=== PATIENT | male | born 1965 | race Caucasian/White ===

== ENCOUNTER 2020-05-08 06:37 | Outpatient (REF) | payer BC, SELFPAY ==
[2020-05-08 07:47] LABS: Cholesterol 140 mg/dL; HDL Cholesterol 34 mg/dL; LDL Cholesterol Calculated 80 mg/dl; Triglycerides 132 mg/dL
[2020-05-11 12:17] LABS: Testosterone, Total 630 ng/dL (250-1100)
== END 2020-05-08 06:38 | disposition home or self-care (01) ==
LOC: HO.LAB 06:37
PROVIDERS: Absent Provider Nurse Practitioner Family; PCP Nurse Practitioner Family; Visit Provider Urology
DX: Z12.5 Encounter for screening for malignant neoplasm of prostate (principal); N52.1 Erectile dysfunction due to diseases classified elsewhere; E29.1 Testicular hypofunction; Z80.42 Family history of malignant neoplasm of prostate
CPT/HCPCS: 36415; 80061; 84153; 84403

== ENCOUNTER → 2020-05-24 14:29 | Outpatient (BNVA) | payer BC, SELFPAY | PROVIDERS: PCP Nurse Practitioner Family; Visit Provider Urology ==

== ENCOUNTER → 2020-10-02 13:18 | Outpatient (BNVA) | payer BC, SELFPAY | PROVIDERS: PCP Nurse Practitioner Family; Referring Provider Nurse Practitioner Family; Visit Provider Internal Medicine Cardiovascular Disease ==

== ENCOUNTER → 2020-10-10 07:31 | Outpatient (REF) | payer BC, SELFPAY ==
--- NOTE | 2020-10-10 07:41 | CA_ITS ---
Transthoracic Echocardiogram Patient (Last, First, Middle): Misha Brasher, Gender: Male Date of : 1965 Age: 55 Procedure Date: 10/10/2020 Procedure Type: Transthoracic Echocardiogram Location: OP Height: 190.5 cm Weight: 121.56 kg BSA: 2.49 m2 Heart Rate: bpm BP: 122 / 80 mmHg Pricing Strategist: Referring MD: Emanuel Barfield MD Symptoms: R00.2 - Palpitations Study Quality: Good ECG Rhythm: Sinus Conclusions: - The left ventricular systolic function is normal. The visually estimated ejection fraction is between 60-65%. - No obvious valvular pathology seen on this study. Findings Left Ventricle Normal left ventricular cavity size. There is mildly increased left ventricular wall thickness. The left ventricular systolic function is normal. The visually estimated ejection fraction is between 60-65%. There is no evidence of regional wall motion abnormalities. Diastolic function is normal for age. Right Ventricle Normal right ventricular cavity size. There is low normal right ventricular systolic function. TAPSE 1.88cm. Atria Both atria are normal in size. Aortic Valve There is a normal trileaflet aortic valve. There is no aortic valve stenosis. There is no aortic valve regurgitation. Mitral Valve The mitral valve appears normal. There is no mitral valve regurgitation. There is no mitral valve stenosis. Pulmonic Valve The pulmonic valve was not well visualized. Tricuspid Valve Normal tricuspid valve structure. There is trace tricuspid valve regurgitation. The pulmonary artery systolic pressure is normal. Great Vessels The aortic annulus, sinuses of valsalva, and asc aorta are normal in size. Venous The inferior vena cava is normal in size and collapses greater than 50% with inspiration. Pericardium/Pleural There is no evidence of pericardial effusion. Prior Study Comparison No prior study available for comparison. Recommendations, Care & Conclusions No obvious valvular pathology seen on this study. Measurements 2D Linear Measurements RVIDd: 3.34 RVIDd Index: 1.34 IVSd: 0.96 0.6-0.9/0.6-1.0 cm LVIDd: 5.76 3.9-5.3/4.2-5.9 cm LVIDd Index: 2.31 2.4-3.2/2.2-3.1 cm/m2 LVIDs: 3.36 2.0-3.6 cm LVPWd: 1.19 0.7-1.1 cm Ao Root: 3.10 2.1-3.5 cm LA Diam: 4.10 2.7-3.8/3.0-4.0 cm LAIDs Index: 1.65 1.5-2.3 cm/m2 LV Mass: 316.35 67-162/88-224 g LV Mass Index: 127.05 43-95/49-115 g/m2 LVOT Diam: 2.50 3.0+(-)1.3 cm 2D Systolic Function EF 4C: 61.70 >55% EF 2C: 50.80 >55% EF BiP: 57.20 >55% Mitral Valve MV Pk E: 0.64 MV PK A: 0.58 MV Decel Time: 224.00 E/A: 1.10 E'Lateral: 8.81 E'Medial: 7.72 E/E' Med: 8.30 E/E' Lat: 7.20 Aortic Valve AoV Pk Cain: 1.29 AoV Mn Cain: 1.02 AoV VTI: 0.26 AoV Pk Grad: 7.00 Aov Mn Grad: 4.00 NISREEN Cont.VTI: 4.93 LVOT LVOT Pk Cain: 1.17 LVOT Mn Cain: 0.86 LVOT VTI: 0.26 LVOT Pk Grad: 5.00 LVOT Mn Grad: 3.00 LVOT Diam: 2.50 LVOT Area: 4.91 Diastolic Function MV Pk E: 0.64 MV Pk A: 0.58 E/A: 1.10 E'Medial: 7.72 E/E' Med: 8.30 E' Laterial: 8.81 E/E' Lat: 7.20 Right Ventricle TAPSE (mm): 19.00 TVS' Cain: 6.50 Tricuspid Valve TR Pk Cain: 1.91 TR Pk Grad: 15.00 Great Vessels Aorta Ao Root-2D: 3.10 2.0-3.7 cm Ao Asc: 3.30 2.1-3.4 cm Ao Arch: 3.10 Updated in Other Vendor System with Status of Final Amando Grey MD electronically signed on 10/10/2020 4:12:02 PM with status of Final
--- NOTE | 2020-10-10 07:41 | HM_ITS ---
Total monitoring time 14 days. Underlying rhythm is sinus. Minimum heart rate 52/Min. Maximum 136/Min. Average 75/Min. About 4.7% of the time rate more than 100/Min. No atrial fibrillation or flutter. No AV blocks or pauses. Rare premature ventricular contractions at a burden of less than 0.01%. Rare supraventricular ectopy with a burden of 0.01%. No patient events. MTDD
== END ==
LOC: HO.CARD 07:31
PROVIDERS: Visit Provider Internal Medicine Cardiovascular Disease
DX: R00.2 Palpitations (principal)
CPT/HCPCS: 93246; 93306

== ENCOUNTER 2020-10-22 07:18 | Outpatient (REF) | payer BC, SELFPAY ==
[2020-10-22 09:01] LABS: MANUAL DIFF FLAG NO
[2020-10-22 09:08] LABS: Basophils Percent Auto 0.7 % (0-2); Eosinophils Absolute Auto 0.2 X10*3/uL (0.0-0.4); Eosinophils Percent Auto 5.4 % (0-4); Hematocrit 52.6 % (42-52); Hemoglobin 17.5 g/dl (14.0-18.0); Imm Gran Abs Auto 0.01 X10*3/uL (0.00-0.03); Imm Gran Pct Auto 0.2 % (0.0-0.4); Lymphocytes Absolute Auto 0.8 X10*3/uL (1.2-4.9); Lymphocytes Percent Auto 18.6 % (20-40); Mean Corpuscular HGB Conc 33.3 g/dl (31.0-36.0); Mean Corpuscular Hemoglobin 30.9 pg (27.0-33.0); Mean Corpuscular Volume 92.9 fL (80-98); Mean Platelet Volume 9.8 fL (9.4-12.4); Monocytes Absolute Auto 0.6 X10*3/uL (0.1-1.2); Neutrophils Absolute Auto 2.6 X10*3/uL (2.0-8.3); Neutrophils Percent Auto 61.1 % (45-73); Platelet Count 168 X10*3/uL (160-400); Red Blood Count 5.66 X10*6/uL (4.60-5.80); Red Cell Distribution Width 12.2 % (11.0-16.0); White Blood Count 4.3 X10*3/uL (4.8-10.8)
[2020-10-22 09:24] LABS: Alanine Aminotransferase 38 U/L (0-40); Albumin Level 4.2 g/dL (3.5-5.0); Alkaline Phosphatase 66 U/L (39-117); Anion Gap 14 (12-20); Aspartate Amino Transferase 24 U/L (5-37); Bilirubin Total 0.6 mg/dL (0.0-1.0); Blood Urea Nitrogen 21 mg/dL (9-16); Carbon Dioxide 27 mmol/L (22-29); Chloride 106 mmol/L (96-108); Cholesterol 154 mg/dL; Estimated Glomerular Filt Rate 57; Glucose Fasting 94 mg/dL (60-99); HDL Cholesterol 37 mg/dL; LDL Cholesterol Calculated 85 mg/dl; Potassium 4.5 mmol/L (3.3-5.1); Sodium 142 mmol/L (135-145); Total Protein 6.6 g/dL (6.5-8.0); Triglycerides 164 mg/dL
[2020-10-22 09:45] LABS: TSH reflex Free T4 3.31 uIU/mL (0.32-4.0)
== END 2020-10-22 07:19 | disposition home or self-care (01) ==
LOC: HO.LAB 07:18
PROVIDERS: Absent Provider Nurse Practitioner Family; PCP Nurse Practitioner Family; Visit Provider Urology
DX: Z00.00 Encounter for general adult medical examination without abnormal findings (principal)
CPT/HCPCS: 36415; 80053; 80061; 84443; 85025

== ENCOUNTER 2020-10-24 11:23 | Outpatient (REF) | payer BC, SELFPAY ==
--- NOTE | ~2020-10-24 | XR_ITS ---
EXAMINATION: XR LUMBOSACRAL SPINE CLINICAL INFORMATION: S39.012A - Strain of muscle, fascia and tendon of lower back COMPARISON: None TECHNIQUE: Three views of the lumbosacral spine. FINDINGS: There is transitional vertebrae at L5 with left hemisacralization. Probable spina bifida occulta at S1. The vertebral bodies are normal in height. There is no lumbar vertebral compression, spondylolisthesis, or destructive process. There is borderline disc narrowing at L4-L5. No erosive change. The SI joints and visualized sacrum are unremarkable. XR/XR lumbar spine 2-3V IMPRESSION: 1. Transitional vertebrae L5 with left hemisacralization and probable spina bifida occulta S1. 2. Borderline disc narrowing L4-L5.
== END 2020-10-24 11:24 | disposition home or self-care (01) ==
LOC: HO.HMGCX 11:23
PROVIDERS: PCP Nurse Practitioner Family; Visit Provider Physician Assistant
DX: S39.012A Strain of muscle, fascia and tendon of lower back, initial encounter (principal)
CPT/HCPCS: 72100

== ENCOUNTER → 2020-11-01 09:28 | Outpatient (BNVA) | payer BC, SELFPAY | PROVIDERS: PCP Nurse Practitioner Family; Visit Provider Internal Medicine Cardiovascular Disease ==

== ENCOUNTER → 2020-11-29 15:30 | Outpatient (BNVA) | payer BC, SELFPAY | PROVIDERS: PCP Nurse Practitioner Family; Visit Provider Urology ==

== ENCOUNTER 2020-12-24 11:12 | Outpatient (REF) | payer BC, SELFPAY ==
--- NOTE | ~2020-12-24 | XR_ITS ---
EXAMINATION: CR X-RAY KNEES BILATERAL CLINICAL INFORMATION: Bilateral knee pain. COMPARISON: None TECHNIQUE: 3 views each of the bilateral knees were obtained. FINDINGS: Mild to moderate medial femoral-tibial and patellofemoral degenerative joint changes are seen, more pronounced on the right. Post surgical changes are seen in the left knee without significant abnormality. There are no joint effusions. The soft tissues are unremarkable. XR/XR knee LT 3V IMPRESSION: [id number]-[id number] degenerative joint changes, right greater than left, most consistent with osteoarthritis.
--- NOTE | ~2020-12-24 | XR_ITS ---
EXAMINATION: CR X-RAY KNEES BILATERAL CLINICAL INFORMATION: Bilateral knee pain. COMPARISON: None TECHNIQUE: 3 views each of the bilateral knees were obtained. FINDINGS: Mild to moderate medial femoral-tibial and patellofemoral degenerative joint changes are seen, more pronounced on the right. Post surgical changes are seen in the left knee without significant abnormality. There are no joint effusions. The soft tissues are unremarkable. XR/XR knee RT 3V IMPRESSION: Ncer-[id number]-[id number] degenerative joint changes, right greater than left, most consistent with osteoarthritis.
== END 2020-12-24 11:13 | disposition home or self-care (01) ==
LOC: HO.HMGCX 11:12
PROVIDERS: PCP Nurse Practitioner Family; Visit Provider Nurse Practitioner Family
DX: M25.561 Pain in right knee (principal); M25.562 Pain in left knee
CPT/HCPCS: 73562

== ENCOUNTER 2021-03-29 06:45 | Outpatient (REF) | payer BC, SELFPAY ==
[2021-03-29 07:47] LABS: Hematocrit 54.7 % (42.0-52.0); Hemoglobin 17.8 g/dl (14.0-18.0); Mean Corpuscular HGB Conc 32.5 g/dl (31.0-36.0); Mean Corpuscular Hemoglobin 30.4 pg (27.0-33.0); Mean Corpuscular Volume 93.3 fL (80.0-98.0); Mean Platelet Volume 9.4 fL (9.4-12.4); Platelet Count 171 X10*3/uL (160-400); Red Blood Count 5.86 X10*6/uL (4.60-5.80); Red Cell Distribution Width 12.5 % (11.0-16.0); White Blood Count 5.3 X10*3/uL (4.8-10.8)
[2021-04-03 17:27] LABS: Testosterone, Total 737 ng/dL (250-1100)
== END 2021-03-29 06:46 | disposition home or self-care (01) ==
LOC: HO.LAB 06:45
PROVIDERS: Absent Provider Urology; PCP Nurse Practitioner Family; Visit Provider Nurse Practitioner Family
DX: E29.1 Testicular hypofunction (principal); N40.1 Benign prostatic hyperplasia with lower urinary tract symptoms; N13.8 Other obstructive and reflux uropathy; Z12.5 Encounter for screening for malignant neoplasm of prostate
CPT/HCPCS: 36415; 84153; 84403; 85027

== ENCOUNTER → 2021-05-31 11:56 | Outpatient (BNVA) | payer BC, SELFPAY | PROVIDERS: PCP Nurse Practitioner Family; Visit Provider Urology | DX: E29.1 Testicular hypofunction (principal); N52.9 Male erectile dysfunction, unspecified; R97.20 Elevated prostate specific antigen [PSA] | CPT/HCPCS: 99212 ==

== ENCOUNTER 2021-07-16 07:09 | Outpatient (REF) | payer BC, SELFPAY ==
[2021-07-16 08:36] LABS: Hematocrit 53.9 % (42.0-52.0); Hemoglobin 17.8 g/dl (14.0-18.0); Mean Corpuscular Hemoglobin 30.6 pg (27.0-33.0); Mean Corpuscular Volume 92.6 fL (80.0-98.0); Mean Platelet Volume 10.1 fL (9.4-12.4); Platelet Count 163 X10*3/uL (160-400); Red Blood Count 5.82 X10*6/uL (4.60-5.80); Red Cell Distribution Width 12.4 % (11.0-16.0); White Blood Count 5.2 X10*3/uL (4.8-10.8)
[2021-07-16 08:45] LABS: Appearance Urine CLEAR; Color Urine YELLOW; Glucose Urine UA NEG (NEG); Leukocyte Esterase Urine NEG (NEG); Nitrite Urine NEG (NEG); Specific Gravity - Urine 1.025 (1.005-1.025); Urine Blood NEG (NEG); Urine Ketones NEG (NEG); Urine Protein NEG (NEG-TRACE)
[2021-07-16 09:11] LABS: Alanine Aminotransferase 52 U/L (0-40); Albumin Level 4.1 g/dL (3.5-5.0); Alkaline Phosphatase 63 U/L (39-117); Anion Gap 13 (12-20); Aspartate Amino Transferase 28 U/L (5-37); Bilirubin Total 0.5 mg/dL (0.0-1.0); Blood Urea Nitrogen 19 mg/dL (9-16); Calcium 9.3 mg/dL (8.4-10.2); Carbon Dioxide 26 mmol/L (22-29); Chloride 107 mmol/L (96-108); Cholesterol 160 mg/dL; Estimated Glomerular Filt Rate > 60; Glucose Fasting 98 mg/dL (60-99); HDL Cholesterol 33 mg/dL; LDL Cholesterol Calculated 95 mg/dl; Potassium 4.9 mmol/L (3.3-5.1); Sodium 141 mmol/L (135-145); Total Protein 6.6 g/dL (6.5-8.0); Triglycerides 162 mg/dL
[2021-07-16 09:19] LABS: TSH reflex Free T4 1.92 uIU/mL (0.32-4.0)
[2021-07-16 09:21] LABS: Prostate Specific Antigen 4.22 ng/mL (<0.05-4.0)
[2021-07-22 10:22] LABS: Testosterone, Total 641 ng/dL (250-1100)
== END 2021-07-16 07:10 | disposition home or self-care (01) ==
LOC: HO.LAB 07:09
PROVIDERS: Absent Provider Nurse Practitioner Family; PCP Nurse Practitioner Family; Visit Provider Urology
DX: Z12.5 Encounter for screening for malignant neoplasm of prostate (principal); E29.1 Testicular hypofunction; I10 Essential (primary) hypertension
CPT/HCPCS: 36415; 80053; 80061; 81003; 84153; 84403; 84443; 85027

== ENCOUNTER → 2021-07-26 08:33 | Outpatient (BNVA) | payer BC, SELFPAY | PROVIDERS: PCP Nurse Practitioner Family; Visit Provider Urology | DX: N52.9 Male erectile dysfunction, unspecified (principal) ==

== ENCOUNTER → 2021-08-02 09:16 | Outpatient (BNVA) | payer BC, SELFPAY | PROVIDERS: PCP Nurse Practitioner Family; Visit Provider Nurse Practitioner Family | DX: Z12.11 Encounter for screening for malignant neoplasm of colon (principal) ==

== ENCOUNTER 2022-01-17 07:35 | Outpatient (REF) | payer BC, SELFPAY ==
[2022-01-17 07:54] LABS: MANUAL DIFF FLAG NO
[2022-01-17 08:24] LABS: Basophils Percent Auto 0.5 % (0-2); Eosinophils Absolute Auto 0.2 X10*3/uL (0.0-0.4); Eosinophils Percent Auto 3.7 % (0-4); Hematocrit 53.7 % (42.0-52.0); Hemoglobin 18.1 g/dl (14.0-18.0); Imm Gran Abs Auto 0.02 X10*3/uL (0.00-0.03); Imm Gran Pct Auto 0.4 % (0.0-0.4); Lymphocytes Absolute Auto 0.7 X10*3/uL (1.2-4.9); Lymphocytes Percent Auto 12.4 % (20-40); Mean Corpuscular HGB Conc 33.7 g/dl (31.0-36.0); Mean Corpuscular Hemoglobin 31.4 pg (27.0-33.0); Mean Corpuscular Volume 93.2 fL (80.0-98.0); Mean Platelet Volume 9.5 fL (9.4-12.4); Monocytes Absolute Auto 0.6 X10*3/uL (0.1-1.2); Monocytes Percent Auto 11.2 % (2-11); Neutrophils Absolute Auto 3.9 x10*3/uL (2.0-8.3); Neutrophils Percent Auto 71.8 % (45-73); Platelet Count 167 X10*3/uL (160-400); Red Blood Count 5.76 X10*6/uL (4.60-5.80); Red Cell Distribution Width 12.5 % (11.0-16.0); White Blood Count 5.5 X10*3/uL (4.8-10.8)
[2022-01-17 08:57] LABS: Alanine Aminotransferase 46 U/L (0-40); Albumin Level 4.3 g/dL (3.5-5.0); Alkaline Phosphatase 74 U/L (39-117); Anion Gap 15 (12-20); Aspartate Amino Transferase 31 U/L (5-37); Bilirubin Total 1.2 mg/dL (0.0-1.0); Blood Urea Nitrogen 16 mg/dL (9-16); Calcium 9.1 mg/dL (8.4-10.2); Carbon Dioxide 26 mmol/L (22-29); Chloride 103 mmol/L (96-108); Cholesterol 155 mg/dL; Estimated Glomerular Filt Rate > 60; Glucose Fasting 96 mg/dL (60-99); HDL Cholesterol 34 mg/dL; LDL Cholesterol Calculated 90 mg/dl; Sodium 139 mmol/L (135-145); Total Protein 6.8 g/dL (6.5-8.0); Triglycerides 159 mg/dL
[2022-01-17 09:18] LABS: TSH reflex Free T4 1.15 uIU/mL (0.32-4.0)
[2022-01-17 10:32] LABS: Appearance Urine Clear; Color Urine Yellow; Glucose Urine UA Negative (Negative); Leukocyte Esterase Urine Negative (Negative); Nitrite Urine Negative (Negative); Specific Gravity - Urine 1.015 (1.005-1.025); Urine Blood Negative (Negative); Urine Ketones Negative (Negative); Urine Protein Negative (Neg-Trace)
[2022-01-20 09:56] LABS: Free Prostate Spec Ag 1.1 ng/mL; Percent Free Prostate Spec Ag 21 % (calc) (>25); Prostate Specific Ag Total 5.2 ng/mL (< OR = 4.0)
[2022-01-22 14:36] LABS: Testosterone, Total 726 ng/dL (250-1100)
== END 2022-01-17 07:36 | disposition home or self-care (01) ==
LOC: HO.LAB 07:35
PROVIDERS: Absent Provider Urology; PCP Nurse Practitioner Family; Visit Provider Nurse Practitioner Family
DX: Z00.00 Encounter for general adult medical examination without abnormal findings (principal); N40.1 Benign prostatic hyperplasia with lower urinary tract symptoms; N13.8 Other obstructive and reflux uropathy; E29.1 Testicular hypofunction; Z12.5 Encounter for screening for malignant neoplasm of prostate
CPT/HCPCS: 36415; 80053; 80061; 81003; 84153; 84154; 84403; 84443; 85025

== ENCOUNTER 2022-02-17 07:02 | Outpatient (REF) | payer BC, SELFPAY ==
[2022-02-17 08:39] LABS: HBS Num1 24.45 mIU/mL (0-7.99); HBsAGNum1 0.29 S/CO (0.00-0.99); Hepatitis A Antibody IgM 0.15 Index (0-0.79); Hepatitis B Core Antibody Nonreactive (Nonreactive); Hepatitis B Surface Antigen Negative (Negative); ~HepC Num1 0.08 S/CO (0.00-0.79); ~Hepatitis A Antibody IgM Nonreactive (Nonreactive); ~Hepatitis B Surface Antibody REACTIVE (Nonreactive); ~Hepatitis C Antibody Nonreactive (Nonreactive)
[2022-02-17 08:40] LABS: TSH reflex Free T4 2.93 uIU/mL (0.32-4.0)
== END 2022-02-17 07:03 | disposition home or self-care (01) ==
LOC: HO.LAB 07:02
PROVIDERS: PCP Nurse Practitioner Family; Visit Provider Nurse Practitioner Family
DX: Z00.00 Encounter for general adult medical examination without abnormal findings (principal); R74.8 Abnormal levels of other serum enzymes; D58.2 Other hemoglobinopathies; E29.1 Testicular hypofunction
CPT/HCPCS: 36415; 84443; 86704; 86706; 86709; 86803; 87340

== ENCOUNTER 2022-07-24 06:36 | Outpatient (REF) | payer BC, SELFPAY ==
[2022-07-24 06:50] LABS: MANUAL DIFF FLAG NO
[2022-07-24 07:24] LABS: Basophils Percent Auto 0.9 % (0-2); Eosinophils Absolute Auto 0.3 X10*3/uL (0.0-0.4); Eosinophils Percent Auto 5.4 % (0-4); Hemoglobin 18.6 g/dl (14.0-18.0); Imm Gran Abs Auto 0.02 X10*3/uL (0.00-0.03); Imm Gran Pct Auto 0.4 % (0.0-0.4); Lymphocytes Absolute Auto 0.7 X10*3/uL (1.2-4.9); Lymphocytes Percent Auto 14.2 % (20-40); Mean Corpuscular HGB Conc 33.2 g/dl (31.0-36.0); Mean Corpuscular Hemoglobin 30.3 pg (27.0-33.0); Mean Corpuscular Volume 91.5 fL (80.0-98.0); Mean Platelet Volume 9.6 fL (9.4-12.4); Monocytes Absolute Auto 0.7 X10*3/uL (0.1-1.2); Monocytes Percent Auto 14.2 % (2-11); Neutrophils Percent Auto 64.9 % (45-73); Platelet Count 176 X10*3/uL (160-400); Red Blood Count 6.13 X10*6/uL (4.60-5.80); Red Cell Distribution Width 12.8 % (11.0-16.0); White Blood Count 4.7 X10*3/uL (4.8-10.8)
[2022-07-24 07:25] LABS: Hematocrit 56.1 % (42.0-52.0)
[2022-07-24 08:15] LABS: TSH reflex Free T4 2.31 uIU/mL (0.32-4.0)
[2022-07-24 08:18] LABS: Prostate Specific Antigen 6.84 ng/mL (<0.05-4.0)
[2022-07-31 09:43] LABS: Testosterone, Total 1101 ng/dL (250-1100)
== END 2022-07-24 06:37 | disposition home or self-care (01) ==
LOC: HO.LAB 06:36
PROVIDERS: Absent Provider Urology; PCP Nurse Practitioner Family; Visit Provider Nurse Practitioner Family
DX: E29.1 Testicular hypofunction (principal); D58.2 Other hemoglobinopathies; E03.9 Hypothyroidism, unspecified; Z12.5 Encounter for screening for malignant neoplasm of prostate
CPT/HCPCS: 36415; 84153; 84403; 84443; 85025; 85027

== ENCOUNTER → 2022-08-07 08:33 | Outpatient (BNVA) | payer BC, SELFPAY | PROVIDERS: PCP Nurse Practitioner Family; Visit Provider Urology ==

== ENCOUNTER 2022-08-18 14:09 | Outpatient (REF) | payer BC, SELFPAY | END 2022-08-18 14:10 | disposition home or self-care (01) | LOC: HO.BBR 14:09 | PROVIDERS: PCP Nurse Practitioner Family; Visit Provider Urology | DX: D58.2 Other hemoglobinopathies (principal) | CPT/HCPCS: 85014; 85018; 99195 ==

== ENCOUNTER 2022-09-22 14:01 | Outpatient (REF) | payer BC, SELFPAY | END 2022-09-22 14:02 | disposition home or self-care (01) | LOC: HO.BBR 14:01 | PROVIDERS: PCP Nurse Practitioner Family; Visit Provider Urology | DX: Z13.89 Encounter for screening for other disorder (principal) ==

== ENCOUNTER 2022-10-23 07:59 | Outpatient (REF) | payer BC, SELFPAY | END 2022-10-23 08:00 | disposition home or self-care (01) | LOC: HO.BBR 07:59 | PROVIDERS: PCP Nurse Practitioner Family; Visit Provider Urology | DX: Z13.89 Encounter for screening for other disorder (principal) | CPT/HCPCS: 36415; 84153; 84403; 85027 ==

== ENCOUNTER 2022-10-23 09:09 | Outpatient (REF) | payer BC, SELFPAY ==
[2022-10-23 08:49] LABS: Hematocrit 53.2 % (42.0-52.0); Hemoglobin 17.7 g/dl (14.0-18.0); Mean Corpuscular HGB Conc 33.3 g/dl (31.0-36.0); Mean Corpuscular Volume 90.2 fL (80.0-98.0); Mean Platelet Volume 9.1 fL (9.4-12.4); Platelet Count 167 X10*3/uL (160-400); Red Cell Distribution Width 12.3 % (11.0-16.0); White Blood Count 5.3 X10*3/uL (4.8-10.8)
[2022-10-23 11:07] LABS: Prostate Specific Antigen 5.59 ng/mL (<0.05-4.0)
[2022-10-27 23:54] LABS: Testosterone, Total 669 ng/dL (250-1100)
== END 2022-10-23 09:10 | disposition home or self-care (01) ==
LOC: HO.LAB 09:09
PROVIDERS: Visit Provider Urology
DX: Z12.5 Encounter for screening for malignant neoplasm of prostate (principal); E29.1 Testicular hypofunction
CPT/HCPCS: 36415; 84153; 84403; 85027

== ENCOUNTER 2022-11-18 09:57 | Outpatient (AMB) | payer BC, SELFPAY ==
--- NOTE | 2022-11-18 10:06 | A.OFFVIS_ITS ---
Intake Intake Visit Reasons: 3m/PSA/TESTO/CBC(SET) Intake Note: Patient is present for Follow Up LABS Urology Med: Tadalafil, Testosterone Antibiotic Allergy: Amoxicillin, Penicillin Blood Thinner: None Pharmacy: [facility] Allergies amoxicillin [AMOXICILLIN] Allergy (Unknown, Verified 08/07/22 08:39) rash penicillin V Allergy (Unknown, Verified 08/07/22 08:39) as a child ENVIRONMENTAL Allergy (Unknown, Uncoded 08/07/22 08:39) UNKNOWN OxyContin Allergy (Unknown, Uncoded 08/07/22 08:39) stomach upset Medication List - Last Reconciled 11/18/22 by Dc Carvalho MD apple cider vinegar mg PO atorvastatin 20 mg PO DAILY blood pressure monitor (Blood Pressure Kit) check Blood pressure once every day dshwuqyl-vfd-hysxo-hyaluron ac 458-56-405-1 mg (glucosamine-chondroitin) tabs PO levothyroxine 25 mcg PO DAILY naproxen sodium (Aleve) 220 mg PO BID PRN omeprazole 20 mg PO DAILY syringe with needle, safety (BD Safety-Shane Detachable Needle syringe) As directed- 2 per month tadalafil (Cialis) 5 mg PO DAILY PRN 90 days tadalafil 20 mg PO ONCE PRN 30 days testosterone cypionate 120 mg (0.6 mL) IM Q2W 4 weeks vitamin A 2,400 mcg PO DAILY HPI HPI Comments History of Present Illness Details Misha is a very pleasant male. He is a patient of Dr. Mendez. He is seen for the following urologic conditions - erectile dysfunction - hypogonadism in male Labs within target Continued response to the tadalafil Prescriptions refilled Hypogonadism Long-term testosterone use Discussed current laboratories borderline hematocrit Current dosage - 0.8 cc every 2 weeks IM Laboratories 05/27 PSA 3.6, testosterone 630, Hct 52.6 - 10/27 Hct 52 - 03/30 T 737 P 5.8 Hct 54, 07/28 T 641 P 4.2 H 53.9, 01/28 T 720 P 4.6 21% H 53.7, 07/29 T 1100 P 6.8 H 56, 10/29 T 670 H 52 P 5.4 Family background question of prostate cancer - prior biopsy Follow every six months testosterone PSA and hematocrit Erectile dysfunction Good response to daily low-dose Cialis Trial of on demand Cialis completed Morning erections have recurred Previously has had high hematocrit and discussed therapeutic phlebotomy [facility] Medical History Osteoarthritis of knees, bilateral GERD (gastroesophageal reflux disease) Erectile dysfunction Hypogonadism in male Surgical History Hx of knee surgery Hx of nephrostomy Hx of elbow surgery Family History Mother Substance use disorder CAD (coronary artery disease) Social History Housing: House Alcohol intake: current Alcohol intake frequency: 0-2 drinks per day Patient Tobacco Use Status: Current someday Tobacco user Tobacco use type: Cigar e-Cigarette/Vaping Use: Never Used Current occupational status: employed Cognitive needs: No Hearing needs: No Vision needs: No Review of Systems Const Denies chills and Denies fever(s) Card Reports no additional complaints and Denies syncope Resp Denies cough GI Denies abdominal pain and Denies heartburn Reports as per HPI and Denies change in libido Neuro Denies syncope Psych Denies change in libido Endo Denies change in libido Physical Exam Const General: cooperative, healthy appearing, comfortable and no acute distress Orientation/consciousness: patient oriented x3 HEENT Face and sinus: Yes normal facial exam Mouth: moist mucous membranes Neck Neck: Yes normal visual inspection, Yes full ROM and Yes trachea midline Chest Chest palpation & inspection: normal inspection of the chest Resp Effort & Inspection: normal respiratory effort, able to speak in complete sentences and no respiratory distress GI Inspection: Yes normal to inspection Back/Spine/Pelvis Cervical Spine: normal cervical lordosis Thoracic/Lumbar Spine: thoracic and lumbar spine normal to inspection Skin General skin exam: no rashes or lesions noted Neuro General: patient oriented x3, gait normal, tone normal and moves all extremities Extrem General: Yes normal to inspection and Yes capillary refill normal Assessment & Plan Assessment & Plan (1) Hypogonadism in male: Code(s): E29.1 - Testicular hypofunction (2) Erectile dysfunction: Code(s): N52.9 - Male erectile dysfunction, unspecified Plan Continue current therapy Orders: Orders Testosterone, Total 6 Months E29.1 - Testicular hypofunction PSA,Total (Free>4and<10) 6 Months E29.1 - Testicular hypofunction Complete Blood Count no Diff 6 Months E29.1 - Testicular hypofunction Medications: Refilled testosterone cypionate 0.6 cc IM every 2 weeks 120 mg (0.6 mL) IM Q2W 4 weeks 2 mL 5RF E29.1 - Testicular hypofunction tadalafil Take 60 minutes prior to intended activity 20 mg PO ONCE 30 days PRN 30 tabs 0RF sexual activity N52.9 - Male erectile dysfunction, unspecified tadalafil (Cialis) 5 mg PO DAILY 90 days PRN 90 tabs 1RF sexual activity N52.9 - Male erectile dysfunction, unspecified Patient Instructions: Imaging studies, laboratory and physical exam results were discussed and reviewed in detail. No major barriers to patient understanding were identified. An opportunity to ask questions regarding the treatment plan was provided. All questions were answered. The patient expressed understanding and agreement with the above treatment plan. The patient is aware they should contact our office by phone for worsening of their current condition or the appearance of new urologic symptoms. Compliance is encouraged with any medications and followup testing that is ordered. It is a privilege to participate in the urologic care of your patient. If you have any questions or concerns regarding treatment for the above conditions, or other urologic issues, please do not hesitate to contact me. The office telephone contact is [phone]. This note is constructed using voice recognition software. While every effort has been made to ensure accuracy cardiology coordinator errors may have been included. Yours sincerely, Dr Dc Carvalho MD, [facility] - Urology Providers of Expert, Compassionate Care for the Genitourinary System Coding Level of Care Code Est Pt Level 3 (57322) Diagnoses Hypogonadism in male E29.1 Erectile dysfunction N52.9
== END 2022-11-18 10:16 | disposition home or self-care (01) ==
PROVIDERS: PCP Nurse Practitioner Family; Visit Provider Urology
DX: E29.1 Testicular hypofunction (principal); N52.9 Male erectile dysfunction, unspecified
CPT/HCPCS: 99213

== ENCOUNTER → 2022-11-18 09:57 | Outpatient (BNVA) | payer BC, SELFPAY | PROVIDERS: PCP Nurse Practitioner Family; Visit Provider Urology ==

== ENCOUNTER 2022-11-20 10:16 | Outpatient (REF) | payer BC, SELFPAY | END 2022-11-20 10:17 | disposition home or self-care (01) | LOC: HO.BBR 10:16 | PROVIDERS: PCP Nurse Practitioner Family; Visit Provider Urology | DX: D58.2 Other hemoglobinopathies (principal) | CPT/HCPCS: 85014; 85018; 99195 ==

== ENCOUNTER 2022-12-23 09:03 | Outpatient (REF) | payer BC, SELFPAY | END 2022-12-23 09:04 | disposition home or self-care (01) | LOC: HO.BBR 09:03 | PROVIDERS: PCP Nurse Practitioner Family; Visit Provider Urology | DX: Z13.89 Encounter for screening for other disorder (principal) ==

== ENCOUNTER 2023-01-23 11:04 | Outpatient (REF) | payer BC, SELFPAY | END 2023-01-23 11:05 | disposition home or self-care (01) | LOC: HO.BBR 11:04 | PROVIDERS: PCP Nurse Practitioner Family; Visit Provider Urology | DX: R71.8 Other abnormality of red blood cells (principal) | CPT/HCPCS: 85014; 85018; 99195 ==

== ENCOUNTER 2023-02-04 07:24 | Outpatient (AMB) | payer BC, SELFPAY ==
--- NOTE | 2023-02-04 07:31 | MHC.PC.OV ---
Vital Signs 02/04/23 07:35 Height 6 ft 3 in Weight 258 lb 2 oz BMI 32.3 BP 130/84 Blood Pressure Location Rt brachial Position Sitting Pulse 78 Pulse Source Pulse Oximeter Pulse Oximetry (%) 94 Oxygen Delivery Method Room Air Intake Visit Reasons: Annual PE Intake Note: Patient here for physical exam, Pt would like to talk about his back issues. Allergies amoxicillin [AMOXICILLIN] Allergy (Unknown, Verified 02/04/23 07:36) rash penicillin V Allergy (Unknown, Verified 02/04/23 07:36) as a child ENVIRONMENTAL Allergy (Unknown, Uncoded 02/04/23 07:36) UNKNOWN OxyContin Allergy (Unknown, Uncoded 02/04/23 07:36) stomach upset Medication List - Last Reconciled 02/04/23 by Mekhi Leonard, MAINTENANCE GROUNDSKEEPER- apple cider vinegar mg PO blood pressure monitor (Blood Pressure Kit) check Blood pressure once every day mrxckzwt-efl-gvduv-hyaluron ac 196-77-339-1 mg (glucosamine-chondroitin) tabs PO levothyroxine 25 mcg PO DAILY naproxen sodium (Aleve) 440 mg PO ONCE PRN omeprazole 20 mg PO DAILY syringe with needle, safety (BD Safety-Shane Detachable Needle syringe) As directed- 2 per month tadalafil 20 mg PO ONCE PRN 30 days tadalafil (Cialis) 5 mg PO DAILY PRN 90 days testosterone cypionate 120 mg (0.6 mL) IM Q2W 4 weeks vitamin A 2,400 mcg PO DAILY Tobacco use date assessed: 02/04/23 Dental Screening Dental Screen Date: 02/04/23 Did you have a dental visit in the last 12 months?: No Did you have a dental problem in the last 6 months where you did not have access to dental care?: No Was dental information given to patient?: Patient has dentist HPI Annual PE HPI Details Pt is here for a PE. Will order labs. PSA is up to date, sees urology. Pt has been referred to [facility] for his colon screen but he has not heard anything, will check on this. Pt goes for therapeutic phlebotomy due to elevated hematocrit. Pt c/o lower back pain. He reports that the pain is worse with bending and is severe enough to bring him to his knees. Pt reports that these episodes last for 2 weeks. He reports intermittent pain radiating down his buttocks. Previous XR showed transitional vertebrae L5 with left hemisacralization and probable spina bifida occulta S1. Borderline disc narrowing L4-L5. Pt has tried PT with no relief. He is stretching at home but reports ongoing pain despite this. Will order MRI. Denies any signs of cauda equina. Pt has tried ibuprofen 800mg which helped, will send. [facility] Medical History Osteoarthritis of knees, bilateral GERD (gastroesophageal reflux disease) Erectile dysfunction Hypogonadism in male Surgical History Hx of knee surgery Hx of nephrostomy Hx of elbow surgery Family History Mother Substance use disorder CAD (coronary artery disease) Social History Housing: House Alcohol intake: current Alcohol intake frequency: 0-2 drinks per day Patient Tobacco Use Status: Current someday Tobacco user Tobacco use type: Cigar e-Cigarette/Vaping Use: Never Used Current occupational status: employed Cognitive needs: No Hearing needs: No Vision needs: No Questionnaire PHQ-9 Over the last 2 weeks, how often have you been bothered by any of the following problems? 71510 - PHQ-9 Billing: Patient declined-do not bill Source: Developed by Drs. Jose Carlos Maravilla, Rupinder Pena, Rafi Brown and colleagues, with an educational kwabena from [employer]. Thrive Questionnaire Date Thrive assessed: 02/04/23 What is your living situation today?: I choose not to answer this question Within the past 12 months, did the food you bought not last and you didn't have the money to get more?: I choose not to answer this question Within the past 12 months, did you worry whether your food would run out before you got money to buy more?: I choose not to answer this question Do you have trouble paying for medicines?: I choose not to answer this question Do you have trouble getting transportation to medical appointments?: I choose not to answer this question Do you have trouble paying your heating and electricity bill?: I choose not to answer this question Do you have trouble taking care of your child, family member or friend?: I choose not to answer this question Do you have trouble with day-to-day activities such as bathing, preparing meals, shopping, managing finances, etc.?: I choose not to answer this question Are you currently unemployed and looking for a job?: I choose not to answer this question Are you interested in more education?: I choose not to answer this question AUDIT C Alcohol Use Questionnaire (AUDIT-C) 1. How often do you have a drink containing alcohol?: 2-3 times a week 2. How many drinks containing alcohol do you have on a typical day when you are drinking?: 1 or 2 3. How often do you have six or more drinks on one occasion?: Never Total Score: 3 Score Reviewed/Action Taken: No CHICHI-7 AMB Questionnaire CHICHI-7 Date CHICHI - 7 assessed: 02/04/23 Source: Developed by Drs. Jose Carlos Maravilla, Rupinder Pena, Rafi Brown and colleagues, with an educational kwabena from [employer]. CHICHI-7 Assessment Billing CHICHI-7 Assessment Tool: pt declined-do not bill Review of Systems Const Denies chills and Denies fever(s) Eyes Denies blurry vision ENT Denies vertigo, Denies dizziness and Denies sore throat Card Denies chest pain at rest, Denies chest pain with activity, Denies diaphoresis, Denies dyspnea and Denies dyspnea on exertion Resp Denies cough, Denies dyspnea, Denies dyspnea on exertion and Denies wheezing GI Denies abdominal pain, Denies melena, Denies hematochezia, Denies constipation, Denies diarrhea and Denies loose stools Denies hematuria Musc Reports back pain, Denies numbness and Denies tingling Skin/Breast Denies lesions Neuro Denies vertigo, Denies dizziness, Denies numbness and Denies tingling Psych Denies anxiety, Denies depression, Denies homicidal ideation, Denies suicidal ideation and Denies other (substance abuse) Aller/Immun Denies wheezing Physical exam (Primary Care) Vital Signs: Last Vital Signs Pulse 78 02/04/23 07:35 BP 130/84 02/04/23 07:35 Pulse Ox 94 02/04/23 07:35 Oxygen Delivery Method Room Air 02/04/23 07:35 BMI result Body Mass Index 32.3 Tobacco/Smoking Status: Tobacco use Status Tobacco use date assessed 02/04/23 02/04/23 07:40 Patient Tobacco Use Status Current someday Tobacco 02/04/23 07:32 Tobacco use type Cigar 02/04/23 07:32 e-Cigarette/Vaping Use Never Used 02/04/23 07:32 Const General: cooperative Nutritional Appearance: obese Orientation/consciousness: patient oriented x3 HENMT Head: Yes normal to inspection, Yes normocephalic and Yes atraumatic Ears: TM's normal bilaterally Eyes General: appearance normal, both eyes and all related structures Alignment and Position: alignment normal and position normal Neck Neck: Yes normal visual inspection and Yes no lymphadenopathy Thyroid: Thyroid normal Resp Effort & Inspection: normal respiratory effort Auscultation: clear to auscultation bilaterally Cardio Rate: regular rate Rhythm: regular rhythm Heart sounds: S1 normal heart sound present, S2 normal heart sound present and no murmurs GI Palpation (GI): Soft to palpation and nontender Auscultation: normal bowel sounds Male General Exam: Yes normal external exam Penis: normal penis Scrotum: scrotum normal, testes descended bilaterally and no inguinal hernias Testes: no testicular mass Skin Other: extensive scar tissue to abdomen Rashes: no rashes Neuro General: patient oriented x3, moves all extremities, no focal motor deficits and deep tendon reflexes 2+ bilaterally Romberg Test: Negative Psych Appearance: grossly normal Mental Status: mental status grossly normal Speech and movement: Normal speech and movement present Affect: normal affect Attitude: cooperative Thought process: Normal thought process present Thought content: Normal thought content present Insight: Good insight present (Psych) Judgement: Good judgement present (Psych) Assessment and Plan Assessment & Plan (1) Physical exam: Code(s): Z00.00 - Encounter for general adult medical examination without abnormal findings Plan: Labs ordered (2) Chronic lower back pain: Code(s): M54.50 - Low back pain, unspecified; G89.29 - Other chronic pain Plan: MRI ordered Plan The patient agreed to the use of a medical clinic manager for this encounter. Scribed for ASHLEIGH Lora by alex West scribe, on 02/04/2023 at 08:05 EST. Orders: Orders Complete Blood Count Auto Diff Today Z00.00 - Encounter for general adult medical examination without abnormal findings Comprehensive [place]. Panel Fast Today Z00.00 - Encounter for general adult medical examination without abnormal findings TSH reflex Free T4 Today Z00.00 - Encounter for general adult medical examination without abnormal findings UA CC w/rflx Micro + Cult Today Z00.00 - Encounter for general adult medical examination without abnormal findings Lipid Panel Today Z00.00 - Encounter for general adult medical examination without abnormal findings MR lumbar spine wo con Today G89.29 - Other chronic pain, M54.50 - Low back pain, unspecified Medications: New ibuprofen dont take concurrently with naproxen. 800 mg PO Q8H 30 days PRN 90 tabs 0RF pain Coding Level of Care Code Est Pt Prev Care 40-64y(89741) Diagnoses Physical exam Z00.00 Chronic lower back pain M54.50; G89.29
[2023-02-04 07:35] VITALS: BP 130/84; PULSE 78; O2SAT 94; BMI 32.3
== END 2023-02-04 09:04 | disposition home or self-care (01) ==
PROVIDERS: PCP Nurse Practitioner Family; Visit Provider Nurse Practitioner Family
DX: Z00.00 Encounter for general adult medical examination without abnormal findings (principal); M54.50 Low back pain, unspecified; G89.29 Other chronic pain
CPT/HCPCS: 99396

== ENCOUNTER 2023-02-23 07:58 | Outpatient (REF) | payer BC, SELFPAY | END 2023-02-23 07:59 | disposition home or self-care (01) | LOC: HO.BBR 07:58 | PROVIDERS: PCP Nurse Practitioner Family; Visit Provider Urology | DX: R71.8 Other abnormality of red blood cells (principal) | CPT/HCPCS: 85014 ==

== ENCOUNTER 2023-03-13 10:23 | Outpatient (REF) | payer BC, SELFPAY ==
--- NOTE | ~2023-03-13 | MR_ITS ---
EXAMINATION: MR LUMBAR SPINE WITHOUT CONTRAST CLINICAL INFORMATION: Low back pain COMPARISON: Lumbar radiographs 10/24/2020 TECHNIQUE: MRI of the lumbar spine was obtained using routine sequences without the administration of intravenous contrast. 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 For the purposes of this examination, the L5-S1 intervertebral disc space is seen on axial series 9 image 28. There is incomplete fusion of the S1 posterior elements Mild straightening of the normal lumbar lordosis. No significant spondylolisthesis. Lumbar vertebral body heights are maintained. Heterogeneous marrow signal with STIR hyperintense lesions in L1, L2, L4, the left L2 posterior elements, likely the right posterior 12th rib, and scattered throughout the sacrum. These lesions have a striated appearance and may represent a lipid poor hemangioma is. There is marrow signal abnormality around the bilateral iliac wings/sacroiliac joints is incompletely characterized on this examination. The normal lumbar lordosis is preserved. There is no evidence of spondylolisthesis. Lumbar vertebral body heights are maintained. No expansile or destructive osseous lesion. The conus medullaris and cauda equina nerve roots are unremarkable; the conus terminates at the level of T12-L1. L1-L2: Is bulge and facet arthropathy with left central annular fissure. Prominent epidural fat. There is mild narrowing of the lateral recesses. The central canal is otherwise patent. The neural foramen are patent. L2-L3: Eccentric right disc bulge with facet arthropathy, ligamentum flavum redundancy, and prominent epidural fat. There is mild to moderate canal stenosis with narrowing of the lateral recesses. Mild narrowing of the right neural foramen. L3-L4: Eccentric left disc bulge with central annular fissure. Facet arthropathy with ligamentum flavum redundancy and prominent epidural fat. There is mild to moderate canal stenosis with narrowing of the lateral recesses. Mild left neural foraminal stenosis. L4-L5: Disc bulge and facet arthropathy with ligamentum flavum redundancy and prominent epidural fat. Mild to moderate spinal canal stenosis with narrowing of the lateral recesses. Mild narrowing of the neural foramen. L5-S1: Disc bulge and facet arthropathy with left-sided facet joint effusion. The spinal canal is not significantly narrowed. The neural foramen are patent. The right kidney is not visualized and may be absent. 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 Numbering system for this examination as described above. If surgery is considered, total spine radiographs are recommended to ensure accurate spine labeling. There is incomplete fusion of the posterior elements of S1 on a congenital basis. Multilevel ylxi-lc-hdsedfbf degenerative changes of the lumbar spine as described above. No high-grade spinal canal or neural foraminal stenosis.
== END 2023-03-13 10:24 | disposition home or self-care (01) ==
LOC: HO.MRI 10:23
PROVIDERS: PCP Nurse Practitioner Family; Visit Provider Nurse Practitioner Family
DX: M54.50 Low back pain, unspecified (principal); G89.29 Other chronic pain
CPT/HCPCS: 72148

== ENCOUNTER 2023-03-25 08:05 | Outpatient (REF) | payer BC, SELFPAY | END 2023-03-25 08:06 | disposition home or self-care (01) | LOC: HO.BBR 08:05 | PROVIDERS: PCP Nurse Practitioner Family; Visit Provider Urology | DX: D58.2 Other hemoglobinopathies (principal) | CPT/HCPCS: 85014; 85018; 99195 ==

== ENCOUNTER 2023-03-26 06:54 | Outpatient (REF) | payer BC, SELFPAY ==
[2023-03-26 07:45] LABS: Hematocrit 50.5 % (42.0-52.0); Hemoglobin 16.6 g/dl (14.0-18.0); Mean Corpuscular HGB Conc 32.9 g/dl (31.0-36.0); Mean Corpuscular Volume 91.2 fL (80.0-98.0); Mean Platelet Volume 9.6 fL (9.4-12.4); Platelet Count 177 X10*3/uL (160-400); Red Blood Count 5.54 X10*6/uL (4.60-5.80); Red Cell Distribution Width 12.5 % (11.0-16.0); White Blood Count 5.1 X10*3/uL (4.8-10.8)
[2023-03-26 08:53] LABS: PSA,Total (Free>4and<10) 6.86 ng/mL (0.00-4.00)
[2023-03-27 12:24] LABS: Free Prostate Spec Ag 1.3 ng/mL; Percent Free Prostate Spec Ag 22 % (calc) (>25); Prostate Specific Ag Total 5.9 ng/mL (< OR = 4.0)
[2023-03-30 14:23] LABS: Testosterone, Total 438 ng/dL (250-1100)
== END 2023-03-26 06:55 | disposition home or self-care (01) ==
LOC: HO.LAB 06:54
PROVIDERS: PCP Nurse Practitioner Family; Referring Provider Nurse Practitioner Family; Visit Provider Urology
DX: Z12.5 Encounter for screening for malignant neoplasm of prostate (principal); E29.1 Testicular hypofunction
CPT/HCPCS: 36415; 84153; 84154; 84403; 85027

== ENCOUNTER 2023-04-07 07:31 | Outpatient (REF) | payer BC, SELFPAY ==
--- NOTE | ~2023-04-07 | CT_ITS ---
CT SINUS WITHOUT CONTRAST CLINICAL INFORMATION: Deviated septum. COMPARISON: None available. TECHNIQUE: A multidetector CT acquisition of the sinuses is obtained without contrast. This CT examination was performed using dose optimization techniques as appropriate, variously including the following: *Automated exposure control *Adjustment of mA and/or kV according to patient size (this includes techniques or standardized protocols for targeted exams where dose is matched to indication/reason for exam; i.e. extremities or head) *Use of iterative reconstruction technique FINDINGS: There is mild mucosal thickening within the maxillary sinuses bilaterally and there is a small retention cyst within the right maxillary sinus. Sphenoid sinuses are clear. Mild mucosal thickening within the ethmoid air cells bilaterally. The frontal sinuses are clear. The major sinus drainage pathways are patent. The right fovea ethmoidalis is 2 mm deeper than the left side. Olfactory grooves are symmetric in depth. The bony orbits are intact. The internal carotid arteries remain will cover with bone. Mastoid air cells and middle ear cavities are clear. The TMJs are unremarkable. There is no periapical disease. Leftward deviation of the cartilaginous nasal septum and rightward deviation of the bony nasal septum. CT/CT sinus wo IV con IMPRESSION: - Mild sinus mucosal disease within the maxillary sinuses and ethmoid air cells bilaterally. The major sinus drainage pathways are patent. - Leftward deviation of the cartilaginous nasal septum and rightward deviation of the bony nasal septum.
== END 2023-04-07 07:32 | disposition home or self-care (01) ==
LOC: HO.CT 07:31
PROVIDERS: PCP Nurse Practitioner Family; Visit Provider Otolaryngology
DX: I33.0 Acute and subacute infective endocarditis (principal); J34.2 Deviated nasal septum
CPT/HCPCS: 70486

== ENCOUNTER 2023-04-29 07:55 | Outpatient (REF) | payer BC, SELFPAY | END 2023-04-29 07:56 | disposition home or self-care (01) | LOC: HO.BBR 07:55 | PROVIDERS: PCP Nurse Practitioner Family; Visit Provider Urology | DX: R71.8 Other abnormality of red blood cells (principal) | CPT/HCPCS: 85014; 85018; 99195 ==

== ENCOUNTER 2023-05-20 09:42 | Outpatient (AMB) | payer BC, SELFPAY ==
--- NOTE | 2023-05-20 09:43 | A.OFFVIS_ITS ---
Intake Intake Visit Reasons: 6M PSA/Testo/CBC(set) confirmed Intake Note: Patient presents today for a follow-up PSA/TESTO Meds- Tadalafil, Testosterone Allergies to Antibiotic- Amoxicillin, Penicillin Blood Thinner- None Health Services Manager Required: No Allergies amoxicillin [AMOXICILLIN] Allergy (Unknown, Verified 05/20/23 09:45) rash penicillin V Allergy (Unknown, Verified 05/20/23 09:45) as a child ENVIRONMENTAL Allergy (Unknown, Uncoded 05/20/23 09:45) UNKNOWN OxyContin Allergy (Unknown, Uncoded 05/20/23 09:45) stomach upset Medication List - Last Reconciled 05/20/23 by Dc Carvalho MD apple cider vinegar mg PO blood pressure monitor (Blood Pressure Kit) check Blood pressure once every day cdjoljpz-yxn-klsyf-hyaluron ac [id number] mg (glucosamine-chondroitin) tabs PO ibuprofen 800 mg PO Q8H PRN 30 days levothyroxine 25 mcg PO DAILY naproxen sodium (Aleve) 440 mg PO ONCE PRN omeprazole 20 mg PO DAILY syringe with needle, safety (BD Safety-Shane Detachable Needle syringe) As directed- 2 per month tadalafil 20 mg PO ONCE PRN 30 days tadalafil (Cialis) 5 mg PO DAILY PRN 90 days testosterone cypionate 120 mg (0.6 mL) IM Q2W 4 weeks vitamin A 2,400 mcg PO DAILY HPI HPI Comments History of Present Illness Details Misha is a very pleasant male. He is a patient of Dr. Mendez. He is seen for the following urologic conditions - erectile dysfunction - hypogonadism in male Telemedicine Evaluation 15 min Consultation D[facility] Labs within target Discussed potential for prostate MRI Continued response to the tadalafil Prescriptions refilled Hypogonadism Long-term testosterone use Discussed current laboratories borderline hematocrit Current dosage - 0.8 cc every 2 weeks [facility] 05/27 PSA 3.6, testosterone 630, Hct 52.6 - 10/27 Hct 52 - 03/30 T 737 P 5.8 Hct 54, 07/28 T 641 P 4.2 H 53.9, 01/28 T 720 P 4.6 21% H 53.7, 07/29 T 1100 P 6.8 H 56, 10/29 T 670 H 52 P 5.4, 04/01 T 440 50 5.9 22% Family background question of prostate cancer - father age 59 - prior biopsy Follow every six months testosterone PSA and hematocrit Erectile dysfunction Good response to daily low-dose Cialis Trial of on demand Cialis completed Morning erections have recurred Previously has had high hematocrit and discussed therapeutic phlebotomy [facility] Medical History (Reviewed 11/18/22 @ 10:07 by Janelle Tillman [facility]) Osteoarthritis of knees, bilateral GERD (gastroesophageal reflux disease) Erectile dysfunction Hypogonadism in male Surgical History Hx of knee surgery Hx of nephrostomy Hx of elbow surgery Family History Mother Substance use disorder CAD (coronary artery disease) Social History Housing: House Alcohol intake: current Alcohol intake frequency: 0-2 drinks per day Patient Tobacco Use Status: Current someday Tobacco user Tobacco use type: Cigar e-Cigarette/Vaping Use: Never Used Current occupational status: employed Cognitive needs: No Hearing needs: No Vision needs: No Review of Systems Const All systems reviewed & are unremarkable except as noted in HPI and below Reports no additional complaints Resp Reports no additional complaints GI Reports no additional complaints Reports as per HPI Musc Reports no additional complaints Physical Exam Telemedicine evaluation Appropriate responses Regular breathing rate and rhythm HEENT Head: Yes normal to inspection Ears: hearing grossly normal bilaterally Eyes General: appearance normal, both eyes and all related structures Neck Neck: Yes normal visual inspection Chest Chest palpation & inspection: normal inspection of the chest Resp Effort & Inspection: normal respiratory effort and able to speak in complete sentences Assessment & Plan Assessment & Plan (1) Elevated PSA: Code(s): R97.20 - Elevated prostate specific antigen [PSA] (2) Hypogonadism in male: Code(s): E29.1 - Testicular hypofunction (3) Erectile dysfunction: Code(s): N52.9 - Male erectile dysfunction, unspecified Plan Refill medications Plan prostate MRI in 6 months Six-month follow-up Orders: Orders MR pelvis wo/w con 6 Months R97.20 - Elevated prostate specific antigen [PSA] Prostate Specific Antigen 6 Months R97.20 - Elevated prostate specific antigen [PSA] Testosterone, Total 6 Months R97.20 - Elevated prostate specific antigen [PSA] Complete Blood Count no Diff 6 Months R97.20 - Elevated prostate specific antigen [PSA] Blood Urea Nitrogen 6 Months R97.20 - Elevated prostate specific antigen [PSA] Creatinine 6 Months R97.20 - Elevated prostate specific antigen [PSA] Patient Instructions: Imaging studies, laboratory and physical exam results were discussed and reviewed in detail. No major barriers to patient understanding were identified. An opportunity to ask questions regarding the treatment plan was provided. All questions were answered. The patient expressed understanding and agreement with the above treatment plan. The patient is aware they should contact our office by phone for worsening of their current condition or the appearance of new urologic symptoms. Compliance is encouraged with any medications and followup testing that is ordered. It is a privilege to participate in the urologic care of your patient. If you have any questions or concerns regarding treatment for the above conditions, or other urologic issues, please do not hesitate to contact me. The office telephone contact is [phone]. This note is constructed using voice recognition software. While every effort has been made to ensure accuracy correctional treatment specialist errors may have been included. Yours sincerely, Dr Dc Carvalho MD, [facility] - Urology Providers of Expert, Compassionate Care for the Genitourinary System Telehealth Telehealth Location of provider rendering services: practice address Location of patient: address on file Patient Identification confirmed using: Name, : Yes Telehealth method: video Patient verbally consented to treatment: Yes Patient verbally consented to billing insurance company: Yes Patient informed of any privacy concerns related to visit: Yes Coding Level of Care Code Tele Est Pt Level 4 (21474) Diagnoses Elevated PSA R97.20 Hypogonadism in male E29.1 Erectile dysfunction N52.9
== END 2023-05-20 10:13 | disposition home or self-care (01) ==
LOC: HO.HUSH 09:42
PROVIDERS: PCP Nurse Practitioner Family; Referring Provider Nurse Practitioner Family; Visit Provider Urology
DX: R97.20 Elevated prostate specific antigen [PSA] (principal); E29.1 Testicular hypofunction; N52.9 Male erectile dysfunction, unspecified
CPT/HCPCS: 99213

== ENCOUNTER → 2023-05-20 09:42 | Outpatient (BNVA) | payer BC, SELFPAY | PROVIDERS: PCP Nurse Practitioner Family; Visit Provider Urology ==

== ENCOUNTER 2023-05-26 08:01 | Outpatient (REF) | payer BC, SELFPAY | END 2023-05-26 08:02 | disposition home or self-care (01) | LOC: HO.BBR 08:01 | PROVIDERS: PCP Nurse Practitioner Family; Visit Provider Urology | DX: E83.110 Hereditary hemochromatosis (principal) | CPT/HCPCS: 85014 ==

== ENCOUNTER 2023-12-08 06:40 | Outpatient (REF) | payer BC, SELFPAY ==
[2023-12-08 06:55] LABS: MANUAL DIFF FLAG NO
[2023-12-08 07:13] LABS: Basophils Absolute Auto 0.1 X10*3/uL (0.0-0.2); Basophils Percent Auto 1.2 % (0-2); Eosinophils Absolute Auto 0.3 X10*3/uL (0.0-0.4); Eosinophils Percent Auto 5.8 % (0-4); Hematocrit 52.1 % (42.0-52.0); Hemoglobin 17.7 g/dl (14.0-18.0); Imm Gran Abs Auto 0.01 X10*3/uL (0.00-0.03); Imm Gran Pct Auto 0.2 % (0.0-0.4); Lymphocytes Absolute Auto 0.8 X10*3/uL (1.2-4.9); Lymphocytes Percent Auto 19.1 % (20-40); Mean Corpuscular Volume 91.2 fL (80.0-98.0); Mean Platelet Volume 9.3 fL (9.4-12.4); Monocytes Absolute Auto 0.6 X10*3/uL (0.1-1.2); Monocytes Percent Auto 14.9 % (2-11); Neutrophils Absolute Auto 2.5 x10*3/uL (2.0-8.3); Neutrophils Percent Auto 58.8 % (45-73); Platelet Count 180 X10*3/uL (160-400); Red Blood Count 5.71 X10*6/uL (4.60-5.80); White Blood Count 4.3 X10*3/uL (4.8-10.8)
[2023-12-08 07:24] LABS: Appearance Urine Clear; Color Urine Yellow; Glucose Urine UA Negative (Negative); Leukocyte Esterase Urine Trace (Negative); Nitrite Urine Negative (Negative); UMIC TRIGGER UACC YES; Urine Blood Negative (Negative); Urine Ketones Negative (Negative); Urine Protein Negative (Neg-Trace)
[2023-12-08 07:29] LABS: Bacteria Urine None Seen (None Seen); Hyaline Casts Urine 0-2 /LPF (0-2); RBC Urine 0-2 /HPF (0-2); Squamous Epithelial Cell Urine 0-2 /HPF (0-2); WBC Urine 0-5 /HPF (0-5)
[2023-12-08 07:57] LABS: Alanine Aminotransferase 34 U/L (0-40); Albumin Level 4.3 g/dL (3.5-5.0); Alkaline Phosphatase 78 U/L (39-117); Anion Gap 13 (12-20); Aspartate Amino Transferase 25 U/L (5-37); Blood Urea Nitrogen 15 mg/dL (9-16); Calcium 9.4 mg/dL (8.4-10.2); Carbon Dioxide 27 mmol/L (22-29); Chloride 105 mmol/L (96-108); Cholesterol 241 mg/dL (<200); Estimated Glomerular Filt Rate > 60; Glucose Fasting 92 mg/dL (60-99); HDL Cholesterol 33 mg/dL (>40); LDL Cholesterol Calculated 148 mg/dL (<100); Potassium 4.5 mmol/L (3.3-5.1); Sodium 140 mmol/L (135-145); Total Protein 7.2 g/dL (6.5-8.0); Triglycerides 304 mg/dL (<150)
[2023-12-08 08:06] LABS: Prostate Specific Antigen 7.19 ng/mL (<0.05-4.0)
[2023-12-08 08:18] LABS: Bilirubin Total 0.7 mg/dL (0.0-1.0); TSH reflex Free T4 4.32 uIU/mL (0.32-4.0)
[2023-12-08 08:55] LABS: Free T4 (Free Thyroxine) 0.88 ng/dL (0.71-1.85)
[2023-12-12 16:29] LABS: Testosterone, Total 910 ng/dL (250-1100)
== END 2023-12-08 06:41 | disposition home or self-care (01) ==
LOC: HO.LAB 06:40
PROVIDERS: Absent Provider Urology; PCP Nurse Practitioner Family; Visit Provider Nurse Practitioner Family
DX: Z00.00 Encounter for general adult medical examination without abnormal findings (principal); E29.1 Testicular hypofunction; R97.20 Elevated prostate specific antigen [PSA]; Z12.5 Encounter for screening for malignant neoplasm of prostate
CPT/HCPCS: 36415; 80053; 80061; 81001; 84153; 84403; 84439; 84443; 85025

== ENCOUNTER 2024-01-05 11:11 | Outpatient (AMB) | payer BC, SELFPAY ==
--- NOTE | 2024-01-05 11:11 | A.OFFVIS_ITS ---
Intake Visit Reasons: 6M PSA/Testo(Set)Elevated Intake Note: Patient is Present for Telephone Follow Up Labs Urology Med: Testosterone, Tadalafil Antibiotic Allergy: Amoxicillin, Penicillin Blood Thinner: None Requests that Tadalafil be sent to [facility] and Testosterone be sent to [facility] Recent Labs: 12/08/2023 PSA: 7.19(H) TESTOSTERONE: 910 Accompanied by: Self / Same As Patient Allergies amoxicillin [AMOXICILLIN] Allergy (Unknown, Verified 01/05/24 11:14) rash penicillin V Allergy (Unknown, Verified 01/05/24 11:14) as a child ENVIRONMENTAL Allergy (Unknown, Uncoded 01/05/24 11:14) UNKNOWN OxyContin Allergy (Unknown, Uncoded 01/05/24 11:14) stomach upset HPI Comments Details: Misha is a very pleasant male. He is a patient of Dr. Mendez. He is seen for the following urologic conditions - erectile dysfunction - hypogonadism in male Telemedicine Evaluation 15 min Consultation DoximVoice Assist [facility] PSA continues to climb Plan prostate MRI Given high variability with dosing intervals as he is unable to inject himself would recommend shifting to testopel Hypogonadism Long-term testosterone use Discussed current laboratories borderline hematocrit Current dosage - 0.8 cc every 2 weeks IM [facility] 05/27 PSA 3.6, testosterone 630, Hct 52.6 - 10/27 Hct 52 - 03/30 T 737 P 5.8 Hct 54, 07/28 T 641 P 4.2 H 53.9, 01/28 T 720 P 4.6 21% H 53.7, 07/29 T 1100 P 6.8 H 56, 10/29 T 670 H 52 P 5.4, 04/01 T 440 50 5.9 22% - 12/30 T 7.2 T 910 Hct 52 Family background question of prostate cancer - father age 59 - prior negative biopsy Follow every six months testosterone PSA and hematocrit Erectile dysfunction Good response to daily low-dose Cialis Trial of on demand Cialis completed Morning erections have recurred Previously has had high hematocrit and discussed therapeutic phlebotomy [facility] Medical History Osteoarthritis of knees, bilateral GERD (gastroesophageal reflux disease) Erectile dysfunction Hypogonadism in male Surgical History Hx of knee surgery Hx of nephrostomy Hx of elbow surgery Family History Mother Substance use disorder CAD (coronary artery disease) Social History Housing: House Alcohol intake: current Alcohol intake frequency: 0-2 drinks per day Patient Tobacco Use Status: Current someday Tobacco user Tobacco use type: Cigar e-Cigarette/Vaping Use: Never Used Current occupational status: employed Cognitive needs: No Hearing needs: No Vision needs: No Review of Systems Const All systems reviewed & are unremarkable except as noted in HPI and below Reports no additional complaints Resp Reports no additional complaints GI Reports no additional complaints Reports as per HPI Musc Reports no additional complaints Physical Exam Telemedicine evaluation Appropriate responses Regular breathing rate and rhythm HEENT Head: Yes normal to inspection Ears: hearing grossly normal bilaterally Eyes General: appearance normal, both eyes and all related structures Neck Neck: Yes normal visual inspection Chest Chest palpation & inspection: normal inspection of the chest Resp Effort & Inspection: normal respiratory effort and able to speak in complete sentences Telehealth Telehealth Telehealth Platform: [employer] Location of provider rendering services: practice address Location of patient: address on file Patient Identification confirmed using: Name, : Yes Telehealth method: video Patient verbally consented to treatment: Yes Patient verbally consented to billing insurance company: Yes Patient informed of any privacy concerns related to visit: Yes Minutes spent on Phone/Video with Pt.: 15 Assessment & Plan Assessment & Plan (1) Hypogonadism in male: Code(s): E29.1 - Testicular hypofunction Category: Medical Plan One month follow-up MRI Patient Instructions: Imaging studies, laboratory and physical exam results were discussed and reviewed in detail. No major barriers to patient understanding were identified. An opportunity to ask questions regarding the treatment plan was provided. All questions were answered. The patient expressed understanding and agreement with the above treatment plan. The patient is aware they should contact our office by phone for worsening of their current condition or the appearance of new urologic symptoms. Compliance is encouraged with any medications and followup testing that is ordered. It is a privilege to participate in the urologic care of your patient. If you have any questions or concerns regarding treatment for the above conditions, or other urologic issues, please do not hesitate to contact me. The office telephone contact is [phone]. This note is constructed using voice recognition software. While every effort has been made to ensure accuracy model builder errors may have been included. Yours sincerely, Dr Dc Carvalho MD, [facility] - Urology Providers of Expert, Compassionate Care for the Genitourinary System Coding Level of Care Code Tele Est Pt Level 4 (01115) Diagnoses Hypogonadism in male E29.1
== END 2024-01-05 11:46 | disposition home or self-care (01) ==
LOC: HO.HUSH 11:11
PROVIDERS: PCP Nurse Practitioner Family; Visit Provider Urology
DX: E29.1 Testicular hypofunction (principal)
CPT/HCPCS: 99214

== ENCOUNTER → 2024-01-05 11:11 | Outpatient (BNVA) | payer BC, SELFPAY | PROVIDERS: PCP Nurse Practitioner Family; Visit Provider Urology ==

== ENCOUNTER 2024-01-11 10:10 | Outpatient (AMB) | payer BC, SELFPAY ==
[2024-01-11 10:31] VITALS: BP 130/82; PULSE 80; O2SAT 96; BMI 32.2
--- NOTE | 2024-01-11 10:31 | AM.OFFWIN_ITS ---
Intake Vital Signs 01/11/24 10:31 Height 6 ft 3 in Weight 258 lb BMI 32.2 BP 130/82 Blood Pressure Location Rt brachial Position Sitting Pulse 80 Pulse Source Pulse Oximeter Pulse Oximetry (%) 96 Oxygen Delivery Method Room Air Intake Visit Reasons: EP Gout is acting up, becoming painful Intake Note: pt is here for gout flare up on rIght foot Patient Tobacco Use Status: Current someday Tobacco user Allergies amoxicillin [AMOXICILLIN] Allergy (Unknown, Verified 01/11/24 10:32) rash penicillin V Allergy (Unknown, Verified 01/11/24 10:32) as a child ENVIRONMENTAL Allergy (Unknown, Uncoded 01/05/24 11:14) UNKNOWN OxyContin Allergy (Unknown, Uncoded 01/05/24 11:14) stomach upset Do you need a note to return to daycare/school/sports/work: No HPI HPI Comments History of Present Illness Details Patient is a 58-year-old male complaining of pain to his right great toe joint for the last 3 days. He states he used to take indomethacin but his prescription as long , he brought in his last bottle that he had and they in June of 2019. He tells me he has not been taking a daily gout medication rather he has been controlling his symptoms with dietary restrictions and it has been working out well for him. [facility] Medical History Osteoarthritis of knees, bilateral GERD (gastroesophageal reflux disease) Erectile dysfunction Hypogonadism in male Surgical History Hx of knee surgery Hx of nephrostomy Hx of elbow surgery Family History Mother Substance use disorder CAD (coronary artery disease) Social History Housing: House Alcohol intake: current Alcohol intake frequency: 0-2 drinks per day Patient Tobacco Use Status: Current someday Tobacco user Tobacco use type: Cigar e-Cigarette/Vaping Use: Never Used Current occupational status: employed Cognitive needs: No Hearing needs: No Vision needs: No Review of Systems Const All systems reviewed & are unremarkable except as noted in HPI and below Physical Exam Vital Signs: Last Vital Signs Pulse 80 01/11/24 10:31 BP 130/82 01/11/24 10:31 Pulse Ox 96 01/11/24 10:31 Oxygen Delivery Method Room Air 01/11/24 10:31 BMI result Body Mass Index 32.2 Const General: cooperative, healthy appearing, comfortable and no acute distress Orientation/consciousness: patient oriented x3 HEENT Head: Yes normal to inspection General nose exam: Normal external nose present Face and sinus: Yes normal facial exam Eyes General: appearance normal, both eyes and all related structures Neck Neck: Yes normal visual inspection Resp Effort & Inspection: normal respiratory effort and able to speak in complete sentences Neuro General: patient oriented x3 Extrem Other: exquisite tenderness, erythema and swelling of right MCP, full ROM, normal capillary refill; no ecchymosis, no signs of infection noted Assessment & Plan Assessment & Plan (1) Gout attack: Code(s): M10.9 - Gout, unspecified Qualifiers: Gout site: toe Gout etiology: unspecified cause Laterality: right Qualified Code(s): M10.9 - Gout, unspecified Plan: Sent colchicine to pharmacy for patient; recommended he follow up with his PCP to discuss whether or not he needs daily maintenance medications. Plan VSS Medications: New colchicine On day 1, take 2 tablets followed by 1 tablet 1 hour later. Do not exceed 3 tablets in 24 hours. On day 2 and 3, take 1 tablet every 12 hours. 0.6 mg PO DAILY 7 tabs 0RF Coding Level of Care Code Est Pt Level 3 (70322) Diagnoses Acute gout involving toe of right foot, unspecified cause M10.9 Gout site: toe Gout etiology: unspecified cause Laterality: right
== END 2024-01-11 11:02 | disposition home or self-care (01) ==
PROVIDERS: PCP Nurse Practitioner Family; Visit Provider Physician Assistant
DX: M10.9 Gout, unspecified (principal)

== ENCOUNTER → 2024-01-11 10:10 | Outpatient (BNVA) | payer BC, SELFPAY | PROVIDERS: PCP Nurse Practitioner Family; Visit Provider Physician Assistant ==

== ENCOUNTER 2024-02-16 07:32 | Outpatient (AMB) | payer BC, SELFPAY ==
--- NOTE | 2024-02-16 07:41 | A.OFFPC_ITS ---
Vital Signs 02/16/24 07:43 02/16/24 08:27 Height 6 ft 3 in Weight 275 lb BMI 34.4 BP 140/92 H 132/80 Blood Pressure Location Rt brachial Rt brachial Position Sitting Sitting Pulse 65 Pulse Source Pulse Oximeter Pulse Oximetry (%) 96 Oxygen Delivery Method Room Air Intake Visit Reasons: Annual PE Intake Note: Pt is here today for his PE Allergies amoxicillin [AMOXICILLIN] Allergy (Unknown, Verified 02/16/24 08:27) rash penicillin V Allergy (Unknown, Verified 02/16/24 08:27) as a child ENVIRONMENTAL Allergy (Unknown, Uncoded 02/16/24 08:27) UNKNOWN OxyContin Allergy (Unknown, Uncoded 02/16/24 08:27) stomach upset Medication List - Last Reconciled 02/16/24 by Mekhi Leonard, PATHOLOGY SECRETARY- apple cider vinegar mg PO atorvastatin 20 mg PO BEDTIME 90 days blood pressure monitor (Blood Pressure Kit) check Blood pressure once every day yqfknhnu-mmk-xfiwv-hyaluron ac [id number] mg (glucosamine-chondroitin) tabs PO ibuprofen 800 mg PO Q8H PRN 30 days levothyroxine 50 mcg PO DAILY naproxen sodium (Aleve) 440 mg PO ONCE PRN omeprazole 20 mg PO DAILY syringe with needle, safety (BD Safety-Shane Detachable Needle syringe) As directed- 2 per month tadalafil (Cialis) 5 mg PO DAILY PRN 90 days tadalafil 20 mg PO ONCE PRN 30 days testosterone cypionate 120 mg (0.6 mL) IM Q2W 4 weeks vitamin A 2,400 mcg PO DAILY Tobacco use date assessed: 02/16/24 Dental Screening Dental Screen Date: 02/16/24 Did you have a dental visit in the last 12 months?: No Did you have a dental problem in the last 6 months where you did not have access to dental care?: No Was dental information given to patient?: Patient has dentist HPI Annual PE HPI Details History of Present Illness The patient is a 58-year-old male presenting for a routine physical examination and follow-up on multiple chronic conditions. The patient reports intermittent neuropathy affecting his left toes, which has been present for an unspecified period and is often noticeable though not constant. Neuropathy runs in his family, as noted with his mother. He is under the care of Dr. Carvalho for urologic issues and has a pending MRI scheduled for his prostate next Thursday but has had no biopsies performed. The patient also experiences periodic gout attacks, with the most recent occurrence a few weeks ago, preventing him from wearing shoes and impacting ambulation. It is suspected that his increased physical activity, particularly dancing, may aggravate the condition. The patient has not consumed beer since [place] the [employer] [place] and keeps alcohol and purine-rich food consumption minimal. Gout flares are noted to affect his knee, hips, and back, which along with known arthritis, particularly impacts his physical activity. The patient acknowledges considering knee surgery as the condition worsens. He has not had a shingles vaccination but is aware of its benefits given his familial and personal history. Dermatologic concerns include seborrheic keratosis, with prior removals and plans for further assessment. Health Maintenance - Pending MRI for prostate evaluation. - Routine colonoscopy overdue, requiring scheduling. - Discussion of shingles and flu vaccina tions, with strong consideration for shingles vaccine given history. - Active recommendation for regular bloo d pressure monitoring. - Advised about potential dermatologic e valuations as needed. - Laboratory work to assess uric acid le vels to manage gout. - Sustained physical activity through [employer] dancing. Social History - Cohabiting with partner Lianna, sharing an address. - Participates in regular physical activ ity through line dancing. - Limited alcohol consumption, abstainin g from beer and minimal intake of other alcoholic beverages. - Conscious dietary intake, avoiding she llfish and shrimp which may trigger gout symptoms. - Prior enjoyment of motorcycling, consi dering discontinuation due to back issues. - Involved with family in daily activiti es; two cats present at shared residence. Review of Systems - Cardiovascular: Denies chest pain. - Respiratory: Denies shortness of breat h. - Constitutional: Denies fevers and chil ls. - Gastrointestinal: Denies blood in stoo l, constipation, diarrhea. - Neurological: Reports numbness/tinglin g in left toes. Physical Exam General: Cooperative, healthy appearing, comfortable, no acute distress and well developed Orientation: Patient oriented x3 Limitations: No limitations Head: Normal to inspection Ears: Hearing grossly normal bilaterally Nose: Normal external nose present Face and sinus: Normal facial exam Eyes: Appearance normal, both eyes and all related structures Neck: Normal visual inspection and Yes full ROM Respiratory: Normal respiratory effort and able to speak in complete sentences. Clear to auscultation bilaterally Cardiovascular: Regular rate and rhythm. Normal S1 and S2 GI: Normal to inspection. Soft to palpation and nontender Skin: No rashes or lesions noted, but seborrheic keratosis observed Neuro: Patient oriented x3, reports numbness and tingling in left toes Extremities: Normal to inspection, but reports arthritis and gout affecting knees, hips, and back Results - Pending MRI for prostate evaluation sc heduled. - Uric acid levels to be assessed throug h upcoming labs. Plan Patient was informed and verbally consented to the use of an ambient scribe for clinic note documentation during this visit. Discussion Notes Patient Instructions [facility] Medical History Osteoarthritis of knees, bilateral GERD (gastroesophageal reflux disease) Erectile dysfunction Hypogonadism in male Surgical History Hx of knee surgery Hx of nephrostomy Hx of elbow surgery Family History Mother Substance use disorder CAD (coronary artery disease) Social History Housing: House Alcohol intake: current Alcohol intake frequency: 0-2 drinks per day Patient Tobacco Use Status: Current someday Tobacco user Tobacco use type: Cigar e-Cigarette/Vaping Use: Never Used Current occupational status: employed Cognitive needs: No Hearing needs: No Vision needs: No Questionnaire PHQ-9 Over the last 2 weeks, how often have you been bothered by any of the following problems? 1. Little interest or pleasure in doing things: not at all 2. Feeling down, depressed, or hopeless: not at all 3. Trouble falling or staying asleep, or sleeping too much: several days 4. Feeling tired or having little energy: several days 5. Poor appetite or overeating: several days 6. Feeling bad about yourself - or that you are a failure or have let yourself or your family down: not at all 7. Trouble concentrating on things, such as reading the newspaper or watching television: not at all 8. Moving or speaking so slowly that other people could have noticed. Or the opposite - being so fidgety or restless that you have been moving around a lot more than usual: not at all 9. Thoughts that you would be better off or of hurting yourself in some way: not at all Total score: 3 Depression Screening Interpretation: Negative Depression Screening Done: Yes 53725 - PHQ-9 Billing: Yes Source: Developed by Drs. Jose Carlos Maravilla, Rupinder Pena, Rafi Brown and colleagues, with an educational kwabena from [employer]. Thrive Questionnaire Date Thrive assessed: 02/16/24 I am a: Patient What is your living situation today?: I have a steady place to live Within the past 12 months, did the food you bought not last and you didn't have the money to get more?: Never true Within the past 12 months, did you worry whether your food would run out before you got money to buy more?: Never true Do you have trouble paying for medicines?: Yes Do you have trouble getting transportation to medical appointments?: No Do you have trouble paying your heating and electricity bill?: No Do you have trouble taking care of your child, family member or friend?: No Do you have trouble with day-to-day activities such as bathing, preparing meals, shopping, managing finances, etc.?: No Are you currently unemployed and looking for a job?: No Are you interested in more education?: No Please select the resources that you would like help with: None Currently or been in a relationship where the following occur: No concerns reported THRIVE Score: 0 AUDIT C Alcohol Use Questionnaire (AUDIT-C) 1. How often do you have a drink containing alcohol?: 2-3 times a week 2. How many drinks containing alcohol do you have on a typical day when you are drinking?: 1 or 2 3. How often do you have six or more drinks on one occasion?: Less than monthly Total Score: 4 CHICHI-7 AMB Questionnaire CHICHI-7 Date CHICHI - 7 assessed: 02/16/24 Feeling nervous, anxious, or on edge: 0 = Not at all Not being able to stop or control worryin = Not at all Worrying too much about different things: 0 = Not at all Trouble relaxin = Several days Being so restless that it is hard to sit still: 1 = Several days Becoming easily annoyed or irritable: 1 = Several days Feeling afraid as if something awful might happen: 0 = Not at all Total CHICHI-7 score (0-4 normal; 5-9 mild; 10-14 moderate; 15-21 severe): 3 Source: Developed by Drs. Jose Carlos Maravilla, Rupinder Pena, Rafi Brown and colleagues, with an educational kwabena from [employer]. CHICHI-7 Assessment Billing CHICHI-7 Assessment Tool: CHICHI-7 Assessment 62648 Physical exam (Primary Care) Vital Signs: Last Vital Signs Pulse 65 02/16/24 07:43 BP 140/92 H 02/16/24 07:43 Pulse Ox 96 02/16/24 07:43 Oxygen Delivery Method Room Air 02/16/24 07:43 BMI result Body Mass Index 34.4 Tobacco/Smoking Status: Tobacco use Status Tobacco use date assessed 02/16/24 02/16/24 07:46 Patient Tobacco Use Status Current someday Tobacco 02/16/24 07:42 Tobacco use type Cigar 02/16/24 07:42 e-Cigarette/Vaping Use Never Used 02/16/24 07:42 PHQ-9: PHQ-9 Score PHQ-9: Total score 3 02/16/24 08:13 Depression Screening Interpretation: Negative Thrive Assessment: Date of Thrive Assessment Date Thrive assessed 02/16/24 02/16/24 07:48 Currently or been in a relationship where the following occur: No concerns reported Coding Level of Care Code Est Pt Prev Care 40-64y(08166) Diagnoses Screening for colon cancer Z12.11 Physical exam Z00.00 Gout M10.9 Additional Codes PHQ-9 - 46951 - PHQ-9 Billing: Yes ([id number]) CHICIH-7 Assessment Billing - CHICHI-7 Assessment Tool: CHICHI-7 Assessment 49914 ([id number]) Assessment & Plan Assessment & Plan (1) Screening for colon cancer: Code(s): Z12.11 - Encounter for screening for malignant neoplasm of colon Category: Medical (2) Physical exam: Code(s): Z00.00 - Encounter for general adult medical examination without abnormal findings Category: Medical (3) Gout: Code(s): M10.9 - Gout, unspecified Category: Medical Plan . Orders: Orders Comprehensive [place]. Panel Fast Today Z00.00 - Encounter for general adult medical examination without abnormal findings TSH reflex Free T4 Today Z00.00 - Encounter for general adult medical examination without abnormal findings Uric Acid Today M10.9 - Gout, unspecified Complete Blood Count Auto Diff Today Z00.00 - Encounter for general adult medical examination without abnormal findings UA CC w/rflx Micro + Cult Today Z00.00 - Encounter for general adult medical examination without abnormal findings Lipid Panel Today Z00.00 - Encounter for general adult medical examination without abnormal findings Referrals Gastroenterology Referral Z12.11 - Encounter for screening for malignant neoplasm of colon
[2024-02-16 07:43] VITALS: BP 140/92; PULSE 65; O2SAT 96; BMI 34.4
[2024-02-16 08:27] VITALS: BP 132/80
== END 2024-02-16 08:31 | disposition home or self-care (01) ==
PROVIDERS: PCP Nurse Practitioner Family; Visit Provider Nurse Practitioner Family
DX: Z12.11 Encounter for screening for malignant neoplasm of colon (principal); Z00.00 Encounter for general adult medical examination without abnormal findings; M10.9 Gout, unspecified

== ENCOUNTER → 2024-02-16 07:32 | Outpatient (BNVA) | payer BC, SELFPAY | PROVIDERS: PCP Nurse Practitioner Family; Visit Provider Nurse Practitioner Family | DX: Z00.00 Encounter for general adult medical examination without abnormal findings (principal); M10.9 Gout, unspecified | CPT/HCPCS: 96127 ==

== ENCOUNTER → 2024-02-23 08:20 | Outpatient (BNV) | payer BC, SELFPAY | PROVIDERS: PCP Nurse Practitioner Family; Visit Provider Radiology Diagnostic Radiology | DX: R97.20 Elevated prostate specific antigen [PSA] (principal) | CPT/HCPCS: 72197 ==

== ENCOUNTER 2024-02-23 08:38 | Outpatient (REF) | payer BC, SELFPAY ==
[2024-02-23] MEDS: gadobutroL 10 ML VIAL IVPUSH (09:32)
== END 2024-02-23 08:39 | disposition home or self-care (01) ==
LOC: HO.MRI 08:38
PROVIDERS: PCP Nurse Practitioner Family; Visit Provider Urology
DX: R97.20 Elevated prostate specific antigen [PSA] (principal)
CPT/HCPCS: 72197; A9585

== ENCOUNTER 2024-03-07 09:52 | Outpatient (REF) | payer BC, SELFPAY ==
[2024-03-07 10:16] LABS: MANUAL DIFF FLAG NO
[2024-03-07 10:37] LABS: Basophils Percent Auto 0.8 % (0-2); Eosinophils Absolute Auto 0.2 X10*3/uL (0.0-0.4); Eosinophils Percent Auto 4.6 % (0-4); Hematocrit 52.5 % (42.0-52.0); Hemoglobin 17.5 g/dl (14.0-18.0); Imm Gran Abs Auto 0.03 X10*3/uL (0.00-0.03); Imm Gran Pct Auto 0.6 % (0.0-0.4); Lymphocytes Absolute Auto 0.6 X10*3/uL (1.2-4.9); Lymphocytes Percent Auto 12.2 % (20-40); Mean Corpuscular HGB Conc 33.3 g/dl (31.0-36.0); Mean Corpuscular Hemoglobin 30.2 pg (27.0-33.0); Mean Corpuscular Volume 90.7 fL (80.0-98.0); Mean Platelet Volume 9.3 fL (9.4-12.4); Monocytes Absolute Auto 0.6 X10*3/uL (0.1-1.2); Monocytes Percent Auto 11.6 % (2-11); Neutrophils Absolute Auto 3.6 x10*3/uL (2.0-8.3); Neutrophils Percent Auto 70.2 % (45-73); Platelet Count 172 X10*3/uL (160-400); Red Blood Count 5.79 X10*6/uL (4.60-5.80); Red Cell Distribution Width 12.6 % (11.0-16.0); White Blood Count 5.2 X10*3/uL (4.8-10.8)
[2024-03-07 10:50] LABS: Appearance Urine Clear; Color Urine Yellow; Glucose Urine UA Negative (Negative); Leukocyte Esterase Urine Negative (Negative); Nitrite Urine Negative (Negative); Urine Blood Negative (Negative); Urine Ketones Negative (Negative); Urine Protein Negative (Neg-Trace)
[2024-03-07 11:03] LABS: Alanine Aminotransferase 54 U/L (0-40); Albumin Level 4.3 g/dL (3.5-5.0); Alkaline Phosphatase 81 U/L (39-117); Anion Gap 11 (12-20); Aspartate Amino Transferase 35 U/L (5-37); Bilirubin Total 0.7 mg/dL (0.0-1.0); Blood Urea Nitrogen 17 mg/dL (9-16); Calcium 9.1 mg/dL (8.4-10.2); Carbon Dioxide 28 mmol/L (22-29); Chloride 107 mmol/L (96-108); Cholesterol 173 mg/dL (<200); Estimated Glomerular Filt Rate > 60; Glucose Fasting 94 mg/dL (60-99); HDL Cholesterol 34 mg/dL (>40); LDL Cholesterol Calculated 93 mg/dL (<100); Potassium 4.6 mmol/L (3.3-5.1); Sodium 141 mmol/L (135-145); Total Protein 6.9 g/dL (6.5-8.0); Triglycerides 230 mg/dL (<150)
[2024-03-07 11:07] LABS: Uric Acid 7.4 mg/dL (3.4-7.0)
[2024-03-12 15:19] LABS: Testosterone, Total 574 ng/dL (250-1100)
== END 2024-03-07 09:53 | disposition home or self-care (01) ==
LOC: HO.LAB 09:52
PROVIDERS: Urology; PCP Nurse Practitioner Family; Visit Provider Nurse Practitioner Family
DX: Z00.00 Encounter for general adult medical examination without abnormal findings (principal); R97.20 Elevated prostate specific antigen [PSA]; E78.5 Hyperlipidemia, unspecified; M10.9 Gout, unspecified; D72.819 Decreased white blood cell count, unspecified
CPT/HCPCS: 36415; 80053; 80061; 81003; 84403; 84443; 84550; 85025

== ENCOUNTER 2024-03-17 08:25 | Outpatient (REF) | payer BC, SELFPAY ==
--- NOTE | ~2024-03-17 | US_ITS ---
EXAMINATION: US ABDOMEN HISTORY: R74.8 - Abnormal levels of other serum enzymes TECHNIQUE: Real-time grayscale ultrasound imaging of the abdomen was performed and images were reviewed. COMPARISON: There are no prior studies for comparison. FINDINGS: Liver: The liver is normal in size, but demonstrates increased echotexture, consistent with steatosis. No focal mass or intrahepatic biliary ductal dilatation is identified. There is normal hepatopedal flow in the portal vein. Gallbladder and biliary tree: The gallbladder is unremarkable, without evidence of calculi, wall thickening, or pericholecystic fluid. There is no sonographic Andres sign. The common bile duct is normal in caliber measuring 3 mm. Kidneys: The right kidney is surgically absent. The left kidney measures 13.5 cm in length. There is an upper pole cyst measuring 1.4 cm in size. An additional 7 mm cyst is noted at the upper pole. The left kidney is otherwise unremarkable, without evidence of solid masses, hydronephrosis, or calculi. Pancreas: The pancreatic head, neck, and body are unremarkable. The pancreatic tail is obscured by bowel gas. Spleen: The spleen is enlarged, measuring 16.1 cm in length. No focal splenic lesion is identified. Abdominal aorta and inferior vena cava: The visualized portions of the abdominal aorta and inferior vena cava are normal in caliber. There is no free fluid in the abdomen. US/US abdomen complete IMPRESSION: 1. Hepatic steatosis. 2. Splenomegaly. 3. The right kidney is surgically absent. Left renal cyst as described. Electronically signed by: Jose Carlos Black MD 03/17/2024 09:55 AM [facility] [place]
== END 2024-03-17 08:26 | disposition home or self-care (01) ==
LOC: HO.HMGCX 08:25
PROVIDERS: PCP Nurse Practitioner Family; Visit Provider Nurse Practitioner Family
DX: R74.8 Abnormal levels of other serum enzymes (principal)
CPT/HCPCS: 76700

== ENCOUNTER → 2024-03-17 08:27 | Outpatient (BNV) | payer BC, SELFPAY | PROVIDERS: PCP Nurse Practitioner Family; Visit Provider Radiology Diagnostic Radiology | DX: R74.8 Abnormal levels of other serum enzymes (principal) | CPT/HCPCS: 76700 ==

== ENCOUNTER 2024-04-05 13:58 | Outpatient (AMB) | payer BC, SELFPAY ==
--- NOTE | 2024-04-05 13:59 | MHC.OFFVIS ---
Intake Visit Reasons: MRI follow up(set) Intake Note: Patient is present for MRI F/U Urology Medication:TADALAFIL,TESTOSTERONE,ALLOPURINOL Antibiotic Allergy:AMOXICILLIN,PENICILLIN V,OXYCONTIN Blood Thinner:NONE Applications Engineer Required: No Allergies amoxicillin [AMOXICILLIN] Allergy (Unknown, Verified 04/05/24 14:01) rash penicillin V Allergy (Unknown, Verified 04/05/24 14:01) as a child ENVIRONMENTAL Allergy (Unknown, Uncoded 04/05/24 14:01) UNKNOWN OxyContin Allergy (Unknown, Uncoded 04/05/24 14:01) stomach upset HPI Comments Details: Misha is a very pleasant male. He is a patient of Dr. Mendez. He is seen for the following urologic conditions - erectile dysfunction - hypogonadism in male Follow-up prostate MRI PCPT calculator shows 5% chance of high-risk prostate cancer Prostate MRI with 14 mm PI-RADS 4 lesion. Enlarged prostate cancer 85 g Discrepancy exists between imaging and calculated risk of prostate cancer Plan prostate biopsy cognitive fusion Hypogonadism Long-term testosterone use Discussed current laboratories borderline hematocrit Current dosage - 0.8 cc every 2 weeks IM [facility] 05/27 PSA 3.6, testosterone 630, Hct 52.6 - 10/27 Hct 52 - 03/30 T 737 P 5.8 Hct 54, 07/28 T 641 P 4.2 H 53.9, 01/28 T 720 P 4.6 21% H 53.7, 07/29 T 1100 P 6.8 H 56, 10/29 T 670 H 52 P 5.4, 04/01 T 440 50 5.9 22% - 12/30 T 7.2 T 910 Hct 52 Family background question of prostate cancer - father age 59 - prior negative biopsy Follow every six months testosterone PSA and hematocrit Erectile dysfunction Good response to daily low-dose Cialis Trial of on demand Cialis completed Morning erections have recurred Previously has had high hematocrit and discussed therapeutic phlebotomy [facility] Medical History (Updated 03/17/24 @ 12:29 by ASHLEIGH Diez) Hx of splenomegaly Fatty liver Osteoarthritis of knees, bilateral GERD (gastroesophageal reflux disease) Erectile dysfunction Hypogonadism in male Surgical History Hx of knee surgery Hx of nephrostomy Hx of elbow surgery Family History Mother Substance use disorder CAD (coronary artery disease) Social History Housing: House Alcohol intake: current Alcohol intake frequency: 0-2 drinks per day Patient Tobacco Use Status: Current someday Tobacco user Tobacco use type: Cigar e-Cigarette/Vaping Use: Never Used Current occupational status: employed Cognitive needs: No Hearing needs: No Vision needs: No Review of Systems Const Denies chills and Denies fever(s) Card Reports no additional complaints and Denies syncope Resp Denies cough GI Denies abdominal pain and Denies heartburn Reports as per HPI and Denies change in libido Neuro Denies syncope Psych Denies change in libido Endo Denies change in libido Physical Exam Const General: cooperative, healthy appearing, comfortable and no acute distress Orientation/consciousness: patient oriented x3 HEENT Face and sinus: Yes normal facial exam Mouth: moist mucous membranes Neck Neck: Yes normal visual inspection, Yes full ROM and Yes trachea midline Chest Chest palpation & inspection: normal inspection of the chest Resp Effort & Inspection: normal respiratory effort, able to speak in complete sentences and no respiratory distress GI Inspection: Yes normal to inspection Back/Spine/Pelvis Cervical Spine: normal cervical lordosis Thoracic/Lumbar Spine: thoracic and lumbar spine normal to inspection Skin General skin exam: no rashes or lesions noted Neuro General: patient oriented x3, gait normal, tone normal and moves all extremities Extrem General: Yes normal to inspection and Yes capillary refill normal Assessment & Plan Assessment & Plan (1) Elevated PSA: Code(s): R97.20 - Elevated prostate specific antigen [PSA] Category: Medical Plan Risks and benefits regarding trans rectal ultrasound with prostate biopsy were discussed. Options of continued surveillance, no treatment and biopsy were offered. The risks include but are not limited to, urinary tract infection, sepsis, difficulty urinating, bleeding into the rectum or bladder that requires intervention and transfusion,and failure to diagnose prostate cancer. The patient understands the options and the risks involved. They wish to proceed. Printed information was provided to ensure he remains off anticoagulation for the appropriate length of time. He may require cardiology or PCP clearance. An antibiotic will be administered prior to, and following the procedure Medications: New levofloxacin Take day before, day of and day after procedure 500 mg PO ONCE 3 days 3 tabs 0RF R97.20 - Elevated prostate specific antigen [PSA] diazepam Take medication after arrival at office 2 mg PO BID 1 day PRN 2 tabs 0RF anxiety R45.89 - Other symptoms and signs involving emotional state, R97.20 - Elevated prostate specific antigen [PSA] Patient Instructions: Imaging studies, laboratory and physical exam results were discussed and reviewed in detail. No major barriers to patient understanding were identified. An opportunity to ask questions regarding the treatment plan was provided. All questions were answered. The patient expressed understanding and agreement with the above treatment plan. The patient is aware they should contact our office by phone for worsening of their current condition or the appearance of new urologic symptoms. Compliance is encouraged with any medications and followup testing that is ordered. It is a privilege to participate in the urologic care of your patient. If you have any questions or concerns regarding treatment for the above conditions, or other urologic issues, please do not hesitate to contact me. The office telephone contact is [phone]. This note is constructed using voice recognition software. While every effort has been made to ensure accuracy learning and development director errors may have been included. Yours sincerely, Dr Dc Carvalho MD, [facility] - Urology Providers of Expert, Compassionate Care for the Genitourinary System Coding Level of Care Code Est Pt Level 4 (00025) Diagnoses Elevated PSA R97.20
--- OUTSIDE RECORDS SUMMARY | 2024-04-05 14:55 | XMS_ITS | Clinical Summary ---
Author Organization [facility] [address] [facility] Address [address] [place] [address] Phone Care Team Providers Care Chief Of Field Operations Name Role Phone Mekhi Leonard NP Primary Care Provider Encounters Date Type Department Care Team Description 02/19/2024 Telephone Gastroenterology - [address] [id number] Nelly Correia MD from Last 3 Months Social History Tobacco Use Types Packs/Day Years Used Date Smoking Tobacco: Never Assessed Sex and Gender Information Value Date Recorded Sex Assigned at Not on file Gender Identity Not on file Sexual Orientation Not on file Plan of Treatment Health Maintenance Due Date Last Done Comments DTaP,Tdap,and Td Vaccines (1 - Tdap) 1984 Hepatitis B Vaccines (1 of 3 - 19+ 3-dose series) 1984 Zoster Vaccines (1 of 2) 08/04/2015 COVID-19 Vaccine (2023-2 5 season) 2023 Influenza Vaccine (#1) 2023 Cholesterol Screening (Lipid Panel) 02/19/2024 Colorectal Cancer Screening: Colonoscopy 02/19/2024 Depression Screening 02/19/2024 HIV Screening 02/19/2024 Hepatitis C Screening 02/19/2024 Social Influencers of Health Screening 02/19/2024 HIB Vaccines Aged Out No longer eligi ble based on patient's age to complete this topic HPV Vaccines Aged Out No longer eligi ble based on patient's age to complete this topic Hepatitis A Vaccines Aged Out No long er eligible based on patient's age to complete this topic IPV Vaccines Aged Out No longer eligi ble based on patient's age to complete this topic MMR Vaccines Aged Out No longer eligi ble based on patient's age to complete this topic Meningococcal ACWY Vaccine Aged Out N o longer eligible based on patient's age to complete this topic Pneumococcal Vaccine: Pediat rics (0 to 5 Years) and At-Risk Patients (6 to 64 Years) Aged Out No longer eligible b ased on patient's age to complete this topic RSV Immunization Patients Un adan 20 months Aged Out No longer eligible b ased on patient's age to complete this topic Varicella Vaccines Aged Out No longer eligible based on patient's age to complete this topic Care Teams Chief Of Field Operations Relationship Specialty Start Date End Date Mekhi Leonard NP PCP - General Family Medicine 02/19/24
--- OUTSIDE RECORDS SUMMARY | 2024-04-05 14:55 | XMS_ITS | Encounter Summary ---
Author Organization [facility] Address [id number] [place] [id number] Care Team Providers Care Business Continuity Planner Name Role Phone Mekhi Leonard NP Primary Care Provider [phone] Encounter Details Date Type Department Care Team (Late st Contact Info) Description 02/19/2024 Telephone Gastroenterology - [address] [place] [id number] Nelly Correia MD [address] [place], [place] [id number] Social History Tobacco Use Types Packs/Day Years Used Date Smoking Tobacco: Never Assessed Sex and Gender Information Value Date Recorded Sex Assigned at Not on file Gender Identity Not on file Sexual Orientation Not on file documented as of this encounter Progress Notes * Marlene Lee - 03/15/2024 8:34 AM EST THIRD AND FINAL ATTEMPT TO OBTAIN INSURANCE REFERRAL. FAX SENT TO PCP. * Marlene Lee - 03/04/2024 3:28 PM EST FAX SENT TO PCP AGAIN * Marlene Lee - 02/19/2024 12:06 PM EST NEW INCOMING REFERRAL, [employer] HMO INS REF NEEDED. FAX SENT TO PCP. documented in this encounter Plan of Treatment Not on file documented as of this encounter Visit Diagnoses Not on filedocumented in this encounter Care Teams Business Continuity Planner Relationship Specialty Start Date End Date Mekhi Leonard NP PCP - General Family Medicine 02/19/24 documented as of this encounter
== END 2024-04-05 14:42 | disposition home or self-care (01) ==
PROVIDERS: PCP Nurse Practitioner Family; Visit Provider Urology
DX: R97.20 Elevated prostate specific antigen [PSA] (principal)
CPT/HCPCS: 99214

== ENCOUNTER 2024-05-02 13:00 | Day surgery (SDC) | payer BC, SELFPAY ==
[2024-04-28 13:47] VITALS: BMI 34.4
[2024-05-02 13:16] VITALS: BMI 33.3
[2024-05-02 13:39] VITALS: BP 141/95; PULSE 76; RESP 16; TEMP 36.6; O2SAT 96
[2024-05-02] MEDS: Lactated Ringers 1,000 ML 80 ML IVCONT (13:39)
--- NOTE | 2024-05-02 13:54 | MHC.SHP ---
Pre-Procedural Eval Section A - 24 Hr Update-Section A only Date of Service: 05/02/24 The patient is an INPATIENT: No Changes since office visit: No Cold of Flu in the past 2 weeks, No New Medical Problems, No Changes in Medication and No Patient answered all questions The patient has been examined within 24 hours of the surgical procedure. The History & Physical has been completed within 30 days and I have reviewed it.: Yes Section B - Complete if H&P > 30 days Chief Complaint: Elevated prostate specific antigen [PSA] Details of Present Illness: Prostate biopsy under sedation Relevant Family History (Specify if Yes): Yes Relevant Social History: None Present Medications: see Short Stay Collaborative assessment Medical History: No relevant PMH History of Previous Operations: No relevant previous surgery Allergies: Allergies Allergy/AdvReac Type Severity Reaction Status Date / Time amoxicillin [AMOXICILLIN] Allergy Intermediate rash Verified 04/28/24 13:42 environmental allergies Allergy Intermediate Itchy Eyes Verified 04/28/24 13:42 oxycodone [From OxyContin] Allergy Intermediate Gastrointestinal Verified 04/28/24 13:42 Hemorrhage Penicillins Allergy Unknown reaction Verified 04/28/24 13:42 unknown-childhood allergy Review of Systems Sugical H&P ROS: Negative: Constitution, Cardiovascular, Respiratory, Neurological, Psychiatric, Hem-Onc, Allergic/Immunologic, Gastrointestinal, Genitourinary, Musculoskeletal, Integumentary, Endocrine and Eyes/Ears/Nose/Throat Exam Surgical H&P Exam: Normal: HEENT, Normal: Heart, Normal: Lungs, Normal: Extremities, Normal: Abdomen, Normal: Skin and Normal: Neurological Plan Diagnosis/Plan: Unchanged (Prostate biopsy for elevated PSA in setting of family history of prostate cancer) I have reviewed the history and physical and performed a pertinent physical examination on my patient. No changes have occurred unless specified. Time Spent With Patient Time: Total time managing care of this patient today ____ minutes.
--- NOTE | 2024-05-02 14:07 | P.CONAN_ITS ---
HPI - Anesthesia Eval Consult details Narrative: for prostate biopsy PMFSH Active Problems Active Problems: All Active Problems Gout (Acute) Gout attack (Acute) Dyslipidemia (Acute) Leukopenia (Acute) Chronic lower back pain (Acute) Family hx of colon cancer (Acute) Elevated hemoglobin (Acute) Physical exam (Acute) Allergies (Acute) Elevated liver enzymes (Acute) Elevated PSA (Acute) Screening for colon cancer (Acute) HTN (hypertension) (Acute) Bilateral knee pain (Acute) Hypothyroidism, unspecified (Acute) Hyperlipidemia, unspecified (Acute) Lumbar spine strain (Acute) Heart palpitations (Acute) H/O right nephrectomy (Acute) Encounter for physical examination (Acute) Hypogonadism in male (Acute) Erectile dysfunction (Acute) Past Medical History Medical History (Updated 04/28/24 @ 13:44 by Latesha Rios RN) Palpitations Leukopenia Gout Splenomegaly Elevated cholesterol Hypothyroid Fatty liver Osteoarthritis of knees, bilateral GERD (gastroesophageal reflux disease) Erectile dysfunction Hypogonadism in male Family History Family History Mother Substance use disorder CAD (coronary artery disease) Family history of problems with anesthesia: No Surgical History Surgical History (Updated 05/02/24 @ 13:13 by Margot Plummer RN) Hx of knee surgery Hx of nephrostomy Hx of elbow surgery History of Problems with Anesthesia: No Social History Social History Housing: House Alcohol intake: current Alcohol intake frequency: 0-2 drinks per day Patient Tobacco Use Status: Never used Tobacco Tobacco use type: Cigar e-Cigarette/Vaping Use: Never Used Use of substances other than those prescribed or required for medical reasons: No Are you DNR?: No Advance Directives: No Advance Directives Information Provided: Yes Nutrition Risks: No Nutritional Risk Poor oral hygiene: No Current occupational status: employed Cognitive needs: No Hearing needs: No Vision needs: No Meds Allergies Allergy/AdvReac Type Severity Reaction Status Date / Time amoxicillin [AMOXICILLIN] Allergy Intermediate rash Verified 04/28/24 13:42 environmental allergies Allergy Intermediate Itchy Eyes Verified 04/28/24 13:42 oxycodone [From OxyContin] Allergy Intermediate Gastrointestinal Verified 04/28/24 13:42 Hemorrhage Penicillins Allergy Unknown reaction Verified 04/28/24 13:42 unknown-childhood allergy Active Medications: Current Medications Lactated Ringer's (Lr) 1,000 mls @ 80 mls/hr IVCONT .[id number] MAC Last Admin: 05/02/24 13:39 Dose: 80 mls/hr Home Medications ?Medication ?Instructions ?Recorded ?Confirmed ?Last Taken ?Type apple cider vinegar 300 mg tablet 300 mg PO DAILY 08/23/20 04/28/24 Unknown H istory omeprazole 20 mg tablet,delayed 20 mg PO DAILY 08/23/20 04/28/24 Unknown History release vitamin A 2,400 mcg capsule 2,400 mcg PO DAILY 08/23/20 04/28/24 Unknown History glucosamine 750 mg-MSM 60 2 tab PO DAILY 12/24/20 04/28/24 Unknown History mg-chondroit 150 mg-hyaluron ac 1 mg tablet (glucosamine-chondroitin) naproxen sodium 220 mg capsule 440 mg PO ONCE PRN Pain 02/04/23 04/28/24 Unknown History (Aleve) tadalafil 5 mg tablet (Cialis) 5 mg PO DAILY sexual activity 04/28/24 04/28/24 Unknown History Exam Height,Weight and Vital Signs: Height 6 ft 3 in Weight 121 kg Last Vital Signs Temp 97.9 F 05/02/24 13:39 Pulse 76 05/02/24 13:39 Resp 16 05/02/24 13:39 BP 141/95 H 05/02/24 13:39 Pulse Ox 96 05/02/24 13:39 O2 Del Method Room Air 05/02/24 13:39 Airway Mallampati Class: I TM Dist: >3cm Neck ROM: Full Loose/Missing/Broken Teeth: No Heart: ok Lungs: ok Assessment and Plan Assessment Anesthesia Assessment: Anesthesia Plan Discussed and Chart Reviewed Final Anesthetic Review Family History of Problems with Anesthesia: No History of Problems with Anesthesia: No NPO: Yes ASA Class: III Final Preanesthetic Review: No Changes in Pt Med Stat, Meds/Allgs Chart Reviewed, Consent Obtained/Reviewed and Anes Risks/Benef Reviewed Patient Risk: Intermediate Procedure Risk: Low Anesthetic Plan Anesthetic Plan: GA and Agree w/ Assess. and Plan Disposition: Standard PACU
--- NOTE | 2024-05-02 14:39 | P.OP_ITS ---
Operative Note Operative Note Date of Service: 05/02/24 Narrative: Preoperative diagnosis: Elevated PSA Postoperative diagnosis: Elevated PSA 7.2 Procedure: 1. transrectal ultrasound measurement of prostate 2. transrectal ultrasound-guided pudendal nerve block 3. transrectal ultrasound-guided prostate biopsy 12 core Surgeon: Dr. Dc Carvalho Anesthetic: 10cc 1% lidocaine Indications for procedure: Elevated PSA 7.2 - suspicious area on MRI Counselling: Technical aspects, risks and benefits of proposed procedure were discussed in full. All questions have been answered, written consent has been obtained and patient agrees to proceed. Procedure: The patient was brought into the procedure area and placed in a left lateral decubitus position. Patient identity confirmed. Perioperative antibiotics confirmed. Safety pause time out performed. GUIDO was performed to dilate rectal sphincter Iodine 10cc with 60 cc gel was placed per rectum to reduce infection risk using a catheter tip syringe. 8 Hz Altaf rectal end-fire ultrasound probe was placed transrectally without difficulty. The prostate was visualized. Seminal vesicles were normal. Prostate margins were clearly demarcated. Bladder was seen superiorly. No cystic structures were noted No calcifications were noted at the surgical margin The prostate was otherwise homogeneous in nature The prostate was measured in 3 dimensions Prostatic Width: 5.6 cm Prostatic Height: 4.5 cm Urethral Length: 5.4 cm Total volume equals : 70 ml An ultrasound-guided pudendal nerve block was performed using a 22 gauge spinal needle in the sagittal plane. 4 cc of 1% lidocaine placed at the junction of each seminal vesicle and 2 cc placed at the apex of the prostate. A 12 core biopsy was performed with 6 cores each side using an 18 gauge prostate biopsy gun. Two cores each were taken at the prostate apex, mid and base on ea ch side. Cores were spaced between lateral and medial aspects. Each core was examined as placed on specimen foam as part of water quality specialist to ensure a minimum 1 cm of length and minimal discontinuity. He tolerated the procedure well with minimal rectal bleeding. Blood pressure remained stable following procedure. He was able to ambulate to bathroom after 5 minutes. Printed instructions regarding antibiotic use and common adverse events from the procedure such as low-grade temperature, potential infection and bleeding were given. He understands to call the office or go to an emergency room should any of these events arise. Pathology: 12 core prostate biopsy. CPT code 07642: Transrectal ultrasound; this is a diagnostic test for evaluation of the prostate and surrounding structures, looking for abnormalities or suspicious areas worrisome for cancer CPT code 38208: Biopsy, prostate; needle or punch, single or multiple, any approach CPT code 20508: Ultrasonic guidance for needle placement (eg, biopsy, aspiration, injection, localization device), imaging supervision and interpretation
[2024-05-02 14:45] VITALS: BP 123/89; PULSE 77; RESP 17; TEMP 36.4; O2SAT 96
[2024-05-02 14:50] VITALS: BP 121/80; PULSE 70; RESP 16; O2SAT 96
[2024-05-02 14:55] VITALS: BP 127/79; PULSE 71; RESP 16; RESP 18; O2SAT 96
[2024-05-02] MEDS: fentaNYL citrate/PF 100 MCG/2 ML VIAL 50 MCG IVPUSH (14:55)
[2024-05-02 15:00] VITALS: BP 115/79; PULSE 74; RESP 16; O2SAT 96
[2024-05-02 15:09] VITALS: BP 119/89; PULSE 73; RESP 16; TEMP 36.4; O2SAT 95
== END 2024-05-02 15:33 | disposition home or self-care (01) ==
PROVIDERS: PCP Nurse Practitioner Family; Visit Provider Urology
PROC: (CPT 55700; principal; 2024-05-02 15:10)
DX: C61 Malignant neoplasm of prostate (principal); R97.20 Elevated prostate specific antigen [PSA]; N52.9 Male erectile dysfunction, unspecified; E29.1 Testicular hypofunction; D72.819 Decreased white blood cell count, unspecified; K21.9 Gastro-esophageal reflux disease without esophagitis; K76.0 Fatty (change of) liver, not elsewhere classified; R45.89 Other symptoms and signs involving emotional state; E78.00 Pure hypercholesterolemia, unspecified; M10.9 Gout, unspecified; R16.1 Splenomegaly, not elsewhere classified; Z79.1 Long term (current) use of non-steroidal anti-inflammatories (NSAID); Z80.0 Family history of malignant neoplasm of digestive organs; Z79.899 Other long term (current) drug therapy; Z88.0 Allergy status to penicillin; Z88.1 Allergy status to other antibiotic agents; F17.290 Nicotine dependence, other tobacco product, uncomplicated; Z98.890 Other specified postprocedural states
CPT/HCPCS: 55700; 76942; 88305; 88344; J2003; J2704; J3010

== ENCOUNTER → 2024-05-02 13:00 | Outpatient (BNV) | payer BC, SELFPAY | PROVIDERS: PCP Nurse Practitioner Family; Visit Provider Urology | DX: R97.20 Elevated prostate specific antigen [PSA] (principal) | CPT/HCPCS: 55700; 76872; 76942 ==

== ENCOUNTER 2024-05-12 07:21 | Outpatient (AMB) | payer BC, SELFPAY ==
--- NOTE | 2024-05-12 07:22 | MHC.OFFVIS ---
Intake Visit Reasons: Prostate biopsy F/U (SET) Intake Note: Pt presents to the office today as a telehealth for a follow up prostate biopsy. Allergies amoxicillin [AMOXICILLIN] Allergy (Intermediate, Verified 05/12/24 07:22) rash environmental allergies Allergy (Intermediate, Verified 05/12/24 07:22) Itchy Eyes oxycodone [From OxyContin] Allergy (Intermediate, Verified 05/12/24 07:22) Gastrointestinal Hemorrhage Penicillins Allergy (Unknown, Verified 05/12/24 07:22) reaction unknown-childhood allergy HPI Comments Details: Misha is a very pleasant male. He is a patient of Dr. Mendez. He is seen for the following urologic conditions - erectile dysfunction - hypogonadism in male Telemedicine Evaluation 15 min Consultation [facility] Video Follow-up prostate biopsy Prostate MRI with 14 mm PI-RADS 4 lesion - right posterior peripheral zone, left posterior peripheral zone. Enlarged prostate cancer 85 g Histologic type: Adenocarcinoma, acinar type Delmar score: 7 (3+4) (right base lateral 17% and right mid lateral 35%) 6 (3+3) (left apex lateral 5%, right base medial 45%, and right mid medial 20%) Number cores positive: 6 Total number of cores: 13 % of tissue involved: 9% Periprostatic fat inv.: Not identified Seminal vesicle inv.: Not identified Perineural inv.: Present Lymphatic and/or vascular invasion: Not identified Recommend Prol[employer] Met[employer] Multiple options for therapy available ranging from targeted cryotherapy, brachytherapy versus robotic prostatectomy T1c Very interested in seeing Dr. Benjamin for discussion of robotic prostatectomy. We will hold off doing [facility] genetics is Dr. Benjamin does genetics on all prostate specimens There is some inconsistency with a prostate MRI. Prior MRI lumbar spine last year had showed degenerative disease. Reported on prostate MRI were lesions suspicious for metastatic disease. This would be inconsistent with current tissue diagnosis. Plan PET-CT Hypogonadism Long-term testosterone use Discussed current laboratories borderline hematocrit Current dosage - 0.8 cc every 2 weeks [facility] 05/27 PSA 3.6, testosterone 630, Hct 52.6 - 10/27 Hct 52, 03/30 T 737 P 5.8 Hct 54, 07/28 T 641 P 4.2 H 53.9, 01/28 T 720 P 4.6 21% H 53.7, 07/29 T 1100 P 6.8 H 56, 10/29 T 670 H 52 P 5.4, 04/01 T 440 50 5.9 22% - 12/30 T 7.2 T 910 Hct 52 Family background question of prostate cancer - father age 59 - prior negative biopsy Follow every six months testosterone PSA and hematocrit Erectile dysfunction Good response to daily low-dose Cialis Trial of on demand Cialis completed Morning erections have recurred Previously has had high hematocrit and discussed therapeutic phlebotomy PFSH Medical History Palpitations Leukopenia Gout Splenomegaly Elevated cholesterol Hypothyroid Fatty liver Osteoarthritis of knees, bilateral GERD (gastroesophageal reflux disease) Erectile dysfunction Hypogonadism in male Surgical History Hx of knee surgery Hx of nephrostomy Hx of elbow surgery Family History Mother Substance use disorder CAD (coronary artery disease) Social History Housing: House Alcohol intake: current Alcohol intake frequency: 0-2 drinks per day Patient Tobacco Use Status: Never used Tobacco Tobacco use type: Cigar e-Cigarette/Vaping Use: Never Used Current occupational status: employed Cognitive needs: No Hearing needs: No Vision needs: No Review of Systems Const All systems reviewed & are unremarkable except as noted in HPI and below Reports no additional complaints Resp Reports no additional complaints GI Reports no additional complaints Reports as per HPI Musc Reports no additional complaints Physical Exam Telemedicine evaluation Appropriate responses Regular breathing rate and rhythm HEENT Head: Yes normal to inspection Ears: hearing grossly normal bilaterally Eyes General: appearance normal, both eyes and all related structures Neck Neck: Yes normal visual inspection Chest Chest palpation & inspection: normal inspection of the chest Resp Effort & Inspection: normal respiratory effort and able to speak in complete sentences Telehealth Telehealth Telehealth Platform: [facility] Location of provider rendering services: practice address Location of patient: address on file Patient Identification confirmed using: Name, : Yes Telehealth method: video Patient verbally consented to treatment: Yes Patient verbally consented to billing insurance company: Yes Patient informed of any privacy concerns related to visit: Yes Assessment & Plan Assessment & Plan (1) Hormone sensitive prostate cancer: Code(s): C61 - Malignant neoplasm of prostate; Z19.1 - Hormone sensitive malignancy status Category: Medical Plan Interested in urology referral for discussion prostatectomy Also plan for PET-CT to evaluate for metastatic disease Orders: Orders PET CT fusion skull to thigh Today C61 - Malignant neoplasm of prostate Referrals Urology Referral C61 - Malignant neoplasm of prostate, Z19.1 - Hormone sensitive malignancy status Patient Instructions: This note is constructed using voice recognition software. While every effort has been made to ensure accuracy internal investigator errors may have been included. Imaging studies, laboratory and physical exam results were discussed and reviewed in detail. No major barriers to patient understanding were identified. An opportunity to ask questions regarding the treatment plan was provided. All questions were answered. The patient expressed understanding and agreement with the above treatment plan. The patient is aware they should contact our office by phone for worsening of their current condition or the appearance of new urologic symptoms. Compliance is encouraged with any medications and followup testing that is ordered. It is a privilege to participate in the urologic care of your patient. If you have any questions or concerns regarding treatment for the above conditions, or other urologic issues, please do not hesitate to contact me. The office telephone contact is [phone]. Sincerely, Dr Dc Carvalho MD, AL[facility] - Urology Compassionate Specialist Care for the Genitourinary System Coding Level of Care Code Tele Est Pt Level 4 (01419) Complex EM visit Add On G2211 Diagnoses Hormone sensitive prostate cancer C61; Z19.1
--- OUTSIDE RECORDS SUMMARY | 2024-05-12 07:23 | XMS_ITS | Clinical Summary ---
Author Organization [facility] [address] [facility] Address [address] [place] [address] Phone Care Team Providers Care Equine Intern Name Role Phone Mekhi Leonard NP Primary Care Provider Encounters Date Type Department Care Team Description 02/19/2024 Telephone Gastroenterology - [address] [address] Nelly Correia MD from Last 3 Months Social History Tobacco Use Types Packs/Day Years Used Date Smoking Tobacco: Never Assessed Sex and Gender Information Value Date Recorded Sex Assigned at Not on file Legal Sex Male 12:05 PM EST Gender Identity Not on file Sexual Orientation Not on file Plan of Treatment Health Maintenance Due Date Last Done Comments DTaP,Tdap,and Td Vaccines (1 - Tdap) 1984 Hepatitis B Vaccines (1 of 3 - 19+ 3-dose series) 1984 Pneumococcal Vaccine: 50+ Ye ars (1 of 1 - PCV) 08/04/2015 Zoster Vaccines (1 of 2) 08/04/2015 COVID-19 Vaccine ( - 2023-2 5 season) 2023 Influenza Vaccine (#1) 2023 [...] patient's age to complete this topic Meningococcal B Vacine Aged Out No lo nger eligible based on patient's age to complete [...] on patient's age to complete this topic Insurance [id number] Care Teams Equine Intern Relationship Specialty Start Date End Date Mekhi Leonard NP PCP - General Family Medicine 02/19/24
== END 2024-05-12 08:33 | disposition home or self-care (01) ==
LOC: HO.HUSH 07:21
PROVIDERS: PCP Nurse Practitioner Family; Visit Provider Urology
DX: C61 Malignant neoplasm of prostate (principal); Z19.1 Hormone sensitive malignancy status
CPT/HCPCS: 99214

== ENCOUNTER → 2024-05-12 07:21 | Outpatient (BNVA) | payer BC, SELFPAY | PROVIDERS: PCP Nurse Practitioner Family; Visit Provider Urology ==

== ENCOUNTER → 2024-06-01 10:47 | Outpatient (REF) | payer BC, SELFPAY ==
--- NOTE | ~2024-06-01 | NM_ITS ---
EXAMINATION: NM BONE SCAN WHOLE BODY HISTORY: C61 - Malignant neoplasm of prostate. TECHNIQUE: A total body bone scan was performed following the intravenous administration of 30 mCi technetium 99m-MDP. Whole body planar images were obtained. COMPARISON: Correlation is made with plain films of the knees dated 12/24/2020. FINDINGS: There is mild symmetric uptake involving the medial compartments of both knees and the bilateral AC joints, consistent with osteoarthritis. There are punctate foci of increased uptake noted in the skull bilaterally on the AP projection. These are not noted on the posterior or lateral views, and may be artifactual in nature. The remainder of the visualized osseous structures demonstrate a normal distribution of activity. Normal left renal activity is seen. No right renal activity is identified, consistent with a history of prior nephrectomy. NM/NM bone scan whole body IMPRESSION: Punctate foci of increased uptake involving the skull seen only on the AP view which may be artifactual in nature. If indicated, further evaluation with CT could be performed. Otherwise, no suspicious foci of activity are identified. Electronically signed by: Jose Carlos Black MD 06/01/2024 03:17 PM EDT
--- OUTSIDE RECORDS SUMMARY | 2024-06-01 12:58 | XMS_ITS | Clinical Summary ---
Author Organization [facility] [address] [facility] Address [address] [place] [address] Phone Care Team Providers Care Junior Database Administrator Name Role Phone Mekhi Leonard NP Primary Care Provider Social History Tobacco Use Types Packs/Day Years [...] patient's age to complete this topic Insurance Care Teams Junior Database Administrator Relationship Specialty Start Date End Date Mekhi Leonard NP PCP - General Family Medicine 02/19/24
--- OUTSIDE RECORDS SUMMARY | 2024-06-01 12:58 | XMS_ITS ---
Author Name [facility] Organization Unknown Problems Problem Status Onset Date Problem Type Date of Resoluti on Source Prostate cancer (HCC) active EncounterDiagnosisAct HHCCT Encounters Encounter Type Encounter Reason Primary Diagnosis Location Date Ambulatory Malignant neoplasm of prostate Malignant neoplasm of prostate So [facility] 05/27/2024 Care Team Organization Name Specialty Phone Email Start Date End Da melita [facility] IVAN[facility]KE Primary Care 05/23/2024
== END ==
LOC: HO.NUCMED 10:47
PROVIDERS: PCP Nurse Practitioner Family; Visit Provider Urology
DX: C61 Malignant neoplasm of prostate (principal); C79.51 Secondary malignant neoplasm of bone; Z19.1 Hormone sensitive malignancy status
CPT/HCPCS: 78306; A9503

== ENCOUNTER → 2024-06-01 10:49 | Outpatient (BNV) | payer BC, SELFPAY | PROVIDERS: PCP Nurse Practitioner Family; Visit Provider Radiology Diagnostic Radiology | DX: C61 Malignant neoplasm of prostate (principal) | CPT/HCPCS: 78306 ==

== ENCOUNTER 2024-08-23 13:32 | Outpatient (AMB) | payer BC, SELFPAY ==
--- NOTE | 2024-08-23 13:32 | AM.OFFWIN_ITS ---
Intake Vital Signs 08/23/24 13:33 Height 6 ft 3 in Weight 248 lb BMI 31.0 BP 142/84 H Blood Pressure Location Rt brachial Position Sitting Pulse 108 H Pulse Source Pulse Oximeter Temp 99.6 F Temp Source Oral Pulse Oximetry (%) 96 Oxygen Delivery Method Room Air Intake Visit Reasons: EP-heart palpitation,lt foot swollen,panics attack Intake Note: Pt presents to the office today for left foot pain due to gout. Pt also states he is having his peace catheter removed tomorrow and he is having severe panic attacks due to it being removed. Patient Tobacco Use Status: Never used Tobacco Allergies amoxicillin [AMOXICILLIN] Allergy (Intermediate, Verified 08/23/24 13:38) rash environmental allergies Allergy (Intermediate, Verified 08/23/24 13:38) Itchy Eyes oxycodone [From OxyContin] Allergy (Intermediate, Verified 08/23/24 13:38) Gastrointestinal Hemorrhage Penicillins Allergy (Unknown, Verified 08/23/24 13:38) reaction unknown-childhood allergy HPI HPI Comments History of Present Illness Details History of Present Illness - The patient is a 59-year-old male pres enting with swelling in the left foot suspected to be gout and anxiety related to recent medical procedures. - The patient reports swelling in the le ft foot, which he suspects to be gout, and has been taking allopurinol for management. - The patient had to stop allopurinol be fore a prostatectomy performed on August 16 and resumed it 1 day post-procedure. - The patient experienced significant fo ot pain on the day of the procedure, impacting his mobility. - The patient has a history of anxiety, exacerbated by the presence of a Peace catheter due to a traumatic childhood experience with one. - The patient reports increased anxiety symptoms, including tension, inability to focus, and increased heart rate. Physical Exam General: Cooperative, healthy appearing, comfortable, no acute distress and well developed Orientation: Patient oriented x3 Limitations: No limitations Head: Normal to inspection Ears: Hearing grossly normal bilaterally Nose: Normal External nose present Face and sinus: Normal facial exam Eyes: Appearance normal, both eyes and all related structures Neck: Normal visual inspection and Yes full ROM Respiratory: Normal respiratory effort and able to speak in complete sentences. Skin: No rashes or lesions noted Neuro: Patient oriented x3 Extremities: Swelling in the left foot [facility], [facility] Medical History Palpitations Leukopenia Gout Splenomegaly Elevated cholesterol Hypothyroid Fatty liver Osteoarthritis of knees, bilateral GERD (gastroesophageal reflux disease) Erectile dysfunction Hypogonadism in male Surgical History H/O radical prostatectomy Hx of knee surgery Hx of nephrostomy Hx of elbow surgery Family History Mother Substance use disorder CAD (coronary artery disease) Social History Housing: House Alcohol intake: current Alcohol intake frequency: 0-2 drinks per day Patient Tobacco Use Status: Never used Tobacco Tobacco use type: Cigar e-Cigarette/Vaping Use: Never Used Current occupational status: employed Cognitive needs: No Hearing needs: No Vision needs: No Review of Systems Const All systems reviewed & are unremarkable except as noted in HPI and below Physical Exam Vital Signs: Last Vital Signs Temp 99.6 F 08/23/24 13:33 Pulse 108 H 08/23/24 13:33 BP 142/84 H 08/23/24 13:33 Pulse Ox 96 08/23/24 13:33 Oxygen Delivery Method Room Air 08/23/24 13:33 BMI result Body Mass Index 31.0 Assessment & Plan Assessment & Plan (1) Gout attack: Code(s): M10.9 - Gout, unspecified Qualifiers: Gout site: toe Gout etiology: unspecified cause Laterality: right Qualified Code(s): M10.9 - Gout, unspecified Plan: - Prescribed colchicine to manage the gout flare-up, with specific dosing instructions provided to the patient. Patient was informed and verbally consented to the use of an ambient scribe for clinic note documentation during this visit. (2) Anxiety about health: Code(s): R45.89 - Other symptoms and signs involving emotional state Plan: - Discussed with PCP, okay for one time short term dose to manage his anxiety about Peace catheter and subsequent removal tomorrow. - Lorazepam prescribed for anxiety management, with instructions to take 0.5 mg tablets up to every 8 hours as needed. Medications: New lorazepam 0.5 mg PO Q6-8H PRN 7 tabs 0RF anxiety colchicine On day 1, take 2 tablets followed by 1 tablet 1 hour later. Do not exceed 3 tablets in 24 hours. On day 2 and 3, take 1 tablet every 12 hours. 0.6 mg PO DAILY 7 tabs 0RF lorazepam 0.5 mg PO TID PRN 7 tabs 0RF anxiety Coding Level of Care Code Est Pt Level 4 (79145) Diagnoses Acute gout involving toe of right foot, unspecified cause M10.9 Gout site: toe Gout etiology: unspecified cause Laterality: right Anxiety about health R45.89
[2024-08-23 13:33] VITALS: BP 142/84; PULSE 108; TEMP 37.6; O2SAT 96; BMI 31.0
--- OUTSIDE RECORDS SUMMARY | 2024-08-23 15:27 | XMS_ITS | Patient Health Record ---
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 Role Phone Barrera Scott MD Primary Care Provider Carloz Ritter Unavailable [phone] Allergies Allergen (clinical drug ingredient) Drug/Non Drug Allergy documented on EMR Reaction Allergy Type Onset Date Status amoxicillin Amoxicillin rash Drug Allergy Act ricardo seasonal allergies Unknown Drug Allergy Active Reason For Referral No Information Medications Medication SIG (Take, Route, Frequency, Duration) Notes Start Date End Date Status Glucosamine Chond Complex/MSM Active Testosterone IM Active Benadryl Allergy 25 MG 1 tablet as neede d Orally BID Active Naproxen Active Atorvastatin Calcium 20 MG 1 tablet Oral ly Once a day Active Pantoprazole Sodium 40 MG 1 tablet Orall y Once a day Active Social History Tobacco Use: Social History Observation Description Date Details (start date - stop date) Never Smoker NA - NA Tobacco Use/Smoking Question Answer Notes Are you a: nonsmoker Additional Findings: Tobacco Non-User Current no n-smoker Alcohol Screen Question Answer Notes Did you have a drink containing alcohol in the p ast year? Yes Points 0 Interpretation Negative Tobacco use other than smoking: Question Answer Notes Are you an other tobacco user? No Plan Of Treatment Pending Test Test Name Order Date X ray : Ankle, left 3V 12/29/2016 X ray : Foot, right 3V 12/29/2016 56039-Xhug Destruction, -14 12/29/2016 55359-Tunq Destruction, -14 03/30/2017 77685-Esaw Destruction, -14 04/20/2017 94919-Tjeu Destruction, -14 05/11/2017 38441-Rery Destruction, 03-2206/15/2017 30890-Czyd Destruction, 03-2207/20/2017 58433-Dkxh Destruction, 03-2208/12/2017 59908-Besi Destruction, 03-2209/02/2017 10330-Ania Destruction, 03-2210/01/2017 Insurance Providers Payer Name Payer Address Payer Phone Subscriber Number Group Number Insured Name Patient Relationship to Insured Coverage Start Date Coverage End Date [facility] [address] [address] [place] [address] [phone] [id number] Lianna Brasher Spouse - patient is the spouse of the insured Medical (General) History Medical History History ICD Code Anxiety Depression Arthritis Back,Hip,and Knee pain Gout Headaches Migraines High blood pressure keloids Reflux ( GERD) chronic sinusitis Warts Chicken pox Surgical History Surgery Date(Month/Year) kidney surgery - RT removed 1973 right knee arthroscopy xs 2 elbow sx - RT bone chips 1981 acl - Left, rejected screw 11/2000
== END 2024-08-23 14:03 | disposition home or self-care (01) ==
PROVIDERS: PCP Nurse Practitioner Family; Visit Provider Physician Assistant
DX: M10.9 Gout, unspecified (principal); R45.89 Other symptoms and signs involving emotional state

== ENCOUNTER → 2024-08-23 13:32 | Outpatient (BNVA) | payer BC, SELFPAY | PROVIDERS: PCP Nurse Practitioner Family; Visit Provider Physician Assistant ==

== ENCOUNTER 2024-09-15 15:58 | Outpatient (AMB) | payer BC, SELFPAY ==
--- NOTE | 2024-09-15 16:01 | MHC.PC.OV ---
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: No Accompanied by: Spouse Allergies amoxicillin (AMOXICILLIN) Allergy (Intermediate, Verified 09/15/24 16:01) rash environmental allergies Allergy (Intermediate, Verified 09/15/24 16:01) Itchy Eyes oxycodone (From OxyContin) Allergy (Intermediate, Verified 09/15/24 16:01) Gastrointestinal Hemorrhage Penicillins Allergy (Unknown, Verified 09/15/24 16:01) reaction unknown-childhood allergy Tobacco use date assessed: 09/15/24 Dental Screening Dental Screen Date: 09/15/24 Did you have a dental visit in the last 12 months?: Yes Did you have a dental problem in the last 6 months where you did not have access to dental care?: No Was dental information given to patient?: Patient has dentist HPI HDF-multiple PE HPI Details History of Present Illness The patient is a 59-year-old male presenting for a physical exam and hospital discharge follow-up. In mid-August, the patient underwent a radical prostatectomy on August 16. Shortly after the procedure, he experienced shortness of breath and dyspnea on exertion, which began around August 22. His , a retired OR nurse, encouraged him to seek evaluation, and he was eventually diagnosed with bilateral pulmonary embolisms and possible left lower lobe pulmonary infarct, ? pulmonary aurora. The patient was discharged on anticoagulation therapy with Eliquis. He consulted with a on site coordinator and urologist, who suspect the pulmonary nodules may be due to sarcoidosis rather than metastatic disease. The patient reports urinary incontinence, which has improved from requiring a diaper to using a pad. He experiences some discomfort and pressure in the bladder and penis, which is gradually improving. He is on levothyroxine for hypothyroidism and has stopped alcohol consumption since August 03. He reports weight loss (intentional) and is scheduled for a CAT scan (chest) on the of this month, with follow-ups planned with his on site coordinator, packaging design engineer/oncologist, and urologist. Health Maintenance - Colon cancer screening with Cologuard test ordered due to inability to perform colonoscopy - Scheduled CAT scan for further evaluation of pulmonary nodules Social History - Substance Use: Patient has stopped alcohol consumption since August 03. - Family: is a retired nurse, providing support and care. Review of Systems - Cardiovascular: Denies chest pain. - Respiratory: Reports dyspnea on exertion and with speaking . Denies cough, hemoptysis, or wheezing. - Gastrointestinal: Denies blood in stool. - Neurological: Denies suicidal or homicidal ideation. - General: Denies fever or chills. - Genitourinary: Reports urinary incontinence and discomfort in bladder and penis. Physical Exam General: Cooperative, healthy appearing, comfortable, no acute distress and well developed Orientation: Patient oriented x3 Limitations: No limitations Head: Normal to inspection Ears: small amt of cerumen in the left ear canal. Nose: Normal external nose present Face and sinus: Normal facial exam Eyes: Appearance normal, both eyes and all related structures Neck: Normal visual inspection and Yes full ROM Respiratory: Normal respiratory effort and able to speak in complete sentences. Clear to auscultation bilaterally, some sob noted with speaking Cardiovascular: Regular rate and rhythm. Normal S1 and S2 GI: Normal to inspection. Soft to palpation and nontender : no hernias appreciated. tenderness with palpation of scrotum. Reports some urinary leakage and discomfort, with pressure in bladder and penis, slowly getting better Skin: No rashes or lesions noted Neuro: Patient oriented x3. Negative Romberg test Extremities: Normal to inspection. No edema Results - Imaging: Scheduled CAT scan for pulmonary nodules evaluation. Plan The patient will continue anticoagulation therapy with Eliquis for the management of pulmonary embolism. A CAT scan is scheduled for further evaluation of pulmonary nodules, with follow-up appointments planned with a on site coordinator, packaging design engineer oncologist, and urologist to assess the possibility of sarcoidosis versus metastatic disease. For urinary incontinence, the patient reports improvement and will continue monitoring symptoms, with a transition from diaper to pad use. The patient will continue levothyroxine for hypothyroidism management and has been advised to maintain abstinence from alcohol. Preventative care includes a Cologuard test for colon cancer screening due to the inability to perform a colonoscopy at this time. Discussion Notes I discussed with the patient the importance of continuing anticoagulation therapy with Eliquis for his pulmonary embolism and the need for a CAT scan to evaluate pulmonary nodules. We talked about the possibility of sarcoidosis versus metastatic disease and the necessity of follow-up with specialists. I advised him on the management of urinary incontinence and the importance of maintaining abstinence from alcohol. Preventative care measures, including the Cologuard test for colon cancer screening, were also discussed. Patient Instructions - Continue taking Eliquis as prescribed. - Attend scheduled CAT scan and follow-up appointments with specialists. - Monitor urinary symptoms and use pads as needed. - Maintain abstinence from alcohol. - Complete Cologuard test for colon cancer screening. [facility] Medical History (Updated 09/15/24 @ 17:23 by [facility] Pulmonary nodules Pulmonary embolism and infarction Palpitations Leukopenia Gout Splenomegaly Elevated cholesterol Hypothyroid Fatty liver Osteoarthritis of knees, bilateral GERD (gastroesophageal reflux disease) Erectile dysfunction Hypogonadism in male Surgical History (Updated 09/15/24 @ 17:23 by ROMINA DiezNOHEMY) H/O radical prostatectomy Hx of knee surgery Hx of nephrostomy Hx of elbow surgery Family History Mother Substance use disorder CAD (coronary artery disease) Social History Housing: House Alcohol intake: current Alcohol intake frequency: 0-2 drinks per day Patient Tobacco Use Status: Never used Tobacco Tobacco use type: Cigar e-Cigarette/Vaping Use: Never Used Current occupational status: employed Cognitive needs: No Hearing needs: No Vision needs: No Questionnaire PHQ-9 Over the last 2 weeks, how often have you been bothered by any of the following problems? 1. Little interest or pleasure in doing things: several days 2. Feeling down, depressed, or hopeless: not at all 3. Trouble falling or staying asleep, or sleeping too much: more than half the days 4. Feeling tired or having little energy: several days 5. Poor appetite or overeating: not at all 6. Feeling bad about yourself - or that you are a failure or have let yourself or your family down: not at all 7. Trouble concentrating on things, such as reading the newspaper or watching television: not at all 8. Moving or speaking so slowly that other people could have noticed. Or the opposite - being so fidgety or restless that you have been moving around a lot more than usual: not at all 9. Thoughts that you would be better off or of hurting yourself in some way: not at all Total score: 4 Depression Screening Interpretation: Negative Depression Screening Done: Yes 88184 - PHQ-9 Billing: Yes Source: Developed by Drs. Jose Carlos Maravilla, Rupinder Pena, Rafi Brown and colleagues, with an educational kwabena from [employer]. Thrive Questionnaire Date Thrive assessed: 09/15/24 I am a: Patient What is your living situation today?: I have a steady place to live Within the past 12 months, did the food you bought not last and you didn't have the money to get more?: Never true Within the past 12 months, did you worry whether your food would run out before you got money to buy more?: Never true Do you have trouble paying for medicines?: No Do you have trouble getting transportation to medical appointments?: No Do you have trouble paying your heating and electricity bill?: No Do you have trouble taking care of your child, family member or friend?: No Do you have trouble with day-to-day activities such as bathing, preparing meals, shopping, managing finances, etc.?: No Are you currently unemployed and looking for a job?: No Are you interested in more education?: No Please select the resources that you would like help with: None Currently or been in a relationship where the following occur: No concerns reported THRIVE Score: 0 AUDIT C Alcohol Use Questionnaire (AUDIT-C) 1. How often do you have a drink containing alcohol?: Never 3. How often do you have six or more drinks on one occasion?: Never Total Score: 0 Score Reviewed/Action Taken: Yes CHICHI-7 AMB Questionnaire CHICHI-7 Date CHICHI - 7 assessed: 09/15/24 Feeling nervous, anxious, or on edge: 0 = Not at all Not being able to stop or control worryin = Not at all Worrying too much about different things: 0 = Not at all Trouble relaxin = Not at all Being so restless that it is hard to sit still: 0 = Not at all Becoming easily annoyed or irritable: 2 = More than half the days Feeling afraid as if something awful might happen: 0 = Not at all Total CHICHI-7 score (0-4 normal; 5-9 mild; 10-14 moderate; 15-21 severe): 2 Source: Developed by Drs. Jose Carlos Maravilla, Rupinder Pena, Rafi Brown and colleagues, with an educational kwabena from [employer]. CHICHI-7 Assessment Billing CHICHI-7 Assessment Tool: CHICHI-7 Assessment 53959 Physical exam (Primary Care) Vital Signs: Last Vital Signs Temp 98.8 F 09/15/24 16:04 Pulse 84 09/15/24 16:04 Resp 16 09/15/24 16:04 BP 126/82 09/15/24 16:04 Pulse Ox 96 09/15/24 16:04 Oxygen Delivery Method Room Air 09/15/24 16:04 BMI result Body Mass Index 31.4 Tobacco/Smoking Status: Tobacco use Status Tobacco use date assessed 09/15/24 09/15/24 16:12 Patient Tobacco Use Status Never used Tobacco 09/15/24 16:12 Tobacco use type Cigar 09/15/24 16:12 e-Cigarette/Vaping Use Never Used 09/15/24 16:12 PHQ-9: PHQ-9 Score PHQ-9: Total score 4 09/15/24 16:12 Depression Screening Interpretation: Negative Thrive Assessment: Date of Thrive Assessment Date Thrive assessed 09/15/24 09/15/24 16:12 Currently or been in a relationship where the following occur: No concerns reported Coding Level of Care Code Est Pt Level 3 (87676) Est Pt Prev Care 40-64y(82680) Diagnoses Encounter for routine adult physical exam with abnormal findings Z00. H/O radical prostatectomy Z90.79 Bilateral pulmonary embolism I26.99 Additional Codes CHICHI-7 Assessment Billing - CHICHI-7 Assessment Tool: CHICHI-7 Assessment 50716 ([id number]) PHQ-9 - 75377 - PHQ-9 Billing: Yes ([id number]) Assessment & Plan Assessment & Plan (1) Encounter for routine adult physical exam with abnormal findings: Code(s): Z00.01 - Encounter for general adult medical examination with abnormal findings Category: Medical (2) H/O radical prostatectomy: Comment: 08/2024 Code(s): Z90.79 - Acquired absence of other genital organ(s) Category: Surgical (3) Bilateral pulmonary embolism: Code(s): I26.99 - Other pulmonary embolism without acute cor pulmonale Category: Medical Plan . Orders: Referrals Cologuard Test Z12.11 - Encounter for screening for malignant neoplasm of colon, Z12.12 - Encounter for screening for malignant neoplasm of rectum
--- OUTSIDE RECORDS SUMMARY | 2024-09-15 16:01 | XMS_ITS | Encounter Summary ---
Author Organization [facility] Address [address] [place] [address] Care Team Providers Care Research Support Specialist Name Role Phone Carrier, Ofelia GRAF Unavailable Mekhi Leonard MD Primary Care Provider + [phone] Reason for Visit * Reason Onset Date Comments Referral 09/01/2024 AC needs schedul ing . Encounter Details Date Type Department Care Team ([facility] st Contact Info) Description 09/01/2024 Telephone [facility] [address] [place] [address] Provider, External, [address] [place] [address] Referral (AC needs scheduling . ) Social History Tobacco Use Types Packs/Day Years Used Date Smoking Tobacco: Some Days Cigars Smokeless Tobacco: Never Comments:Occasional cigar Alcohol Use Standard Drinks/Week Comments Yes 4 (1 standard drink = 0.6 oz pur e alcohol) [facility] Utilities Answer Date Recorded In the past 12 months has [facility], gas, oil, or water [employer] threatened to shut off services in your [...] any time in the past 12 [facility], were you homeless or living in a [place] health care facility (including now)? No 08/25/2024 Sex and Gender Information Value Date Recorded Sex Assigned at Male 05/27/2024 7:26 PM EDT Legal Sex Male 6:10 PM EST Gender Identity Male 05/27/2024 7:27 PM EDT Sexual Orientation Heterosexual (straight) 08/16 9:23 AM EDT documented as of this encounter Plan of Treatment Upcoming Encounters Date Type Department Care Team (Late st Contact Info) Description 11/14/2024 11:45 AM EDT Office Visit [address] [phone] Blas Mendez MD [address] [place] [address] 11/22/2024 9:45 AM EDT Consult [facility] at [address] [place] [phone] Juan Valdes MD [address] [place], [place] [phone] 12/01/2024 2:30 PM EDT Office Visit [place] [phone] Luisa Modi APRN [address] [place] [address] 02/13/2025 8:45 AM EST Office Visit [place] [phone] Luisa Modi APRN [address] [place] [address] 05/24/2025 9:00 AM EDT Office Visit [place] [phone] Luisa Modi APRN [address] [place] [address] 08/23/2025 11:45 AM EDT Office Visit [address] [phone] Niels Benjamin MD [address] [place] [address] documented as of this encounter Visit Diagnoses Not on filedocumented in this encounter Care Teams Research Support Specialist Relationship Specialty Start Date End Date Mekhi Leonard MD [address] [facility] [place] [address] PCP - General Family Medicine 07/27/24 Ofelia Forrest RN [address] [place] [address] Oncology Nurse Navigator 05/27/24 documented as of this encounter
--- OUTSIDE RECORDS SUMMARY | 2024-09-15 16:01 | XMS_ITS | Patient Health Record ---
Author Organization [facility] Address [address] [place] [address] Care Team Providers Care Rn Procedures Name Role Phone Barrera Scott MD Primary Care Provider Carloz Ritter Unavailable [phone] Allergies Allergen (clinical drug ingredient) Drug/Non Drug [...] X ray : Foot, right 3V 12/29/2016 [id number]-Fvck Destruction, -14 12/29/2016 25432-Qpxs Destruction, -14 03/30/2017 05130-Chfo Destruction, -14 04/20/2017 50811-Livf Destruction, -14 05/11/2017 02457-Swyg Destruction, 03-2206/15/2017 81249-Pjoh Destruction, 03-2207/20/2017 25544-Smmy Destruction, 03-2208/12/2017 83458-Zltp Destruction, 03-2209/02/2017 30887-Ogix Destruction, 03-2210/01/2017 Insurance Providers Payer Name Payer Address Payer Phone Subscriber Number Group Number Insured Name Patient Relationship to Insured Coverage Start Date Coverage End Date [facility] [address] [address] [place] [address] [phone] [id number] Lianna Brasher Spouse - patient is the [...]
[2024-09-15 16:04] VITALS: BP 126/82; PULSE 84; RESP 16; TEMP 37.1; O2SAT 96; BMI 31.4
== END 2024-09-15 17:02 | disposition home or self-care (01) ==
LOC: HO.HMCC 15:59
PROVIDERS: PCP Nurse Practitioner Family; Visit Provider Nurse Practitioner Family
DX: Z00.01 Encounter for general adult medical examination with abnormal findings (principal); I26.99 Other pulmonary embolism without acute cor pulmonale; Z90.79 Acquired absence of other genital organ(s)

== ENCOUNTER → 2024-09-15 15:58 | Outpatient (BNVA) | payer BC, SELFPAY | PROVIDERS: PCP Nurse Practitioner Family; Visit Provider Nurse Practitioner Family | DX: Z00.01 Encounter for general adult medical examination with abnormal findings (principal); I26.99 Other pulmonary embolism without acute cor pulmonale; R32 Unspecified urinary incontinence; Z86.711 Personal history of pulmonary embolism; Z79.01 Long term (current) use of anticoagulants; Z90.79 Acquired absence of other genital organ(s); Z79.899 Other long term (current) drug therapy | CPT/HCPCS: 96127 ==

== ENCOUNTER 2024-10-29 11:32 | Outpatient (AMB) | payer BC, SELFPAY ==
[2024-10-29 12:49] VITALS: BP 132/80; PULSE 88; O2SAT 97
--- NOTE | 2024-10-29 12:49 | AM.OFFWIN_ITS ---
Intake Vital Signs 10/29/24 12:49 Height 6 ft 3 in BP 132/80 Blood Pressure Location Lt brachial Position Sitting Pulse 88 Pulse Source Pulse Oximeter Pulse Oximetry (%) 97 Oxygen Delivery Method Room Air Intake Visit Reasons: EP-Back Pain Patient Tobacco Use Status: Never used Tobacco Allergies amoxicillin (AMOXICILLIN) Allergy (Intermediate, Verified 10/29/24 12:49) rash environmental allergies Allergy (Intermediate, Verified 10/29/24 12:49) Itchy Eyes oxycodone (From OxyContin) Allergy (Intermediate, Verified 10/29/24 12:49) Gastrointestinal Hemorrhage Penicillins Allergy (Unknown, Verified 10/29/24 12:49) reaction unknown-childhood allergy Do you need a note to return to daycare/school/sports/work: No HPI EP-Back Pain HPI Details Patient is a 59-year-old male with history of bilateral pulmonary embolisms, radical prostatectomy, and getting workup for leukopenia with lymphadenopathy, complaining of new onset of severe back pain He also has a history of occult spina bifida, found by PCP with prior back pain workup, but pain was determined to be due to muscle spasm, responsive to Valium, and lasted for few weeks until physical therapy helped resolve it New spasm even more severe, located in the same place in lumbosacral band area, and does not radiate to the legs, cause cauda equina symptoms, numbness or tingling He does have some weakness in the legs however due to pain, and has to use his arms to help push himself erect presents with him and is worried that she can not help him with ambulating to the bathroom He requests alternative pain medication, as he has Percocet at home which does n ot relieve symptoms. He did have some relief with the Valium again No fever or chills, nausea vomiting or diarrhea, dizziness or headache, myalgias or malaise, urinary symptoms or respiratory symptoms No acute or new trauma PFSH Medical History Pulmonary nodules Pulmonary embolism and infarction Palpitations Leukopenia Gout Splenomegaly Elevated cholesterol Hypothyroid Fatty liver Osteoarthritis of knees, bilateral GERD (gastroesophageal reflux disease) Erectile dysfunction Hypogonadism in male Surgical History H/O radical prostatectomy Hx of knee surgery Hx of nephrostomy Hx of elbow surgery Family History Mother Substance use disorder CAD (coronary artery disease) Social History Housing: House Alcohol intake: current Alcohol intake frequency: 0-2 drinks per day Patient Tobacco Use Status: Never used Tobacco Tobacco use type: Cigar e-Cigarette/Vaping Use: Never Used Current occupational status: employed Cognitive needs: No Hearing needs: No Vision needs: No Review of Systems Const All systems reviewed & are unremarkable except as noted in HPI and below Physical Exam Exam Exam: Moderate to severe apparent distress with sitting to standing no visible trauma noted, tender to palpation lower sacral band area diffusely including vertebral tenderness Unable to do straight leg raises as he can not tolerate testing Flexion worsens pain, but extension relieves it, limited bilateral rotation Ambulating it is very difficult, uses wheelchair in office Able to stand on heels and toes with assistance however Neurovascularly intact distally Vital Signs: Last Vital Signs Pulse 88 10/29/24 12:49 BP 132/80 10/29/24 12:49 Pulse Ox 97 10/29/24 12:49 Oxygen Delivery Method Room Air 10/29/24 12:49 Assessment & Plan Assessment & Plan (1) Low back pain: Code(s): M54.50 - Low back pain, unspecified Qualifiers: Chronicity: acute Back pain laterality: bilateral Sciatica presence: without sciatica Qualified Code(s): M54.50 - Low back pain, unspecified Plan: Patient with recurrent episode of low back pain, apparently muscle spasm related although he does have history of occult spina bifida that was found prior back pain workup He finds that doing his stretches does help to relieve symptoms, but he is in too much pain for activities of daily living and can not help him enough currently, especially with frequent bathroom visits I advised that he be evaluated and treated at the emergency department until his pain is controlled and his further care can be discussed at that time Patient refuses this, and wants to continue to try to be continued to be treated at home with pain management I offered to write for tizanidine to help directly treat his muscle spasm, and he can continue with Valium at night to aid with sleeping, instead of the tizanidine However I advised that if his symptoms do not improve by tomorrow, that he consider the emergency department, and his was in agreement with this They will purchase a urinal to assist with care in the meantime I will send over copy of this to PCP Mekhi Mendez for his review, and contribution to his care Medications: New tizanidine 4 mg (2 x 2 mg) PO TID PRN 30 caps 0RF muscle spasticity diazepam (Valium) do not combine with tizanidine 5 mg PO BEDTIME PRN 10 tabs 0RF muscle spasm Coding Level of Care Code Est Pt Level 4 (21449) Diagnoses Acute bilateral low back pain without sciatica M54.50 Chronicity: acute Back pain laterality: bilateral Sciatica presence: without sciatica
== END 2024-10-29 14:00 | disposition home or self-care (01) ==
LOC: HO.HMCWIC 11:32
PROVIDERS: PCP Nurse Practitioner Family; Visit Provider Physician Assistant Medical
DX: M54.50 Low back pain, unspecified (principal)

== ENCOUNTER 2024-11-10 10:05 | Outpatient (AMB) | payer BC, SELFPAY ==
--- NOTE | 2024-11-10 10:22 | MHC.OFFWIV ---
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 Accompanied by: Self / Same As Patient Allergies amoxicillin (AMOXICILLIN) Allergy (Intermediate, Verified 11/10/24 10:27) rash environmental allergies Allergy (Intermediate, Verified 11/10/24 10:27) Itchy Eyes oxycodone (From OxyContin) Allergy (Intermediate, Verified 11/10/24 10:27) Gastrointestinal Hemorrhage Penicillins Allergy (Unknown, Verified 11/10/24 10:27) reaction unknown-childhood allergy Do you need a note to return to daycare/school/sports/work: No HPI HPI Comments History of Present Illness Details History - The patient is a 59-year-old male presenting with low back muscle spasms and associated pain. - The back pain began after a bone marrow biopsy at the L2 vertebra, which is the site of the muscle spasms. - Initially, the pain was severe, rated at 15 out of 10, and has been reduced to 8 out of 10 with medication, though it is worsening again. - The patient has been prescribed diazepam, tramadol, and tizanidine, but these have provided limited relief. - The patient underwent a prostatectomy in August, followed by lymph node biopsies. - Post-surgery, the patient developed pulmonary emboli and was hospitalized for 36 hours in the ER and ICU. - Imaging revealed swollen lymph nodes and bone lesions, leading to a suspicion of sarcoidosis, osteosarcoidosis, or lymphoma. - A bone marrow biopsy was performed, and the results are pending review by a high scaler. - The patient has been experiencing significant functional limitations due to back pain, including difficulty with daily activities such as showering and dressing. - He denies saddle anesthesia, numbness, tingling, or incontinence. - He denies fall or trauma. Physical Exam General: cooperative, healthy appearing and comfortable, patient oriented x3 Head: Normal to inspection, normocephalic/atraumatic Effort & Inspection: Normal respiratory effort and able to speak in complete sentences. Cardiac: RRR, no M/R/G noted. Normal S1 and S2. Respiratory: Clear to auscultation bilaterally. No w/r/r noted. Back/spine: No CVA tenderness bilaterally. Cervical, thoracic and lumbar spine normal to inspection. Cervical ROM normal, no midline spinous tenderness noted. Thoracic ROM normal, lumbar ROM normal. No midline vertebral spinous tenderness noted in the thoracic region but in the lumbar region at the level of L2-L5. No step offs noted. No TTP of the thoracic paraspinous or paravertebral muscles. TTP of the lumbar paraspinous muscles bilaterally. DTR are 2+ on the lower extremities noted. Ambulates with a slow steady gait with a cane. Extremities: Straight leg raise test negative on right; Straight leg raise test negative on left; motor strength normal 5/5 bilaterally. Neuro: Sensation intact. Patient was informed and verbally consented to the use of an ambient scribe for clinic note documentation during this visit. [facility] Medical History (Updated 11/02/24 @ 15:05 by Mekhi Leonard, [facility]) Metastatic disease Pulmonary nodules Pulmonary embolism and infarction Palpitations Leukopenia Gout Splenomegaly Elevated cholesterol Hypothyroid Fatty liver Osteoarthritis of knees, bilateral GERD (gastroesophageal reflux disease) Erectile dysfunction Hypogonadism in male Surgical History H/O radical prostatectomy Hx of knee surgery Hx of nephrostomy Hx of elbow surgery Family History Mother Substance use disorder CAD (coronary artery disease) Social History Housing: House Alcohol intake: current Alcohol intake frequency: 0-2 drinks per day Patient Tobacco Use Status: Never used Tobacco Tobacco use type: Cigar e-Cigarette/Vaping Use: Never Used Current occupational status: employed Cognitive needs: No Hearing needs: No Vision needs: No Review of Systems Const All systems reviewed & are unremarkable except as noted in HPI and below Physical Exam Vital Signs: Last Vital Signs Temp 97.8 F 11/10/24 10:25 Pulse 66 11/10/24 10:25 BP 132/76 11/10/24 10:25 Pulse Ox 97 11/10/24 10:25 Oxygen Delivery Method Room Air 11/10/24 10:25 BMI result Body Mass Index 33.1 Assessment & Plan Assessment & Plan (1) Back pain: Code(s): M54.9 - Dorsalgia, unspecified Qualifiers: Back pain laterality: midline Back pain location: low back pain Chronicity: acute Sciatica presence: without sciatica Qualified Code(s): M54.50 - Low back pain, unspecified Plan Most likely back pain s/p bone biopsy and quinn lesions in the spine plan - Consider adjusting current medications, including diazepam and tizanidine, to provide better pain relief until the follow-up appointment. - Evaluate the possibility of prescribing oxycodone for pain management, ensuring it is taken with food to prevent gastrointestinal discomfort and not with the Valium. - willl discuss with his PCP - Await the results of the bone marrow biopsy and consult with the high scaler for a definitive diagnosis and management plan. - Follow up with imaging studies and specialist consultations to determine the nature of the bone lesions and appropriate management. Coding Level of Care Code Est Pt Level 3 (48414) Diagnoses Acute midline low back pain without sciatica M54.50 Back pain laterality: midline Back pain location: low back pain Chronicity: acute Sciatica presence: without sciatica
[2024-11-10 10:25] VITALS: BP 132/76; PULSE 66; TEMP 36.6; O2SAT 97; BMI 33.1
--- OUTSIDE RECORDS SUMMARY | 2024-11-10 11:16 | XMS_ITS | Clinical Summary ---
Author Organization [facility] Address [address] [place] [address] Care Team Providers Care Stone Chimney Mason Name Role Phone Carrier, Ofelia GRAF Unavailable [phone] Susanne Burrows MD Primary Care Provider Allergies Active Allergy Reactions Criticality Noted Date Comments Amoxicillin Rash/Dermatitis Low 08/24/2024 Oxycodone GI Intolerance/Nausea/Vomiting Low 07/13 Pollen Extract Other (See Comments) Low 08/24/2024 Medications Synthroid 50 MCG tablet Take 1 tablet (50 mcg total) by mouth every morning. 05/14/19 25 Active levocetirizine (Xyzal Allergy 24HR) 5 MG tablet Take 1 tablet (5 mg total) by mouth nightly. Active atorvastatin (LIPITOR) 20 MG tablet Take 1 tablet (20 mg total) by mouth nightly. Active allopurinol (ZYLOPRIM) 100 mg tablet Take 1 tablet (100 mg total) by mouth nightly. 05/23/19 25 Active VITAMIN A PO Take 6,000 mcg by mouth every morning. Active Glucosamine HCl 1500 MG Tab Take 1,500 mg by mouth every morning. With MSM 1500 Active docusate sodium (COLACE) 100 MG capsuleIndication s:Prostate cancer (HCC) Take 1 capsule (100 mg total) by mouth 2 (two) times a day. While taking pain medication to prevent constipation 60 capsule 08/18/19 25 Active acetaminophen (TYLENOL) 325 MG tablet Take 1 tablet (325 mg total) by mouth 4 times daily (every 6 hours) as needed for mild pain (Taking 3 tabs). Active OMEprazole (PriLOSEC) 20 MG capsule Take 1 capsule (20 mg total) by mouth every morning before breakfast. Active apixaban (ELIQUIS) 5 MG tabletIndications :Pulmonary embolism without acute cor pulmonale, unspecified chronicity, unspecified pulmonary embolism type (HCC) Start taking 10 mg (2 pills) twice a day for 7 days, starting on 09/01/24 the dose will be reduced to 5 mg (1 pill) twice daily. 30 tablet 08/26/19 25 Active tadalafil (CIALIS) 10 MG tabletIndications :Erectile dysfunction after radical prostatectomy Take 1 tablet (10 mg total) by mouth daily as needed for erectile dysfunction (Take one additional pill PRN day of sexual activity. Do not exceed 20 mg daily.). 40 tablet 11 09/23/19 25 Active Active Problems Problem Noted Date Diagnosed Date Pulmonary embolism without a cute cor pulmonale, unspecified chronicity, unspecified pulmonary embolism type 08/24/2024 Acute hypoxic respiratory failure 08/24/2024 Gout 07/27/2024 Assessment & Plan (07/27/2024 8:50 AM EDT): Well-controlled and managed with Allopurinol. Continue current medication regimen as prescribed. Continue plan as previously directed by your provider. Mixed hyperlipidemia 07/27/2024 Assessment & Plan (07/27/2024 8:20 AM EDT): Compliant with statin therapy. Continue current medication regimen as prescribed. Continue plan as previously directed by your provider. Seasonal allergies 07/27/2024 Assessment & Plan (07/27/2024 8:20 AM EDT): Controlled and managed with Xyzal. Continue current medication regimen as prescribed. Continue plan as previously directed by your provider. Gastroesophageal reflux disease without esophagi tis 07/27/2024 Assessment & Plan (07/27/2024 8:20 AM EDT): Well-controlled and managed with Omeprazole. Continue current medication regimen as prescribed. Continue plan as previously directed by your provider. Acquired hypothyroidism 07/27/2024 Assessment & Plan (07/27/2024 8:20 AM EDT): Compliant with thyroid medication. Continue current medication regimen as prescribed. Patient to follow up with PCP or lobster catcher for continued management of hypothyroidism as previously directed. Oral herpes 07/27/2024 Obesity (BMI 30-39.9) 07/27/2024 Assessment & Plan (07/27/2024 8:21 AM EDT): Diet, exercise and lifestyle modifications. Secondary hypertension 07/27/2024 Assessment & Plan (07/27/2024 8:31 AM EDT): Managed with diet and lifestyle modifications. Continue plan as previously directed by your provider. Resolved Problems Problem Noted Date Diagnosed Date Resolved Date Prostate cancer 07/13/2024 08/23/2024 Encounters Date Type Department Care Team Description 11/03/2024 11:30 AM EDT - 11/03/2024 12:35 PM EDT Surgery [facility] Radiology [address] [place] [address] [place], CT Bone Biopsy-Deep N/A 11/03/2024 10:17 AM EDT - 11/03/2024 3:21 PM EDT Hospital Encounter [facility] Radiology [address] [place] [address] Emerson Liu MD Abnormal PET scan, lung Discharge Disposition: Home or Self Care 11/03/2024 Documentation [facility] Urologic Surgery [address] [place] [phone] Niels Benjamin MD 11/03/2024 Travel 11/03/2024 Telephone [facility] [address] [place] [phone] Niels Benjamin MD Form Completion 11/03/2024 Transcribe Orders [facility] Pulmonary [address] [place] [phone] Susanne Burrows MD Other nonspecific abnormal finding of lung field (Primary Dx); Metastatic malignant neoplasm, unspecified site (HCC) 11/02/2024 Scanned Document [facility] [place] [facility] [address] [place] [address] Juan Valdes MD 10/31/2024 Telephone [facility] [address] [place] [address] Niels Benjamin MD Other 10/31/2024 Scanned Document [facility] Pulmonary [place] [address] [facility] [address] [place] [address], [place] [phone] Blas Mendez MD 10/21/2024 Orders Only [facility] Pulmonary [address] [place] [phone] Blas Mendez MD Abnormal PET scan of lung 10/21/2024 Telephone [facility] Pulmonary [address] [place] [phone] Blas Mendez MD 10/20/2024 8:03 AM EDT - 10/20/2024 11:59 PM EDT Hospital Encounter [facility] Radiology [address] [place] [address], [place] [address] Blas Mendez MD Discharge Disposition: Home or Self Care 10/20/2024 7:18 AM EDT - 10/20/2024 8:02 AM EDT Hospital Encounter [facility] Radiology [address] [place] [address], [place] [address] Blas Mendez MD Pulmonary embolism without acute cor pulmonale, unspecified chronicity, unspecified pulmonary embolism type (HCC); Mediastinal lymphadenopathy; Pulmonary nodule Discharge Disposition: Home or Self Care 10/05/2024 Orders Only [facility] Pulmonary [address] [place] [address], [place] [address] Blas Mendez MD Pulmonary embolism without acute cor pulmonale, unspecified chronicity, unspecified pulmonary embolism type (HCC) (Primary Dx); Mediastinal lymphadenopathy; Pulmonary nodule 09/23/2024 Documentation [facility] Urologic Surgery [address] [place] [address] Niels Benjamin MD 09/21/2024 Orders Only [facility] [address] [facility] [address] [place] [phone] Niels Benjamin MD History of prostate cancer (Primary Dx); Erectile dysfunction after radical prostatectomy 09/21/2024 Telephone [facility] [address] [facility] [address] [place] [address] Niels Benjamin MD 09/20/[address] [address] Niels Benjamin MD Appointment 09/07/2024 Telephone [facility] Pulmonary [address] [place] [address] Blas Mendez MD 09/01/[address] [address] Provider, MD Sara Referral (AC needs scheduling . ) 08/29/2024 Telephone [facility] Pulmonary [address] [place] [address] Blas Mendez MD 08/25/2024 Telephone [facility] Pulmonary [address] [place] [address] Blas Mendez MD 08/25/[address] [address] Niels Benjamin MD Other 08/24/2024 1:45 PM EDT Ancillary Procedure [facility] Emergency Department [address] [place] [address] Shilo Brice MD 08/24/2024 10:06 AM EDT - 08/25/2024 3:16 PM EDT Hospital Encounter [facility] Emergency Department [address] [place] [address] Shilo Brice MD Perez Moux, Reinaldo L, MD El Iskandarani, Mahmoud, MD Multiple subsegmental pulmonary emboli without acute cor pulmonale (HCC) (Primary Dx); Shortness of breath; Chest pain; Chest pain, unspecified; Pulmonary embolism without acute cor pulmonale, unspecified chronicity, unspecified pulmonary embolism type (HCC); Gastroesophageal reflux disease without esophagitis; Prostate cancer (HCC); H/O prostatectomy; Hyperlipidemia, unspecified hyperlipidemia type ; Transient hypothyroidism ; H/O left nephrectomy Discharge Disposition: Home or Self Care 08/24/2024 8:15 AM EDT Office Visit [address] [address] Niels Benjamin MD History of prostate cancer (Primary Dx) 08/24/[address] [address] Niels Benjamin MD 08/24/2024 Travel 08/19/2024 Telephone [facility] Urologic Surgery [address] [address] Niels Benjamin MD 08/16/2024 12:42 PM EDT Anesthesia Event [facility] Perioperative Surgical Services [address] [place] [phone] Krystle Pinto MD Magaliff, Evan, MD 08/16/2024 11:30 AM EDT - 08/16/2024 3:30 PM EDT Surgery [facility] [address] [place] [phone] Niels Benjamin MD ROBOTIC RADICAL PROSTATECTOMY AND PELVIC LYMPH NODE DISSECTION/LAPRASCOP IC LYSIS OF ADHESIONS 08/16/2024 9:24 AM EDT - 08/17/2024 9:42 AM EDT Hospital Encounter [facility] NR[address] PACU [address] [place] [phone] Niels Benjamin MD Prostate cancer (HCC) (Primary Dx) Discharge Disposition: Home or Self Care 08/16/2024 Travel 08/11/2024 Documentation [facility] Urologic Surgery [place] [address] [facility] [address] [place] [address] Niels Benjamin MD from Last 3 Months Family History Medical History Relation Name Comments Cancer, Prostate Father 59 ACCOUNT EXEC[employer] Cancer, Prostate Paternal Uncle aircraft maintenance technician Cancer, Bladder Neg Hx Cancer, Kidney Neg Hx Relation Name Status Comments Father Paternal Uncle Social History Tobacco Use Types Packs/Day Years Used Date Smoking Tobacco: Some Days Cigars Smokeless Tobacco: Never Comments:Occasional cigar Alcohol Use Standard Drinks/Week Comments Yes 4 (1 standard drink = 0.6 oz pur e alcohol) [facility] Utilities Answer Date Recorded In the past 12 months has th [place], gas, oil, or water [employer] threatened to shut off services in your [...] any time in the past 12 [facility], were you homeless or living in a fci (including now)? No 08/25/2024 Sex and Gender Information Value Date Recorded Sex Assigned at Male 05/27/2024 7:26 PM EDT Legal Sex Male 6:10 PM EST Gender Identity Male 05/27/2024 7:27 PM EDT Sexual Orientation Heterosexual (straight) 08/16 9:23 AM EDT Last Filed Vital Signs Vital Sign Reading Time Taken Comments Blood Pressure 148/91 11/03/2024 3:00 PM EDT Pulse 80 11/03/2024 3:00 PM EDT Temperature 35.8 C (96.5 F) 11/03/2024 10:43 AM EDT Respiratory Rate 16 11/03/2024 3:00 PM EDT Oxygen Saturation 95% 11/03/2024 3:00 PM EDT Inhaled Oxygen Concentration - - Weight 118 kg (260 lb) 08/25/2024 8:35 AM EDT Height 190.5 cm (6' 3 ) 08/24/2024 8:19 AM EDT Body Mass Index 32.5 08/24/2024 8:19 AM EDT Plan of Treatment Upcoming Encounters Date Type Department Care Team (Late st Contact Info) Description 11/14/2024 11:45 AM EDT Office Visit [facility] Pulmonary [address] [phone] Blas Mendez MD [address] [place] [phone] 11/22/2024 9:45 AM EDT Consult [facility] Medical Oncology at [address] [phone] Juan Valdes MD [address] [place] [address] 12/01/2024 2:30 PM EDT Office Visit [address] [phone] Luisa Modi APRN [address] [place] [address] 02/13/2025 8:45 AM EST Office Visit [address] [phone] Luisa Modi APRN [address] [place] [phone] 05/24/2025 9:00 AM EDT Office Visit [address] [phone] Luisa Modi APRN [address] [place] [address] 08/23/2025 11:45 AM EDT Office Visit [address] [phone] Niels Benjamin MD [address] [place] [phone] Health Maintenance Due Date Last Done Comments Hepatitis C Virus Screening 1965 COVID-19 Vaccine (#1) 1970 HIV Screening 1978 DTaP/Tdap/Td Vaccines (1 - Tdap) 1984 Hepatitis B Vaccines (1 of 3 - 19+ 3-dose series) 07/08 Pneumococcal Vaccines 50+ (1 of 2 - PCV) 1984 Zoster (Shingles) Vaccine (1 of 2) 1984 Colonoscopy 2010 Influenza Vaccine 10/07/2024 Procedures Procedure Name Priority Date/Time Associated Diagnosis Comments CT BONE BIOPSY-DEEP N/A Routine 11/03/2024 2:43 PM EDT Abnormal PET scan, lung PATHOLOGY REPORT Routine 11/03/2024 12:00 AM EDT COMPLETE BLOOD COUNT, WITHOUT DIFFERENTIAL Routine 11/01/2024 1:41 PM EDT Abnormal PET scan of lung PT/PTT (INCLUDES INR) Routine 11/01/2024 1:41 PM EDT Abnormal PET scan of lung PET/CT F18 FDG SKULL BASE TO MID-THIGH - INITIAL TREATMENT Routine 10/20/2024 10:14 AM EDT Pulmonary embolism without acute cor pulmonale, unspecified chronicity, unspecified pulmonary embolism type (HCC) Mediastinal lymphadenopathy Pulmonary nodule POCT GLUCOSE, FINGERSTICK (CHARGE) Routine 10/20/2024 7:50 AM EDT CTA CHEST FOR P.E. Routine 09/27/2024 1: 50 PM EDT Pulmonary embolism without acute cor pulmonale, unspecified chronicity, unspecified pulmonary embolism type (HCC) Pulmonary nodules Mediastinal lymphadenopathy HIGH SENSITIVITY TROPONIN T CARD 08/25/2024 9:22 AM EDT PROBNP, N-TERMINAL STAT 08/25/2024 9: 22 AM EDT ECHOCARDIOGRAM (TTE) COMPREHENSIVE (CONTRAST PRN) Routine 08/25/2024 8:28 AM EDT HOME OXYGEN, PULM REHAB Routine 08/24/2024 3:16 PM EDT LACTIC ACID, PLASMA Routine 08/24/2024 12:31 PM EDT ED PERFORMED US CARDIAC LIMITED STAT 08/24/2024 12:21 PM EDT Chest pain, unspecified POCT GLUCOSE, FINGERSTICK (CHARGE) Routine 08/24/2024 12:09 PM EDT CTA CHEST FOR P.E. STAT 08/24/2024 12:06 PM EDT XR CHEST 2 VIEWS STAT 08/24/2024 11:02 AM EDT PROBNP, N-TERMINAL STAT 08/24/2024 10:27 AM EDT HIGH SENSITIVITY TROPONIN T STAT 08/24/2024 10:27 AM EDT PROTIME-INR STAT 08/24/2024 10:27 AM EDT LIPASE STAT 08/24/2024 10:27 AM EDT MAGNESIUM STAT 08/24/2024 10:27 AM EDT COMPREHENSIVE METABOLIC PANEL STAT 08/24/2024 10:27 AM EDT COMPLETE BLOOD COUNT, WITH DIFFERENTIAL STAT 08/24/2024 10:27 AM EDT ECG 12-LEAD ED Critical 08/24/2024 10:12 AM EDT PATHOLOGY REPORT Routine 08/16/2024 2:04 PM EDT ANES LINE - PERIPHERAL, SINGLE LUMEN Routine 08/16/2024 1:26 PM EDT ANES INTUBATION Routine 08/16/2024 1:06 PM EDT DE LAPS SURG [id number] RPBIC RAD W/NRV SPARING ROBOT 08/16/2024 12:22 PM EDT Malignant neoplasm of prostate (HCC) Special Needs BOWEL PREP from Last 3 Months Results * CT BONE BIOPSY-DEEP N/A (11/03/2024 2:43 PM EDT) Anatomical Region Laterality Modality Computed Tomogra phy 11/03/2024 1:30 PM EDT Impressions 11/03/2024 5:[address]-guided biopsy of L2 vertebral body FDG avid bone lesion.. PLAN: Specimen(s) sent for evaluation. PROCEDURE SUMMARY: - Percutaneous CT-guided coaxial core needle biopsy - Additional procedure(s): None PROCEDURE DETAILS: PRE-PROCEDURE: Reference imaging for biopsy target: PET/CT 10/20/2024 Consent: Informed consent for the procedure including risks, benefits and alternatives was obtained and time-out was performed prior to the procedure. Preparation: The site was prepared and draped using maximal sterile barrier technique including cutaneous antisepsis. ANESTHESIA/SEDATION: Level of anesthesia/sedation: Moderate sedation (conscious sedation) Anesthesia/sedation administered by: Independent trained observer under attending supervision with continuous monitoring of the patient's level of consciousness and physiologic status Total intra-service sedation time (minutes): 38 Sedation Medications: 1. Versed: 3 mg IV 2. Fentanyl: 150 mcg IV IMAGING PRIOR TO BIOPSY: The patient was positioned prone. Initial imaging was performed using noncontrast CT. Biopsy target: - Maximal diameter (cm): 3.4 - Location: Right aspect of L2 vertebral body Other findings: None BIOPSY: Local anesthesia was administered. Under CT guidance, the biopsy needle was advanced to the target and biopsy was performed. Coaxial needle: 11 gauge Core needle biopsy device: On control bone biopsy device Core needle size: 13-gauge Number of core specimens: 1 NEEDLE REMOVAL: The biopsy needle was removed and a sterile dressing was applied. Tract embolization: None CONTRAST: Contrast agent: None Contrast volume (mL): 0 RADIATION DOSE: CT fluoroscopy time (seconds): 13.4 CT dose length product (mGy-cm): 445.37 DOSE LOWERING TECHNIQUES: This CT examination was performed using dose optimization techniques as appropriate, variously including the following: - Automated exposure control - Adjustment of mA and/or kV according to patient size (this includes techniques or standardized protocols for targeted exams where dose is matched to indication/reason for exam; i.e. extremities or head) - Use of iterative reconstruction technique ADDITIONAL DETAILS: Additional description of procedure: None Equipment details: None Specimens removed: Biopsy samples as detailed above Estimated blood loss (mL): Less than 10 Standardized report: [email or web address] ATTESTATION: Signer name: Brenton Rodas DO I attest that I was present for the entire procedure. I reviewed the stored images and agree with the report as written. Narrative 11/03/2024 5:54 PM EDT PROCEDURE: IR CT-GUIDED BIOPSY PROCEDURAL PERSONNEL: Attending Physician(s): Brenton Rodas DO Resident Physician(s): None Advanced Practice Provider(s): None PREPROCEDURE DIAGNOSIS: Bone lesions POSTPROCEDURE DIAGNOSIS: Same INDICATION: Histopathologic diagnosis Previous biopsy of same target (QCDR): No ADDITIONAL CLINICAL HISTORY: History of prostate cancer. COMPLICATIONS: No immediate complications. Procedure Note En [place] DO - 11/03/2024 PROCEDURE: IR CT-GUIDED BIOPSY PROCEDURAL PERSONNEL: Attending Physician(s): Brenton Rodas DO Resident Physician(s): None Advanced Practice Provider(s): None PREPROCEDURE DIAGNOSIS: Bone lesions POSTPROCEDURE DIAGNOSIS: Same INDICATION: Histopathologic diagnosis Previous biopsy of same target (QCDR): No ADDITIONAL CLINICAL HISTORY: History of prostate cancer. COMPLICATIONS: No immediate complications. IMPRESSION: CT-guided biopsy of L2 vertebral body FDG avid bone lesion.. PLAN: Specimen(s) sent for evaluation. PROCEDURE SUMMARY: - Percutaneous CT-guided coaxial core needle biopsy - Additional procedure(s): None PROCEDURE DETAILS: PRE-PROCEDURE: Reference imaging for biopsy target: PET/CT 10/20/2024 Consent: Informed consent for the procedure including risks, benefits and alternatives was obtained and time-out was performed prior to the procedure. Preparation: The site was prepared and draped using maximal sterile barrier technique including cutaneous antisepsis. ANESTHESIA/SEDATION: Level of anesthesia/sedation: Moderate sedation (conscious sedation) Anesthesia/sedation administered by: Independent trained observer under attending supervision with continuous monitoring of the patient's level of consciousness and physiologic status Total intra-service sedation time (minutes): 38 Sedation Medications: 1. Versed: 3 mg IV 2. Fentanyl: 150 mcg IV IMAGING PRIOR TO BIOPSY: The patient was positioned prone. Initial imaging was performed using noncontrast CT. Biopsy target: - Maximal diameter (cm): 3.4 - Location: Right aspect of L2 vertebral body Other findings: None BIOPSY: Local anesthesia was administered. Under CT guidance, the biopsy needle was advanced to the target and biopsy was performed. Coaxial needle: 11 gauge Core needle biopsy device: On control bone biopsy device Core needle size: 13-gauge Number of core specimens: 1 NEEDLE REMOVAL: The biopsy needle was removed and a sterile dressing was applied. Tract embolization: None CONTRAST: Contrast agent: None Contrast volume (mL): 0 RADIATION DOSE: CT fluoroscopy time (seconds): 13.4 CT dose length product (mGy-cm): 445.37 DOSE LOWERING TECHNIQUES: This CT examination was performed using dose optimization techniques as appropriate, variously including the following: - Automated exposure control - Adjustment of mA and/or kV according to patient size (this includes techniques or standardized protocols for targeted exams where dose is matched to indication/reason for exam; i.e. extremities or head) - Use of iterative reconstruction technique ADDITIONAL DETAILS: Additional description of procedure: None Equipment details: None Specimens removed: Biopsy samples as detailed above Estimated blood loss (mL): Less than 10 Standardized report: [id number] ATTESTATION: Signer name: Brenton Rodas DO I attest that I was present for the entire procedure. I reviewed the stored images and agree with the report as written. Tyree Rodas DO IM IRCT ORDERABLES Final Result * Pathology (11/03/2024 12:00 AM EDT) Only the most recent of2 resultswithin the time period is included. Report [facility] [id number] CLIA ID [id number] [address] [place] [address] [phone] Surgical Pathology Report PATIENT NAME: MISHA STEWARD REC NUMBER: [id number] (AGE): 1965 (Age: 59) SPECIMEN NUMBER: [id number] DATE OBTAINED: 11/03/2024 DIAGNOSIS BONE, L2 VERTEBRAL BODY, CORE BIOPSY: BONE WITH TRILINEAGE MARROW ELEMENTS, FIBRIN AND MARKED CRUSH ARTIFACT; NO VIABLE METASTATIC CARCINOMA IDENTIFIED; SEE COMMENT. mt/11/08/2024 Electronically Signed Out BRUCE FISH MD COMMENT The bone shows marrow elements in the background of fibrin and crush artifact. CKAE1/AE3, PSAP, PSA, and NKX3.1 immunostains reveal no carcinoma. CD138 highlights a few plasma cells (with no evidence of plasma cell neoplasm). Both blocks are cut down with multiple levels examined. There is no viable tumor identified. 53792, 04066, 42818, 30195 x 4 The tests used in the work-up of this specimen may include Analyte-Specific Reagents (ASRs). The Immunopathology/Mor phologic [facility] at [facility] have established the performance characteristics of these reagents. They have not been cleared or approved by the [place] Food and Drug Administration (FDA); however, the FDA has determined that such clearance or approval is not necessary for their use. All controls show appropriate reactivity. Pre-analytic variables such as prolonged/shortened ischemic, fixation, or decalcification times may limit assay performance. Clinical Information and History: Multifocal bone lesions TRT 1430 TIF 1430 Tissue(s) Submitted: A: L2 VERTEBRAL BODY 13GA BONE CORE Gross Description: The specimen is received in formalin labeled per the requisition as L2 vertebral body 13GA bone core and consists of two gray-white to gray-pink cylindrical bone cores measuring 0.3 x 0.2 cm and 1.0 x 0.2 cm. The core is wrapped in lens paper and submitted in toto in cassette A1 following EDTA decalcification. Additionally received in the specimen container are gray-white to dark red possible tissue fragments and blood clot measuring 0.5 x 0.5 x 0.2 cm in aggregate. Tissue is filtered and submitted in toto in cassette A2. [address] [facility] 11/03/2024 11/04/2024 7:1 4 AM EDT Comment:L2 VERTEBRAL BODY 13 GA BONE CORE Blas Mendez MD PATHOLOGY/CYTOLOGY ORDERABL ES Final Result Performing Organization Address [facility]/ZIP Co de Phone Number HOSPITAL LAB See Below * PT/PTT (INCLUDES INR) (11/01/2024 1:41 PM EDT) Partial Thromboplastin Time (PTT) 29 23 - 32 sec [employer] Comment: This test has not been validated for monitoring unfractionated heparin therapy. For testing that is validated for this type of therapy, please refer to the Heparin Anti-Xa assay (test code 04983). For additional information, please refer to http://education.[employer]/faq/CSY285 (This link is being provided for informational/educational purposes only.) INR 1.0 [employer] Comment: Reference Range 0.9-1.1 Moderate-intensity Warfarin Therapy 2.0-3.0 Higher-intensity Warfarin Therapy 3.0-4.0 Prothrombin Time (PT) 11.1 9.0 - 11.5 sec [employer] Blood Blood specimen / Unknown 11/01/2024 1:41 PM EDT 11/01/2024 1:43 PM EDT Narrative [facility] - 11/02/2024 7:52 AM EDT FASTING:NO FASTING: NO Blas Mendez MD LAB BLOOD ORDERABLES Final Result Performing Organization Address [facility]/State/ZIP Co de Phone Number [facility] [address] [place] [phone] * (ABNORMAL) COMPLETE BLOOD COUNT, WITHOUT DIFFERENTIAL (11/01/2024 1:41 PM EDT) Pathologist [facility] White Blood Cell Count 5.0 3.8 - 10.8 Thousand/ uL [employer] Red Blood Cell Count 5.57 4.20 - 5.80 Million/u L [employer] Hemoglobin 17.0 13.2 - 17.1 g/dL [employer] Hematocrit 52.1(H) 38.5 - 50.0 % [employer] MCV 93.5 80.0 - 100.0 fL [employer] MCH 30.5 27.0 - 33.0 pg [employer] MCHC 32.6 32.0 - 36.0 g/dL [employer] Comment: For adults, a slight decrease in the calculated MCHC value (in the range of 30 to 32 g/dL) is most likely not clinically significant; however, it should be interpreted with caution in correlation with other red cell parameters and the patient's clinical condition. RDW 13.1 11.0 - 15.0 % [employer] Platelet Count 202 140 - 400 Thousand/ uL [employer] MPV 9.6 7.5 - 12.5 fL [employer] Blood Blood specimen / Unknown 11/01/2024 1:41 PM EDT 11/01/2024 1:43 PM EDT Narrative [facility] - 11/02/2024 7:52 AM EDT FASTING:NO FASTING: NO Blas Mendez MD LAB BLOOD ORDERABLES Final Result [facility] [address] [place] [id number] * PET/CT F18 FDG Skull to Mid Thigh (Initial Treatment) (10/20/2024 10:14 AM EDT) Anatomical Region Laterality Modality Positron Emissio n Tomography (PET) 10/20/2024 7:39 AM EDT Impressions 10/20/2024 4:37 PM EDT 1. PET findings compatible with extensive FDG avid metastatic disease. Differential considerations would include lymphoproliferative pathology versus metastasis possibly from known prostate carcinoma versus second primary. Suggest histopathologic correlation. 2. To note the sites of involvement: * Lymphadenopathy in the neck, thorax and upper abdomen. * Axial and appendicular skeleton. * Multiple variable intense and variably avid pulmonary nodules bilaterally, could represent metastasis or primary malignancy. 3. A few tracer avid subcutaneous gluteal densities bilaterally, possibly infectious/inflammatory versus metastatic. Suggest clinical correlation and follow-up accordingly. Blas Salinas MD Rfid Specialist I personally reviewed the images and the resident's preliminary report and AGREE with the report as it is now presented ([email or web address]). Narrative 10/20/2024 4:37 PM EDT EXAMINATION: Fluorine-18 FDG PET/CT Scan CLINICAL INDICATION: Initial presentation with pulmonary embolism, incidentally noted mediastinal lymphadenopathy and pulmonary nodules, concern for metastasis. PROCEDURE: 116 minutes following the intravenous administration of 10.5 mCi of fluorine 18 FDG at right antecubital fossa, images from the base of the skull to the mid thighs were obtained using a combined PET/CT scanner with CT scan based attenuation correction. 400 mL of Readicat oral contrast was administered. Transverse, coronal, sagittal, and volume reconstruction projections were obtained. The patient's blood glucose as determined by a finger stick, was 93 mg/dl immediately prior to injection. Total CT exam dose-length product 965 mGy-cm CORRELATION: CTA chest August 24, 2024 SUVmax FOR THE BASELINE REFERENCE: Mediastinal Blood Pool: 2.2 Liver: 3.2 FINDINGS: HEAD AND NECK/CHEST: Lymph nodes: Variably FDG avid multilevel lymphadenopathy in the left neck and adjacent thoracic inlet. Intensely tracer avid numerous mediastinal lymph nodes primarily along the trachea and the vasculature. Moderately avid hilar fullness/lymphadenopathy bilaterally. Additional punctate but intensely avid nodes along the right internal mammary chain and the right anterior diaphragmatic space. For example; * Coalescent left medial supraclavicular roosevelt conglomerate, 3.3 x 2.8 cm, SUVmax 26.3 (PET slice 85). * Right medial supraclavicular 1.2 x 1.1 cm node, SUVmax 24.4 (PET slice 87). * Right paratracheal stripe 1.9 x 1.7 cm node with SUVmax 29.4 (PET slice 96). * Subcarinal node, 2.5 x 1.6 cm node with SUVmax 31.4 (PET slice 119). Lungs/Pleura: Multiple solid pulmonary nodules bilaterally of variable sizes including many below PET resolution opacities, a few of which express FDG avidity. For example: * Solid 0.9 cm nodule in the perihilar right upper lobe with SUVmax 9.6 (PET slice 118) * A 0.6 cm nodule in the right upper lobe with SUVmax 2.1 (PET slice 107) * A 1 cm subpleural nodule in the right middle lobe with SUVmax 3.4 (PET slice 137). No pleural effusion. Subpleural nodularity of the mid to lower lung field pleural bilaterally. Neck/Mediastinum/Breasts/Chest Wall: No abnormal radiotracer uptake. There is no pericardial effusion/thickening. ABDOMEN/PELVIS: Liver/Biliary System/Pancreas/Spleen/Adrenal Glands: No abnormal radiotracer uptake. Kidneys: Excreted radiotracer in the left kidney. Status post right nephrectomy. . GI tract: No abnormal radiotracer uptake. Sigmoid colonic diverticulosis. Lymph Nodes: Intensely avid periportal, periceliac and peripancreatic lymph nodes. Additional poorly defined mildly avid subcentimeter periportal nodes as well as nodes/nodules along the right hemidiaphragm. For example; * Portacaval 2.4 x 2.3 cm node with SUVmax 29.8 (PET slice 177). * Left periaortic 1.4 x 0.8 cm node around the celiac trunk, with SUVmax 19.4 (PET slice 180). Pelvic Organs: No abnormal radiotracer uptake. Status post prostatectomy. MUSCULOSKELETAL/SOFT TISSUES: Extensive abnormal FDG avidity throughout the axial and appendicular skeleton, most with no anatomic correlate. To note the sites with relatively intense uptake; left greater than right scapula, multiple bilateral ribs laterally, proximal shaft left humerus, multiple thoracic and lumbar vertebrae (patchy areas of sclerosis), bony pelvis bilaterally and left more extensive than right femoral. For reference; * Left ninth rib laterally, image 187, SUVmax 11.7 * L1 vertebral body with SUVmax of 14.9. * Right iliac bone anteriorly, image 251, SUVmax 11.4 A few variable intense cutaneous nodular densities in the gluteal regions bilaterally, for example, a 0.7 cm nodule with SUVmax 8.2 (PET slice 286). VASCULAR: No abnormal radiotracer uptake. No aneurysm. . Procedure Note Kong Melissa MD - 10/20/2024 EXAMINATION: Fluorine-18 FDG PET/CT Scan CLINICAL INDICATION: Initial presentation with pulmonary embolism, incidentally noted mediastinal lymphadenopathy and pulmonary nodules, concern for metastasis. PROCEDURE: 116 minutes following the intravenous administration of 10.5 mCi of fluorine 18 FDG at right antecubital fossa, images from the base of the skull to the mid thighs were obtained using a combined PET/CT scanner with CT scan based attenuation correction. 400 mL of Readicat oral contrast was administered. Transverse, coronal, sagittal, and volume reconstruction projections were obtained. The patient's blood glucose as determined by a finger stick, was 93 mg/dl immediately prior to injection. Total CT exam dose-length product 965 mGy-cm CORRELATION: CTA chest August 24, 2024 SUVmax FOR THE BASELINE REFERENCE: Mediastinal Blood Pool: 2.2 Liver: 3.2 FINDINGS: HEAD AND NECK/CHEST: Lymph nodes: Variably FDG avid multilevel lymphadenopathy in the left neck and adjacent thoracic inlet. Intensely tracer avid numerous mediastinal lymph nodes primarily along the trachea and the vasculature. Moderately avid hilar fullness/lymphadenopathy bilaterally. Additional punctate but intensely avid nodes along the right internal mammary chain and the right anterior diaphragmatic space. For example; * Coalescent left medial supraclavicular roosevelt conglomerate, 3.3 x 2.8 cm, SUVmax 26.3 (PET slice 85). * Right medial supraclavicular 1.2 x 1.1 cm node, SUVmax 24.4 (PET slice 87). * Right paratracheal stripe 1.9 x 1.7 cm node with SUVmax 29.4 (PET slice 96). * Subcarinal node, 2.5 x 1.6 cm node with SUVmax 31.4 (PET slice 119). Lungs/Pleura: Multiple solid pulmonary nodules bilaterally of variable sizes including many below PET resolution opacities, a few of which express FDG avidity. For example: * Solid 0.9 cm nodule in the perihilar right upper lobe with SUVmax 9.6 (PET slice 118) * A 0.6 cm nodule in the right upper lobe with SUVmax 2.1 (PET slice 107) * A 1 cm subpleural nodule in the right middle lobe with SUVmax 3.4 (PET slice 137). No pleural effusion. Subpleural nodularity of the mid to lower lung field pleural bilaterally. Neck/Mediastinum/Breasts/Chest Wall: No abnormal radiotracer uptake. There is no pericardial effusion/thickening. ABDOMEN/PELVIS: Liver/Biliary System/Pancreas/Spleen/Adrenal Glands: No abnormal radiotracer uptake. Kidneys: Excreted radiotracer in the left kidney. Status post right nephrectomy. . GI tract: No abnormal radiotracer uptake. Sigmoid colonic diverticulosis. Lymph Nodes: Intensely avid periportal, periceliac and peripancreatic lymph nodes. Additional poorly defined mildly avid subcentimeter periportal nodes as well as nodes/nodules along the right hemidiaphragm. For example; * Portacaval 2.4 x 2.3 cm node with SUVmax 29.8 (PET slice 177). * Left periaortic 1.4 x 0.8 cm node around the celiac trunk, with SUVmax 19.4 (PET slice 180). Pelvic Organs: No abnormal radiotracer uptake. Status post prostatectomy. MUSCULOSKELETAL/SOFT TISSUES: Extensive abnormal FDG avidity throughout the axial and appendicular skeleton, most with no anatomic correlate. To note the sites with relatively intense uptake; left greater than right scapula, multiple bilateral ribs laterally, proximal shaft left humerus, multiple thoracic and lumbar vertebrae (patchy areas of sclerosis), bony pelvis bilaterally and left more extensive than right femoral. For reference; * Left ninth rib laterally, image 187, SUVmax 11.7 * L1 vertebral body with SUVmax of 14.9. * Right iliac bone anteriorly, image 251, SUVmax 11.4 A few variable intense cutaneous nodular densities in the gluteal regions bilaterally, for example, a 0.7 cm nodule with SUVmax 8.2 (PET slice 286). VASCULAR: No abnormal radiotracer uptake. No aneurysm. . IMPRESSION: 1. PET findings compatible with extensive FDG avid metastatic disease. Differential considerations would include lymphoproliferative pathology versus metastasis possibly from known prostate carcinoma versus second primary. Suggest histopathologic correlation. 2. To note the sites of involvement: * Lymphadenopathy in the neck, thorax and upper abdomen. * Axial and appendicular skeleton. * Multiple variable intense and variably avid pulmonary nodules bilaterally, could represent metastasis or primary malignancy. 3. A few tracer avid subcutaneous gluteal densities bilaterally, possibly infectious/inflammatory versus metastatic. Suggest clinical correlation and follow-up accordingly. Blas Salinas MD Rfid Specialist I personally reviewed the images and the resident's preliminary report and AGREE with the report as it is now presented ([email or web address]). us Blas Mendez MD IMG PET ORDERABLES Final Re sult * POCT Glucose, Fingerstick (10/20/2024 7:50 AM EDT) Only the most recent of2 resultswithin the time period is included. POC Glucose 93 65 - 99 mg/dL 10/20/2024 11:27 AM EDT Blood specimen / Unknown 10/20/2024 7:50 AM EDT 10/20/2024 11:27 AM EDT us Blas Mendez MD POINT OF CARE TEST ORDERABL ES Final Result [facility]OSPITAL LAB See Below * CTA Chest for P.E. (09/27/2024 1:50 PM EDT) Only the most recent of2 resultswithin the time period is included. Anatomical Region Laterality Modality Chest Computed Tomogra phy 09/27/2024 1:30 PM EDT 09/27/2024 1:30 PM EDT Impressions 09/27/2024 3:51 PM EDT No acute pulmonary embolism. Previously observed pulmonary emboli have resolved. Interval near complete resolution of left lower lobe airspace opacities with some residual airspace opacity present. No significant change in multiple pulmonary nodules and mediastinal adenopathy in the short duration since the previous study. Metastatic disease suspected. Sclerosis apparent in the spine again suspicious for metastatic disease. Fleischner guidelines were followed. VTE: negative Electronically signed by: Blue Finley MD 09/27/2024 03:51 PM EDT Thank you for referring your patient to us, Blue Finley [phone] (Electronically Signed - 09/27/2024 15:51) Copy: SUSANNE BURROWS NP [facility] [address] [place] [address] Narrative 09/27/2024 3:51 PM EDT EXAMINATION: CT ANGIOGRAM OF THE CHEST WITH AND WITHOUT CONTRAST (CT PULMONARY ANGIOGRAM FOR PE) CLINICAL INFORMATION: follow up of hilar lymphaenopathy, pulmonary nodules, and pulmonary emboli. history of low grade prostate cancer. COMPARISON: August 24, 2024 TECHNIQUE: Prior to contrast administration, noncontrast localization images were obtained. Subsequently, multidetector volumetric imaging was performed from the thoracic inlet to below the diaphragms following the administration of 100 mL Omnipaque 300 intravenous contrast. No contrast reaction reported Sagittal, coronal, and MIP oblique sagittal reformatted images were obtained on the CT workstation, uploaded to PACS, and reviewed. This CT examination was performed using dose optimization techniques as appropriate, variously including the following: *Automated exposure control *Adjustment of mA and/or kV according to patient size (this includes techniques or standardized protocols for targeted exams where dose is matched to indication/reason for exam; i.e. extremities or head) *Use of iterative reconstruction technique TOTAL DLP: 548.94 mGy-cm FINDINGS: QUALITY OF STUDY/CONTRAST BOLUS: Satisfactory. PULMONARY ARTERIES: No acute pulmonary emboli. Interval resolution of previously observed pulmonary embolism. THORACIC AORTA: No aneurysm. LUNG: Multiple pulmonary nodules. Some examples include 9 mm subpleural right middle lobe nodule appears unchanged image 281 series 4. 8mm left upper lobe pulmonary nodule image 168 appears unchanged. 6 mm right upper lobe pulmonary nodule image 140 appears unchanged. 9 mm perivascular nodule right upper lobe image 196 appears unchanged. Interval improvement in left lower lobe airspace opacities. There is some persistent left basilar airspace opacity present. No new consolidations. The central airways appear patent. PLEURA: No pleural effusions. MEDIASTINUM: Mediastinal lymphadenopathy appears similar to the prior study hilar adenopathy . CORONARY ARTERY CALCIFICATION: None visualized on this study. CHEST WALL/AXILLA: Unremarkable OSSEOUS STRUCTURES: Areas of sclerosis along several thoracic vertebra redemonstrated. UPPER ABDOMEN: Unremarkable. No reflux of contrast into the hepatic veins to suggest elevated right heart pressures. Procedure Note Blue Finley MD - 09/27/2024 EXAMINATION: CT ANGIOGRAM OF THE CHEST WITH AND WITHOUT CONTRAST (CT PULMONARYANGIOGRAM FOR PE) CLINICAL INFORMATION: follow up of hilar lymphaenopathy, pulmonary nodules, and pulmonaryemboli. history of low grade prostate cancer. COMPARISON: August 24, 2024 TECHNIQUE: Prior to contrast administration, noncontrast localization images wereobtained. Subsequently, multidetector volumetric imaging was performedfrom the thoracic inlet to below the diaphragms following theadministration of 100 mL Omnipaque 300 intravenous contrast. No contrast reaction reported Sagittal, coronal, and MIP oblique sagittal reformatted images wereobtained on the CT workstation, uploaded to PACS, and reviewed. This CT examination was performed using dose optimization techniques asappropriate, variously including the following: *Automated exposure control *Adjustment of mA and/or kV according to patient size (this includestechniques or standardized protocols for targeted exams where dose ismatched to indication/reason for exam; i.e. extremities or head) *Use of iterative reconstruction technique TOTAL DLP: 548.94 mGy-cm FINDINGS: QUALITY OF STUDY/CONTRAST BOLUS: Satisfactory. PULMONARY ARTERIES: No acute pulmonary emboli. Interval resolution of previously observed pulmonary embolism. THORACIC AORTA: No aneurysm. LUNG: Multiple pulmonary nodules. Some examples include 9 mm subpleural right middle lobe nodule appears unchanged image 281series 4. 8mm left upper lobe pulmonary nodule image 168 appears unchanged. 6 mm right upper lobe pulmonary nodule image 140 appears unchanged. 9 mm perivascular nodule right upper lobe image 196 appears unchanged. Interval improvement in left lower lobe airspace opacities. There is some persistent left basilar airspace opacity present. No new consolidations. The central airways appear patent. PLEURA: No pleural effusions. MEDIASTINUM: Mediastinal lymphadenopathy appears similar to the priorstudy hilar adenopathy . CORONARY ARTERY CALCIFICATION: None visualized on this study. CHEST WALL/AXILLA: Unremarkable OSSEOUS STRUCTURES: Areas of sclerosis along several thoracic vertebraredemonstrated. UPPER ABDOMEN: Unremarkable. No reflux of contrast into the hepatic veinsto suggest elevated right heart pressures. IMPRESSION: No acute pulmonary embolism. Previously observed pulmonary emboli haveresolved. Interval near complete resolution of left lower lobe airspace opacitieswith some residual airspace opacity present. No significant change in multiple pulmonary nodules and mediastinaladenopathy in the short duration since the previous study. Metastaticdisease suspected. Sclerosis apparent in the spine again suspicious for metastatic disease. Fleischner guidelines were followed. VTE: negative Electronically signed by: Blue Finley MD 09/27/2024 03:51 PM EDTRP Thank you for referring your patient to us, Blue Finley [phone] (Electronically Signed - 09/27/2024 15:51) Copy: SUSANNE BURROWS NP [place] [id number] [place] [id number] Blas Mendez MD IMG CT ORDERABLES Final Res ult * High Sensitivity Troponin T (Once) (08/25/2024 9:22 AM EDT) Only the most recent of2 resultswithin the time period is included. [facility] High Sensitivity Troponin T 15 <23 ng/L 08/25/2024 10:15 AM EDT [facility] Delta (Change) 1 <3 08/25/2024 10:15 AM EDT [facility] Comment:Decreased Blood Blood specimen / Unknown 08/25/2024 9:22 AM EDT 08/25/2024 9:49 AM EDT Darryl Lott MD LAB BLOOD ORDERABLES Fi nal Result Performing Organization Address [facility] [place] [address], [place] [address] * proBNP, N-terminal (08/25/2024 9:22 AM EDT) Only the most recent of2 resultswithin the time period is included. [facility] proBNP, N-terminal 67 <125 pg/mL 08/25/2024 10:15 AM EDT [facility] Blood Blood specimen / Unknown 08/25/2024 9:22 AM EDT 08/25/2024 9:49 AM EDT Darryl Lott MD LAB BLOOD ORDERABLES Fi nal Result Performing Organization Address City/[facility]/[place] [address], [place] [address] * ECHOCARDIOGRAM COMPREHENSIVE WITH CONTRAST (08/25/2024 8:28 AM EDT) [facility] LV Diastolic Volume 118 mL LV Systolic Volume 44 mL IVS (F:0.6-0.9, M:0.6-1.0) 1.0 cm IVS Mean (F:0.6-0.9, M:0.6-1.0) 1.0 cm LVIDD (F:3.8-5.2, M:4.2-5.8) 4.2 cm LVIDD Mean (F:3.8-5.2, M:4.2-5.8) 4.2 cm LVIDS (F:2.2-3.5, M:2.5-4.0) 2.6 cm LVIDS (F:2.2-3.5, M:2.5-4.0) 2.6 cm LVOT diameter 2.1 cm LVOT diameter mean 2.1 cm LVOT mn grad mean 2.0 mmHg LVOT VTI MEAN 17.0 cm LVOT mn grad 2.0 mmHg LVOT VTI 17.0 cm LVOT peak mirela 1.0 m/s LVOT peak mirela mean 1.0 m/s PW (F:0.6-0.9, M:0.6-1.0) 1.2 cm PW Mean (F:0.6-0.9, M:0.6-1.0) 1.2 cm MV E' Lateral Velocity 13.20 cm/s MV E' Lateral Velocity Mean 13.20 cm/s MV E' Septal Velocity 7.18 cm/s MV E' Septal Velocity Mean 7.18 cm/s LA sup-inf (apical 2-ch view) 6.73 cm LA volume 44.9 mL RA area 19.2 cm2 RA 2D Volume 49.5 mL Sinuses of Valsalva 3.5 cm Sinuses of Valsalva Mean 3.5 cm Ascending aorta 3.4 cm Ascending aorta mean 3.4 cm Inferior Vena Cava Diameter 1.6 cm Inferior Vena Cava Diameter Mean 1.6 cm E wave decelartion time 211 ms E wave decelartion time mean 211 ms MV Peak A-Wave 48.8 cm/s MV Peak A-Wave Mean 48.8 cm/s MV Peak E-Wave 51.0 cm/s MV Peak E-Wave Mean 51.0 cm/s RVID d 4.4 cm RVID d Mean 4.4 cm RV Free wall pk S' 10.6 cm/s RV Free wall pk S' Mean 10.6 cm/s Tapse 3.0 cm Tapse Mean 3.0 cm Heart Rate 87 bpm BP Systolic 126 mmHg BP Diastolic 78 mmHg Height 75.00 inches Weight 254.00 lbs LV Mass Index (F:43-95, M:49-115) 64.7 g/m2 LA Volume Index (16-34) 18.5 mL/m2 LV Diastolic Volume Index (F:29-61, M:35-75) 48.6 mL/m2 LV Systolic Volume Index (F:8-24, M:11-31) 18.1 mL/m2 E/E' ratio 3.86 LVOT stroke volume 59 mL LVOT area 3.5 cm2 E/A ratio 1.05 AV LVOT peak gradient 4.0 mmHg SVI 24 mL/m2 Ascending aorta Index 1.4 cm/m2 Sinuses of Valsalva Index 1.4 cm/m2 LV mass 157.1 g Chilel BP EF (55-75) 63 % LA Volume Index 20.4 mL/m2 E/E' Average 5.5 E/E' Septal 7.1 E/E' Lateral 3.9 LVOT SI 24.23 mL/m2 LV RWT 0.57 Left Ventricular Cardiac Index 2.1 L/min/m2 Left Ventricular Cardiac Output 5.1 L/min BSA 2.43 m2 Anatomical Region Laterality Modality Heart Ultrasound Narrative 08/25/2024 8:45 AM EDT Concentric remodeling of the left ventricle is present. Left ventricular systolic function is normal. The quantitative EF by 2D Chilel biplane is 63%. The right ventricle is mildly dilated. Right ventricular systolic function is normal. There are no significant valvular abnormalities identified. There is no previous study for comparison in our system. Technical Details Definity contrast was used during the study. Overall the study quality was adequate. The study was technically difficult due to patient's clinical status and body habitus. Left Ventricle The left ventricle is normal in size. Concentric remodeling of the left ventricle is present. Left ventricular systolic function is normal. The quantitative EF by 2D Chilel biplane is 63%. No wall motion abnormalities are present. Diastolic function is normal. Right Ventricle The right ventricle is mildly dilated. Right ventricular systolic function is normal. Left Atrium Left atrial size is normal. Right Atrium Right atrial size is normal. Based on IVC diameter and collapse, right atrial pressure is estimated to be normal (3 mmHg). Mitral Valve The mitral valve is structurally normal. There is no mitral regurgitation. Tricuspid Valve The tricuspid valve is structurally normal. There is no tricuspid regurgitation. The absence of sufficient tricuspid regurgitation precludes estimation of right ventricular systolic pressure. Aortic Valve The aortic valve is tricuspid. There is no aortic regurgitation or stenosis. Pulmonic Valve The pulmonic valve is structurally normal. There is trace pulmonic regurgitation. Ascending Aorta The aortic root dimension is normal. Pericardium There is no pericardial effusion. Prior Study There is no previous study for comparison in our system. Darryl Lott MD CV ECHO ORDERABLES Bruna l Result * (ABNORMAL) Lactic Acid, Plasma (08/24/2024 12:31 PM EDT) Lactic Acid 2.5(H) 0.5 - 1.9 mmol/L 08/24/2024 1:23 PM EDT [facility] Blood Blood specimen / Unknown 08/24/2024 12:31 PM EDT 08/24/2024 1:02 PM EDT Shilo Brice MD LAB BLOOD ORDERABLES Final Re sult [address] [address], [address] [address] * Ed Performed Us Cardiac [facility] (08/24/2024 12:21 PM EDT) Anatomical Region Laterality Modality Ultrasound 08/24/2024 12:2 1 PM EDT Narrative 08/24/2024 1:41 PM EDT Cardiac ( ED) Exam Information: Exam Category: Diagnostic (Cade) Exam Occurrence: Initial exam Indication(s) for Exam: Chest Pain, Dyspnea Views Obtained: Parasternal short-axis, Apical 4-chamber Findings and Interpretation: Pericardium: No pericardial effusion LV function: Normal (50-70% EF) RV: Dilated Other RV findings:: Mild dilation, LV:RV 1:1, No McConnel's, no D-sign Medical Decision Making: All focused emergency ultrasounds are limited exams. Comprehensive studies should be obtained for further evaluation as clinically indicated. Attending Signature: I have personally performed or supervised the performance of the ultrasound, reviewed the images as archived, and agree with the findings and impression as documented Electronically signed by Shilo Brice on Saturday, August 24, 2024 at 1:41 PM Procedure Note Shilo Brice MD - 08/24/2024 Cardiac ( ED) Exam Information: Exam Category: Diagnostic (Mine Car [employer]) Exam Occurrence: Initial exam Indication(s) for Exam: Chest Pain, Dyspnea Views Obtained: Parasternal short-axis, Apical 4-chamber Findings and Interpretation: Pericardium: No pericardial effusion LV function: Normal (50-70% EF) RV: Dilated Other RV findings:: Mild dilation, LV:RV 1:1, No McConnel's, noD-sign Medical Decision Making: All focused emergency ultrasounds are limited exams. Comprehensive studies should be obtained for further evaluation asclinically indicated. Attending Signature: I have personally performed or supervised theperformance of the ultrasound, reviewed the images as archived, and agreewith the findings and impression as documented Electronically signed by Shilo Brice on Saturday, August 24, 2024 at1:41 PM us Shilo Brice MD IMG US ORDERABLES Final Resul t * XR Chest 2 views (08/24/2024 11:02 AM EDT) Anatomical Region Laterality Modality Chest Computed Radiogr aphy 08/24/2024 10:3 9 AM EDT Impressions 08/24/2024 11:53 AM EDT 1. Constellation of findings suggestive of mixed multifocal pneumonia and background bronchitis versus asthma, without significant pulmonary hyperinflation, as described. 2. Lesser incidental findings, as described. Please see above comments. . RECOMMENDATIONS: 1. If unexplained symptoms persist, consider Chest CT and/or dedicated cardiovascular imaging. Otherwise, recommend follow-up by plain radiography, as directed clinically. . Narrative 08/24/2024 11:53 AM EDT EXAM: XR CHEST 2 VIEWS 08/24/2024 10:29 COMPARISON: PA/Lateral Chest Radiograph 03/21/2014 CLINICAL INDICATION: Dyspnea FINDINGS: TECHNICAL CONSIDERATIONS: Given patient body habitus and technique : LUNGS/PLEURA: Mild/moderate patchy infiltrates and/or subsegmental atelectasis are scattered about both posterior lung bases, slightly worse on the left, superimposed upon moderate bilateral perihilar, peribronchovascular thickening, suggestive of bronchitis versus asthma, without significant pulmonary hyperinflation. CARDIOVASCULAR/MEDIASTINUM: Heart size and pulmonary vascularity are at least top-normal in prominence, partially obscured by the above processes. MUSCULOSKELETAL: At least very minimal to minimal scattered osseous degenerative disease is most notable anteriorly about the thoracolumbar junction. INCIDENTAL: No other clinically-significant changes are noted. . Procedure Note Jasvir Sanchez MD - 08/24/2024 EXAM: XR CHEST 2 VIEWS 08/24/2024 10:29 COMPARISON: PA/Lateral Chest Radiograph 03/21/2014 CLINICAL INDICATION: Dyspnea FINDINGS: TECHNICAL CONSIDERATIONS: Given patient body habitus and technique : LUNGS/PLEURA: Mild/moderate patchy infiltrates and/or subsegmental atelectasis are scattered about both posterior lung bases, slightly worse on the left, superimposed upon moderate bilateral perihilar, peribronchovascular thickening, suggestive of bronchitis versus asthma, without significant pulmonary hyperinflation. CARDIOVASCULAR/MEDIASTINUM: Heart size and pulmonary vascularity are at least top-normal in prominence, partially obscured by the above processes. MUSCULOSKELETAL: At least very minimal to minimal scattered osseous degenerative disease is most notable anteriorly about the thoracolumbar junction. INCIDENTAL: No other clinically-significant changes are noted. . IMPRESSION: 1. Constellation of findings suggestive of mixed multifocal pneumonia and background bronchitis versus asthma, without significant pulmonary hyperinflation, as described. 2. Lesser incidental findings, as described. Please see above comments. . RECOMMENDATIONS: 1. If unexplained symptoms persist, consider Chest CT and/or dedicated cardiovascular imaging. Otherwise, recommend follow-up by plain radiography, as directed clinically. . Bethanie Wyman APRN [facility] [place] Final Result * (ABNORMAL) Complete Blood Count, with Differential (08/24/2024 10:27 AM EDT) [facility] White Blood Cell Count 12.2(H) 4.0 - 11.0 Thou/uL 08/24/2024 10:52 AM EDT [facility] Platelet Count 224 150 - 450 Thou/uL 08/24/2024 10:52 AM [facility] Hemoglobin 15.3 13.0 - 17.7 g/dL 08/24/2024 10:52 AM [facility] Hematocrit 47.8 39.0 - 54.0 % 08/24/2024 10:52 AM [facility] Red Blood Cell Count 5.24 4.50 - 6.20 Mil/uL 08/24/2024 10:52 AM [facility] MCV 91 80 - 100 fL 08/24/2024 10:52 AM [facility] MCH 29.2 27.0 - 31.0 pg 08/24/2024 10:52 AM [facility] MCHC 32.0 30.0 - 36.0 g/dL 08/24/2024 10:52 AM [facility] RDW 12.4 11.5 - 14.5 % 08/24/2024 10:52 AM [facility] MPV 8.9 7.5 - 12.5 fL 08/24/2024 10:52 AM [facility] Neutrophils Auto 79.5 % 08/25/19 10:52 AM [facility] Immature Granulocytes 0.9 % 08/24/2024 10:52 AM [facility] Lymphocytes Auto 4.4 % 08/25/19 10:52 AM [facility] Monocytes Auto 14.4 % 08/24/2024 10:52 AM [facility] Eosinophils Auto 0.6 % 08/25/19 10:52 AM [facility] Basophils Auto 0.2 % 08/24/2024 10:52 AM [facility] Abs Neutrophils Auto 9.67(H) 2.00 - 7.50 Thou/uL 08/24/2024 10:52 AM [facility] Abs Immature Granulocytes 0.11(H) 0.00 - 0.10 Thou/uL 08/24/2024 10:52 AM [facility] Abs Lymphocytes Auto 0.54(L) 1.50 - 4.50 Thou/uL 08/24/2024 10:52 AM [facility] Abs Monocytes Auto 1.76(H) 0.20 - 1.50 Thou/uL 08/24/2024 10:52 AM [facility] Abs Eosinophils Auto 0.07 0.00 - 0.70 Thou/uL 08/24/2024 10:52 AM EDT [facility] Abs Basophils Auto 0.03 0.00 - 0.20 Thou/uL 08/24/2024 10:52 AM [facility] Blood Blood specimen / Unknown 08/24/2024 10:27 AM EDT 08/24/2024 10:40 AM EDT [facility] Final Result Performing Organization Address [facility] Co de Phone Number [address] [address], [address] [address] * INR (08/24/2024 10:27 AM EDT) Anticoagulant NO ANTI COAGULANT MEDS 08/24/2024 10:07 AM [facility] Prothrombin Time (PT) 13.5 10.0 - 13.5 seconds 08/24/2024 10:52 AM [facility] INR 1.2 08/24/2024 10:52 AM [facility] Comment:INR Therapeutic Rang es: Standard dose anticoagulant 2.0 to 3.0, High dose anticoagulant 2.5-3.5. Blood Blood specimen / Unknown 08/24/2024 10:27 AM EDT 08/24/2024 10:40 AM EDT [facility] NETWORK PROJECT MANAGER LAB BLOOD ORDERABLES Final Result [address] [address], [address] [address] * Magnesium (08/24/2024 10:27 AM EDT) Magnesium 2.2 1.6 - 2.7 mg/dL 08/24/2024 11:03 AM EDT [facility] Blood Blood specimen / Unknown 08/24/2024 10:27 AM EDT 08/24/2024 10:40 AM EDT us Bethanie Pavlovich NETWORK PROJECT MANAGER LAB BLOOD ORDERABLES Final Result Performing Organization Address City/[facility]/ZIP Co de Phone Number [address] [address], [address] [address] * Lipase (08/24/2024 10:27 AM EDT) Lipase 26 13 - 60 U/L 08/24/2024 11:03 AM [facility] Blood Blood specimen / Unknown 08/24/2024 10:27 AM EDT 08/24/2024 10:40 AM EDT [facility] NETWORK PROJECT MANAGER LAB BLOOD ORDERABLES Final Result Performing Organization Address [facility] Co de Phone Number [address] [address], [address] [address] * (ABNORMAL) Comprehensive Metabolic Panel (08/24/2024 10:27 AM EDT) Glucose 119(H) 65 - 99 mg/dL 08/24/2024 11:03 AM [facility] Comment:Fasting: <100 mg/dL, Non-Fasting: <200 mg/dL (ADA 2004) Blood Urea Nitrogen (BUN) 20 8 - 21 mg/dL 08/24/2024 11:03 AM [facility] Creatinine 1.1 0.5 - 1.3 mg/dL 08/24/2024 11:03 AM [facility] eGFR 77 >59 08/24/2024 11:03 AM [facility] Comment:CKD-EPI (2020) in mL /min/1.73 sq meters. Sodium 135(L) 136 - 145 mmol/L 08/24/2024 11:03 AM [facility] Potassium 4.4 3.4 - 5.3 mmol/L 08/24/2024 11:03 AM [facility] Chloride 99 98 - 107 mmol/L 08/24/2024 11:03 AM [facility] CO2 23 22 - 33 mmol/L 08/24/2024 11:03 AM [facility] Calcium 9.0 8.7 - 10.5 mg/dL 08/24/2024 11:03 AM [facility] Alkaline Phosphatase 105 45 - 128 U/L 08/24/2024 11:03 AM [facility] Aspartate Aminotrans (AST) 30 10 - 55 U/L 08/24/2024 11:03 AM [facility] Alanine Aminotrans (ALT) 46 10 - 55 U/L 08/24/2024 11:03 AM [facility] Bilirubin, Total 0.9 0.2 - 1.0 mg/dL 08/24/2024 11:03 AM [facility] Protein, Total 7.2 6.3 - 8.3 g/dL 08/24/2024 11:03 AM [facility] Albumin 3.6 3.5 - 5.0 g/dL 08/24/2024 11:03 AM [facility] BUN/Creatinine Ratio 18 10.0 - 25.0 Ratio 08/24/2024 11:03 AM [facility] Globulin 3.6 1.5 - 3.9 g/dL 08/24/2024 11:03 AM [facility] Albumin/Globulin Ratio 1.0 1.0 - 3.0 Ratio 08/24/2024 11:03 AM [facility] Anion Gap 13 7 - 17 08/24/2024 11:03 AM [facility] Blood Blood specimen / Unknown 08/24/2024 10:27 AM EDT 08/24/2024 10:40 AM EDT us Bethanie Zamzam NETWORK PROJECT MANAGER LAB BLOOD ORDERABLES Final Result [address] [address], [address] [address] * 10 Min ECG 12 lead (08/24/2024 10:12 AM EDT) Ventricular rate 93 BPM EKG [facility] Atrial rate 93 BPM EKG [facility] P-R interval 190 ms EKG [facility] QRS duration [address] [facility] Q-T interval [address] [facility] QTC calculation (Bazett) 483 ms EKG [facility] P axis 16 degrees EKG [facility] R axis 64 degrees EKG [facility] T axis 18 degrees EKG [facility] 08/24/2024 10:1 2 AM EDT Narrative EKG [facility] - 08/24/2024 10:23 AM EDT Normal sinus rhythm Right bundle branch block Abnormal ECG When compared with ECG of 27-Jul-2024 08:56, Vent. rate has increased by 32 bpm Confirmed by MD Cuenca Eric ([id number]) on 08/24/2024 10:23:33 AM Procedure Note Blayne Cuenca MD - 08/24/2024 Normal sinus rhythm Right bundle branch block Abnormal ECG When compared with ECG of 27-Jul-2024 08:56, Vent. rate has increased by 32 bpm Confirmed by MD Cuenca Eric ([id number]) on 08/24/2024 10:23:33 AM Hailey Rios MD ECG ORDERABLES Final Result [facility] * ANES LINE - PERIPHERAL, SINGLE LUMEN (08/16/2024 1:26 PM EDT) Narrative Krystle Pinto MD - 08/16/2024 1:26 PM EDT Krystle Pinto MD 08/16/2024 2:38 PM Anesthesia Procedure Note - Peripheral IV Placement Patient Name: Misha Steward : 1965 Patient location: OR Indication(s): surgery Performed by: Resident/SEED SALES MANAGER MD Yohan Campos MD Procedure Preparation Skin prep: skin prepped with alcohol - completely dried prior to procedure Hand hygeine performed prior to needle/catheter insertion Sterile barriers in place: cap, gloves and mask Patient pre-procedure mental status: awake Single lumen [id number] catheter system, 16 g, 1 in length, in right hand Insertion attempts: 1 Krystle Pinto MD DE ANESTHESIA Final Result * ANES INTUBATION (08/16/2024 1:06 PM EDT) Krystle Almeida MD - 08/16/2024 1:06 PM EDT Krystle Pinto MD 08/16/2024 1:19 PM Anesthesia Procedure Note - Elective intubation Patient Name: Misha Steward : 1965 Patient location: OR Procedure indications: airway protection Procedure diagnosis: Anesthesia Performed by: Resident/SEED SALES MANAGER MD Yohan Campos MD Chart Verification Airway: airway not difficult Preanesthetic Checklist monitors and equipment checked. Patient's pre-procedure mental status: awake The patient was sedated prior to procedure. Current level of sedation: general anesthesia Airway not difficult - NPO status: > 8 hours Procedure Details Intubation route: oral Intubation method: direct laryngoscopy Mac 3 Number of attempts: 1 Patient status for intubation: paralyzed, sedated and unresponsive Patient position: supine Preoxygenation: BVM Quality of BVM: easy and 1 person Tube size: 8.0 mm Tube: standard - cuffed and cuff inflated Cricoid pressure not applied or not required Cord visualization: Grade IIa Placement confirmation method: chest rise and ETCO2 monitor Breath sounds: equal bilaterally ETT to lip: 23 cm Dentition: same as baseline Complications: no complications Krystle Pinto MD DE ANESTHESIA Final Result from Last 3 Months Insurance [facility] Advance Directives * Full Code (Latest Code Status on File) Date Activated Date Inactivated Comments 08/24/2024 2:28 PM 11/03/2024 10:17 AM * Full Code Date Activated Date Inactivated Comments 08/16/2024 7:09 PM 08/24/2024 9:59 AM * Full Code Date Activated Date Inactivated Comments 08/16/2024 9:37 AM 08/16/2024 7:09 PM Care Teams Stone Chimney Mason Relationship Specialty Start Date End Date Susanne Burrows MD [address] [place] [address] PCP - General Family Medicine 07/27/24 Ofelia Forrest RN [address] [place] [address] Oncology Nurse Navigator 05/27/24
--- OUTSIDE RECORDS SUMMARY | 2024-11-10 11:16 | XMS_ITS | Encounter Summary ---
Author Organization [facility] Address [address] [place] [address] Care Team Providers Care Fruit Thinner Name Role Phone Carrier, Ofelia GRAF Unavailable [phone] Mekhi Leonard MD Primary Care Provider Encounter Details Date Type Department Care Team (Late st Contact Info) Description 11/02/2024 Scanned Document [facility] at [address] [phone] Juan Valdes MD [address] [place] [phone] Social History Tobacco Use Types Packs/Day Years Used Date Smoking Tobacco: Some Days Cigars Smokeless Tobacco: Never Comments:Occasional cigar Alcohol Use Standard Drinks/Week Comments Yes 4 (1 standard drink = 0.6 oz pur e alcohol) [facility] Utilities Answer Date Recorded In the past 12 months has [employer], gas, oil, or water [employer] threatened to shut off services in your [...] any time in the past 12 m [facility], were you homeless or living in a prison (including now)? No 08/25/2024 Sex and Gender [...] Description 11/14/2024 11:45 AM EDT Office Visit [address] [phone] Blas Mendez MD [address] [place] [phone] 11/22/2024 9:45 AM EDT Consult [facility] at [address] [phone] Juan Valdes MD [address] [place] [address] 12/01/2024 2:30 PM EDT Office Visit [place] [phone] Luisa Modi APRN [address] [place] [address] 02/13/2025 8:45 AM EST Office Visit [place] [phone] Luisa Modi APRN [address] [place] [phone] 05/24/2025 9:00 AM EDT Office Visit [place] [phone] Luisa Moid APRN [address] [place] [address] 08/23/2025 11:45 AM EDT Office Visit [address] [phone] Niels Benjamin MD [address] [place] [address] documented as of this encounter Visit Diagnoses Not on filedocumented in this encounter Care Teams Fruit Thinner Relationship Specialty Start Date End Date Mekhi Leonard MD [address] [place] [address] PCP - General Family Medicine 07/27/24 Ofelia Forrest RN [address] [address] Oncology Nurse Navigator 05/27/24 documented as of this encounter
--- OUTSIDE RECORDS SUMMARY | 2024-11-10 11:16 | XMS_ITS | Encounter Summary ---
Author Organization [facility] Address [address] [place] [address] Care Team Providers Care Honing Machine Operator Semiautomatic Name Role Phone Carrier, Ofelia GRAF Unavailable [phone] Mekhi Leonard MD Primary Care Provider [phone] Reason for Visit * Reason Onset Date Comments Form Completion 11/03/2024 Encounter Details Date Type Department Care Team ([facility] st Contact Info) Description 11/03/[address] [facility] [address] [place] [phone] Niels Benjamin MD [address] [address] Form Completion Social History Tobacco Use Types Packs/Day Years Used Date Smoking Tobacco: Some Days Cigars Smokeless Tobacco: Never Comments:Occasional cigar Alcohol Use Standard Drinks/Week Comments Yes 4 (1 standard drink = 0.6 oz pur e alcohol) [facility] Utilities Answer Date Recorded In the past 12 months has [employer], gas, oil, or water [employer] threatened to shut off services in your [...] any time in the past 12 m [facility], were you homeless or living in a assisted (including now)? No 08/25/2024 Sex and Gender [...] Description 11/14/2024 11:45 AM EDT Office Visit [address] [phone] Blas Mendez MD [address] [place] [address] 11/22/2024 9:45 AM EDT Consult [facility] at [address] [phone] Juan Valeds MD [address] [place], [place] [phone] 12/01/2024 2:30 PM EDT Office Visit [place] [phone] Luisa Modi APRN [address] [place] [phone] 02/13/2025 8:45 AM EST Office Visit [place] [phone] Luisa Modi APRN [address] [place] [address] [phone] 05/24/2025 9:00 AM EDT Office Visit [address] [phone] Luisa Modi APRN [address] [place] [address] 08/23/2025 11:45 AM EDT Office Visit [address] [phone] Niels Benjamin MD [address] [address] documented as of this encounter Visit Diagnoses Not on filedocumented in this encounter Care Teams Honing Machine Operator Semiautomatic Relationship Specialty Start Date End Date Mekhi Leonard MD [address] [place] [address] PCP - General Family Medicine 07/27/24 Ofelia Forrest RN [address] [place] [address] Oncology Nurse Navigator 05/27/24 documented as of this encounter
--- OUTSIDE RECORDS SUMMARY | 2024-11-10 11:16 | XMS_ITS | Encounter Summary ---
Author Organization [facility] Address [address] [place] [address] Care Team Providers Care Director Information Security Name Role Phone Carrier, Ofelia GRAF Unavailable [phone] Mekhi Leonard MD Primary Care Provider [phone] Reason for Visit * Reason Onset Date Comments Referral 09/01/2024 AC needs schedul ing . Encounter Details Date Type Department Care Team ([facility] Contact Info) Description 09/01/2024 Telephone [place] [phone] [place] [address] Provider, External, [address] [place] [address] Referral (AC needs scheduling . ) Social History Tobacco Use Types Packs/Day Years Used Date Smoking Tobacco: Some Days Cigars Smokeless Tobacco: Never Comments:Occasional cigar Alcohol Use Standard Drinks/Week Comments Yes 4 (1 standard drink = 0.6 oz pur e alcohol) [facility] Utilities Answer Date Recorded In the past 12 months has [employer], gas, oil, or water [employer] threatened to shut off services in your [...] any time in the past 12 m [facility], were you homeless or living in a ch[facility] (including now)? No 08/25/2024 Sex and Gender [...] Description 11/14/2024 11:45 AM EDT Office Visit [address] [phone] Blas Mendez MD [address] [place] [address] 11/22/2024 9:45 AM EDT Consult [facility] [place] [facility] at [place] [address] [place] [phone] Juan Valdes MD [address] [place], [place] [phone] 12/01/2024 2:30 PM EDT Office Visit [place] [phone] Luisa Modi APRN [address] [place] [phone] 02/13/2025 8:45 AM EST Office Visit [address] [phone] Luisa Modi APRN [address] [place] [phone] 05/24/2025 9:00 AM EDT Office Visit [place] [phone] Luisa Modi APRN [address] [place] [phone] 08/23/2025 11:45 AM EDT Office Visit [address] [phone] Niels Benjamin MD [address] [place] [phone] documented as of this encounter Visit Diagnoses Not on filedocumented in this encounter Care Teams Director Information Security Relationship Specialty Start Date End Date Mekhi Leonard MD [address] [facility] [place] [address] PCP - General Family Medicine 07/27/24 Ofelia Forrest RN [address] [place] [address] Oncology Nurse Navigator 05/27/24 documented as of this encounter
--- OUTSIDE RECORDS SUMMARY | 2024-11-10 11:16 | XMS_ITS | Clinical Summary ---
Author Organization [facility] [address] [facility] Address [address] [place] [address] Phone Care Team Providers Care Office Machine Technician Name Role Phone Mekhi Leonard NP Primary [...] 08/04/2015 Zoster Vaccines (1 of 2) 08/04/2015 Cholesterol Screening (Lipid Panel) 02/19/2024 Colorectal Cancer Screening: Colonoscopy 02/19/2024 HIV Screening 02/19/2024 Hepatitis C Screening 02/19/2024 Social Influencers of Health Screening 02/19/2024 Depression Screening 03/09/2024 COVID-19 Vaccine ( - 2023-2 5 season) 2024 Influenza Vaccine (#1) 2024 RSV Immunization Adult Patie nts (1 - 1-dose 75+ series) 2040 HIB Vaccines Aged Out No longer eligi [...] age to complete this topic Meningococcal B Vaccine Aged Out No l onger eligible based on patient's age to complete this topic RSV Immunization Patients Un adan 20 months Aged Out No longer eligible b ased on patient's age to complete this topic Varicella Vaccines Aged Out No longer eligible based on patient's age to complete this topic [place] [place] [address] Care Teams Office Machine Technician Relationship Specialty Start Date End Date Mekhi Leonard NP PCP - General Family Medicine 02/19/24
--- OUTSIDE RECORDS SUMMARY | 2024-11-10 11:16 | XMS_ITS | Encounter Summary ---
Author Organization [facility] Address [address] [place] [address] Care Team Providers Care Dump Truck Driver Off Highway Name Role Phone Dc Carvalho MD Primary Care Provider [phone] Ofelia Forrest RN Unavailable [phone] Mekhi Leonard MD Primary Care Provider [phone] Encounter Details Date Type Department Care Team (Late st Contact Info) Description 05/26/2024 Scanned Document [address] [place] [phone] Dc Carvalho MD 100 [facility] 240 [place] [address] Social History Tobacco Use Types Packs/Day Years Used Date Smoking Tobacco: Never Assessed [facility] Utilities Answer Date Recorded In the past 12 months has th e electric, gas, oil, or water company threatened to shut off services in your home? No 05/27/2024 Overall Financial Resource Strain (CARDIA) Answe r Date Recorded How hard is it for you to pa y for the very basics like food, housing, medical care, and heating? Not hard at all 05/27/2024 Hunger Vital Sign Answer Date Recorded Within the past 12 months, y ou worried that your food would run out before you got the money to buy more. Never true 05/28/19 25 Within the past 12 months, t he food you bought just didn't last and you didn't have money to get more. Never true 05/27/2024 PRAPARE - Transportation Answer Date Re corded In the past 12 months, has l ack of transportation kept you from medical appointments or from getting medications? No 05/08 In the past 12 months, has l ack of transportation kept you from meetings, work, or from getting things needed for daily living? No 05/27/2024 Housing Stability Vital Sign Answer Jhon e Recorded In the last 12 months, was t here a time when you were not able to pay the mortgage or rent on time? No 05/27/2024 Number of Times Moved in the Last Year Not on fi le 05/27/2024 At any time in the past 12 m [facility], were you homeless or living in a long-term (including now)? No 05/27/2024 Sex and Gender Information Value Date Recorded Sex Assigned at Male 05/27/2024 7:26 PM EDT Legal Sex Male 6:10 PM EST Gender Identity Male 05/27/2024 7:27 PM EDT Sexual Orientation Heterosexual (straight) 08/16 9:23 AM EDT documented as of this encounter Plan of Treatment Upcoming Encounters Date Type Department Care Team (Late st Contact Info) Description 11/14/2024 11:45 AM EDT Office Visit [address] [phone] Blas Mendez MD [address] [place] [phone] 11/22/2024 9:45 AM EDT Consult [facility] at [address] [phone] Juan Valdes MD [address] [place] [phone] 12/01/2024 2:30 PM EDT Office Visit [address] [place] [phone] Luisa Modi APRN 10 [place] [address] 02/13/2025 8:45 AM EST Office Visit [address] [phone] Luisa Modi BACK SHOE WORKER [address] [place] [phone] 05/24/2025 9:00 AM EDT Office Visit [address] [phone] Luisa Modi BACK SHOE WORKER [address] [place] [phone] 08/23/2025 11:45 AM EDT Office Visit [address] [phone] Niels Benjamin MD [address] [phone] documented as of this encounter Visit Diagnoses Not on filedocumented in this encounter Care Teams Dump Truck Driver Off Highway Relationship Specialty Start Date End Date Dc Carvalho MD [address] [place] [address] [place]uz [address] PCP - General Urology 05/23/24 07/26/24 Mekhi Leonard MD 262 [place] [address] PCP - General Family Medicine 07/27/24 Ofelia Forrest RN [address] [address] Oncology Nurse Navigator 05/27/24 documented as of this encounter
--- OUTSIDE RECORDS SUMMARY | 2024-11-10 11:16 | XMS_ITS | Encounter Summary ---
Author Organization [facility] Address [address] [place] [address] Care Team Providers Care Parts Cleaner Name Role Phone Carrier, Ofelia GRAF Unavailable [phone] Mekhi Leonard MD Primary Care Provider [phone] Encounter Details Date Type Department Care Team (Late st Contact Info) Description 10/31/2024 Scanned Document [address] [phone] Blas Mendez MD 85 [facility] Alice Julien [address] [place] [address] Social History Tobacco Use Types Packs/Day Years Used Date Smoking Tobacco: Some Days Cigars Smokeless Tobacco: Never Comments:Occasional cigar Alcohol Use Standard Drinks/Week Comments Yes 4 (1 standard drink = 0.6 oz pur e alcohol) [facility] Utilities Answer Date Recorded In the past 12 months has [employer], gas, oil, or water [employer] threatened to shut off services in your [...] any time in the past 12 m [facility], were you homeless or living in a intermediate (including now)? No 08/25/2024 Sex and Gender [...] Description 11/14/2024 11:45 AM EDT Office Visit [address] [phone] Blas Mendez MD [address] [place] [phone] 11/22/2024 9:45 AM EDT Consult [facility] at [address] [phone] Juan Valdes MD [address] [place] [address] 12/01/2024 2:30 PM EDT Office Visit [place] [phone] Luisa Modi APRN [address] [place] [address] 02/13/2025 8:45 AM EST Office Visit [place] [phone] Luisa Modi APRN [address] [place] [address] [phone] 05/24/2025 9:00 AM EDT Office Visit [place] [phone] Luisa Modi APRN [address] [place] [phone] 08/23/2025 11:45 AM EDT Office Visit [address] [phone] Niels Benjamin MD [address] [place] [phone] documented as of this encounter Visit Diagnoses Not on filedocumented in this encounter Care Teams Parts Cleaner Relationship Specialty Start Date End Date Mekhi Leonard MD [address] [place] [address] PCP - General Family Medicine 07/27/24 Ofelia Forrest RN [address] [address] Oncology Nurse Navigator 05/27/24 documented as of this encounter
--- OUTSIDE RECORDS SUMMARY | 2024-11-10 11:17 | XMS_ITS | Encounter Summary ---
Author Organization [facility] Address [address] [place] [address] Care Team Providers Care Temperature Regulator Name Role Phone Carrier, Ofelia GRAF Unavailable [phone] Mekhi Leonard MD Primary Care Provider [phone] Reason for Visit * Reason Onset Date Comments Appointment 09/20/2024 Encounter Details Date Type Department Care Team ([facility] st Contact Info) Description 09/20/2024 Telephone [facility] [address] [place] [phone] Niels Benjamin MD [address] [address] Appointment Social History Tobacco Use Types Packs/Day Years Used Date Smoking Tobacco: Some Days Cigars Smokeless Tobacco: Never Comments:Occasional cigar Alcohol Use Standard Drinks/Week Comments Yes 4 (1 standard drink = 0.6 oz pur e alcohol) [facility] Utilities Answer Date Recorded In the past 12 months has [employer], [employer], oil, or water [employer] threatened to shut off services in your [...] time in the past 12 m [facility], were you homeless or living in a [...] Description 11/14/2024 11:45 AM EDT Office Visit [address] [phone] Blas Mendez MD [address] [place] [phone] 11/22/2024 9:45 AM EDT Consult [facility] [place] [facility] at [address] [phone] Juan Valdes MD [address] [place] [address] [place], [place] [phone] 12/01/2024 2:30 PM EDT Office Visit [place] [phone] Luisa Modi APRN [address] [place] [address] 02/13/2025 8:45 AM EST Office Visit [address] [phone] Luisa Modi APRN [address] [place] [address] 05/24/2025 9:00 AM EDT Office Visit [address] [phone] Luisa Modi APRN [address] [place] [address] 08/23/2025 11:45 AM EDT Office Visit [address] [phone] Niels Benjamin MD 85 [facility] [address] [place] [address] documented as of this encounter Visit Diagnoses Not on filedocumented in this encounter Care Teams Temperature Regulator Relationship Specialty Start Date End Date Mekhi Leonard MD [address] [place] [address] PCP - General Family Medicine 07/27/24 Ofelia Forrest RN [address] [place] [address] Oncology Nurse Navigator 05/27/24 documented as of this encounter
--- OUTSIDE RECORDS SUMMARY | 2024-11-10 11:17 | XMS_ITS | Patient Health Record ---
Author Organization [facility] Address [address] [place] [address] Care Team Providers Care Therapist Occupational Name Role Phone Barrera Scott MD Primary Care Provider Carloz Ritter Unavailable [phone] Allergies Allergen (clinical drug ingredient) Drug/Non Drug [...] X ray : Foot, right 3V 12/29/2016 83170-Vcan Destruction, -12/29/2016 69678-Zvlx Destruction, -14 03/30/2017 76093-Uqop Destruction, -14 04/20/2017 54554-Tntz Destruction, -14 05/11/2017 33358-Lyiv Destruction, 03-2206/15/2017 74695-Zqgs Destruction, 03-2207/20/2017 99305-Ulta Destruction, 03-2208/12/2017 28721-Ylwo Destruction, 03-2209/02/2017 32626-Bisa Destruction, 03-2210/01/2017 Insurance Providers Payer Name Payer Address Payer Phone Subscriber Number Group Number Insured Name Patient Relationship to Insured Coverage Start Date Coverage End Date [facility] [address] [address] [place] [address] [id number] Lianna Brasher Spouse - patient is the [...]
--- OUTSIDE RECORDS SUMMARY | 2024-11-10 11:17 | XMS_ITS ---
Author Name [facility] Organization Unknown Results Test Name/Text Value Interpretation Date Range Source POC Glucose 93.0 mg/dL 10/20/2024 65 - 99 [facility] Delta 1.0 08/25/2024 - 3 H[facility]CT Troponin T SerPl-mCnc 15.0 ng/L 08/25/2024 - HHCCT pro BNP, N-terminal 67.0 pg/mL 08/25/2024 - 125 HHCCT Lactate SerPl-sCnc 2.5 mmol/L Above high normal 08/24/2024 0 .5 - 1.9 HHCCT POC Glucose 106.0 mg/dL Above high normal 08/24/2024 65 - 99 HHCCT pro BNP, N-terminal 192.0 pg/mL Above high normal 08/24/2024 - 125 H[facility]CT Troponin T SerPl-mCnc 16.0 ng/L 08/24/2024 - 23 HHCCT Delta NO PREVIOUS RESULT 08/24/2024 - 3 HHCCT Magnesium SerPl-mCnc 2.2 mg/dL 08/24/2024 1.6 - 2. 7 HHCCT BUN SerPl-mCnc 20.0 mg/dL 08/24/2024 8 - [address] BUN/Creat SerPl 18.0 Ratio 08/24/2024 10 - 25 HH CCT ALT SerPl-cCnc 46.0 U/L 08/24/2024 10 - 55 HHCC T AST SerPl-cCnc 30.0 U/L 08/24/2024 10 - 55 HHCC T ALP SerPl-cCnc 105.0 U/L 08/24/2024 45 - 128 HHCC T Globulin Ser Calc-mCnc 3.6 g/dL 08/24/2024 1.5 - 3.9 HHCCT GFR/BSA.pred SerPlBld [id number] 77.0 08/24/2024 59 - HHCCT Anion Gap Bld-sCnc 13.0 08/24/2024 7 - 17 HHCCT Prot SerPl-mCnc 7.2 g/dL 08/24/2024 6.3 - 8.[address] Albumin/Glob SerPl 1.0 Ratio 08/24/2024 1 - 3 HHCCT Albumin SerPl-mCnc 3.6 g/dL 08/24/2024 3.5 - 5 HHCCT Potassium SerPl-sCnc 4.4 mmol/L 08/24/2024 3.4 - 5 .3 HHCCT Chloride SerPl-sCnc 99.0 mmol/L 08/24/2024 98 - 10 7 HHCCT Calcium SerPl-mCnc 9.0 mg/dL 08/24/2024 8.7 - 10.5 HHCCT Sodium SerPl-sCnc 135.0 mmol/L Below low normal 08/24/2024 1 36 - 145 HHCCT CO2 SerPl-sCnc 23.0 mmol/L 08/24/2024 22 - 33 HH CCT Creat SerPl-mCnc 1.1 mg/dL 08/24/2024 0.5 - 1.3 HH CCT Glucose SerPl-mCnc 119.0 mg/dL Above high normal 08/24/2024 65 - 99 HHCCT Bilirub SerPl-mCnc 0.9 mg/dL 08/24/2024 0.2 - 1 HHCCT Lipase SerPl-cCnc 26.0 U/L 08/24/2024 13 - 60 H HCCT Monocytes num Bld Auto 1.76 Thou/uL Above high normal 08/24/2024 0.2 - 1.5 HHCCT Neutrophils num Bld Auto 9.67 Thou/uL Above high normal 08/24/2024 2 - 7.5 HHCCT Hct VFr Bld Auto 47.8 % 08/24/2024 39 - 54 HH CCT Basophils num Bld Auto 0.03 Thou/uL 08/24/2024 0 - 0.2 HHCCT MCV RBC Auto 91.0 fL 08/24/2024 80 - 100 H[facility]CT Monocytes/leuk NFr Bld Auto 14.4 % 08/24/2024 HHCCT Lymphocytes/leuk NFr Bld Auto 4.4 % 08/24/2024 HHCCT PMV Bld Auto 8.9 fL 08/24/2024 7.5 - 12.5 HHCCT Platelet num Bld Auto 224.0 Thou/uL 08/24/2024 150 - 450 HHCCT Basophils/leuk NFr Bld Auto 0.2 % 08/24/2024 HHCCT Imm Granulocytes/leuk NFr Bld Auto 0.9 % 08/24/2024 HHCCT Imm Granulocytes num Bld Auto 0.11 Thou/uL Above high normal 08/24/2024 0 - 0.1 HHCCT MCH RBC Qn Auto 29.2 pg 08/24/2024 27 - [address] Eosinophil/leuk NFr Bld Auto 0.6 % 08/24/2024 HHCCT Lymphocytes num Bld Auto 0.54 Thou/uL Below low normal 08/24/2024 1.5 - 4.5 HHCCT MCHC RBC Auto-mCnc 32.0 g/dL 08/24/2024 30 - 36 HHCCT Hgb Bld-mCnc 15.3 g/dL 08/24/2024 13 - 17.7 HHCCT WBC num Bld Auto 12.2 Thou/uL Above high normal 08/24/2024 4 - 11 HHCCT Eosinophil num Bld Auto 0.07 Thou/uL 08/24/2024 0 - 0.7 HHCCT RDW RBC Auto-Rto 12.4 % 08/24/2024 11.5 - 14.5 HHCCT Neutrophils/leuk NFr Bld Auto 79.5 % 08/24/2024 HHCCT RBC num Bld Auto 5.24 Mil/uL 08/24/2024 4.5 - 6.2 HHCCT Prothrombin time 13.5 seconds 08/24/2024 10 - 13.5 HHCCT INR PPP 1.2 08/24/2024 HHCCT Anticoagulant NO ANTI COAGULANT MEDS 08/24/2024 HHCCT Chloride SerPl-sCnc 107.0 mmol/L 07/27/2024 98 - 1 07 HHCCT CO2 SerPl-sCnc 24.0 mmol/L 07/27/2024 22 - 33 HH CCT GFR/BSA.pred SerPlBld [id number] 78.0 07/27/2024 59 - HHCCT Potassium SerPl-sCnc 4.7 mmol/L 07/27/2024 3.4 - 5 .3 HHCCT Creat SerPl-mCnc 1.1 mg/dL 07/27/2024 0.5 - 1.3 HH CCT Calcium SerPl-mCnc 9.7 mg/dL 07/27/2024 8.7 - 10.5 HHCCT BUN/Creat SerPl 17.0 Ratio 07/27/2024 10 - 25 HH CCT BUN SerPl-mCnc 19.0 mg/dL 07/27/2024 8 - [address] Glucose SerPl-mCnc 86.0 mg/dL 07/27/2024 65 - 99 HHCCT Sodium SerPl-sCnc 142.0 mmol/L 07/27/2024 136 - 14 5 HHCCT Anion Gap Bld-sCnc 11.0 07/27/2024 7 - 17 HHCCT RBC num Bld Auto 5.51 Mil/uL 07/27/2024 4.5 - 6.2 HHCCT Imm Granulocytes num Bld Auto 0.01 Thou/uL 07/27/2024 0 - 0.1 HHCCT Hgb Bld-mCnc 16.3 g/dL 07/27/2024 13 - 17.7 HHCCT Imm Granulocytes/leuk NFr Bld Auto 0.2 % 07/27/2024 HHCCT Monocytes num Bld Auto 0.48 Thou/uL 07/27/2024 0.2 - 1.5 HHCCT MCHC RBC Auto-mCnc 32.5 g/dL 07/27/2024 30 - 36 HHCCT Platelet num Bld Auto 173.0 Thou/uL 07/27/2024 150 - 450 HHCCT Monocytes/leuk NFr Bld Auto 11.3 % 07/27/2024 HHCCT PMV Bld Auto 9.5 fL 07/27/2024 7.5 - 12.5 HHCCT Neutrophils num Bld Auto 2.93 Thou/uL 07/27/2024 2 - 7.5 HHCCT Lymphocytes num Bld Auto 0.58 Thou/uL Below low normal 07/27/2024 1.5 - 4.5 HHCCT MCV RBC Auto 91.0 fL 07/27/2024 80 - 100 HHCCT RDW RBC Auto-Rto 12.5 % 07/27/2024 11.5 - 14.5 HHCCT Hct VFr Bld Auto 50.1 % 07/27/2024 39 - 54 HH CCT Basophils/leuk NFr Bld Auto 0.7 % 07/27/2024 HHCCT Neutrophils/leuk NFr Bld Auto 69.0 % 07/27/2024 HHCCT Eosinophil/leuk NFr Bld Auto 5.2 % 07/27/2024 HHCCT Basophils num Bld Auto 0.03 Thou/uL 07/27/2024 0 - 0.2 HHCCT MCH RBC Qn Auto 29.6 pg 07/27/2024 27 - [address] WBC num Bld Auto 4.3 Thou/uL 07/27/2024 4 - 11 HHCCT Eosinophil num Bld Auto 0.22 Thou/uL 07/27/2024 0 - 0.7 HHCCT Lymphocytes/leuk NFr Bld Auto 13.6 % 07/27/2024 HHCCT History of Medication Use Medication Directions Dispensed Refills Start Date End Date Stat tadalafil (CIALIS) 10 MG tablet Take 1 tablet (10 mg total) by mouth daily as needed for erectile dysfunction (Take one additional pill PRN day of sexual activity. Do not exceed 20 mg daily.). 09/22/2024 active apixaban (ELIQUIS) 5 MG tablet Start taking 10 mg (2 pills) twice a day for 7 days, starting on 09/01/24 the dose will be reduced to 5 mg (1 pill) twice daily. 08/25/2024 active colchicine (COLCRYS) 0.6 mg tablet 08/23/2024 active LORazepam (ATIVAN) 0.5 MG tablet 08/23/2024 active sulfamethoxazole-trim ethoprim (BACTRIM DS,SEPTRA DS) 800-160 MG per tablet Take 1 tablet by mouth 2 (two) times a day. Begin 1 day prior to peace removal 08/17/2024 08/21/2024 active docusate sodium (COLACE) 100 MG capsule Take 1 capsule (100 mg total) by mouth 2 (two) times a day. While taking pain medication to prevent constipation 08/17/2024 active HYDROmorphone (DILAUDID) 2 MG tablet Take 1 tablet (2 mg total) by mouth every 4 (four) hours as needed for severe pain. Max Daily Amount: 12 mg 08/17/2024 active allopurinol (ZYLOPRIM) 100 mg tablet Take 1 tablet (100 mg total) by mouth. 05/22/2024 active Synthroid 50 MCG tablet Take 1 tablet (50 mcg total) by mouth. 05/13/2024 active testosterone cypionate (DEPO-TESTOSTERONE CYPIONATE) 200 mg/mL injection 04/27/2024 active tadalafil (CIALIS) 5 mg tablet TAKE ONE TABLET BY MOUTH EVERY DAY NEEDED FOR SEXUAL ACTIVITY 04/24/2024 active tadalafil (CIALIS) 5 mg tablet Take 1 tablet (5 mg total) by mouth every morning. 04/24/2024 active acetaminophen (TYLENOL) 325 MG tablet Take 1 tablet (325 mg total) by mouth 4 times daily (every 6 hours) as needed for mild pain (Taking 3 tabs). active atorvastatin (LIPITOR) 20 MG tablet active atorvastatin (LIPITOR) 20 MG tablet Take 1 tablet (20 mg total) by mouth nightly. active Glucosamine HCl 1500 MG Tab Take 1,500 mg by mouth every morning. With MSM 1500 active ibuprofen (MOTRIN) 800 mg tablet active levocetirizine (Xyzal Allergy 24HR) 5 MG tablet active levocetirizine (Xyzal Allergy 24HR) 5 MG tablet Take 1 tablet (5 mg total) by mouth nightly. active NAPROXEN PO Take 440 mg by mouth every morning. active OMEprazole (PriLOSEC) 20 MG capsule Take 1 capsule (20 mg total) by mouth every morning before breakfast. active OMEPRAZOLE PO Take 20 mg by mouth every morning. active PANTOprazole (PROTONIX) 40 MG EC tablet Take 1 tablet (40 mg total) by mouth. active valACYclovir (VALTREX) 500 MG tablet active VITAMIN A PO Take 6,000 mcg by mouth every morning. active Allergies Allergen Reaction Severity Comment Documented Date Source Statu s POLLEN EXTRACT OTHER (SEE COMMENTS) 08/24/2024 H [facility] active OXYCODONE GI INTOLERANCE/NAUSEA/VOMI TING 07/13/2024 [facility] active AMOXICILLIN RASH/DERMATITIS [facility] Problems Problem Status Onset Date Problem Type Date of Resoluti on Source Oral herpes active 2024-07-27 ProblemAct [facility] Acquired hypothyroidism active 2024-07-27 ProblemAct [facility] Seasonal allergies active 2024-07-27 ProblemAct [facility] Mixed hyperlipidemia active 2024-07-27 ProblemAct [facility] Gastroesophageal reflux disease without esophagitis active 2024-07-27 ProblemAct [facility] Pulmonary embolism without acute cor pulmonale, unspecified chronicity, unspecified pulmonary embolism type active 2024-08-24 ProblemAct [facility] Secondary hypertension active 2024-07-27 ProblemAct [facility] Acute hypoxic respiratory failure active 2024-08-24 ProblemAct [facility] Obesity (BMI 30-39.9) active 2024-07-27 ProblemAct [facility] Gout active 2024-07-27 ProblemAct [facility] Mixed hyperlipidemia active 2024-07-27 ProblemAct [facility] Acquired hypothyroidism active 2024-07-27 ProblemAct [facility] Pulmonary embolism without acute cor pulmonale, unspecified chronicity, unspecified pulmonary embolism type active 2024-08-24 ProblemAct [facility] Acute hypoxic respiratory failure active 2024-08-24 ProblemAct [facility] Encounters Encounter Type Encounter Reason Primary Diagnosis Location Date Ambulatory Abnormal results of pulmonary function studies Abnormal results of pulmonary function studies [facility] 11/03/2024 Ambulatory [facility] 10/20/2024 Ambulatory Other pulmonary embolism without acute cor pulmonale Other pulmonary embolism without acute cor pulmonale [facility] 10/20/2024 Inpatient Multiple subsegmenta l thrombotic pulmonary emboli without acute cor pulmonale Multiple subsegmental thrombotic pulmonary emboli without acute cor pulmonale [facility] 08/24/2024 Ambulatory Personal history of malignant neoplasm of prostate Personal history of malignant neoplasm of prostate [facility] 08/24/2024 Ambulatory Malignant neoplasm o f prostate Malignant neoplasm of prostate [facility] 08/16/2024 Ambulatory Encounter for other preprocedural examination Encounter for other preprocedural examination [facility] 07/27/2024 Ambulatory Encounter for other preprocedural examination Encounter for other preprocedural examination [facility] 07/27/2024 Ambulatory Elevated prostate specific antigen (PSA) Elevated prostate specific antigen (PSA) [facility] 07/20/2024 Ambulatory [facility] 07/18/2024 Ambulatory Malignant neoplasm o f prostate Malignant neoplasm of prostate [facility] 07/13/2024 Ambulatory Malignant neoplasm o f prostate Malignant neoplasm of prostate [facility] 05/27/2024 Care Team Organization Name Specialty Phone Email Start Date End Da te [facility] Primary Care 10[facility]24/2024 [facility] SUSANNE [facility] Primary Care 07/27/2024 [facility] IVANNA LOCKE Primary Care 06/01/2024 [facility] IVANNA LOCKE Primary Care 05/23/2024
== END 2024-11-10 11:27 | disposition home or self-care (01) ==
PROVIDERS: PCP Nurse Practitioner Family; Visit Provider Physician Assistant Medical
DX: M54.50 Low back pain, unspecified (principal)

== ENCOUNTER 2024-11-24 13:43 | Outpatient (REF) | payer BC, SELFPAY ==
--- OUTSIDE RECORDS SUMMARY | 2024-11-22 09:45 | XMS_ITS | Encounter Summary ---
Author Organization [facility] Address [address] [place] [address] Care Team Providers Care Protection Mgr Name Role Phone Carrier, Ofelia GRAF Unavailable [phone] Mekhi Leonard MD Primary Care Provider + [phone] Reason for Visit * Hematology & Oncology (Routine) - Closed Specialty Diagnoses / Procedures Referred By Contac t Referred To Contact Hematology Oncology Diagnoses Pulmonary embolism without acute cor pulmonale, unspecified chronicity, unspecified pulmonary embolism type (HCC) Maame Munguia MD [address] [place] [address] Phone: tel: fax: Referral ID Status Reason Start Date Expiration Date V isits Requested Visits Authorized [id number] Closed Consult 08/25/2024 08/26/2025 1 1 Encounter Details Date Type Department Care Team (Late st Contact Info) Description 11/22/2024 9:45 AM EDT Consult [facility] [place] [facility] at [facility] [address] [phone] Juan Valdes MD [address] [place], [place] [id number] Sarcoidosis (Primary Dx) Social History Tobacco Use Types Packs/Day Years Used Date Smoking Tobacco: Some Days Cigars Smokeless Tobacco: Never Comments:Occasional cigar Alcohol Use Standard Drinks/Week Comments Yes 4 (1 standard drink = 0.6 oz pur e alcohol) [facility] Utilities Answer Date Recorded In the past 12 months has th e electric, gas, oil, or water [employer] threatened to shut off services in your [...] were you homeless or living in a long term (including now)? No 08/25/2024 Sex and Gender Information Value Date Recorded Sex Assigned at Male 05/27/2024 7:26 PM EDT Legal Sex Male 6:10 PM EST Gender Identity Male 05/27/2024 7:27 PM EDT Sexual Orientation Heterosexual (straight) 08/16 9:23 AM EDT documented as of this encounter Last Filed Vital Signs Vital Sign Reading Time Taken Comments Blood Pressure 125/78 11/22/2024 10:16 AM EDT Pulse 67 11/22/2024 10:16 AM EDT Temperature 36.9 C (98.4 F) 11/22/2024 10:16 AM EDT Respiratory Rate - - Oxygen Saturation 97% 11/22/2024 10:16 AM EDT Inhaled Oxygen Concentration - - Weight 121 kg (266 lb) 11/22/2024 10:16 AM EDT Height 190.5 cm (6' 3 ) 11/22/2024 10:16 AM EDT Body Mass Index 33.25 11/22/2024 10:16 AM EDT documented in this encounter Progress Notes * Juan Valdes MD - 11/22/2024 10:09 AM EDT Hematology/Oncology Consult Note Date of Consult: 11/22/2024 Patient's Primary Care Physician: Mekhi Leonard MD Assessment & Plan Assessment 59-year-old male with chronic low back pain, seasonal allergies, PE (08/24/2024), prostate cancer (radical prostatectomy, 08/16/2024) and multiple pulmonary nodules with abnormal avidity by PET (10/20/2024) in lymph nodes (chest, abdomen, pelvis) and bones (scapula, left ninth rib, L1 vertebra and right anterior ilium), who is referred for consideration of possible lymphoma. Patient arrives with Lianna chan, an RN who works in [employer]. Biopsy of abdominal/pelvic lymph nodes at the time of prostatectomy (08/16/2024) showed nonnecrotizing granulomatous inflammation, consistent with sarcoidosis. CT- guided bone marrow biopsy (L2 vertebra, 11/03/2024) showed normal trilineage hematopoiesis without malignancy, plasma cell dyscrasia or lymphoma. Ultrasound abdomen (03/17/2024) showed hepatic steatosis and splenomegaly (span 18.1 cm) without focal lesions. Evaluated by pulmonary (Dr.Michael Mendez) and prednisone initiated (11/14/2024) with consultation to rheumatology (Dr. Maris Peck). Today's CBC shows hemoglobin 15.5 g/dL, hematocrit 46.9%, MCV 88, MCH 29, WBC 6.9 and platelets 212,000. This patient has a pathologic diagnosis of necrotizing granulomata with inflammatory changes of thelymph nodes, consistent with sarcoidosis. Approximately 7% of individuals with sarcoidosis present with splenomegaly. In view of unremarkable bone marrow aspiration, it is likely that increased lymph node avidity is secondary to sarcoidosis rather than to lymphoma. Nevertheless, will assess for monoclonal B cells in the peripheral blood. Plan Blood tests pending from today include PB smear assessment by hematopathology and PB flow cytometryfor monoclonal B cells. Patient will return in 1 month when the results of this workup should be known. Subjective Chief Complaint I developed shortness of breath after my prostate was removed, and they found a PE. About 1 month later, Dr. Mendez showed up and he mentioned that I may have sarcoidosis. 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 Approximately 4 days before a bone marrow biopsy was taken from my lower spine, I developed worsening low back pain. 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 History of Present Illness 59-year-old male with chronic low back pain, seasonal allergies, PE (08/24/2024), prostate cancer ([place] [facility], radical prostatectomy, 08/16/2024) and multiple pulmonary nodules with abnormal avidity by PET (10/20/2024) in lymph nodes (chest, abdomen, pelvis) and bones (scapula, left ninth rib, L1 vertebra and right anterior ilium), who is referred for consideration of possible lymphoma. Patient arrives with his , Lianna, an RN who works in [facility]. Biopsy of abdominal/pelvic lymph nodes at the time of prostatectomy (08/16/2024) showed nonnecrotizing granulomatous inflammation, consistent with sarcoidosis. CT-guided bone marrow biopsy (L2 vertebra, 11/03/2024) showed normal trilineage hematopoiesis without malignancy, plasma cell dyscrasia or lymphoma. Ultrasound abdomen (03/17/2024) showed hepatic steatosis and splenomegaly (span 18.1 cm) without focal lesions. On 11/14/2024, patient was started on a tapering dose of prednisone that will continue over 3 months. Patient was treated with Lovenox that was transitioned to Eliquis on 08/25/2024. Repeat CTA for PE (09/27/2024) showed resolution of bilateral PA filling defects with incidental, persistent pulmonary nodules. He has tolerated oral steroids without complication. Patient admits to intermittent fatigue without malaise or fever. He has had headaches attributed totension/stress, arthritis of the knees ([id number]) and myalgias of the lower back. Patient denies type B symptoms, dry cough, SOB, CP and wheezes. He admits to having seasonal allergies (3-4 sinusinfections annually in the past). Patient denies conjunctivitis, visual changes and palpitations. He has not had seizures, facial paralysis or paresthesias. Patient denies light sensitivity, swellingof the lymph node areas, early satiety and LUQ discomfort. Denies excess EtOH and cigarette smoking. Past Medical History Past Medical History: Diagnosis Date Anxiety GERD (gastroesophageal reflux disease) Gout Hyperlipidemia Hypertension no meds, changed diet and added exercise Hypogonadism in male Hypothyroidism Oral herpes PONV (postoperative nausea and vomiting) projectile/violently ill Prostate cancer (HCC) Snoring sleep study negative for AYLEEN. 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, only has 1 kidney now Past Surgical History Past Surgical History: Procedure Laterality Date CT BONE BIOPSY-DEEP N/A N/A 11/03/2024 Procedure: CT Bone Biopsy-Deep N/A; Surgeon: Tyree Rodas DO; Location: [facility]; Service: Interventional Radiology; Laterality: N/A; DEBRIDEMENT Right testicular infection ELBOW SURGERY Right EXCISION LIPOMA 1 on back, 1 on knee EXPLORATORY LAPAROTOMY 1973 Blunt Trauma KNEE SURGERY Bilateral NEPHRECTOMY Right 1973 Blunt Trauma RECONSTRUCTION ACL Left screw was removed after infection ROBOTIC ASSISTED PROSTATECTOMY /C DISSECTION LYMPH NODES N/A 08/16/2024 Procedure: ROBOTIC RADICAL PROSTATECTOMY AND PELVIC LYMPH NODE DISSECTION/LAPRASCOPIC LYSIS OF ADHESIONS; Surgeon: Niels Benjamin MD; Location: Main OR; Service: Robotics; Laterality: N/A; TONSILLECTOMY Family History Family History Problem Relation Age of Onset Cancer, Prostate Father 59 59 SENIOR WATER/WASTEWATER ENGINEER Cancer, Prostate Paternal Uncle 63 pharmacy picking technician Cancer, Kidney Neg Hx Cancer, Bladder Neg Hx Personal and Social History Social History Socioeconomic History Marital status: Spouse name: Not on file Number of children: Not on file Years of education: Not on file Highest education level: Not on file Occupational History Not on file Tobacco Use Smoking status: Some Days Types: Cigars Smokeless tobacco: Never Tobacco comments: Occasional cigar Substance and Sexual Activity Alcohol use: Yes Alcohol/week: 4.0 - 6.0 standard drinks of alcohol Types: 4 - 6 Standard drinks or equivalent per week Drug use: Not Currently Types: Marijuana Comment: sergio in 70's/80's Sexual activity: Not on file Other Topics Concern Not on file Social History Narrative Not on file Social Drivers of Health Financial Resource Strain: Low Risk (08/25/2024) Overall Financial Resource Strain (CARDIA) Difficulty of Paying Living Expenses: Not hard at all Food Insecurity: No Food Insecurity (08/25/2024) Hunger Vital Sign Worried About Running Out of Food in the Last Year: Never true Ran Out of Food in the Last Year: Never true Transportation Needs: No Transportation Needs (08/25/2024) PRAPARE - Transportation Lack of Transportation (Medical): No Lack of Transportation (Non-Medical): No Physical Activity: Not on file Stress: Not on file Social Connections: Not on file Housing Stability: Low Risk (08/25/2024) Housing Stability Vital Sign Unable to Pay for Housing in the Last Year: No Number of Times Moved in the Last Year: 0 Homeless in the Last Year: No REVIEW OF SYSTEMS: Constitutional: No fever, unintentional weight loss or drenching night sweats. Eyes: No visual changes (except for age-related changes in refractions requiring a change reading glasses), no icterus. Nose: No epistaxis, congestion. Mouth: No pain, ulcers, thrush, mucositis or abnormalities of the tongue. Neck: No thyroid disease, carotid disease and masses. Endocrine: No diabetes, thyroid disease or hormone replacement. Hematologic: No early satiety, upper abdominal fullness, or bleeding into the skin, urine or stool. Lymphatic: No swollen or tender lymph nodes. Respiratory: Admits to seasonal allergies (3-4 sinus infections annually, until Xyzal therapy was initiated. Denies ROSSI, PND, orthopnea, COPD, asthma, pneumonia and hemoptysis. Cardiovascular: No angina, CHF, peripheral edema, intermittent claudication, palpitations or syncope . Gastrointestinal: No PUD, GERD, dysphagia, N, V, diarrhea, constipation, melena, hematochezia, rectal pain. Genitourinary: No hematuria. Musculoskeletal: Admits to low back pain in the L2 area over the past 25 years. 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 Admits to bilateral knee pain and s/p left meniscus injury. Also admits to probable myalgias of the lower spine. Skin: No rashes, inflammation, ulcerations, ecchymoses or petechiae. Neurologic: Occasional tension headache. No stroke, seizure, trauma, vertigo, falls, muscle weakness or paresthesias. Psychiatric: No depression, mood swings or loss of memory. Objective Medications Current Medications[1] Allergies Allergies[2] Physical Exam There were no vitals filed for this visit. Constitutional Relaxed, alert and in no acute distress. Appears to be close to chronological age. Head Atraumatic. Eyes Conjunctivae and sclerae are clear and without icterus. ENMT Normal mucous membranes without aphthous ulcerations or exudates. Tongue appears normal. Extraocular muscles intact. Neck Supple without masses, carotid bruits or thyromegaly. Hematologic/Lymphatic No cervical, axillary, epitrochlear or inguinal lymphadenopathy. Respiratory Lungs are clear to auscultation and percussion without rhonchi, wheezing or decreased breath sounds. Cardiovascular Regular rate and rhythm of heart. Normal S1 and S2. No murmurs, rubs or gallops. Chest Chest is symmetric without chest wall deformities. Abdomen Soft and non-tender without masses, ascites or hepatosplenomegaly. Bowel sounds are present. No guarding or rebound tenderness. Back/Spine No kyphosis, scoliosis or CVA tenderness. Musculoskeletal No tenderness or swelling, normal range of motion without obvious weakness. Muscle strength 4-5+ throughout. Extremities No cyanosis, clubbing or edema. Integumentary No rashes, ecchymoses or petechiae. Neurologic Alert and oriented x 3. Normal gait and balance. No pronator drift or tremors. DTRs 2+ at biceps and 0-1+ at knees. No sensory or motor deficits and cranial nerves III- and XII intact. Psychiatric Normal mood, affect and mentation. Good short-term and long-term recall. Labs No results for input(s): WBC , HGB , HCT , PLT in the last 72 hours. No results for input(s): NA , K , CL , CO2 , BUN , CREAT , LABCREA , GLUC , CALCIUM , MG , PHOS , AST , ALT , ALKPHOS , BILITOT , BILIDIR , ALBUMIN , PROT in the last 72 hours. The patient does not have an active anticoagulation episode. Imaging No results found. Sign: Juan Valdes MD, FACP 11/22/2024 10:09 AM [1] Current Outpatient Medications: acetaminophen (TYLENOL) 325 MG tablet, Take 1 tablet (325 mg total) by mouth 4 times daily (every 6hours) as needed for mild pain (Taking 3 tabs)., Disp: , Rfl: allopurinol (ZYLOPRIM) 100 mg tablet, Take 1 tablet (100 mg total) by mouth nightly., Disp: , Rfl: apixaban (ELIQUIS) 5 MG tablet, Start taking 10 mg (2 pills) twice a day for 7 days, starting on 09/01/24 the dose will be reduced to 5 mg (1 pill) twice daily., Disp: 30 tablet, Rfl: 0 atorvastatin (LIPITOR) 20 MG tablet, Take 1 tablet (20 mg total) by mouth nightly., Disp: , Rfl: diazepam (VALIUM) 5 MG tablet, 1 tablet (5 mg total)., Disp: , Rfl: docusate sodium (COLACE) 100 MG capsule, Take 1 capsule (100 mg total) by mouth 2 (two) times a day. While taking pain medication to prevent constipation, Disp: 60 capsule, Rfl: 0 Glucosamine HCl 1500 MG Tab, Take 1,500 mg by mouth every morning. With MSM 1500, Disp: , Rfl: levocetirizine (Xyzal Allergy 24HR) 5 MG tablet, Take 1 tablet (5 mg total) by mouth nightly., Disp: , Rfl: OMEprazole (PriLOSEC) 20 MG capsule, Take 1 capsule (20 mg total) by mouth every morning before breakfast., Disp: , Rfl: oxyCODONE (ROXICODONE) 10 mg immediate release tablet, 1 tablet (10 mg total)., Disp: , Rfl: predniSONE (DELTASONE) 10 MG tablet, 6 tablets daily for 4 weeks, 4 tablets daily for 4 weeks, 3 tablets daily for 4 weeks, 2 tablets daily until seen in the office. Take With food., Disp: 200 tablet, Rfl: 5 sulfamethoxazole-trimethoprim (BACTRIM DS,SEPTRA DS) 800-160 MG per tablet, Take 1 tablet by mouth 3 (three) times a week on Thursday, Thursday, Thursday., Disp: 12 tablet, Rfl: 5 Synthroid 50 MCG tablet, Take 1 tablet (50 mcg total) by mouth every morning., Disp: , Rfl: tadalafil (CIALIS) 10 MG tablet, Take 1 tablet (10 mg total) by mouth daily as needed for erectile dysfunction (Take one additional pill PRN day of sexual activity. Do not exceed 20 mg daily.)., Disp: 40 tablet, Rfl: 11 VITAMIN A PO, Take 6,000 mcg by mouth every morning., Disp: , Rfl: [2] Allergies Allergen Reactions Amoxicillin Rash/Dermatitis Oxycodone GI Intolerance/Nausea/Vomiting Pollen Extract Other (See Comments) documented in this encounter Plan of Treatment Upcoming Encounters Date Type Department Care Team (Late st Contact Info) Description 12/01/2024 2:30 PM EDT Office Visit [address] [phone] Luisa Modi APRN [address] [place] [phone] 12/28/2024 2:15 PM EDT Office Visit [facility] [place] [facility] at [address] [phone] Juan Valdes MD [address] [place], [place] [address], [place] [phone] 02/13/2025 8:45 AM EST Office Visit [address] [phone] Luisa Modi APRN [address] [place] [phone] 05/24/2025 9:00 AM EDT Office Visit [address] [phone] Rian LENO Moran [address] [place] [address] 08/23/2025 11:45 AM EDT Office Visit [facility] [place] 10 [facility] [address] [place] [phone] Niels Benjamin MD [address] [place] [phone] Pending Results Name Type Priority Associated Diagnoses Date /Time Flow Cytometry Report Pathology and Cytology STAT Sarcoidosis 11/22/2024 10:05 AM EDT documented as of this encounter Procedures Procedure Name Priority Date/Time Associated Diagnosis Comments POCT COMPLETE BLOOD COUNT (ONCOLOGY - INTERFACED NO CHARGE) Routine 11/22/2024 10:05 AM EDT Sarcoidosis documented in this encounter Results * (ABNORMAL) POCT Complete Blood Count (Oncology) (11/22/2024 10:05 AM EDT) White Blood Cell Count 6.9 4.0 - 11.0 Thou/uL 11/22/2024 10:28 AM EDT [facility] Red Blood Cell Count 5.28 4.50 - 6.20 Mil/uL 11/22/2024 10:28 AM EDT [facility] Hemoglobin 15.5 13.0 - 17.7 g/dL 11/22/2024 10:28 AM EDT [facility] Hematocrit 46.9 39.0 - 54.0 % 11/22/2024 10:28 AM EDT [facility] MCV 89 80 - 100 fL 11/22/2024 10:28 AM EDT [facility] MCH 29.4 27.0 - 31.0 pg 11/22/2024 10:28 AM EDT [facility] MCHC 33.0 30.0 - 36.0 g/dL 11/22/2024 10:28 AM EDT [facility] RDW 13.3 11.5 - 14.5 % 11/22/2024 10:28 AM EDT [facility] [place] Platelet Count 212 150 - 450 Thou/uL 11/22/2024 10:28 AM EDT [facility] [place] MPV 8.3 7.5 - 12.5 fL 11/22/2024 10:28 AM EDT [facility] Neutrophils Auto 75.6 % 11/23/19 10:28 AM EDT [facility] Abs Neutrophils Auto 5.20 2.00 - 7.50 Thou/uL 11/22/2024 10:28 AM EDT [facility] Lymphocytes Auto 14.4 % 11/23/19 10:28 AM EDT [facility] Abs Lymphocytes Auto 1.00(L) 1.50 - 4.50 Thou/uL 11/22/2024 10:28 AM EDT [facility] Mixed Mononuclear Auto 10.0 % 11/22/2024 10:28 AM EDT [facility] Abs Mixed Mononuclear Auto <1.00 0.20 - 1.90 Thou/uL 11/22/2024 10:28 AM EDT [facility] Blood Blood specimen / Unknown 11/22/2024 10:05 AM EDT 11/22/2024 10:28 AM EDT Juan Valdes MD POCT ORDERABLES - ONCOLOGY F inal Result Performing Organization Address City/State/[facility] Co de Phone Number [address] [address], [address] documented in this encounter Visit Diagnoses Diagnosis Sarcoidosis- Primary documented in this encounter Care Teams Protection Mgr Relationship Specialty Start Date End Date Mekhi Leonard MD [address] [place] [address] PCP - General Family Medicine 07/27/24 Ofelia Forrest RN [address] [place] [address] Oncology Nurse Navigator 05/27/24 documented as of this encounter
--- OUTSIDE RECORDS SUMMARY | 2024-11-22 10:05 | XMS_ITS | Encounter Summary ---
Author Organization [facility] Address [address] [place] [address] Care Team Providers Care Turn Out Name Role Phone Carrier, Ofelia GRAF Unavailable [phone] Mekhi Leonard MD Primary Care Provider [phone] Encounter Details Date Type Department Care Team (Latest Contact Info) Description 11/22/2024 10:05 AM EDT - 11/22/2024 11:59 PM EDT Hospital Encounter OP SPECIMEN LAB [address] [place] [phone] Juan Valdes MD [address] [place] [address] Discharge Disposition: Home or Self Care Social History Tobacco Use Types Packs/Day Years Used Date Smoking Tobacco: Some Days Cigars Smokeless Tobacco: Never Comments:Occasional cigar Alcohol Use Standard Drinks/Week Comments Yes 4 (1 standard drink = 0.6 oz pur e alcohol) [facility] Utilities Answer Date Recorded In the past 12 months has [employer], oil, or water [email or web address] threatened to shut off services in your [...] in the past 12 m [facility], were you homeless or living in a usp (including now)? No 08/25/2024 Sex and Gender Information Value Date Recorded Sex Assigned at Male 05/27/2024 7:26 PM EDT Legal Sex Male 6:10 PM EST Gender Identity Male 05/27/2024 7:27 PM EDT Sexual Orientation Heterosexual (straight) 08/16 9:23 AM EDT documented as of this encounter Medications at Time of Discharge acetaminophen (TYLENOL) 325 MG tablet Take 1 tablet (325 mg total) by mouth 4 times daily (every 6 hours) as needed for mild pain (Taking 3 tabs). allopurinol (ZYLOPRIM) 100 mg tablet Take 1 tablet (100 mg total) by mouth nightly. 05/22/2024 apixaban (ELIQUIS) 5 MG tabletIndications: Pulmonary embolism without acute cor pulmonale, unspecified chronicity, unspecified pulmonary embolism type (HCC) Start taking 10 mg (2 pills) twice a day for 7 days, starting on 09/01/24 the dose will be reduced to 5 mg (1 pill) twice daily. 30 tablet 08/25/2024 atorvastatin (LIPITOR) 20 MG tablet Take 1 tablet (20 mg total) by mouth nightly. diazepam (VALIUM) 5 MG tablet 1 tablet (5 mg total). 11/06/2024 Glucosamine HCl 1500 MG Tab Take 1,500 mg by mouth every morning. With MSM 1500 levocetirizine (Xyzal Allergy 24HR) 5 MG tablet Take 1 tablet (5 mg total) by mouth nightly. OMEprazole (PriLOSEC) 20 MG capsule Take 1 capsule (20 mg total) by mouth every morning before breakfast. oxyCODONE (ROXICODONE) 10 mg immediate release tablet 1 tablet (10 mg total). 11/10/2024 predniSONE (DELTASONE) 10 MG tabletIndications: Sarcoidosis 6 tablets daily for 4 weeks, 4 tablets daily for 4 weeks, 3 tablets daily for 4 weeks, 2 tablets daily until seen in the office. Take With food. 200 tablet 5 11/14/2024 sulfamethoxazole-t rimethoprim (BACTRIM DS,SEPTRA DS) 800-160 MG per tabletIndications: Sarcoidosis Take 1 tablet by mouth 3 (three) times a week on Thursday, Thursday, Thursday. 12 tablet 5 11/14/2024 Synthroid 50 MCG tablet Take 1 tablet (50 mcg total) by mouth every morning. 05/13/2024 tadalafil (CIALIS) 10 MG tabletIndications: Erectile dysfunction after radical prostatectomy Take 1 tablet (10 mg total) by mouth daily as needed for erectile dysfunction (Take one additional pill PRN day of sexual activity. Do not exceed 20 mg daily.). 40 tablet 11 09/22/2024 VITAMIN A PO Take 6,000 mcg by mouth every morning. documented as of this encounter Plan of Treatment Upcoming Encounters Date Type Department Care Team (Late st Contact Info) Description 12/01/2024 2:30 PM EDT Office Visit [address] [place] [phone] Luisa Modi APRN [address] [place] [phone] 12/28/2024 2:15 PM EDT Office Visit [facility] [place] [facility] [address] [phone] Juan Valdes MD [address] [place], [place] [phone] 02/13/2025 8:45 AM EST Office Visit [address] [phone] Luisa Modi APRN [address] [place] [phone] 05/24/2025 9:00 AM EDT Office Visit [address] [phone] Luisa Modi APRN [address] [place] [address] [phone] 08/23/2025 11:45 AM EDT Office Visit [address] [phone] Niels Benjamin MD [address] [place] [phone] documented as of this encounter Visit Diagnoses Not on filedocumented in this encounter Care Teams Turn Out Relationship Specialty Start Date End Date Mekhi Leonard MD [address] [place] [address] PCP - General Family Medicine 07/27/24 Ofelia Forrest RN [address] [phone] Oncology Nurse Navigator 05/27/24 documented as of this encounter
--- OUTSIDE RECORDS SUMMARY | 2024-11-24 15:41 | XMS_ITS | Clinical Summary ---
Author Organization [facility] Address [address] [place] [address] Care Team Providers Care Supervisor [employer] Name Role Phone Carrier, Ofelia RGAF Unavailable [phone] Susanne Burrows MD Primary Care Provider Allergies [...] daily.). 40 tablet 11 09/23/19 25 Active diazepam (VALIUM) 5 MG tablet 1 tablet (5 mg total). 11/07/19 25 Active oxyCODONE (ROXICODONE) 10 mg immediate release tablet 1 tablet (10 mg total). 11/11/19 25 Active predniSONE (DELTASONE) 10 MG tabletIndications :Sarcoidosis 6 tablets daily for 4 weeks, 4 tablets daily for 4 weeks, 3 tablets daily for 4 weeks, 2 tablets daily until seen in the office. Take With food. 200 tablet 5 11/15/19 25 Active sulfamethoxazole- trimethoprim (BACTRIM DS,SEPTRA DS) 800-160 MG per tabletIndications :Sarcoidosis Take 1 tablet by mouth 3 (three) times a week on Thursday, Thursday, Thursday. 12 tablet 5 11/15/19 25 Active Active Problems Problem Noted Date Diagnosed Date Sarcoidosis 11/14/2024 Pulmonary embolism without a cute cor pulmonale, [...] Patient to follow up with PCP or template layout worker for continued management of hypothyroidism as previously directed. Oral herpes 07/27/2024 Obesity (BMI 30-39.9) 07/27/2024 Assessment & Plan (07/27/2024 8:21 AM EDT): Diet, exercise and lifestyle modifications. Secondary hypertension 07/27/2024 Assessment & Plan (07/27/2024 8:31 AM EDT): Managed with diet and lifestyle modifications. Continue plan as previously directed by your provider. Prostate cancer 07/13/2024 Encounters Date Type Department Care Team Description 11/23/2024 Scanned Document [facility], [address], [address] [place] [address] Unknown 11/23/2024 Orders Only [facility] [address] [place] [address] ProviderSara MD 11/22/2024 10:05 AM EDT - 11/22/2024 11:59 PM EDT Hospital Encounter [facility] [address] [place] [address] Juan Valdes MD Discharge Disposition: Home or Self Care 11/22/2024 9:45 AM EDT Consult [facility] Medical Oncology at [address] [address] Juan Valdes MD Sarcoidosis (Primary Dx) 11/22/2024 Travel 11/17/2024 Orders Only HH PULMONARY SVC IP [address] [place] [address] Blas Mendez MD Sarcoidosis (Primary Dx) 11/14/2024 11:45 AM EDT Office Visit [facility] [address] [place] [phone] Blas Mendez MD Sarcoidosis (Primary Dx); Pulmonary embolism without acute cor pulmonale, unspecified chronicity, unspecified pulmonary embolism type (HCC); Prostate cancer (HCC) 11/14/2024 Travel 11/03/2024 11:30 AM EDT - 11/03/2024 12:35 PM EDT Surgery [facility] Radiology [address] [place] [address] Tyree Rodas, CT Bone Biopsy-Deep N/A 11/03/2024 10:17 AM EDT - 11/03/2024 3:21 PM EDT Hospital Encounter [facility] Radiology [address] [place] [phone] Emerson Liu MD Abnormal PET scan, lung Discharge Disposition: Home or Self Care 11/03/2024 Documentation [facility] Urologic Surgery [place] [address] [facility] [place] [phone] Niels Benjamin MD 11/03/2024 Travel 11/03/2024 Telephone [facility] [address] [place] [phone] Niels Benjamin MD Form Completion 11/03/2024 Transcribe Orders [facility] Pulmonary [place] [address] [facility] [address] [place] [address] Susanne Burrows MD Other nonspecific abnormal finding of lung field (Primary Dx); Metastatic malignant neoplasm, unspecified site (HCC) 11/02/2024 Scanned Document [facility] at [address] [place] [address] Juan Valdes MD 10/31/2024 Telephone [facility] [address] [facility] [place] [address] Niels Benjamin MD Other 10/31/2024 Scanned Document [facility] Pulmonary [place] [address] [facility] [address] [place] [address], [place] [address] Blas Mendez MD 10/21/2024 Orders Only [facility] Pulmonary [place] [address] [place], [place] [address] [address] [place] [phone] Blas Mendez MD Abnormal PET scan of lung 10/21/2024 Telephone [facility] Pulmonary [place] [address] [place] [address] Blas Mendez MD 10/20/2024 8:03 AM EDT - 10/20/2024 11:59 PM EDT Hospital Encounter [facility] Radiology [address] [place] [address] Blas Mendez MD Discharge Disposition: Home or Self Care 10/20/2024 7:18 AM EDT - 10/20/2024 8:02 AM EDT Hospital Encounter [facility] Radiology [address] [place] [address] Blas Mendez MD Pulmonary embolism without acute cor pulmonale, unspecified chronicity, unspecified pulmonary embolism type (HCC); Mediastinal lymphadenopathy; Pulmonary nodule Discharge Disposition: Home or Self Care 10/05/2024 Orders Only [facility] Pulmonary [address] [place] [address], [place] [address] Blas Mendez MD Pulmonary embolism without acute cor pulmonale, unspecified chronicity, unspecified pulmonary embolism type (HCC) (Primary Dx); Mediastinal lymphadenopathy; Pulmonary nodule 09/23/2024 Documentation [facility] Urologic Surgery [address] [place] [address] Niels Benjamin MD 09/21/2024 Orders Only [facility] [address] [facility] [address] [place] [address] Niels Benjamin MD History of prostate cancer (Primary Dx); Erectile dysfunction after radical prostatectomy 09/21/2024 Telephone [facility] [address] [facility] [address] [place] [phone] Niels Benjamin MD 09/20/[address] [address] Niels Benjamin MD Appointment 09/07/2024 Telephone [facility] Pulmonary [address] [place] [address] Blas Mendez MD 09/01/[address] [address] Provider, MD Sara Referral (AC needs scheduling . ) 08/29/2024 Telephone [facility] Pulmonary [address] [place] [address] Blas Mendez MD 08/25/2024 Telephone [facility] Pulmonary [address] [place] [address] Blas Mendez MD 08/25/[address] [address] Niels Benjamin MD Other 08/24/2024 1:45 PM EDT Ancillary Procedure [facility] Emergency Department [address] [place] [address] Shilo Brice MD 08/24/2024 10:06 AM EDT - 08/25/2024 3:16 PM EDT Hospital Encounter [facility] Emergency Department [address] [place] [address] Shilo Brice MD Perez Moux, Reinaldo L, [...] Care 08/24/2024 8:15 AM EDT Office Visit [address] [address] Niels Benjamin MD History of prostate cancer (Primary Dx) 08/24/[address] [address] Niels Benjamin MD 08/24/2024 Travel from Last 3 Months Family History Medical History Relation Name Comments Cancer, Prostate Father 59 FIELD APPLICATION ENGINEER Cancer, Prostate Paternal Uncle estimate clerk Cancer, Bladder Neg Hx Cancer, Kidney Neg Hx Relation Name Status Comments Father Paternal Uncle Social History Tobacco Use Types Packs/Day Years Used Date Smoking Tobacco: Some Days Cigars Smokeless Tobacco: Never Tobacco Cessation:Ready to Q uit: Not Asked; Counseling Given: Not Answered Comments:Occasional cigar Alcohol Use Standard Drinks/Week Comments Yes 4 (1 standard drink = 0.6 oz pur e alcohol) [facility] Utilities Answer Date Recorded In the past 12 months has [employer], gas, oil, or water [employer] threatened to shut off services in your [...] any time in the past 12 m [facility], were you homeless or living in a residential (including now)? No 08/25/2024 Sex and Gender [...] F) 11/22/2024 10:16 AM EDT Respiratory Rate 16 11/03/2024 3:00 PM EDT Oxygen Saturation 97% 11/22/2024 10:16 AM EDT Inhaled Oxygen Concentration - - Weight 121 kg (266 lb) 11/22/2024 10:16 AM EDT Height 190.5 cm (6' 3 ) 11/22/2024 10:16 AM EDT Body Mass Index 33.25 11/22/2024 10:16 AM EDT Plan of Treatment Upcoming Encounters Date Type Department Care Team (Late st Contact Info) Description 12/01/2024 2:30 PM EDT Office Visit [address] [phone] Luisa Modi APRN [address] [place] [address] 12/28/2024 2:15 PM EDT Office Visit [facility]cology at [address] [address] Juan Valdes MD [address] [place] [address] 02/13/2025 8:45 AM EST Office Visit [address] [phone] Luisa Modi APRN [address] [place] [address] 05/24/2025 9:00 AM EDT Office Visit [address] [phone] Luisa Modi APRN [address] [place] [phone] 08/23/2025 11:45 AM EDT Office Visit [address] [phone] Niels Benjamin MD [address] [place] [address] Health Maintenance Due Date Last Done Comments [...] CHARGE) Routine 11/22/2024 10:05 AM EDT Sarcoidosis HX OUTSIDE ORDER Routine 11/22/2024 3:04 AM EDT PSA, POST PROSTATECTOMY Routine 11/21/2024 10:49 AM EDT History of prostate cancer ANGIOTENSIN CONVERTING ENZYME, SERUM Routine 11/14/2024 12:57 PM EDT Sarcoidosis C-REACTIVE PROTEIN Routine 11/14/2024 12:57 PM EDT Sarcoidosis ERYTHROCYTE SEDIMENTATION RATE (ESR) Routine 11/14/2024 12:[address] BONE BIOPSY-DEEP N/A Routine 11/03/2024 2:43 [...] 12-LEAD ED Critical 08/24/2024 10:12 AM EDT from Last 3 Months Results * (ABNORMAL) POCT Complete Blood Count (Oncology) (11/22/2024 10:05 AM EDT) [facility] [address] White Blood Cell Count 6.9 4.0 - 11.0 Thou/uL 11/22/2024 10:28 AM EDT [facility] Red Blood Cell Count 5.28 4.50 - 6.20 Mil/uL 11/22/2024 10:28 AM EDT [facility] Hemoglobin 15.5 13.0 - 17.7 g/dL 11/22/2024 10:28 AM EDT [facility] Hematocrit 46.9 39.0 - 54.0 % 11/22/2024 10:28 AM EDT [facility] MCV 89 80 - 100 fL 11/22/2024 10:28 AM EDT [facility] MCH 29.4 27.0 - 31.0 pg 11/22/2024 10:28 AM EDT [facility] MCHC 33.0 30.0 - 36.0 g/dL 11/22/2024 10:28 AM EDT [facility] RDW 13.3 11.5 - 14.5 % 11/22/2024 10:28 AM EDT [facility] Platelet Count 212 150 - 450 Thou/uL 11/22/2024 10:28 AM EDT [facility] MPV 8.3 7.5 - 12.5 fL 11/22/2024 10:28 AM EDT [facility] Neutrophils Auto 75.6 % 11/23/19 10:28 AM EDT [facility] Abs Neutrophils Auto 5.20 2.00 - 7.50 Thou/uL 11/22/2024 10:28 AM EDT [facility] Lymphocytes Auto 14.4 % 11/23/19 10:28 AM EDT [facility] Abs Lymphocytes Auto 1.00(L) 1.50 - 4.50 Thou/uL 11/22/2024 10:28 AM EDT [facility] Mixed Mononuclear Auto 10.0 % 11/22/2024 10:28 AM EDT [facility] Abs Mixed Mononuclear Auto <1.00 0.20 - 1.90 Thou/uL 11/22/2024 10:28 AM EDT [facility] Blood Blood specimen / Unknown 11/22/2024 10:05 AM EDT 11/22/2024 10:28 AM EDT Juan Valdes MD POCT ORDERABLES - ONCOLOGY F inal Result [address] [address], [address] * OUTSIDE ORDER (11/22/2024 3:04 AM EDT) External Provider HX AMB PROCEDURES Final Res ult * PSA, Post Prostatectomy (11/21/2024 10:49 AM EDT) PSA, Post Prostatectomy <0.02 ng/mL [facility] Comment: PSA values obtained with different assay methods or kits cannot be used interchangeably. This test was performed using the [place] DxI method. PSA, ICMA is not to be used as a diagnostic procedure without confirmation of the diagnosis by another established product or procedure. The lower limit of accurate quantification for this assay is 0.02 ng/mL. PSA values less than 0.02 ng/mL cannot be accurately measured and will be reported as less than 0.02 ng/mL. Specimens with PSA levels below the lower limit of accurate quantification should be considered as negative. In patients with a negative result for post prostatectomy PSA, serial monitoring of PSA levels at regular intervals, along with physical examinations and other tests, may help to detect recurrent prostate cancer. REFERENCE RANGES for PSA: <0.10 ng/mL AFTER RADICAL PROSTATECTOMY. < OR = 4.00 ng/mL IN HEALTHY MALES WITHOUT PROSTATECTOMY. Blood Blood specimen / Unknown 11/21/2024 10:49 AM EDT 11/21/2024 10:49 AM EDT Narrative [facility] - 11/22/2024 6:53 PM EDT FASTING:NO FASTING: NO us Niels Benjamin MD LAB BLOOD ORDERABLES Fin al Result Performing Organization Address [facility]/ZIP Co de Phone Number [facility] [address] [place] [phone] * Erythrocyte Sediment Rate (ESR) (11/14/2024 12:57 PM EDT) Erythrocyte Sediment Rate (ESR) 2 < OR = 20 mm/h Document [facility] Blood Blood specimen / Unknown 11/14/2024 12:57 PM EDT 11/14/2024 12:58 PM EDT Narrative [facility] - 11/17/2024 5:58 AM EDT FASTING:NO FASTING: NO us Blas Mendez MD LAB BLOOD ORDERABLES Final Result Performing Organization Address [facility]/ZIP Co de Phone Number [facility] [address] [place] [address] * Angiotensin Converting Enzyme, Serum (11/14/2024 12:57 PM EDT) Angiotensin-1 Converting Enzyme 66 9 - 67 U/L [facility] Blood Blood specimen / Unknown 11/14/2024 12:57 PM EDT 11/14/2024 12:58 PM EDT Narrative [facility] - 11/17/2024 5:58 AM EDT FASTING:NO FASTING: NO Blas Mendez MD LAB BLOOD ORDERABLES Final Result [facility] [address] [place] [address] * C-Reactive Protein (11/14/2024 12:57 PM EDT) C-Reactive Protein <3.0 <8.0 mg/L [facility] Blood Blood specimen / Unknown 11/14/2024 12:57 PM EDT 11/14/2024 12:58 PM EDT Narrative [facility] - 11/17/2024 5:58 AM EDT FASTING:NO FASTING: NO Blas Mendez MD LAB BLOOD ORDERABLES Final Result Performing Organization Address City/[facility] Co de Phone Number [facility] [address] [place] [phone] * CT BONE BIOPSY-DEEP N/A (11/03/2024 2:43 [...] cancer. COMPLICATIONS: No immediate complications. Procedure Note Tyree Rodas DO - 11/03/2024 PROCEDURE: IR CT-GUIDED BIOPSY [...] and agree with the report as written. us Tyree Rodas DO IMG IRCT ORDERABLES Final Result * Pathology (11/03/2024 12:00 AM EDT) Report [facility] [id number] CLIA ID [id number] [address] [place] [address] [phone] Surgical Pathology Report PATIENT NAME: MISHA STEWARD REC NUMBER: [id number] (AGE): 1965 (Age: 59) SPECIMEN NUMBER: [id number] DATE OBTAINED: 11/03/2024 DIAGNOSIS BONE, L2 VERTEBRAL BODY, CORE BIOPSY: BONE WITH TRILINEAGE MARROW ELEMENTS, FIBRIN AND MARKED CRUSH ARTIFACT; NO VIABLE METASTATIC CARCINOMA IDENTIFIED; SEE COMMENT. mo/11/08/2024 Electronically Signed Out BRUCE FISH MD COMMENT The bone shows marrow elements in the background of fibrin and crush artifact. CKAE1/AE3, PSAP, PSA, and NKX3.1 immunostains reveal no carcinoma. CD138 highlights a few plasma cells (with no evidence of plasma cell neoplasm). Both blocks are cut down with multiple levels examined. There is no viable tumor identified. 15362, 35798, 75096, 38777 x 4 The tests used in the work-up of this specimen may include Analyte-Specific Reagents (ASRs). The Immunopathology/Mor phologic [facility] at [facility] have established the performance characteristics of [...] and submitted in toto in cassette A2. [address] LAB 11/03/2024 11/04/2024 7:1 4 AM EDT Comment:L2 VERTEBRAL BODY 13 GA BONE CORE Blas Mendez MD PATHOLOGY/CYTOLOGY ORDERABL ES Final Result HOSPITAL LAB See Below * PT/PTT (INCLUDES INR) (11/01/2024 1:41 PM EDT) Partial Thromboplastin Time (PTT) 29 23 - 32 sec [facility] Comment: This test has not been validated for monitoring unfractionated heparin therapy. For testing that is validated for this type of therapy, please refer to the Heparin Anti-Xa assay (test code 46643). For additional information, please refer to http://education.Brightkit/faq/QLP444 (This link is being provided for informational/educational purposes only.) INR 1.0 [facility] Comment: Reference Range 0.9-1.1 Moderate-intensity Warfarin Therapy 2.0-3.0 Higher-intensity Warfarin Therapy 3.0-4.0 Prothrombin Time (PT) 11.1 9.0 - 11.5 sec [facility] [employer] Blood Blood specimen / Unknown 11/01/2024 1:41 PM EDT 11/01/2024 1:43 PM EDT Narrative [facility] - 11/02/2024 7:52 AM EDT FASTING:NO FASTING: NO Blas Mendez MD LAB BLOOD ORDERABLES Final Result [facility] [address] [place] [phone] * (ABNORMAL) COMPLETE BLOOD COUNT, WITHOUT DIFFERENTIAL (11/01/2024 1:41 PM EDT) White Blood Cell Count 5.0 3.8 - 10.8 Thousand/ uL [facility] Red Blood Cell Count 5.57 4.20 - 5.80 Million/u L [facility] Hemoglobin 17.0 13.2 - 17.1 g/dL [facility] Hematocrit 52.1(H) 38.5 - 50.0 % [facility] [employer] MCV 93.5 80.0 - 100.0 fL [facility] [employer] MCH 30.5 27.0 - 33.0 pg [facility] [employer] MCHC 32.6 32.0 - 36.0 g/dL [facility] Comment: For adults, a slight decrease in the calculated MCHC value (in the range of 30 to 32 g/dL) is most likely not clinically significant; however, it should be interpreted with caution in correlation with other red cell parameters and the patient's clinical condition. RDW 13.1 11.0 - 15.0 % [facility] [employer] Platelet Count 202 140 - 400 Thousand/ uL [facility] MPV 9.6 7.5 - 12.5 fL [facility] Blood Blood specimen / Unknown 11/01/2024 1:41 PM EDT 11/01/2024 1:43 PM EDT Narrative [facility] - 11/02/2024 7:52 AM EDT FASTING:NO FASTING: NO us Blas Mendez MD LAB BLOOD ORDERABLES Final Result [facility] [address] [place] [phone] * PET/CT F18 FDG Skull to Mid [...] correlation and follow-up accordingly. Blas Salinas MD Director University I personally reviewed the images and the [...] correlation and follow-up accordingly. Blas Salinas MD Director University I personally reviewed the images and the resident's preliminary report and AGREE with the report as it is now presented (RADPAL1). Blas Mendez MD IMG PET ORDERABLES Final Re sult * POCT Glucose, Fingerstick (10/20/2024 7:50 AM EDT) Only the most recent of2 resultswithin the time period is included. POC Glucose 93 65 - 99 mg/dL 10/20/2024 11:27 AM EDT Blood specimen / Unknown 10/20/2024 7:50 AM EDT 10/20/2024 11:27 AM EDT Blas Mendez MD POINT OF CARE TEST [...] Blue Finley MD 09/27/2024 03:51 PM EDT RP Thank you for referring your patient to us, Blue [facility] [phone] (Electronically Signed - 09/27/2024 15:51) Copy: SUSANNE BURROWS NP [facility] [address] [place] [address] Narrative 09/27/2024 3:51 PM EDT EXAMINATION: CT [...] referring your patient to us, Blue Finley [phone] (Electronically Signed - 09/27/2024 15:51) Copy: SUSANNE BURROWS [address] [id number] Blas Mendez MD IMG CT ORDERABLES Final Res ult * High Sensitivity Troponin T (Once) (08/25/2024 9:22 AM EDT) Only the most recent of2 resultswithin the time period is included. High Sensitivity Troponin T 15 <23 ng/L 08/25/2024 10:15 AM EDT [facility] Delta (Change) 1 <3 08/25/2024 10:15 AM EDT [facility] Comment:Decreased Blood Blood specimen / Unknown 08/25/2024 9:22 AM EDT 08/25/2024 9:49 AM EDT Darryl Lott MD LAB BLOOD ORDERABLES Fi nal Result [address] [address], [address] [address] * proBNP, N-terminal (08/25/2024 9:22 AM EDT) Only the most recent of2 resultswithin the time period is included. proBNP, N-terminal 67 <125 pg/mL 08/25/2024 10:15 AM EDT [facility] Blood Blood specimen / Unknown 08/25/2024 9:22 AM EDT 08/25/2024 9:49 AM EDT us Darryl Lott MD LAB BLOOD ORDERABLES Fi nal Result [address] [address], [address] [address] * ECHOCARDIOGRAM COMPREHENSIVE WITH CONTRAST (08/25/2024 8:28 AM EDT) LV Diastolic Volume 118 mL LV Systolic [...] previous study for comparison in our system. us Darryl Lott MD CV ECHO ORDERABLES Bruna l Result * (ABNORMAL) Lactic Acid, Plasma (08/24/2024 12:31 PM EDT) Lactic Acid 2.5(H) 0.5 - 1.9 mmol/L 08/24/2024 1:23 PM EDT [facility] Blood Blood specimen / Unknown 08/24/2024 12:31 PM EDT 08/24/2024 1:02 PM EDT us Shilo Brice MD LAB BLOOD ORDERABLES Final Re sult [address] [address], [address] [address] * Ed Performed [employer] (08/24/2024 [...] 2024 at1:41 PM us Shilo Brice MD [facility] US ORDERABLES Final Resul t * XR [...] as directed clinically. . Bethanie Wyman APRN IM DIAGNOSTIC IMAGING ORDE GENE Final Result * (ABNORMAL) Complete Blood Count, with Differential (08/24/2024 10:27 AM T) White Blood Cell Count 12.2(H) 4.0 - 11.0 Thou/uL 08/24/2024 10:52 AM [facility] Platelet Count 224 150 - 450 Thou/uL 08/24/2024 10:52 AM [facility] Hemoglobin 15.3 13.0 - 17.7 g/dL 08/24/2024 10:52 AM [facility] Hematocrit 47.8 39.0 - 54.0 % 08/24/2024 10:52 AM [facility] Red Blood Cell Count 5.24 4.50 - 6.20 Mil/uL 08/24/2024 10:52 AM [facility] MCV 91 80 - 100 fL 08/24/2024 10:52 AM [facility] MCH 29.2 27.0 - 31.0 pg 08/24/2024 10:52 AM [facility] MCHC 32.0 30.0 - 36.0 g/dL 08/24/2024 10:52 AM [facility] RDW 12.4 11.5 - 14.5 % 08/24/2024 10:52 AM [facility] MPV 8.9 7.5 - 12.5 fL 08/24/2024 10:52 AM [facility] Neutrophils Auto 79.5 % 08/25/19 25 10:52 AM [facility] Immature Granulocytes 0.9 % 08/24/2024 10:[facility] Lymphocytes Auto 4.4 % 08/25/19 10:[facility] Monocytes Auto 14.4 % 08/24/2024 10:52 AM [facility] Eosinophils Auto 0.6 % 08/25/19 10:52 AM [facility] Basophils Auto 0.2 % 08/24/2024 10:52 AM [facility] Abs Neutrophils Auto 9.67(H) 2.00 - 7.50 Thou/uL 08/24/2024 10:52 AM [facility] Abs Immature Granulocytes 0.11(H) 0.00 - 0.10 Thou/uL 08/24/2024 10:52 AM [facility] Abs Lymphocytes Auto 0.54(L) 1.50 - 4.50 Thou/uL 08/24/2024 10:52 AM [facility] Abs Monocytes Auto 1.76(H) 0.20 - 1.50 Thou/uL 08/24/2024 10:52 AM [facility] Abs Eosinophils Auto 0.07 0.00 - 0.70 Thou/uL 08/24/2024 10:52 AM [facility] Abs Basophils Auto 0.03 0.00 - 0.20 Thou/uL 08/24/2024 10:52 AM [facility] Blood Blood specimen / Unknown 08/24/2024 10:27 AM EDT 08/24/2024 10:40 AM EDT Bethanie Wyman [employer] LAB BLOOD ORDERABLES Final Result [address] [address], [address] [address] * INR (08/24/2024 10:27 AM EDT) Anticoagulant NO ANTI COAGULANT MEDS 08/24/2024 10:07 AM [facility] Prothrombin Time (PT) 13.5 10.0 - 13.5 seconds 08/24/2024 10:52 AM [facility] INR 1.2 08/24/2024 10:52 AM EDT [facility] Comment:INR Therapeutic Rang es: Standard dose anticoagulant 2.0 to 3.0, High dose anticoagulant 2.5-3.5. Blood Blood specimen / Unknown 08/24/2024 10:27 AM EDT 08/24/2024 10:40 AM EDT [facility] [employer] LAB BLOOD ORDERABLES Final Result [address] [address], [address] [address] * Magnesium (08/24/2024 10:27 AM EDT) Magnesium 2.2 1.6 - 2.7 mg/dL 08/24/2024 11:03 AM EDT [facility] Blood Blood specimen / Unknown 08/24/2024 10:27 AM EDT 08/24/2024 10:40 AM EDT [facility] Final Result Performing Organization Address [facility]/ZIP Co de Phone Number [address] [address], [address] [address] * Lipase (08/24/2024 10:27 AM EDT) Lipase 26 13 - 60 U/L 08/24/2024 11:03 AM EDT [facility] Blood Blood specimen / Unknown 08/24/2024 10:27 AM EDT 08/24/2024 10:40 AM EDT [facility] [employer] SUPERINTENDENT LAB BLOOD ORDERABLES Final Result Performing Organization Address City/[facility]/ZIP Co de Phone Number [address] [address], [address] [address] * (ABNORMAL) Comprehensive Metabolic Panel (08/24/2024 10:27 AM [facility]) Glucose 119(H) 65 - 99 mg/dL 08/24/2024 11:03 AM [facility] Comment:Fasting: <100 mg/dL, Non-Fasting: <200 mg/dL (ADA 2004) Blood Urea Nitrogen (BUN) 20 8 - 21 mg/dL 08/24/2024 11:03 AM [facility] Creatinine 1.1 0.5 - 1.3 mg/dL 08/24/2024 11:03 AM [facility] eGFR 77 >59 08/24/2024 11:03 AM [facility] Comment:CKD-EPI (2020) in mL /min/1.73 sq meters. Sodium 135(L) 136 - 145 mmol/L 08/24/2024 11:03 AM [facility] Potassium 4.4 3.4 - 5.3 mmol/L 08/24/2024 11:03 AM [facility] Chloride 99 98 - 107 mmol/L 08/24/2024 11:03 AM [facility] CO2 23 22 - 33 mmol/L 08/24/2024 11:03 AM [facility] Calcium 9.0 8.7 - 10.5 mg/dL 08/24/2024 11:03 AM [facility] Alkaline Phosphatase 105 45 - 128 U/L 08/24/2024 11:03 AM [facility] Aspartate Aminotrans (AST) 30 10 - 55 U/L 08/24/2024 11:03 AM [facility] Alanine Aminotrans (ALT) 46 10 - 55 U/L 08/24/2024 11:03 AM [facility] Bilirubin, Total 0.9 0.2 - 1.0 mg/dL 08/24/2024 11:03 AM [facility] Protein, Total 7.2 6.3 - 8.3 g/dL 08/24/2024 11:03 AM [facility] Albumin 3.6 3.5 - 5.0 g/dL 08/24/2024 11:03 AM [facility] BUN/Creatinine Ratio 18 10.0 - 25.0 Ratio 08/24/2024 11:03 AM [facility] Globulin 3.6 1.5 - 3.9 g/dL 08/24/2024 11:03 AM EDT [facility] Albumin/Globulin Ratio 1.0 1.0 - 3.0 Ratio 08/24/2024 11:03 AM EDT [facility] Anion Gap 13 7 - 17 08/24/2024 11:03 AM EDT [facility] Blood Blood specimen / Unknown 08/24/2024 10:27 AM EDT 08/24/2024 10:40 AM EDT Bethanie Wyman [employer] SUPERINTENDENT LAB BLOOD ORDERABLES Final Result [address] [address], [address] [address] * 10 Min ECG 12 lead (08/24/2024 10:12 AM EDT) Ventricular rate 93 BPM EKG [facility] Atrial rate 93 BPM EKG [facility] P-R interval 190 ms EKG [facility] QRS duration 134 ms EKG [facility] Q-T interval 388 ms EKG [facility] QTC calculation (Bazett) 483 ms EKG [facility] P axis 16 degrees EKG [facility] R axis 64 degrees EKG [facility] T axis 18 degrees EKG [facility] 08/24/2024 10:1 2 AM EDT Narrative EKG [facility] - 08/24/2024 10:23 AM EDT Normal sinus rhythm Right bundle branch block Abnormal ECG When compared with ECG of 27-Jul-2024 08:56, Vent. rate has increased by 32 bpm Confirmed by MD Cuenca Eric ([id number]) on 08/24/2024 10:23:33 AM Procedure Note Blayne Cuenca MD - 08/24/2024 Normal sinus rhythm Right bundle branch block Abnormal ECG When compared with ECG of 27-Jul-2024 08:56, Vent. rate has increased by 32 bpm Confirmed by MD Cuenca Eric ([id number]) on 08/24/2024 10:23:33 AM us Hailey Rios MD ECG ORDERABLES Final Result EKG [facility] from Last [address] [facility] OUT STATE - HMO Advance Directives * Full Code (Latest Code Status on File) Date Activated Date Inactivated Comments 08/24/2024 2:28 PM 11/03/2024 10:17 AM * Full Code Date Activated Date Inactivated Comments 08/16/2024 7:09 PM 08/24/2024 9:59 AM * Full Code Date Activated Date Inactivated Comments 08/16/2024 9:37 AM 08/16/2024 7:09 PM Care Teams Supervisor Metal Cans Relationship Specialty Start Date End Date Susanne Burrows MD 262 [facility] [place] [address] PCP - General Family Medicine 07/27/24 Ofelia Forrest RN [address] [address] Oncology Nurse Navigator 05/27/24
--- OUTSIDE RECORDS SUMMARY | 2024-11-24 15:41 | XMS_ITS | Encounter Summary ---
Author Organization [facility] Address [address] [place] [address] Care Team Providers Care Gis Professor Name Role Phone Carrier, Ofelia GRAF Unavailable [phone] Mekhi Leonard MD Primary Care Provider Encounter Details Date Type Department Care Team (Late st Contact Info) Description 11/02/2024 Scanned Document [facility] Cancer [place] [facility] at [address] [address] Juan Valdes MD [address] [place] [address] [id number] Social History Tobacco Use Types Packs/Day Years Used Date Smoking Tobacco: Some Days Cigars Smokeless Tobacco: Never Comments:Occasional cigar Alcohol Use Standard Drinks/Week Comments Yes 4 (1 standard drink = 0.6 oz pur e alcohol) [facility] Utilities Answer Date Recorded In the past 12 months has [employer], gas, oil, or water [employer] threatened to shut off services in your [...] any time in the past 12 m [facility], were you homeless or living in [...] Description 12/01/2024 2:30 PM EDT Office Visit [facility] 10 [facility] [address] [place] [address] Luisa Modi APRN 10 [place] [address] 12/28/2024 2:15 PM EDT Office Visit [facility] [place] [facility] at [facility] 85 [facility] 216 [place] [address] Juan Valdes MD [address] [place], [place] [id number] 02/13/2025 8:45 AM EST Office Visit [address] [phone] Luisa Modi APRN [address] [place] [address] 05/24/2025 9:00 AM EDT Office Visit [address] [phone] Luisa Modi APRN [address] [place] [address] [phone] 08/23/2025 11:45 AM EDT Office Visit [address] [phone] Niels Benjamin MD [address] [address] documented as of this encounter Visit Diagnoses Not on filedocumented in this encounter Care Teams Gis Professor Relationship Specialty Start Date End Date Mekhi Leonard MD [address] [place] [address] PCP - General Family Medicine 07/27/24 Ofelia Forrest RN [address] [address] Oncology Nurse Navigator 05/27/24 documented as of this encounter
--- OUTSIDE RECORDS SUMMARY | 2024-11-24 15:41 | XMS_ITS | Encounter Summary ---
Author Organization [facility] Address [address] [place] [address] Care Team Providers Care Care Services Manager Name Role Phone Carrier, Ofelia GARF Unavailable [phone] Mekhi Leonard MD Primary Care Provider + [phone] Reason for Visit * Reason Onset Date Comments Form Completion 11/03/2024 Encounter Details Date Type Department Care Team ([facility] st Contact Info) Description 11/03/2024 Telephone [facility] [address] [place] [phone] Niels Benjamin MD [address] [address] Form Completion Social History Tobacco Use Types Packs/Day Years Used Date Smoking Tobacco: Some Days Cigars Smokeless Tobacco: Never Comments:Occasional cigar Alcohol Use Standard Drinks/Week Comments Yes 4 (1 standard drink = 0.6 oz pur e alcohol) [facility] Utilities Answer Date Recorded In the past 12 months has [employer], gas, oil, or water [employer] threatened to shut off services in your [...] any time in the past 12 m [facility], were you homeless or living in a nursing home (including now)? No 08/25/2024 Sex and Gender [...] Description 12/01/2024 2:30 PM EDT Office Visit [facility] 10 [facility] [address] [place] [phone] Luisa Modi APRN 10 [place] [address] 12/28/2024 2:15 PM EDT Office Visit [facility] Cancer [place] [facility] at [address] KIYA [address] [place] [address] Juan Valdes MD 85 [place] [address] 02/13/2025 8:45 AM EST Office Visit [address] [phone] Luisa Modi APRN 10 [place], [place] 15[address] 05/24/2025 9:00 AM EDT Office Visit [address] [phone] Luisa Modi APRN [address] [place] [address] 08/23/2025 11:45 AM EDT Office Visit [address] [phone] Niels Benjamin MD [address] [address] documented as of this encounter Visit Diagnoses Not on filedocumented in this encounter Care Teams Care Services Manager Relationship Specialty Start Date End Date Mekhi Leonard MD [address] [place] [address] PCP - General Family Medicine 07/27/24 Ofelia Forrest RN [address] [address] Oncology Nurse Navigator 05/27/24 documented as of this encounter
--- OUTSIDE RECORDS SUMMARY | 2024-11-24 15:41 | XMS_ITS | Encounter Summary ---
Author Organization [facility] Address [address] [place] [address] Care Team Providers Care Banquet Server On Call Name Role Phone Carrier, Ofelia GRFA Unavailable [phone] Mekhi Leonard MD Primary Care Provider [phone] Encounter Details Date Type Department Care Team (Late st Contact Info) Description 10/31/2024 Scanned Document [address] [address] Blas Mendez MD 85 [facility] Julien [address] [place] [address] Social History Tobacco Use Types Packs/Day Years Used Date Smoking Tobacco: Some Days Cigars Smokeless Tobacco: Never Comments:Occasional cigar Alcohol Use Standard Drinks/Week Comments Yes 4 (1 standard drink = 0.6 oz pur e alcohol) [facility] Utilities Answer Date Recorded In the past 12 months has [employer], gas, oil, or water [employer] threatened to shut off services in your [...] any time in the past 12 m [facility], were you homeless or living in a longterm (including now)? No 08/25/2024 Sex and Gender [...] Description 12/01/2024 2:30 PM EDT Office Visit [facility] 10 [facility] [address] [place] [address] Luisa Modi APRN 10 [place] [address] 12/28/2024 2:15 PM EDT Office Visit [facility] [facility] at [facility] 85 [facility] 216 [place] [address] Juan Valdes MD [address] [place], [place] [id number] 02/13/2025 8:45 AM EST Office Visit [address] [phone] Luisa Modi APRN [address] [place] [address]95[address] 05/24/2025 9:00 AM EDT Office Visit [address] [phone] Luisa Modi APRN [address] [place] [address] [phone] 08/23/2025 11:45 AM EDT Office Visit [address] [phone] Niels Benjamin MD [address] [address] documented as of this encounter Visit Diagnoses Not on filedocumented in this encounter Care Teams Banquet Server On Call Relationship Specialty Start Date End Date Mekhi Leonard MD [address] [place] [address] PCP - General Family Medicine 07/27/24 Ofelia Forrest RN [address] [address] Oncology Nurse Navigator 05/27/24 documented as of this encounter
--- OUTSIDE RECORDS SUMMARY | 2024-11-24 15:41 | XMS_ITS | Encounter Summary ---
Author Organization [facility] Address [address] [place] [address] Care Team Providers Care Planning Lead Name Role Phone Carrier, fOelia GRAF Unavailable [phone] Mekhi Leonard MD Primary Care Provider [phone] Reason for Visit * Reason Onset Date Comments Referral 09/01/2024 AC needs schedul ing . Encounter Details Date Type Department Care Team ([facility] Contact Info) Description 09/01/2024 Telephone [address] [place] [address] Provider, External, 193 [place] [address] Referral (AC needs scheduling . ) Social History Tobacco Use Types Packs/Day Years Used Date Smoking Tobacco: Some Days Cigars Smokeless Tobacco: Never Comments:Occasional cigar Alcohol Use Standard Drinks/Week Comments Yes 4 (1 standard drink = 0.6 oz pur e alcohol) [facility] Utilities Answer Date Recorded In the past 12 months has [employer], gas, oil, or water [employer] threatened to shut off services in your [...] any time in the past 12 m [facility], were you homeless or living in a long-term (including now)? No 08/25/2024 Sex and Gender [...] Description 12/01/2024 2:30 PM EDT Office Visit [facility] 10 [facility] [address] [place] [address] Luisa Modi APRN 10 [place] [address] 12/28/2024 2:15 PM EDT Office Visit [facility] [place] [facility] 85 [facility] 216 [place] [address] Juan Valdes MD 85 [place] [address] 02/13/2025 8:45 AM EST Office Visit [address] [phone] Luisa Modi APRN [address] [place] [phone] 05/24/2025 9:00 AM EDT Office Visit [address] [phone] Luisa Modi APRN [address] [place] [id number] 08/23/2025 11:45 AM EDT Office Visit [address] [phone] Niels Benjamin MD [address] [address] documented as of this encounter Visit Diagnoses Not on filedocumented in this encounter Care Teams Planning Lead Relationship Specialty Start Date End Date Mekhi Leonard MD [address] [place] [address] PCP - General Family Medicine 07/27/24 Ofelia Forrest RN [address] [address] Oncology Nurse Navigator 05/27/24 documented as of this encounter
--- OUTSIDE RECORDS SUMMARY | 2024-11-24 15:41 | XMS_ITS | Clinical Summary ---
Author Organization [facility] 299 [facility] Address [address] [place] [address] Phone Care Team Providers Care Land Survey Technician Name Role Phone Mekhi Leonard NP [...] patient's age to complete this topic [place] [place] [address] Care Teams Land Survey Technician Relationship Specialty Start Date End Date Mekhi Leonard NP PCP - General Family Medicine 02/19/24
--- OUTSIDE RECORDS SUMMARY | 2024-11-24 15:42 | XMS_ITS | Encounter Summary ---
Author Organization [facility] Address [address] [place] [address] Care Team Providers Care Documentation Analyst Name Role Phone Carrier, Ofelia GRAF Unavailable [phone] Mekhi Leonard MD Primary Care Provider [phone] Reason for Visit * Reason Onset Date Comments Appointment 09/20/2024 Encounter Details Date Type Department Care Team ([facility] st Contact Info) Description 09/20/2024 Telephone [facility] [address] [place] [phone] Niels Benjamin MD [address] [address] Appointment Social History Tobacco Use Types Packs/Day Years Used Date Smoking Tobacco: Some Days Cigars Smokeless Tobacco: Never Comments:Occasional cigar Alcohol Use Standard Drinks/Week Comments Yes 4 (1 standard drink = 0.6 oz pur e alcohol) [facility] Utilities Answer Date Recorded In the past 12 months has [employer], [employer], oil, or water [employer] threatened to shut off services in your [...] any time in the past 12 m [facility], were you homeless or living in a [...] Description 12/01/2024 2:30 PM EDT Office Visit [facility] 10 [facility] [address] [place] [address] Luisa Modi APRN 10 [place] [address] 12/28/2024 2:15 PM EDT Office Visit [facility] Cancer [place] [facility] Oncology at [address] KIYA [address] [place] [address] Juan Valdes MD 85 [place] [address] 02/13/2025 8:45 AM EST Office Visit [address] [phone] Luisa Modi APRN [address] [place] [address] 05/24/2025 9:00 AM EDT Office Visit [address] [phone] Luisa Modi APRN [address] [place] [address] [phone] 08/23/2025 11:45 AM EDT Office Visit [address] [phone] Niels Benjamin MD [address] [address] documented as of this encounter Visit Diagnoses Not on filedocumented in this encounter Care Teams Documentation Analyst Relationship Specialty Start Date End Date Mekhi Leonard MD [address] [place] [address] PCP - General Family Medicine 07/27/24 Ofelia Forrest RN [address] [address] Oncology Nurse Navigator 05/27/24 documented as of this encounter
--- OUTSIDE RECORDS SUMMARY | 2024-11-24 15:42 | XMS_ITS | Encounter Summary ---
Author Organization [facility] Address [address] [place] [address] Care Team Providers Care Hydraulic Lift Operator Name Role Phone Dc Carvalho MD Primary Care Provider [phone] Ofelia Forrest RN Unavailable [phone] Mekhi Leonard MD Primary Care Provider [phone] Encounter Details Date Type Department Care Team (Late st Contact Info) Description 05/26/2024 Scanned Document [address] [place] [address] Dc Carvalho MD 100 [facility] 240 [place] [address] Social History Tobacco Use Types Packs/Day Years Used Date Smoking Tobacco: Never Assessed [facility] Utilities Answer Date Recorded In [...] any time in the past 12 m [facility], were you homeless or living in a care home (including now)? No 05/27/2024 Sex and Gender [...] Description 12/01/2024 2:30 PM EDT Office Visit [address] [phone] Luisa Modi APRN [address] [place] [address] 12/28/2024 2:15 PM EDT [facility] Visit [facility] [place] [facility] at [facility] [address] [phone] Juan Valdes MD [address] [place], [place] [address] 02/13/2025 8:45 AM EST Office Visit [address] [phone] Luisa Modi APRN [address] [place] [address] 05/24/2025 9:00 AM EDT Office Visit [facility] 10 [facility] 100 [place] [address] Luisa Modi APRN 10 [place], [place] 425622 08/23/2025 11:45 AM EDT Office Visit [address] 100 [place] [phone] Niels Benjamin MD [address] [address] documented as of this encounter Visit Diagnoses Not on filedocumented in this encounter Care Teams Hydraulic Lift Operator Relationship Specialty Start Date End Date Dc Carvalho MD [address] [place] [address] [place] [address] PCP - General Urology 05/23/24 07/26/24 Mekhi Leonard MD 262 [facility] [place] [address] PCP - General Family Medicine 07/27/24 Ofelia Forrest RN [address] [address] Oncology Nurse Navigator 05/27/24 documented as of this encounter
--- OUTSIDE RECORDS SUMMARY | 2024-11-24 15:42 | XMS_ITS | Encounter Summary ---
Author Organization [facility] Address [address] [place] [address] Care Team Providers Care Director Education Name Role Phone Carrier, Ofelia GRAF Unavailable [phone] Mekhi Leoanrd MD Primary Care Provider + [phone] Encounter Details Date Type Department Care Team (Late st Contact Info) Description 11/23/2024 Scanned Document [facility], [address], [address] [place] [address] Unknown Unknow Provider Address Social History Tobacco Use Types Packs/Day Years Used Date Smoking Tobacco: Some Days Cigars Smokeless Tobacco: Never Comments:Occasional cigar Alcohol Use Standard Drinks/Week Comments Yes 4 (1 standard drink = 0.6 oz pur e alcohol) [facility] Utilities Answer Date Recorded In the past [address] [employer], gas, oil, or water company threatened [...] any time in the past 12 m [facility], were you homeless or living in a jail (including now)? No 08/25/2024 Sex and Gender [...] Description 12/01/2024 2:30 PM EDT Office Visit [facility] 10 [facility] [address] [place] [address] Luisa Modi APRN 10 [place] [address] 12/28/2024 2:15 PM EDT Office Visit [facility] [place] [facility] Oncology at [address] [phone] Juan [place] [address] 02/13/2025 8:45 AM EST Office Visit [address] [phone] Luisa Modi APRN [address] [place] [address] 687352 05/24/2025 9:00 AM EDT Office Visit [address] [phone] Luisa Modi APRN [address] [place] [address] [phone] 08/23/2025 11:45 AM EDT Office Visit [address] [phone] Niels Benjamin MD [address] [phone] documented as of this encounter Visit Diagnoses Not on filedocumented in this encounter Care Teams Director Education Relationship Specialty Start Date End Date Mekhi Leonard MD [address] [place] [address] PCP - General Family Medicine 07/27/24 Ofelia Forrest RN [address] [address] Oncology Nurse Navigator 05/27/24 documented as of this encounter
--- OUTSIDE RECORDS SUMMARY | 2024-11-24 15:42 | XMS_ITS | Encounter Summary ---
Author Organization [facility] Address [address] [place] [address] Care Team Providers Care Die Cleaner Name Role Phone Carrier, Ofelia GRAF Unavailable [phone] Mekhi Leonard MD Primary Care Provider + [phone] Reason for Referral * Diagnostic Imaging (Routine) - Pending Review Specialty Diagnoses / Procedures Referred By Contac t Referred To Contact Diagnoses Sarcoidosis Procedures CT Thorax w/o contrast Blas Mendez MD 85 [place] [address] Phone: tel: fax: ASMITA PLUNKETT Referral ID Status Reason Start Date Expiration Date V isits Requested Visits Authorized [id number] Pending Review 11/17/2024 11/18/2025 1 1 Encounter Details Date Type Department Care Team (Late st Contact Info) Description 11/17/2024 Orders Only [facility] PULMON[facility] IP 80 [place] [phone] Blas Mendez MD [address] [address] Sarcoidosis (Primary Dx) Social History Tobacco Use Types Packs/Day Years Used Date Smoking Tobacco: Some Days Cigars Smokeless Tobacco: Never Comments:Occasional cigar Alcohol Use Standard Drinks/Week Comments Yes 4 (1 standard drink = 0.6 oz pur e alcohol) [facility] Utilities Answer Date Recorded In the [...] in the past 12 m [facility], were you homeless or living in a m[facility] (including now)? No 08/25/2024 Sex and Gender [...] Description 12/01/2024 2:30 PM EDT Office Visit [address] [phone] Luisa Modi APRN [address] [place] [address] 12/28/2024 2:15 PM EDT Office Visit [facility] [place] [facility] Oncology at [address] [place] [address] Juan Valdes MD 85 [place], [place] [phone] 02/13/2025 8:45 AM EST Office Visit [address] [phone] Luisa Modi APRN [address] [place] [address] 05/24/2025 9:00 AM EDT Office Visit [address] [phone] Luisa Modi APRN [address] [place] [address] 08/23/2025 11:45 AM EDT Office Visit [address] [phone] Niels Benjamin MD 85 [facility] 416 [place], [place] [phone] Scheduled Orders Name Type Priority Associated Diagnoses Orde r Schedule CT Thorax w/o contrast Imaging Routine Sarcoidosis Expected: 01/10/2025, Expires: 11/17/2025 documented as of this encounter Visit Diagnoses Diagnosis Sarcoidosis- Primary documented in this encounter Care Teams Die Cleaner Relationship Specialty Start Date End Date Mekhi Leonard MD [address] [place] [address] PCP - General Family Medicine 07/27/24 Ofelia Forrest RN [address] [place] [address] Oncology Nurse Navigator 05/27/24 documented as of this encounter
--- OUTSIDE RECORDS SUMMARY | 2024-11-24 15:42 | XMS_ITS | Encounter Summary ---
Author Organization [facility] Address [address] [place] [address] Care Team Providers Care Road Equipment Operator Name Role Phone Carrier, Ofelia GRAF Unavailable Mekhi Leonard MD Primary Care Provider [phone] Encounter Details Date Type Department Care Team (Late st Contact Info) Description 11/23/2024 Orders Only OP SPECIMEN LAB [address] [place] [address] Provider, External, [address] [place] [address] Social History Tobacco Use Types Packs/Day Years Used Date Smoking Tobacco: Some Days Cigars Smokeless Tobacco: Never Comments:Occasional cigar Alcohol Use Standard Drinks/Week Comments Yes 4 (1 standard drink = 0.6 oz pur e alcohol) [facility] Utilities Answer Date Recorded In the past 12 months has [employer] electric, gas, oil, or water company threatened [...] any time in the past 12 m [facility], were you homeless or living in a [...] Description 12/01/2024 2:30 PM EDT Office Visit [facility] 10 [facility] [address] [place] [address] Luisa Modi APRN 10 [place] [address] 12/28/2024 2:15 PM EDT Office Visit [facility] at [address] [phone] Juan Valdes MD [address] [place] [address] 02/13/2025 8:45 AM EST Office Visit [address] [phone] Luisa Modi APRN [address] [place] [phone] 05/24/2025 9:00 AM EDT Office Visit [address] [phone] Luisa Modi APRN [address] [place] [address] 08/23/2025 11:45 AM EDT Office Visit [address] [phone] Niels Benjamin MD [address] [phone] documented as of this encounter Procedures Procedure Name Priority Date/Time Associated Diagnosis Comments HX OUTSIDE ORDER Routine 11/22/2024 3:04 AM EDT documented in this encounter Results * OUTSIDE ORDER (11/22/2024 3:04 AM EDT) us External Provider MD [place] AMB PROCEDURES Final Res ult documented in this encounter Visit Diagnoses Not on filedocumented in this encounter Care Teams Road Equipment Operator Relationship Specialty Start Date End Date Mekhi Leonard MD [address] [place] [address] PCP - General Family Medicine 07/27/24 Ofelia Forrest RN [address] [phone] Oncology Nurse Navigator 05/27/24 documented as of this encounter
--- OUTSIDE RECORDS SUMMARY | 2024-11-24 15:42 | XMS_ITS | Encounter Summary ---
Author Organization [facility] Address [address] [place] [address] Care Team Providers Care Supervisor Assembly Room Name Role Phone Carrier, Ofelia GRAF Unavailable [phone] Mekhi Leonard MD Primary Care Provider [phone] Encounter Details Date Type Department Care Team (Latest Contact Info) Description 11/22/2024 Travel Social History Tobacco Use Types Packs/Day Years Used Date Smoking Tobacco: Some Days Cigars Smokeless Tobacco: Never Comments:Occasional cigar Alcohol Use Standard Drinks/Week Comments Yes 4 (1 standard drink = 0.6 oz pur e alcohol) [facility] Utilities Answer Date Recorded In the past 12 months has [employer] electric, gas, oil, or water [employer] threatened to shut off services in your [...] any time in the past 12 m [facility], were you homeless or living in [...] Description 12/01/2024 2:30 PM EDT Office Visit [address] [place] [address] Luisa Modi APRN [address] [place] [address] 12/28/2024 2:15 PM EDT Office Visit [facility] [place] [facility] 85 [facility] [address] [place] [phone] Juan Valdes MD [address] [place], [place] [phone] 02/13/2025 8:45 AM EST Office Visit [address] [place] [phone] Luisa Modi APRN 10 [place], [place] [address] 05/24/2025 9:00 AM EDT Office Visit [address] [phone] Luisa Modi APRN [address] [place] [address] 08/23/2025 11:45 AM EDT Office Visit [address] [phone] Niels Benjamin MD [address] [place] [address] documented as of this encounter Visit Diagnoses Not on filedocumented in this encounter Care Teams Supervisor Assembly Room Relationship Specialty Start Date End Date Mekhi Leonard MD [address] [place] [address] PCP - General Family Medicine 07/27/24 Ofelia Forrest RN [address] [address] Oncology Nurse Navigator 05/27/24 documented as of this encounter
== END 2024-11-24 13:44 | disposition home or self-care (01) ==
LOC: HO.SH 13:43
PROVIDERS: Visit Provider Nurse Practitioner Family
DX: Z01.118 Encounter for examination of ears and hearing with other abnormal findings (principal); H93.293 Other abnormal auditory perceptions, bilateral
CPT/HCPCS: 92557

== ENCOUNTER 2024-11-30 11:43 | Outpatient (AMB) | payer BC, SELFPAY ==
--- OUTSIDE RECORDS SUMMARY | 2024-11-30 14:44 | XMS_ITS | Clinical Summary ---
Author Organization [facility] Address [address] [place] [address] Care Team Providers Care Ground Crew Lines Person Name Role Phone Carrier, Ofelia GRAF Unavailable Susanne Burrows MD Primary Care Provider [phone] Allergies Active Allergy Reactions Criticality Noted Date [...] Patient to follow up with PCP or personnel research psychologist for continued management of hypothyroidism as previously [...] Team Description 11/23/2024 Scanned Document [facility], [address], [address] [place] [address] Unknown 11/23/2024 Orders Only OP SPECIMEN LAB [address] [place] [address] ProviderSara MD 11/22/2024 10:05 AM EDT - 11/22/2024 11:59 PM EDT Hospital Encounter OP SPECIMEN LAB [address] [place] [address] Juan Valdes MD Discharge Disposition: Home or Self Care 11/22/2024 9:45 AM EDT Consult [facility] at [address] [address] Juan Valdes MD Sarcoidosis (Primary Dx) 11/22/2024 Travel 11/17/2024 Orders Only HH PULMONARY SVC IP 80 [facility] [place] [address] Blas Mendez MD Sarcoidosis (Primary Dx) 11/14/2024 11:45 AM EDT Office Visit [facility] [address] [facility] [place] [phone] Blas Mendez MD Sarcoidosis (Primary Dx); Pulmonary embolism without acute cor pulmonale, unspecified chronicity, unspecified pulmonary embolism type (HCC); Prostate cancer (HCC) 11/14/2024 Travel 11/03/2024 11:30 AM EDT - 11/03/2024 12:35 PM EDT Surgery [facility] 80 [facility] [place] [address] Tyree Rodas, CT Bone Biopsy-Deep N/A 11/03/2024 10:17 AM EDT - 11/03/2024 3:21 PM EDT Hospital Encounter [facility] 80 [facility] [place] [phone] Emerson Liu MD Abnormal PET scan, lung Discharge Disposition: Home or Self Care 11/03/2024 Documentation [facility] Urologic [facility] [place] 85 [facility] [address] [place] [phone] Niels Benjamin MD 11/03/2024 Travel 11/03/2024 Telephone [facility] [address] [place] [phone] Niels Benjamin MD Form Completion 11/03/2024 Transcribe Orders [facility] [place] 85 [facility] [address] [place] [phone] Susanne Burrows MD Other nonspecific abnormal finding of lung field (Primary Dx); Metastatic malignant neoplasm, unspecified site (HCC) 11/02/2024 Scanned Document [facility] [place] [facility] at [address] [place] [address] Juan Valdes MD 10/31/2024 Telephone [facility] [address] [place] [address] Niels Benjamin MD Other 10/31/2024 Scanned Document [facility] Pul[facility] [place] 85 [facility] [address] [place] [address], [place] [address] Blas Mendez MD 10/21/2024 Orders Only [facility] Pulmonary [place] [address] [place], [place] [address] [address] [place] [phone] Blas Mendez MD Abnormal PET scan of lung 10/21/2024 Telephone [facility] [place] [address] [place] [address] Blas Mendez MD 10/20/2024 8:03 AM EDT - 10/20/2024 11:59 PM EDT Hospital Encounter [facility] 80 [facility] [place] [address] Blas Mendez MD Discharge Disposition: Home or Self Care 10/20/2024 7:18 AM EDT - 10/20/2024 8:02 AM EDT Hospital Encounter [facility] 80 [facility] [place] [address] Blas Mendez MD Pulmonary embolism without acute cor pulmonale, unspecified chronicity, unspecified pulmonary embolism type (HCC); Mediastinal lymphadenopathy; Pulmonary nodule Discharge Disposition: Home or Self Care 10/05/2024 Orders Only [facility] Pulmonary [address] [place] [address], [place] [address] Blas Mendez MD Pulmonary embolism without acute cor pulmonale, unspecified chronicity, unspecified pulmonary embolism type (HCC) (Primary Dx); Mediastinal lymphadenopathy; Pulmonary nodule 09/23/2024 Documentation [facility] Urologic Surgery [address] [place] [address] Niels Benjamin MD 09/21/2024 Orders Only [facility] [address] [facility] [address] [place] [address] Niels Benjamin MD History of prostate cancer (Primary Dx); Erectile dysfunction after radical prostatectomy 09/21/2024 Telephone [facility] [address] [facility] [address] [place] [address] Niels Benjamin MD 09/20/2024 Telephone [facility] [address] [place] [address] Niels Benjamin MD Appointment 09/07/2024 Telephone [facility] Pulmonary [address] [place] [address] Blas Mendez MD 09/01/[address] [phone] Provider, MD Sara Referral (AC needs scheduling . ) from Last 3 Months Family History Medical History Relation Name Comments Cancer, Prostate Father 59 HEAD GAUGE UNIT OPERATOR Cancer, Prostate Paternal Uncle podiatrist orthopedic Cancer, Bladder Neg Hx Cancer, Kidney Neg Hx Relation Name Status Comments Father Paternal Uncle Social History Tobacco Use Types Packs/Day Years Used Date Smoking Tobacco: Some Days Cigars Smokeless Tobacco: Never Tobacco Cessation:Ready to Q uit: Not Asked; Counseling Given: Not Answered Comments:Occasional cigar Alcohol Use Standard Drinks/Week Comments Yes 4 (1 standard drink = 0.6 oz pur e alcohol) [facility] Utilities Answer Date Recorded In the past 12 months has [employer], gas, oil, or water [employer] threatened to shut off services in your [...] any time in the past 12 m [facility], were you homeless or living in a penitentiary (including now)? No 08/25/2024 Sex and Gender [...] Description 12/01/2024 2:30 PM EDT Office Visit [address] [phone] Luisa Modi APRN [address] [place] [address] 12/28/2024 2:15 PM EDT Office Visit [facility] [place] [facility] at [address] [address] Juan Valdes MD [address] [place] [address] 02/13/2025 8:45 AM EST Office Visit [address] [phone] Luisa Modi APRN [address] [place] [address] 05/24/2025 9:00 AM EDT Office Visit [address] [phone] Luisa Modi APRN [address] [place] [address] 08/23/2025 11:45 AM EDT Office Visit [address] [phone] Niels Benjamin MD [address] [place] [address] Health Maintenance Due Date Last Done Comments [...] Procedure Name Priority Date/Time Associated Diagnosis Comments FLOW CYTOMETRY REPORT STAT 11/22/2024 10:05 AM EDT Sarcoidosis POCT COMPLETE BLOOD COUNT (ONCOLOGY - INTERFACED NO CHARGE) Routine 11/22/2024 10:05 AM EDT Sarcoidosis HX OUTSIDE ORDER Routine 11/22/2024 3:04 AM EDT PSA, POST PROSTATECTOMY Routine 11/21/2024 10:49 AM EDT History of prostate cancer ANGIOTENSIN CONVERTING ENZYME, SERUM Routine 11/14/2024 12:57 PM EDT Sarcoidosis C-REACTIVE PROTEIN Routine 11/14/2024 12 :57 PM EDT Sarcoidosis ERYTHROCYTE SEDIMENTATION RATE (ESR) Routine 11/14/2024 12:[address] BONE BIOPSY-DEEP N/A Routine 11/03/2024 2:43 PM EDT Abnormal PET scan, lung PATHOLOGY REPORT Routine 11/03/2024 12:0 0 AM EDT COMPLETE BLOOD COUNT, WITHOUT DIFFERENTIAL [...] embolism type (HCC) Pulmonary nodules Mediastinal lymphadenopathy from Last 3 Months Results * (ABNORMAL) POCT Complete Blood Count (Oncology) (11/22/2024 10:05 AM EDT) Pathologist [facility] White Blood Cell Count 6.9 4.0 - [...] POCT ORDERABLES - ONCOLOGY F inal Result [address] [address], [address] * Flow Cytometry Report (11/22/2024 10:05 AM EDT) Report [facility] CLIA ID [id number] [address] [place] [address] / [phone] Hematopathology Report PATIENT NAME: MISHA STEWARD [facility] REC NUMBER: [id number] (AGE): 1965 (Age: 59) SPECIMEN NUMBER: [id number] DATE OBTAINED: 11/22/2024 DIAGNOSIS PERIPHERAL BLOOD (FLOW CYTOMETRY): NO MONOCLONAL B-CELL POPULATION IDENTIFIED. SEE COMMENT. pxs/11/28/2024 Electronically Signed Out KYRA YONO MD COMMENT By flow cytometry, most of the lymphocytes are T cells, without specific qualitative phenotypic abnormalities, including CD4+ and CD8+ subsets. B cells comprise a mixture of kappa- and lambda-bearing cells, without evidence of light chain restriction. CD34+ blasts comprise <0.1% of the WBCs. [id number] Clinical Information and History: D86.9 (Sarcoidosis, unspecified) Tissue(s) Submitted: A: PERIPHERAL BLOOD (FLOW) Gross Description: Received is a peripheral blood specimen in EDTA (1 tube) for flow cytometry. Microscopic Description: FLOW CYTOMETRY: Studies performed - CD3, CD4, CD5, CD7, CD8, CD10, CD16, CD19, CD20, CD33, CD34, CD38, CD45, CD56, CD71, CD123, HLA-DR, kappa, lambda. This test was developed and its performance characteristics determined by the [facility]. It has not been cleared or approved by the U.S. Food and Drug Administration. ICD Codes: D86.9 Sarcoidosis, unspecified HOSPITAL LAB 11/22/2024 10:0 5 AM EDT 11/23/2024 6:27 AM EDT Comment:PERIPHERAL BLOOD (FL OW) Juan Valdes MD PATHOLOGY/CYTOLOGY ORDERABLE S Final Result HOSPITAL LAB See Below * OUTSIDE ORDER (11/22/2024 3:04 AM EDT) External Provider HX AMB PROCEDURES Final Res ult * PSA, Post Prostatectomy (11/21/2024 10:49 AM EDT) PSA, Post Prostatectomy <0.02 ng/mL [facility] Comment: PSA values obtained with different assay methods or kits cannot be used interchangeably. This test was performed using the Homar Negrito DxI method. PSA, ICMA is not to [...] 11/22/2024 6:53 PM EDT FASTING:NO FASTING: NO Niels Benjamin MD LAB BLOOD ORDERABLES Fin al Result Performing Organization Address [facility]/ZIP Co de Phone Number [employer] [address] [place] [phone] * Erythrocyte Sediment Rate (ESR) (11/14/2024 12:57 PM EDT) Erythrocyte Sediment Rate (ESR) 2 < OR = 20 mm/h [employer] [facility] Blood Blood specimen / Unknown 11/14/2024 12:57 PM EDT 11/14/2024 12:58 PM EDT Narrative [facility] - 11/17/2024 5:58 AM EDT FASTING:NO FASTING: NO us Blas Mendez MD LAB BLOOD ORDERABLES Final Result Performing Organization Address [facility]/ZIP Co de Phone Number [employer] [address] [place] [phone] * Angiotensin Converting Enzyme, Serum (11/14/2024 12:57 PM EDT) Angiotensin-1 Converting Enzyme 66 9 - 67 U/L [facility]/ [facility] Blood Blood specimen / Unknown 11/14/2024 12:57 PM EDT 11/14/2024 12:58 PM EDT Narrative [facility] - 11/17/2024 5:58 AM EDT FASTING:NO FASTING: NO Blas Mendez MD LAB BLOOD ORDERABLES Final Result [facility] [address] [place] [address] * C-Reactive Protein (11/14/2024 12:57 PM EDT) C-Reactive Protein <3.0 <8.0 mg/L [facility] Blood Blood specimen / Unknown 11/14/2024 12:57 PM EDT 11/14/2024 12:58 PM EDT Narrative [facility] - 11/17/2024 5:58 AM EDT FASTING:NO FASTING: NO us Blas Mendez MD LAB BLOOD ORDERABLES Final Result Performing Organization Address City/[facility]/ZIP Co de Phone Number [facility] [address] [place] [phone] * CT BONE BIOPSY-DEEP N/A (11/03/2024 2:43 [...] Attending Physician(s): Brenton Rodas DO Resident Physician(s): [facility] Provider(s): None PREPROCEDURE DIAGNOSIS: Bone [...] * Pathology (11/03/2024 12:00 AM EDT) Report [facility][id number] CLIA ID [id number] [address] [place] [address] [phone] Surgical Pathology Report PATIENT NAME: MISHA STEWARD REC NUMBER: [id number] (AGE): 1965 (Age: 59) SPECIMEN NUMBER: [id number] DATE OBTAINED: 11/03/2024 DIAGNOSIS BONE, L2 VERTEBRAL BODY, CORE BIOPSY: BONE WITH TRILINEAGE MARROW ELEMENTS, FIBRIN AND MARKED CRUSH ARTIFACT; NO VIABLE METASTATIC CARCINOMA IDENTIFIED; SEE COMMENT. nv/11/08/2024 Electronically Signed Out BRUCE FISH MD COMMENT The bone shows marrow elements in the background of fibrin and crush artifact. CKAE1/AE3, PSAP, PSA, and NKX3.1 immunostains reveal no carcinoma. CD138 highlights a few plasma cells (with no evidence of plasma cell neoplasm). Both blocks are cut down with multiple levels examined. There is no viable tumor identified. 40495, 492[address], 89329, 10097 x 4 The tests used in the work-up of this specimen may include Analyte-Specific Reagents (ASRs). The Immunopathology/Mor phologic [facility] have established the performance characteristics of [...] and submitted in toto in cassette A2. [address] LAB 11/03/2024 11/04/2024 7:1 4 AM EDT Comment:L2 VERTEBRAL BODY 13 GA BONE CORE Blas Mendez MD PATHOLOGY/CYTOLOGY ORDERABL ES Final Result HOSPITAL LAB See Below * PT/PTT (INCLUDES INR) (11/01/2024 1:41 PM EDT) Partial Thromboplastin Time (PTT) 29 23 - 32 sec [facility] Comment: This test has not been validated for monitoring unfractionated heparin therapy. For testing that is validated for this type of therapy, please refer to the Heparin Anti-Xa assay (test code 62838). For additional information, please refer to http://education.MyRegistry.com/faq/ZPN321 (This link is being provided for informational/educational purposes only.) INR 1.0 [facility] Comment: Reference Range 0.9-1.1 Moderate-intensity Warfarin Therapy 2.0-3.0 Higher-intensity Warfarin Therapy 3.0-4.0 Prothrombin Time (PT) 11.1 9.0 - 11.5 sec [facility] Blood Blood specimen / Unknown 11/01/2024 1:41 PM EDT 11/01/2024 1:43 PM EDT Narrative [facility] - 11/02/2024 7:52 AM EDT FASTING:NO FASTING: NO Blas Mendez MD LAB BLOOD ORDERABLES Final Result [facility] [address] [place] [phone] * (ABNORMAL) COMPLETE BLOOD COUNT, WITHOUT DIFFERENTIAL (11/01/2024 1:41 PM EDT) Pathologist [facility] White Blood Cell Count 5.0 3.8 - 10.8 Thousand/ uL [facility] Red Blood Cell Count 5.57 4.20 - 5.80 Million/u L [facility] Hemoglobin 17.0 13.2 - 17.1 g/dL [employer] Hematocrit 52.1(H) 38.5 - 50.0 % [facility] MCV 93.5 80.0 - 100.0 fL [employer] MCH 30.5 27.0 - 33.0 pg [facility] MCHC 32.6 32.0 - 36.0 g/dL [employer] [employer] Comment: For adults, a slight decrease in the calculated MCHC value (in the range of 30 to 32 g/dL) is most likely not clinically significant; however, it should be interpreted with caution in correlation with other red cell parameters and the patient's clinical condition. RDW 13.1 11.0 - 15.0 % [facility] Platelet Count 202 140 - 400 Thousand/ uL [employer] MPV 9.6 7.5 - 12.5 fL [employer] Blood Blood specimen / Unknown 11/01/2024 1:41 PM EDT 11/01/2024 1:43 PM EDT Narrative [facility] - 11/02/2024 7:52 AM EDT FASTING:NO FASTING: NO us Blas Mendez MD LAB BLOOD ORDERABLES Final Result [facility] [employer] [address] [place] [address] * PET/CT F18 FDG Skull to Mid [...] correlation and follow-up accordingly. Blas Salinas MD Product Manager I personally reviewed the images and the [...] correlation and follow-up accordingly. Blas Salinas MD Product Manager I personally reviewed the images and the resident's preliminary report and AGREE with the report as it is now presented (RADPAL1). us Blas Mendez MD IMG PET ORDERABLES Final Re sult * POCT Glucose, Fingerstick (10/20/2024 7:50 AM EDT) POC Glucose 93 65 - 99 mg/dL 10/20/2024 11:27 AM EDT Blood specimen / Unknown 10/20/2024 7:50 AM EDT 10/20/2024 11:27 AM EDT us Blas Mendez MD POINT OF CARE TEST ORDERABL ES Final Result HOSPITAL LAB See Below * CTA Chest for P.E. (09/27/2024 1:50 PM EDT) Anatomical Region Laterality Modality Chest Computed Tomogra [...] referring your patient to us, Blue Finley [id number] (Electronically Signed - 09/27/2024 15:51) Copy: SUSANNE BURROWS NP [facility] [address] [facility] [address] Narrative 09/27/2024 3:51 PM EDT EXAMINATION: CT [...] referring your patient to us, Blue Finley [id number] (Electronically Signed - 09/27/2024 15:51) Copy: SUSANNE BURROWS [address] [address] us Blas Mendez MD IMG CT ORDERABLES Final Res ult from Last 3 Months Insurance BLUE CROSS OUT OF [facility] BLUE CROSS OUT OF REPLACED BY [facility] Advance Directives * Full Code (Latest Code Status on File) Date Activated Date Inactivated Comments 08/24/2024 2:28 PM 11/03/2024 10:17 AM * Full Code Date Activated Date Inactivated Comments 08/16/2024 7:09 PM 08/24/2024 9:59 AM * Full Code Date Activated Date Inactivated Comments 08/16/2024 9:37 AM 08/16/2024 7:09 PM Care Teams Ground Crew Lines Person Relationship Specialty Start Date End Date Susanne Burrows MD [address] [place] [address] PCP - General Family Medicine 07/27/24 Ofelia Forrest RN [address] [place] [address] Oncology Nurse Navigator 05/27/24
--- OUTSIDE RECORDS SUMMARY | 2024-11-30 14:44 | XMS_ITS | Encounter Summary ---
Author Organization [facility] [place] [facility] Address [address] [place] [address] Care Team Providers Care Sourcing Manager Name Role Phone Carrier, Ofelia GRAF Unavailable [phone] Mekhi Leonard MD Primary Care Provider Encounter Details Date Type Department Care Team (Late st Contact Info) Description 11/02/2024 Scanned Document [facility] [place] [facility] [place] [facility] at [address] [address] Juan Valdes MD [address] [place] [address] [phone] Social History Tobacco Use Types Packs/Day Years Used Date Smoking Tobacco: Some Days Cigars Smokeless Tobacco: Never Comments:Occasional cigar Alcohol Use Standard Drinks/Week Comments Yes 4 (1 standard drink = 0.6 oz pur e alcohol) [facility] Utilities Answer Date Recorded In the past 12 months has [employer], gas, oil, or water [employer] threatened to shut off services in your [...] time in the past 12 m [facility], were you homeless or living in a [...] EDT Office Visit [facility] [address] [facility] [address] [place] [address] Luisa Modi APRN 10 [place] [address] 12/28/2024 2:15 PM EDT Office Visit [facility] [place] [facility] at [facility] 85 [facility] 216 [place] [address] Juan Valdes MD [address] [place], [place] [id number] 02/13/2025 8:45 AM EST Office Visit [address] [phone] Luisa Modi APRN [address] [place] [address] 05/24/2025 9:00 AM EDT Office Visit [address] [phone] Luisa Modi APRN [address] [place] [address] [phone] 08/23/2025 11:45 AM EDT Office Visit [address] [phone] Niels Benjamin MD [address] [address] documented as of this encounter Visit Diagnoses Not on filedocumented in this encounter Care Teams Sourcing Manager Relationship Specialty Start Date End Date Mekhi Leonard MD [address] [place] [address] PCP - General Family Medicine 07/27/24 Ofelia Forrest RN [address] [address] Oncology Nurse Navigator 05/27/24 documented as of this encounter
--- OUTSIDE RECORDS SUMMARY | 2024-11-30 14:44 | XMS_ITS | Encounter Summary ---
Author Organization [facility] Address [address] [place] [address] Care Team Providers Care Kitchen Stewardess Name Role Phone Carrier, Ofelia GRAF Unavailable [phone] Mekhi Leonard MD Primary Care Provider + [phone] Reason for Visit * Reason Onset Date Comments Form Completion 11/03/2024 Encounter Details Date Type Department Care Team ([facility] st Contact Info) Description 11/03/2024 Telephone [facility] 12[address] [place] [address] Niels Benjamin MD [address] [address] Form Completion Social History Tobacco Use Types Packs/Day Years Used Date Smoking Tobacco: Some Days Cigars Smokeless Tobacco: Never Comments:Occasional cigar Alcohol Use Standard Drinks/Week Comments Yes 4 (1 standard drink = 0.6 oz pur e alcohol) [facility] Utilities Answer Date Recorded In the past 12 months has [employer], gas, oil, or water [employer] threatened to shut off services in your [...] any time in the past 12 m [facility], were you homeless or living in [...] Description 12/01/2024 2:30 PM EDT Office Visit [facility] [address] [facility] [address] [place] [address] Luisa Modi APRN 10 [place] [address] 12/28/2024 2:15 PM EDT Office Visit [facility] [place] [facility] at [address] [facility] [address] [place] [address] Juan Valdes MD [address] [place] [address] 02/13/2025 8:45 AM EST Office Visit [address] [phone] Luisa Modi APRN 10 [place], [place] 424572 05/24/2025 9:00 AM EDT Office Visit [address] [phone] Luisa Modi APRN [address] [place] [address] [phone] 08/23/2025 11:45 AM EDT Office Visit [address] [phone] Niels Benjamin MD [address] [address] documented as of this encounter Visit Diagnoses Not on filedocumented in this encounter Care Teams Kitchen Stewardess Relationship Specialty Start Date End Date Mekhi Leonard MD [address] [place] [address] PCP - General Family Medicine 07/27/24 Ofelia Forrest RN [address] [address] Oncology Nurse Navigator 05/27/24 documented as of this encounter
--- OUTSIDE RECORDS SUMMARY | 2024-11-30 14:44 | XMS_ITS | Encounter Summary ---
Author Organization [facility] Address [address] [place] [address] Care Team Providers Care Cap Lining Machine Operator Name Role Phone Carrier, Ofelia GRAF Unavailable Mekhi Leonard MD Primary Care Provider [phone] Reason for Visit * Reason Onset Date Comments Referral 09/01/2024 AC needs schedul ing . Encounter Details Date Type Department Care Team ([facility] Contact Info) Description 09/01/2024 Telephone [phone] [place] [address] Provider, External, [address] [place] [address] Referral (AC needs scheduling . ) Social History Tobacco Use Types Packs/Day Years Used Date Smoking Tobacco: Some Days Cigars Smokeless Tobacco: Never Comments:Occasional cigar Alcohol Use Standard Drinks/Week Comments Yes 4 (1 standard drink = 0.6 oz pur e alcohol) [facility] Utilities Answer Date Recorded In the past 12 months has [employer], gas, oil, or water [employer] threatened to shut off services in your [...] any time in the past 12 m [facility], were you homeless or living in a detention (including now)? No 08/25/2024 Sex and Gender [...] Description 12/01/2024 2:30 PM EDT [facility] Visit [facility] [address] [facility] [address] [place] [address] Luisa Modi APRN 10 [place] [address] 12/28/2024 2:15 PM EDT Office Visit [facility] [place] [facility] at [facility] 85 [facility] 216 [place] [address] Juan Valdes MD [address] [place] [address] 02/13/2025 8:45 AM EST Office Visit [address] [phone] Luisa Modi APRN [address] [place] [address] 05/24/2025 9:00 AM EDT Office Visit [address] [phone] Luisa Modi APRN [address] [place] [address] 08/23/2025 11:45 AM EDT Office Visit [address] [phone] Niels Benjamin MD [address] [address] documented as of this encounter Visit Diagnoses Not on filedocumented in this encounter Care Teams Cap Lining Machine Operator Relationship Specialty Start Date End Date Mekhi Leonard MD [address] [place] [address] PCP - General Family Medicine 07/27/24 Ofelia Forrest RN [address] [address] Oncology Nurse Navigator 05/27/24 documented as of this encounter
--- OUTSIDE RECORDS SUMMARY | 2024-11-30 14:44 | XMS_ITS | Encounter Summary ---
Author Organization [facility] Address [address] [place] [address] Care Team Providers Care Lawn Service Manager Name Role Phone Carrier, Ofelia GRAF Unavailable [phone] Mekhi Leonard MD Primary Care Provider [phone] Encounter Details Date Type Department Care Team (Late st Contact Info) Description 10/31/2024 Scanned Document [address] [address] Blas Mendez MD 85 [facility] Julien [address] [place] [address] Social History Tobacco Use Types Packs/Day Years Used Date Smoking Tobacco: Some Days Cigars Smokeless Tobacco: Never Comments:Occasional cigar Alcohol Use Standard Drinks/Week Comments Yes 4 (1 standard drink = 0.6 oz pur e alcohol) [facility] Utilities Answer Date Recorded In the past 12 months has [employer], gas, oil, or water [employer] threatened to shut off services in your [...] any time in the past 12 m [facility], were you homeless or living in a snf (including now)? No 08/25/2024 Sex and Gender [...] Description 12/01/2024 2:30 PM EDT Office Visit [facility] 10 [facility] [address] [place] [address] Luisa Modi APRN 10 [place] [address] 12/28/2024 2:15 PM EDT Office Visit [facility] [place] [facility] at [facility] 85 [facility] 216 [place] [address] Juan Valdes MD [address] [place], [place] [phone] 02/13/2025 8:45 AM EST Office Visit [address] [phone] Luisa Modi APRN [address] [place] [address] [phone] 05/24/2025 9:00 AM EDT Office Visit [address] [phone] Luisa Modi APRN [address] [place] [address] [phone] 08/23/2025 11:45 AM EDT Office Visit [address] [phone] Niels Benjamin MD [address] [address] documented as of this encounter Visit Diagnoses Not on filedocumented in this encounter Care Teams Lawn Service Manager Relationship Specialty Start Date End Date Mekhi Leonard MD [address] [place] [address] PCP - General Family Medicine 07/27/24 Ofelia Forrest RN [address] [address] Oncology Nurse Navigator 05/27/24 documented as of this encounter
--- OUTSIDE RECORDS SUMMARY | 2024-11-30 14:45 | XMS_ITS | Encounter Summary ---
Author Organization [facility] Address [address] [place] [address] Care Team Providers Care Mass Communications Instructor Name Role Phone Carrier, Ofelia GRAF Unavailable [phone] Mekhi Leonard MD Primary Care Provider + [phone] Reason for Visit * Reason Onset Date Comments Appointment 09/20/2024 Encounter Details Date Type Department Care Team ([facility] st Contact Info) Description 09/20/2024 Telephone [facility] [address] [place] [address] Niels Benjamin MD [address] [address] Appointment Social History Tobacco Use Types Packs/Day Years Used Date Smoking Tobacco: Some Days Cigars Smokeless Tobacco: Never Comments:Occasional cigar Alcohol Use Standard Drinks/Week Comments Yes 4 (1 standard drink = 0.6 oz pur e alcohol) [facility] Utilities Answer Date Recorded In the past 12 months has [employer], oil, or water [employer] threatened to shut off services in your [...] 12/01/2024 2:30 PM EDT Office Visit [facility] [address] [facility] [address] [place] [address] Luisa Modi APRN 10 [place] [address] 12/28/2024 2:15 PM EDT Office Visit [facility] [place] [facility] On[facility] at [address] [facility] [address] [place] [address] Juan Valdes MD [address] [place] [address] 02/13/2025 8:45 AM EST Office Visit [address] [phone] Luisa Modi APRN [address] [place] [address] 158232 05/24/2025 9:00 AM EDT Office Visit [address] [phone] Luisa Modi APRN [address] [place] [address] 08/23/2025 11:45 AM EDT Office Visit [address] [phone] Niels Benjamin MD [address] [address] documented as of this encounter Visit Diagnoses Not on filedocumented in this encounter Care Teams Mass Communications Instructor Relationship Specialty Start Date End Date Mekhi Leonard MD [address] [place] [address] PCP - General Family Medicine 07/27/24 Ofelia Forrest RN [address] [address] Oncology Nurse Navigator 05/27/24 documented as of this encounter
--- OUTSIDE RECORDS SUMMARY | 2024-11-30 14:45 | XMS_ITS | Encounter Summary ---
Author Organization [facility] Address [address] [place] [address] Care Team Providers Care Steam Blocker Name Role Phone Carrier, Ofelia GRAF Unavailable [phone] Mekhi Leonard MD Primary Care Provider + [phone] Encounter Details Date Type Department Care Team (Late st Contact Info) Description 11/23/2024 Scanned Document [facility] [address], [address] [place] [address] Unknown Unknow Provider Address Social History Tobacco Use Types Packs/Day Years Used Date Smoking Tobacco: Some Days Cigars Smokeless Tobacco: Never Comments:Occasional cigar Alcohol Use Standard Drinks/Week Comments Yes 4 (1 standard drink = 0.6 oz pur e alcohol) [facility] Utilities Answer Date Recorded In the past 12 months has [employer], gas, oil, or water company threatened [...] 12/01/2024 2:30 PM EDT Office Visit [facility] 10 [facility] [address] [place] [address] Luisa Modi APRN 10 [place] [address] 12/28/2024 2:15 PM EDT Office Visit [facility] [place] [facility] at [address] [phone] Juan [place] [address] 02/13/2025 8:45 AM EST Office Visit [address] [phone] Luisa Modi APRN [address] [place] [address] [phone] 05/24/2025 9:00 AM EDT Office Visit [address] [phone] Luisa Modi APRN [address] [place] [address] 810872 08/23/2025 11:45 AM EDT Office Visit [address] [phone] Niels Benjamin MD [address] [phone] documented as of this encounter Visit Diagnoses Not on filedocumented in this encounter Care Teams Steam Blocker Relationship Specialty Start Date End Date Mekhi Leonard MD [address] [place] [address] PCP - General Family Medicine 07/27/24 Ofelia Forrest RN [address] [address] Oncology Nurse Navigator 05/27/24 documented as of this encounter
--- OUTSIDE RECORDS SUMMARY | 2024-11-30 14:45 | XMS_ITS | Patient Health Record ---
Author Organization [facility] Address [address] [place] [address] Care Team Providers Care Manager Medicare Name Role Phone Barrera Scott MD Primary Care Provider Carloz Ritter Unavailable [phone] Allergies Allergen (clinical drug ingredient) Drug/Non Drug [...] X ray : Foot, right 3V 12/29/2016 85644-Bmkr Destruction, -14 12/29/2016 [id number]-Fhcq Destruction, -14 03/30/2017 97598-Yvaq Destruction, -14 04/20/2017 02537-Lzcn Destruction, -14 05/11/2017 39648-Vbny Destruction, 03-2206/15/2017 71034-Sspy Destruction, 03-2207/20/2017 07467-Ujrq Destruction, 03-2208/12/2017 91912-Gkgk Destruction, 03-2209/02/2017 26264-Nlao Destruction, 03-2210/01/2017 Insurance Providers Payer Name Payer Address Payer Phone Subscriber Number Group Number Insured Name Patient Relationship to Insured Coverage Start Date Coverage End Date [facility] [address] [address] [place] [id number] Lianna Brasher Spouse - patient is the [...]
--- OUTSIDE RECORDS SUMMARY | 2024-11-30 14:45 | XMS_ITS | Encounter Summary ---
Author Organization [facility] Address [address] [place] [address] Care Team Providers Care Rehab Physician Name Role Phone Carrier, Ofelia GRAF Unavailable Mekhi Leonard MD Primary Care Provider + [phone] Encounter Details Date Type Department Care Team (Late st Contact Info) Description 11/23/2024 Orders Only [facility] 80 [place] [address] Provider, External, 193 [place] [address] Social History Tobacco Use Types Packs/Day Years Used Date Smoking Tobacco: Some Days Cigars Smokeless Tobacco: Never Comments:Occasional cigar Alcohol Use Standard Drinks/Week Comments Yes 4 (1 standard drink = 0.6 oz pur e alcohol) [facility] Utilities Answer Date Recorded In the past 12 months has [employer], gas, oil, or water company threatened [...] any time in the past 12 m [facility], were you homeless or [...] Description 12/01/2024 2:30 PM EDT Office Visit [facility] [address] [facility] [address] [place] [address] Luisa Modi APRN 10 [place] [address] 12/28/2024 2:15 PM EDT Office Visit [facility] [place] at [address] [phone] Juan Valdes MD [address] [place] [address] 02/13/2025 8:45 AM EST Office Visit [address] [phone] Luisa Modi APRN [address] [place] [address] [phone] 05/24/2025 9:00 AM EDT Office Visit [address] [phone] Luisa Modi APRN [address] [place] [address] 08/23/2025 11:45 AM EDT Office Visit [address] [phone] Niels Benjamin MD [address] [phone] documented as of this encounter Procedures Procedure Name Priority Date/Time Associated Diagnosis Comments HX OUTSIDE ORDER Routine 11/22/2024 3:04 AM EDT documented in this encounter Results * OUTSIDE ORDER (11/22/2024 3:04 AM EDT) us External Provider MD LOREDO AMB PROCEDURES Final Res ult documented in this encounter Visit Diagnoses Not on filedocumented in this encounter Care Teams Rehab Physician Relationship Specialty Start Date End Date Mekhi Leonard MD [address] [place] [address] PCP - General Family Medicine 07/27/24 Ofelia Forrest RN [address] [phone] Oncology Nurse Navigator 05/27/24 documented as of this encounter
--- OUTSIDE RECORDS SUMMARY | 2024-11-30 14:45 | XMS_ITS | Encounter Summary ---
Author Organization [facility] Address [address] [place] [address] Care Team Providers Care Welder Pipe Making Name Role Phone Dc Carvalho MD Primary Care Provider [phone] Ofelia Forrest RN Unavailable [phone] Mekhi Leonard MD Primary Care Provider [phone] Encounter Details Date Type Department Care Team (Late st Contact Info) Description 05/26/2024 Scanned Document [address] [place] [address] Dc Carvalho MD [address] [address] Social History Tobacco Use Types Packs/Day Years Used Date Smoking Tobacco: Never Assessed [facility] Utilities Answer Date Recorded In [...] any time in the past 12 m [facility], were you homeless or living in a fpc (including now)? No 05/27/2024 Sex and Gender [...] Description 12/01/2024 2:30 PM EDT Office Visit [address] [phone] Luisa Modi APRN [address] [place] [address] 12/28/2024 2:15 PM EDT Office Visit [facility] [place] [facility] at [facility] [address] [phone] Juan Valeds MD [address] [place], [place] [address] 02/13/2025 8:45 AM EST Office Visit [address] [phone] Luisa Modi APRN [address] [place] [address] 05/24/2025 9:00 AM EDT Office Visit [facility] 10 [facility] 100 [place] [address] Luisa Modi APRN 10 [place], [place] 377182 08/23/2025 11:45 AM EDT Office Visit [address] [place] [phone] Niels Benjamin MD [address] [address] documented as of this encounter Visit Diagnoses Not on filedocumented in this encounter Care Teams Welder Pipe Making Relationship Specialty Start Date End Date Dc Carvalho MD [address] [place] [address] [address] [place] [address] PCP - General Urology 05/23/24 07/26/24 Mekhi Leonard MD 262 [facility] [place] [address] PCP - General Family Medicine 07/27/24 Ofelia Forrest RN [address] [address] Oncology Nurse Navigator 05/27/24 documented as of this encounter
--- OUTSIDE RECORDS SUMMARY | 2024-11-30 14:45 | XMS_ITS | Clinical Summary ---
Author Organization [facility] 299 [facility] Address [address] [place] [address] Phone Care Team Providers Care Employee Representative Name Role Phone Mekhi Leonard NP Primary [...] patient's age to complete this topic Insurance [place] [address] [address] Care Teams Employee Representative Relationship Specialty Start Date End Date Mekhi Leonard NP PCP - General Family Medicine 02/19/24
== END 2024-11-30 11:44 | disposition home or self-care (01) ==
LOC: HO.HMGAL 11:43
PROVIDERS: PCP Nurse Practitioner Family; Visit Provider Registered Nurse Emergency
DX: J30.89 Other allergic rhinitis (principal)
CPT/HCPCS: 95117; 95165

== ENCOUNTER 2024-12-26 09:01 | Outpatient (AMB) | payer BC, SELFPAY ==
--- OUTSIDE RECORDS SUMMARY | 2024-12-26 10:15 | XMS_ITS | Encounter Summary ---
Author Organization [facility] Address [address] [place] [address] Care Team Providers Care Highway Technician Name Role Phone Carrier, Ofelia GRAF Unavailable [phone] Mekhi Leonard MD Primary Care Provider + [phone] Reason for Visit * Reason Onset Date Comments Form Completion 11/03/2024 Encounter Details Date Type Department Care Team ([facility] st Contact Info) Description 11/03/2024 Telephone [facility] [address] [place] [phone] Niels Benjamin MD [address] [address] Form Completion Social History Tobacco Use Types Packs/Day Years Used Date Smoking Tobacco: Some Days Cigars Smokeless Tobacco: Never Comments:Occasional cigar Alcohol Use Standard Drinks/Week Comments Yes 4 (1 standard drink = 0.6 oz pur e alcohol) [facility] Utilities Answer Date Recorded In the past 12 months has [employer], gas, oil, or water [employer] threatened to shut off services in your [...] any time in the past 12 m [facility], were you homeless or living in a [...] Care Team (Late st Contact Info) Description 12/28/2024 2:15 PM EDT Office Visit [facility] [place] [facility] 85 [facility] [address] [place] [phone] Juan Valdes MD 85 [place] [address] 01/02/2025 1:00 PM EDT Office Visit [facility] [address] [place] [address] Parul Hanson MD [address] [place] [address] [address] [place] [address] 02/06/2025 2:45 PM EST Office Visit [facility] 100 [place] [address] Blas Mendez MD [address] [place] [address] 02/13/2025 8:45 AM EST Office Visit [place] [phone] Luisa Modi APRN [address] [place] [address] 05/24/2025 9:00 AM EDT Office Visit [place] [phone] Luisa Modi APRN [address] [place] [address] 08/23/2025 11:45 AM EDT Office Visit [place] [phone] Niels Benjamin MD [address] [place] [address] [phone] documented as of this encounter Visit Diagnoses Not on filedocumented in this encounter Care Teams Highway Technician Relationship Specialty Start Date End Date Mekhi Leonard MD [address] [place] [address] PCP - General Family Medicine 07/27/24 Ofelia Forrest RN [address] [place] [address] Oncology Nurse Navigator 05/27/24 documented as of this encounter
--- OUTSIDE RECORDS SUMMARY | 2024-12-26 10:15 | XMS_ITS | Encounter Summary ---
Author Organization Formerly [facility] Address [address] [place] [address] Care Team Providers Care Internal Combustion Engineer Name Role Phone Carrier, Ofelia GRAF Unavailable [phone] Mekhi Leonard MD Primary Care Provider [phone] Encounter Details Date Type Department Care Team (Late st Contact Info) Description 10/31/2024 Scanned Document [address] [address] Blas Mendez MD 85 [facility] Julien [address] [place] [address] Social History Tobacco Use Types Packs/Day Years Used Date Smoking Tobacco: Some Days Cigars Smokeless Tobacco: Never Comments:Occasional cigar Alcohol Use Standard Drinks/Week Comments Yes 4 (1 standard drink = 0.6 oz pur e alcohol) [facility] Utilities Answer Date Recorded In the past 12 months has [employer], gas, oil, or water [employer] threatened to shut off services in your [...] any time in the past 12 m [facility], were you homeless or living in a custodial (including now)? No 08/25/2024 Sex and Gender [...] Description 12/28/2024 2:15 PM EDT Office Visit [facility] [place] [facility] 85 [facility] [address] [place] [phone] Juan Valdes MD [address] [place] [address] 01/02/2025 1:00 PM EDT [facility] Visit [facility] [address], [address] [place] [address] Parul Hanson MD [address] [place] [address] [address] [place], [place] [address] 02/06/2025 2:45 PM EST Office Visit [facility] [address] [place] [address] Blas Mendez MD [address] [address] 02/13/2025 8:45 AM EST Office Visit [address] [phone] Luisa Modi APRN [address] [place] [address] 05/24/2025 9:00 AM EDT Office Visit [address] [phone] Luisa Modi APRN [address] [place] [address] 08/23/2025 11:45 AM EDT Office Visit [address] [phone] Niels Benjamin MD [address] [place] [address] documented as of this encounter Visit Diagnoses Not on filedocumented in this encounter Care Teams Internal Combustion Engineer Relationship Specialty Start Date End Date Mekhi Leonard MD [address] [place] [address] PCP - General Family Medicine 07/27/24 Ofelia Forrest RN [address] [place] [address] Oncology Nurse Navigator 05/27/24 documented as of this encounter
--- OUTSIDE RECORDS SUMMARY | 2024-12-26 10:15 | XMS_ITS | Encounter Summary ---
Author Organization [facility] Address [address] [place] [address] Care Team Providers Care Pulmonary Physical Therapist Name Role Phone Carrier, Ofelia GRAF Unavailable Mekhi Leonard MD Primary Care Provider [phone] Reason for Visit * Reason Onset Date Comments Referral 09/01/2024 AC needs schedul ing . Encounter Details Date Type Department Care Team ([facility] Contact Info) Description 09/01/2024 Telephone [place] [id number] [place] [address] Provider, External, [address] [place] [address] Referral (AC needs scheduling . ) Social History Tobacco Use Types Packs/Day Years Used Date Smoking Tobacco: Some Days Cigars Smokeless Tobacco: Never Comments:Occasional cigar Alcohol Use Standard Drinks/Week Comments Yes 4 (1 standard drink = 0.6 oz pur e alcohol) [facility] Utilities Answer Date Recorded In the past 12 months has [employer], gas, oil, or water [employer] threatened to shut off services in your [...] any time in the past 12 m [facility], were you homeless or living [...] Description 12/28/2024 2:15 PM EDT Office Visit [facility] [place] [facility] 85 [facility] 216 [place] [address] Juan Valdes MD [address] [place] [address] 01/02/2025 1:00 PM EDT [facility] [address] [phone] Parul Hanson MD [address] [place] [address] 02/06/2025 2:45 PM EST Office Visit [address] [address] Blas Mednez MD [address] [place] [address] 02/13/2025 8:45 AM EST Office Visit [place] [phone] Luisa Modi APRN [address] [place], [place] [phone] 05/24/2025 9:00 AM EDT Office Visit [place] [phone] Luisa Modi APRN [address] [place] [address] 08/23/2025 11:45 AM EDT Office Visit [place] [phone] Niels Benjamin MD [address] [place] [address] [phone] documented as of this encounter Visit Diagnoses Not on filedocumented in this encounter Care Teams Pulmonary Physical Therapist Relationship Specialty Start Date End Date Mekhi Leonard MD [address] [place] [address] PCP - General Family Medicine 07/27/24 Ofelia Forrest RN [address] [place] [address] Oncology Nurse Navigator 05/27/24 documented as of this encounter
--- OUTSIDE RECORDS SUMMARY | 2024-12-26 10:16 | XMS_ITS | Encounter Summary ---
Author Organization [facility] Address [address] [place] [address] Care Team Providers Care Welfare Service Aide Name Role Phone Dc Carvalho MD Primary Care Provider [phone] Ofelia Forrest RN Unavailable [phone] Mekhi Leonard MD Primary Care Provider [phone] Encounter Details Date Type Department Care Team (Late st Contact Info) Description 05/26/2024 Scanned Document [address] [place] [phone] Dc Carvalho MD 100 [facility] 240 [place] [address] Social History Tobacco Use Types Packs/Day Years Used Date Smoking Tobacco: Never Assessed [facility] Utilities Answer Date Recorded In the [...] any time in the past 12 m [facility], were you homeless or living in [...] [facility] [place] [facility] at [address] [place] [address] Juan Valdes MD [address] [place] [address] 01/02/2025 1:00 PM EDT [facility] Visit [facility] [address], [address] [place] [address] Parul Hanson MD 195 [facility] 201 [place], [place] [address] 02/06/2025 2:45 PM EST Office Visit [address] [phone] Blas Mendez MD [address] [address] 02/13/2025 8:45 AM EST Office Visit [address] [phone] Luisa Modi CASTING TESTER [address] [place] [address] 05/24/2025 9:00 AM EDT Office Visit [address] [phone] Luisa Modi CASTING TESTER [address] [place] [address] 08/23/2025 11:45 AM EDT Office Visit [address] [phone] Niels Benjamin MD [address] [address] documented as of this encounter Visit Diagnoses Not on filedocumented in this encounter Care Teams Welfare Service Aide Relationship Specialty Start Date End Date Dc Carvalho MD [address] [place] [address] [place]uz [address] PCP - General Urology 05/23/24 07/26/24 Mekhi Leonard MD 262 [facility] [place] [address] PCP - General Family Medicine 07/27/24 Ofelia Forrest RN [address] [address] Oncology Nurse Navigator 05/27/24 documented as of this encounter
--- OUTSIDE RECORDS SUMMARY | 2024-12-26 10:16 | XMS_ITS | Encounter Summary ---
Author Organization [facility] Address [address] [place] [address] Care Team Providers Care Bender Machine Name Role Phone Carrier, Ofelia GRAF Unavailable [phone] Mekhi Leonard MD Primary Care Provider [phone] Reason for Visit * Reason Onset Date Comments Appointment 09/20/2024 Encounter Details Date Type Department Care Team ([facility] st Contact Info) Description 09/20/2024 Telephone [facility] [address] [place] [phone] Niels Benjamin MD [address] [address] Appointment Social History Tobacco Use Types Packs/Day Years Used Date Smoking Tobacco: Some Days Cigars Smokeless Tobacco: Never Comments:Occasional cigar Alcohol Use Standard Drinks/Week Comments Yes 4 (1 standard drink = 0.6 oz pur e alcohol) [facility] Utilities Answer Date Recorded In the past 12 months has [employer], [employer], oil, or water [employer] threatened to shut off services in your [...] Description 12/28/2024 2:15 PM EDT Office Visit [facility] [place] [facility] 85 [facility] 216 [place] [address] Juan Valdes MD [address] [place] [address] 01/02/2025 1:00 PM EDT [facility] Visit [facility] [address], [address] [place] [address] Parul [place]on MD 195 [facility] 201 [place] [address] 02/06/2025 2:45 PM EST Office Visit [facility] 100 [place] [address] Blas Mendez MD [address] [address] 02/13/2025 8:45 AM EST Office Visit [address] [phone] Luisa Modi APRN [address] [place] [address] 05/24/2025 9:00 AM EDT Office Visit [address] [phone] Luisa Modi APRN [address] [place] [address] 08/23/2025 11:45 AM EDT Office Visit [address] [phone] Niels Benjamin MD [address] [place] [phone] documented as of this encounter Visit Diagnoses Not on filedocumented in this encounter Care Teams Bender Machine Relationship Specialty Start Date End Date Mekhi Leonard MD [address] [place] [address] PCP - General Family Medicine 07/27/24 Ofelia Forrest RN [address] [place] [address] Oncology Nurse Navigator 05/27/24 documented as of this encounter
--- OUTSIDE RECORDS SUMMARY | 2024-12-26 10:16 | XMS_ITS | Encounter Summary ---
Author Organization [facility] Address [address] [place] [address] Care Team Providers Care Service Cleaner Name Role Phone Carrier, Ofelia GRAF Unavailable [phone] Mekhi Leonard MD Primary Care Provider [phone] Encounter Details Date Type Department Care Team (Late st Contact Info) Description 11/23/2024 Scanned Document [facility] [address], [address] [place] [address] Unknown Unknow Provider Address Social History Tobacco Use Types Packs/Day Years Used Date Smoking Tobacco: Some Days Cigars Smokeless Tobacco: Never Comments:Occasional cigar Alcohol Use Standard Drinks/Week Comments Yes 4 (1 standard drink = 0.6 oz pur e alcohol) [facility] Utilities Answer Date Recorded In the past 12 months has [employer], gas, oil, or water company threatened [...] time in the past 12 m [facility], were you homeless or living in a [...] Description 12/28/2024 2:15 PM EDT Office Visit [facility] [place] [facility] at 85 [facility] [address] [place] [address] Juan Valdes MD [address] [place] [address] 01/02/2025 1:00 PM EDT Office Visit [facility] [place] 195 [facility], [address] [place] [address] Parul Hanson MD 195 [facility] 201 [place], [place] [address] [phone] 02/06/2025 2:45 PM EST Office Visit [facility] 100 [place] [address] Blas Mendez MD [address] [place] [address] 02/13/2025 8:45 AM EST Office Visit [address] [phone] Luisa Modi APRN [address] [place] [address] 05/24/2025 9:00 AM EDT Office Visit [address] [phone] Liusa Modi APRN [address] [place] [address] 08/23/2025 11:45 AM EDT Office Visit [address] [phone] Niels Benjamin MD [address] [place] [address] documented as of this encounter Visit Diagnoses Not on filedocumented in this encounter Care Teams Service Cleaner Relationship Specialty Start Date End Date Mekhi Leonard MD [address] [place] [address] PCP - General Family Medicine 07/27/24 Ofelia Forrest RN [address] [address] Oncology Nurse Navigator 05/27/24 documented as of this encounter
--- OUTSIDE RECORDS SUMMARY | 2024-12-26 10:16 | XMS_ITS | Clinical Summary ---
Author Organization [facility] Address [address] [place] [address] Care Team Providers Care Labor And Employment Paralegal Name Role Phone Carrier, Ofelia GRAF Unavailable [phone] Susanne Burrows MD Primary Care Provider [phone] Allergies Active Allergy Reactions Criticality Noted Date [...] tablet (5 mg total). 11/07/19 25 Active predniSONE (DELTASONE) 10 MG tabletIndications [...] Thursday. 12 tablet 5 11/15/19 25 Active naproxen sodium (ALEVE) 220 mg tablet Take 2 tablets (440 mg total) by mouth daily. Take with meals or food to reduce stomach upset. Active oxyCODONE (ROXICODONE) 10 mg immediate release tablet 1 tablet (10 mg total). 11/11/19 25 025 Discontin ued(Thera py completed ) Active Problems Problem Noted Date Diagnosed Date [...] Patient to follow up with PCP or software support representative for continued management of hypothyroidism as previously directed. Oral herpes 07/27/2024 Obesity (BMI 30-39.9) 07/27/2024 Assessment & Plan (07/27/2024 8:21 AM EDT): Diet, exercise and lifestyle modifications. Secondary hypertension 07/27/2024 Assessment & Plan (07/27/2024 8:31 AM EDT): Managed with diet and lifestyle modifications. Continue plan as previously directed by your provider. Prostate cancer 07/13/2024 Encounters Date Type Department Care Team Description 12/01/2024 2:30 PM EDT Office Visit [facility] [address] [facility] [address] [place] [phone] Luisa Modi APRN History of prostate cancer (Primary Dx); Erectile dysfunction after radical prostatectomy; Stress incontinence of urine 12/01/2024 Travel 12/01/2024 Telephone [facility] [address] [place] [address] Blas Mendez MD 11/23/2024 Scanned Document [facility], [address], [address] [place] [address] Unknown 11/23/2024 Orders Only OP SPECIMEN LAB [address] [place] [address] Sara Stubbs MD 11/22/2024 10:05 AM EDT - 11/22/2024 11:59 PM EDT Hospital Encounter HH OP SPECIMEN LAB [address] [place] [address] Juan Valdes MD Discharge Disposition: Home or Self Care 11/22/2024 9:45 AM EDT Consult [facility] Medical Oncology at [address] [address] Juan Valdes MD Sarcoidosis (Primary Dx) 11/22/2024 Travel 11/17/2024 Orders Only PULMONARY SVC IP [address] [place] [phone] Blas Mendez MD Sarcoidosis (Primary Dx) 11/14/2024 11:45 AM EDT Office Visit [facility] [address] [place] [phone] Blas Mendez MD Sarcoidosis (Primary Dx); Pulmonary embolism without acute cor pulmonale, unspecified chronicity, unspecified pulmonary embolism type (HCC); Prostate cancer (HCC) 11/14/2024 Travel 11/03/2024 11:30 AM EDT - 11/03/2024 12:35 PM EDT Surgery [facility] [address] [place] [phone] Tyree Rodas, CT Bone Biopsy-Deep N/A 11/03/2024 10:17 AM EDT - 11/03/2024 3:21 PM EDT Hospital Encounter [facility] [address] [place] [address] Emerson Liu MD Abnormal PET scan, lung Discharge Disposition: Home or Self Care 11/03/2024 Documentation [facility]rologic Surgery [place] [address] [facility] [address] [place] [address] Niels Benjamin MD 11/03/2024 Travel 11/03/2024 Telephone [facility] [address] [facility] [place] [address] Niels Benjamin MD Form Completion 11/03/2024 Transcribe Orders [facility] [place] [address] [facility] [address] [place] [address] Susanne Burrows MD Other nonspecific abnormal finding of lung field (Primary Dx); Metastatic malignant neoplasm, unspecified site (HCC) 11/02/2024 Scanned Document [facility] [place] [facility] at [address] [place] [address] Juan Valdes MD 10/31/2024 Telephone [facility] [address] [place] [address] Niels Benjamin MD Other 10/31/2024 Scanned Document [facility] [place] [address] [facility] [address] [place] [address] Blas Mendez MD 10/21/2024 Orders Only [facility] Pulmonary [address] [place] [phone] Blas Mendez MD Abnormal PET scan of lung 10/21/2024 Telephone [facility] [place] [address] [place] [address] Ave [address] [place] [phone] Blas Mendez MD 10/20/2024 8:03 AM EDT - 10/20/2024 11:59 PM EDT Hospital Encounter [facility] [address] [facility] [place] [address] Blas Mendez MD Discharge Disposition: Home or Self Care 10/20/2024 7:18 AM EDT - 10/20/2024 8:02 AM EDT Hospital Encounter [facility] [address] [place] [address] Blas Mendez MD Pulmonary embolism without acute cor pulmonale, unspecified chronicity, unspecified pulmonary embolism type (HCC); Mediastinal lymphadenopathy; Pulmonary nodule Discharge Disposition: Home or Self Care 10/05/2024 Orders Only [facility] [place] [address] [facility] [address] [place] [address] Blas Mendez MD Pulmonary embolism without acute cor pulmonale, unspecified chronicity, unspecified pulmonary embolism type (HCC) (Primary Dx); Mediastinal lymphadenopathy; Pulmonary nodule from Last 3 Months Family History Medical History Relation Name Comments Cancer, Prostate Father 59 AUDIO VISUAL COLLECTIONS COORDINATOR Cancer, Prostate Paternal Uncle community relations police lieutenant Cancer, Bladder Neg Hx Cancer, Kidney Neg [...] e alcohol) [facility] Utilities Answer Date Recorded In the past 12 months has [employer], gas, oil, or water [employer] threatened to shut off services in your [...] any time in the past 12 m [facility], were you homeless or living [...] EDT Inhaled Oxygen Concentration - - Weight 117 kg (258 lb) 12/01/2024 2:22 PM EDT Height 190.5 cm (6' 3 ) 12/01/2024 2:22 PM EDT Body Mass Index 32.25 12/01/2024 2:22 PM EDT Plan of Treatment Upcoming Encounters Date Type Department Care Team (Late st Contact Info) Description 12/28/2024 2:15 PM EDT Office Visit [facility] Medical Oncology at [facility] [address] [facility] [address] [place] [address] Juan Valdes MD [address] [place] [address] 01/02/2025 1:00 PM EDT Office Visit [facility], [address] [place] [address] Parul Hanson MD [address] [place] [address] 02/06/2025 2:45 PM EST Office Visit [address] [phone] Blas Mendez MD [address] [place] [phone] 02/13/2025 8:45 AM EST Office Visit [address] [phone] Luisa Modi APRN [address] [place] [address] 05/24/2025 9:00 AM EDT Office Visit [address] [phone] Luisa Modi APRN [address] [place] [address] 08/23/2025 11:45 AM EDT Office Visit [address] [phone] Niels Benjamin MD [address] [place] [phone] Health Maintenance Due Date Last Done Comments Hepatitis C Virus Screening 1965 COVID-19 Vaccine (#1) 1970 HIV Screening 1978 DTaP/Tdap/Td Vaccines (1 - Tdap) 1984 Hepatitis B Vaccines (1 of 3 - 19+ 3-dose series) 07/08 Pneumococcal Vaccines 50+ (1 of 2 - PCV) 1984 Zoster (Shingles) Vaccine (1 of 2) 1984 Colonoscopy 2010 RSV Vaccine 50 years and old er and Patients (1 - Risk 50-74 years 1-dose series) 08/04/2015 Influenza Vaccine 10/07/2024 Procedures Procedure Name Priority [...] Count (Oncology) (11/22/2024 10:05 AM EDT) Pathologist [facility] White Blood Cell Count 6.9 4.0 - 11.0 Thou/uL 11/22/2024 10:28 AM EDT [facility] Red Blood Cell Count 5.28 4.50 - 6.20 Mil/uL 11/22/2024 10:28 AM EDT [facility] Hemoglobin 15.5 13.0 - 17.7 g/dL 11/22/2024 10:28 AM EDT [facility] Hematocrit 46.9 39.0 - 54.0 % 11/22/2024 10:28 AM EDT [facility] MCV 89 80 - 100 fL 11/22/2024 10:28 AM EDT [facility] MCH 29.4 27.0 - 31.0 pg 11/22/2024 10:28 AM EDT [facility] MCHC 33.0 30.0 - 36.0 g/dL 11/22/2024 10:28 AM EDT [facility] RDW 13.3 11.5 - 14.5 % 11/22/2024 10:28 AM EDT [facility] Platelet Count 212 150 - 450 Thou/uL 11/22/2024 10:28 AM EDT [facility] MPV 8.3 7.5 - 12.5 fL 11/22/2024 10:28 AM EDT [facility] Neutrophils Auto 75.6 % 11/23/19 10:28 AM EDT [facility] Abs Neutrophils Auto 5.20 2.00 - 7.50 Thou/uL 11/22/2024 10:28 AM EDT [facility] Lymphocytes Auto 14.4 % 11/23/19 10:28 AM EDT [facility] Abs Lymphocytes Auto 1.00(L) 1.50 - 4.50 Thou/uL 11/22/2024 10:28 AM EDT [facility] Mixed Mononuclear Auto 10.0 % 11/22/2024 10:28 AM EDT [facility] Abs Mixed Mononuclear Auto <1.00 0.20 - 1.90 Thou/uL 11/22/2024 10:28 AM EDT [facility] Blood Blood specimen / Unknown 11/22/2024 10:05 AM EDT 11/22/2024 10:28 AM EDT uJan Valdes MD POCT ORDERABLES - ONCOLOGY F inal Result [address] [address], [address] * Flow Cytometry Report (11/22/2024 10:05 AM EDT) Report [facility] [id number] CLIA ID [id number] [address] [place] [address] / [phone] Hematopathology Report PATIENT NAME: MISHA STEWARD [facility] REC NUMBER: [id number] (AGE): 1965 (Age: 59) SPECIMEN NUMBER: [id number] DATE OBTAINED: 11/22/2024 DIAGNOSIS PERIPHERAL BLOOD (FLOW CYTOMETRY): NO MONOCLONAL B-CELL POPULATION IDENTIFIED. SEE COMMENT. pxs/11/28/2024 Electronically Signed Out KYRA YOON MD COMMENT By flow cytometry, most of the lymphocytes are T cells, without specific qualitative phenotypic abnormalities, including CD4+ and CD8+ subsets. B cells comprise a mixture of kappa- and lambda-bearing cells, without evidence of light chain restriction. CD34+ blasts comprise <0.1% of the WBCs. [id number] Clinical Information and History: D86.9 (Sarcoidosis, unspecified) [...] determined by the [facility]. It has not been cleared or [...] AM EDT) PSA, Post Prostatectomy <0.02 ng/mL [facility] Comment: PSA values obtained with different assay methods or kits cannot be used interchangeably. This test was performed using the Homar Webster DxI method. PSA, ICMA is not to [...] ORDERABLES Fin al Result Performing Organization Address [facility]/ZIP Co de Phone Number [employer] [address] [place] [phone] * Erythrocyte Sediment Rate (ESR) (11/14/2024 12:57 PM EDT) Pathologist [facility] Erythrocyte Sediment Rate (ESR) 2 < OR = 20 mm/h [employer] [facility] Blood Blood specimen / Unknown 11/14/2024 12:57 PM EDT 11/14/2024 12:58 PM EDT Narrative [facility] - 11/17/2024 5:58 AM EDT FASTING:NO FASTING: NO us Blas Mendez MD LAB BLOOD ORDERABLES Final Result Performing Organization Address [facility]/ZIP Co de Phone Number [employer] [address] [place] [address] * Angiotensin Converting Enzyme, Serum (11/14/2024 12:57 PM EDT) Angiotensin-1 Converting Enzyme 66 9 - 67 U/L [facility] Blood Blood specimen / Unknown 11/14/2024 12:57 PM EDT 11/14/2024 12:58 PM EDT Narrative [facility] - 11/17/2024 5:58 AM EDT FASTING:NO FASTING: NO Blas Mendez MD LAB BLOOD ORDERABLES Final Result [facility] [address] [place] [address] * C-Reactive Protein (11/14/2024 12:57 PM EDT) C-Reactive Protein <3.0 <8.0 mg/L [employer] Blood Blood specimen / Unknown 11/14/2024 12:57 PM EDT 11/14/2024 12:58 PM EDT Narrative [facility] - 11/17/2024 5:58 AM EDT FASTING:NO FASTING: NO Blas Mendez MD LAB BLOOD ORDERABLES Final Result Performing Organization Address City/[facility] Co de Phone Number [employer] [address] [place] [phone] * CT BONE BIOPSY-DEEP N/A (11/03/2024 2:43 [...] * Pathology (11/03/2024 12:00 AM EDT) Report [facility] [id number] CLIA ID [id number] [address] [place] [address] [phone] Surgical Pathology Report PATIENT NAME: MISHA STEWARD REC NUMBER: [id number] (AGE): 1965 (Age: 59) SPECIMEN NUMBER: [id number] DATE OBTAINED: 11/03/2024 DIAGNOSIS BONE, L2 VERTEBRAL BODY, CORE BIOPSY: BONE WITH TRILINEAGE MARROW ELEMENTS, FIBRIN AND MARKED CRUSH ARTIFACT; NO VIABLE METASTATIC CARCINOMA IDENTIFIED; SEE COMMENT. ga/11/08/2024 Electronically Signed Out BRUCE FISH MD COMMENT The bone shows marrow elements in the background of fibrin and crush artifact. CKAE1/AE3, PSAP, PSA, and NKX3.1 immunostains reveal no carcinoma. CD138 highlights a few plasma cells (with no evidence of plasma cell neoplasm). Both blocks are cut down with multiple levels examined. There is no viable tumor identified. 81506, 515[address], [address], 93736 x 4 The tests used in the work-up of this specimen may include Analyte-Specific Reagents (ASRs). The Immunopathology/Mor phologic [facility] at [facility] have established the performance characteristics of [...] and submitted in toto in cassette A2. [address] LAB 11/03/2024 11/04/2024 7:1 4 AM EDT Comment:L2 VERTEBRAL BODY 13 GA BONE CORE Blas Mendez MD PATHOLOGY/CYTOLOGY ORDERABL ES Final Result HOSPITAL LAB See Below * PT/PTT (INCLUDES INR) (11/01/2024 1:41 PM EDT) Partial Thromboplastin Time (PTT) 29 23 - 32 sec [employer] Comment: This test has not been validated for monitoring unfractionated heparin therapy. For testing that is validated for this type of therapy, please refer to the Heparin Anti-Xa assay (test code 18967). For additional information, please refer to http://education.[employer]/faq/KSL637 (This link is being provided for informational/educational purposes only.) INR 1.0 [employer] Comment: Reference Range 0.9-1.1 Moderate-intensity Warfarin Therapy 2.0-3.0 Higher-intensity Warfarin Therapy 3.0-4.0 Prothrombin Time (PT) 11.1 9.0 - 11.5 sec [facility] [employer] Blood Blood specimen / Unknown 11/01/2024 1:41 PM EDT 11/01/2024 1:43 PM EDT Narrative [employer] - 11/02/2024 7:52 AM EDT FASTING:NO FASTING: NO Blas Mendez MD LAB BLOOD ORDERABLES Final Result [employer] [address] [place] [phone] * (ABNORMAL) COMPLETE BLOOD COUNT, WITHOUT DIFFERENTIAL (11/01/2024 1:41 PM EDT) Pathologist [facility] White Blood Cell Count 5.0 3.8 - 10.8 Thousand/ uL [employer] [facility] Red Blood Cell Count 5.57 4.20 - 5.80 Million/u L [facility] [facility] Hemoglobin 17.0 13.2 - 17.1 g/dL [facility] [facility] Hematocrit 52.1(H) 38.5 - 50.0 % [facility] [facility] MCV 93.5 80.0 - 100.0 fL [employer] MCH 30.5 27.0 - 33.0 pg [facility] MCHC 32.6 32.0 - 36.0 g/dL [facility] [facility] Comment: For adults, a slight decrease in the calculated MCHC value (in the range of 30 to 32 g/dL) is most likely not clinically significant; however, it should be interpreted with caution in correlation with other red cell parameters and the patient's clinical condition. RDW 13.1 11.0 - 15.0 % [facility] [employer] Platelet Count 202 140 - 400 Thousand/ uL [employer] MPV 9.6 7.5 - 12.5 fL [employer] Blood Blood specimen / Unknown 11/01/2024 1:41 PM EDT 11/01/2024 1:43 PM EDT Narrative [employer] - 11/02/2024 7:52 AM EDT FASTING:NO FASTING: NO us Blas Mendez MD LAB BLOOD ORDERABLES Final Result [employer] [address] [place] [phone] * PET/CT F18 FDG Skull to Mid [...] correlation and follow-up accordingly. Blas Salinas MD Learning Support Teacher I personally reviewed the images and the [...] correlation and follow-up accordingly. Blas Salinas MD Learning Support Teacher I personally reviewed the images and the [...] referring your patient to us, [facility] [phone] (Electronically Signed - 09/27/2024 15:51) Copy: SUSANNE BURROWS NP [facility] [address] [place] [address] Narrative 09/27/2024 3:51 PM EDT EXAMINATION: CT [...] referring your patient to us, [facility] [phone] (Electronically Signed - 09/27/2024 15:51) Copy: SUSANNE BURROWS SALES REPRESENTATIVE [employer] [facility] [address] [place] [address] [address] M[address] IMG [address] ORDERABLES Final Res ult from Last 3 Months Insurance BLUE CROSS OUT OF [facility] [place]UE CROSS [place] OF [facility] [place] * Full Code (Latest Code Status on File) Date Activated Date Inactivated Comments 08/24/2024 2:28 PM 11/03/2024 10:17 AM * Full Code Date Activated Date Inactivated Comments 08/16/2024 7:09 PM 08/24/2024 9:59 AM * Full Code Date Activated Date Inactivated Comments 08/16/2024 9:37 AM 08/16/2024 7:09 PM Care Teams Labor And Employment Paralegal Relationship Specialty Start Date End Date Susanne Burrows MD [address] [place] [address] PCP - General Family Medicine 07/27/24 Ofelia Forrest RN [address] [place] [address] Oncology Nurse Navigator 05/27/24
--- OUTSIDE RECORDS SUMMARY | 2024-12-26 10:16 | XMS_ITS | Encounter Summary ---
Author Organization [facility] Address [address] [place] [address] Care Team Providers Care Bleacher Sulfite Pulp Name Role Phone Carrier, Ofelia GRAF Unavailable [phone] Mekhi Leonard MD Primary Care Provider Encounter Details Date Type Department Care Team (Late st Contact Info) Description 11/02/2024 Scanned Document [facility] Cancer [place] [facility] at [address] [address] Juan Valdes MD [address] [place] [address] [phone] Social History Tobacco Use Types Packs/Day Years Used Date Smoking Tobacco: Some Days Cigars Smokeless Tobacco: Never Comments:Occasional cigar Alcohol Use Standard Drinks/Week Comments Yes 4 (1 standard drink = 0.6 oz pur e alcohol) [facility] Utilities Answer Date Recorded In the past 12 months has [employer], gas, oil, or water [employer] threatened to shut off services in your [...] any time in the past 12 m [facility], were you homeless or [...] Description 12/28/2024 2:15 PM EDT Office Visit [facility] [place] [facility] at [facility] [address] [facility] [address] [place] [phone] Juan Valdes MD [address] [place] [address] 01/02/2025 1:00 PM EDT Office Visit [facility] [address], [address] [place] [address] Parul Hanson MD [address] [place] [address] 201 [place], [place] [address] 02/06/2025 2:45 PM EST Office Visit [facility] [address] [place] [address] Blas Mendez MD [address] [address] 02/13/2025 8:45 AM EST Office Visit [address] [phone] Luisa Modi APRN [address] [place] [phone] 05/24/2025 9:00 AM EDT Office Visit [address] [phone] Luisa Modi APRN [address] [place] [address] 08/23/2025 11:45 AM EDT Office Visit [address] [phone] Niels Benjamin MD [address] [place] [address] documented as of this encounter Visit Diagnoses Not on filedocumented in this encounter Care Teams Bleacher Sulfite Pulp Relationship Specialty Start Date End Date Mekhi Leonard MD [address] [place] [address] PCP - General Family Medicine 07/27/24 Ofelia Forrest RN [address] [place] [address] Oncology Nurse Navigator 05/27/24 documented as of this encounter
== END 2024-12-26 09:08 | disposition home or self-care (01) ==
LOC: HO.HMGAL 09:01
PROVIDERS: PCP Nurse Practitioner Family; Visit Provider Registered Nurse Emergency
DX: J30.89 Other allergic rhinitis (principal)
CPT/HCPCS: 95117; 95165

== ENCOUNTER 2025-01-02 11:42 | Outpatient (AMB) | payer BC, SELFPAY ==
--- OUTSIDE RECORDS SUMMARY | 2025-01-02 15:03 | XMS_ITS | Encounter Summary ---
Author Organization [facility] Address [address] [place] [address] Care Team Providers Care Sand Cutter Operator Name Role Phone Carrier, Ofelia GRAF Unavailable Mekhi Leonard MD Primary Care Provider [phone] Reason for Visit * Reason Onset Date Comments Referral 09/01/2024 AC needs schedul ing . Encounter Details Date Type Department Care Team ([facility] [place] Contact Info) Description 09/01/2024 Telephone [place] [phone] [place] [address] Provider, External, [address] [place] [address] Referral (AC needs scheduling . ) Social History Tobacco Use Types Packs/Day Years Used Date Smoking Tobacco: Some Days Cigars Smokeless Tobacco: Never Comments:Occasional cigar Alcohol Use Standard Drinks/Week Comments Yes 4 (1 standard drink = 0.6 oz pur e alcohol) [facility] Utilities Answer Date Recorded In the past 12 months has [employer], gas, oil, or water [employer] threatened to shut off services in your [...] the past 12 m [facility], were you homeless or living in a care home (including now)? No 08/25/2024 Sex and Gender Information Value Date Recorded Sex Assigned at Male 05/27/2024 7:26 PM EDT Legal Sex Male 6:10 PM EST Gender Identity Male 05/27/2024 7:27 PM EDT Sexual Orientation Heterosexual (straight) 08/16 9:23 AM EDT documented as of this encounter Plan of Treatment Upcoming Encounters Date Type Department Care Team (Late st Contact Info) Description 01/30/2025 2:00 PM EST [facility] [address], [address] [place] [address] Parul Hanson MD [address] [facility] [address] [place] [phone] 02/06/2025 2:45 PM EST Office Visit [address] [address] Blas Mendez MD [address] [place] [phone] 02/13/2025 8:45 AM EST Office Visit [address] [phone] Luisa Modi APRN [address] [place] [address] 05/24/2025 9:00 AM EDT Office Visit [address] [phone] Luisa Modi APRN [address] [place] [address] 08/23/2025 11:45 AM EDT Office Visit [address] [phone] Niels Benjamin MD [address] [place] [address] documented as of this encounter Visit Diagnoses Not on filedocumented in this encounter Care Teams Sand Cutter Operator Relationship Specialty Start Date End Date Mekhi Leonard MD [address] [place] [address] PCP - General Family Medicine 07/27/24 Ofelia Forrest RN [address] [address] Oncology Nurse Navigator 05/27/24 documented as of this encounter
--- OUTSIDE RECORDS SUMMARY | 2025-01-02 15:03 | XMS_ITS | Encounter Summary ---
Author Organization [facility] Address [address] [place] [address] Care Team Providers Care Tractor Mechanic Helper Name Role Phone Carrier, Ofelia GRAF Unavailable [phone] Mekhi Leonard MD Primary Care Provider [phone] Encounter Details Date Type Department Care Team (Late st Contact Info) Description 10/31/2024 Scanned Document [address] [address] Blas Mendez MD 85 [facility] Julien [address] [place] [address] Social History Tobacco Use Types Packs/Day Years Used Date Smoking Tobacco: Some Days Cigars Smokeless Tobacco: Never Comments:Occasional cigar Alcohol Use Standard Drinks/Week Comments Yes 4 (1 standard drink = 0.6 oz pur e alcohol) [facility] Utilities Answer Date Recorded In the past 12 months has [employer], gas, oil, or water [employer] threatened to shut off services in your [...] any time in the past 12 m [facility], were you homeless or living in a fdc (including now)? No 08/25/2024 Sex and Gender [...] PM EST [facility] [address], [address] [place] [phone] Parul Hanson MD [address] [facility] [address] [place], [place] [address] 02/06/2025 2:45 PM EST Office Visit [address] [phone] Blas Mendez MD [address] [place] [address] 02/13/2025 8:45 AM EST Office Visit [address] [phone] Luisa Modi APRN [address] [place] [address] 05/24/2025 9:00 AM EDT Office Visit [address] [phone] Luisa Modi APRN [address] [place] [address] 08/23/2025 11:45 AM EDT Office Visit [address] [phone] Niels Benjamin MD [address] [place] [address] documented as of this encounter Visit Diagnoses Not on filedocumented in this encounter Care Teams Tractor Mechanic Helper Relationship Specialty Start Date End Date Mekhi Leonard MD [address] [place] [address] PCP - General Family Medicine 07/27/24 Ofelia Forrest RN [address] [address] Oncology Nurse Navigator 05/27/24 documented as of this encounter
--- OUTSIDE RECORDS SUMMARY | 2025-01-02 15:04 | XMS_ITS | Encounter Summary ---
Author Organization [facility] Address [address] [place] [address] Care Team Providers Care Rural Mail Contractor Name Role Phone Carrier, Ofelia GRAF Unavailable [phone] Mekhi Leonard MD Primary Care Provider [phone] Encounter Details Date Type Department Care Team (Late st Contact Info) Description 11/23/2024 Scanned Document [facility], [address], [address] [place] [address] Unknown Unknow Provider Address Social History Tobacco Use Types Packs/Day Years Used Date Smoking Tobacco: Some Days Cigars Smokeless Tobacco: Never Comments:Occasional cigar Alcohol Use Standard Drinks/Week Comments Yes 4 (1 standard drink = 0.6 oz pur e alcohol) [facility] Utilities Answer Date Recorded In the past 12 months has [employer], gas, oil, or water company threatened [...] any time in the past 12 m [facility], were you homeless or [...] 2:00 PM EST [facility] Visit [facility], [address], [facility] [address] [place] [phone] Parul Hanson MD 195 [facility] [address] [place] [address] 02/06/2025 2:45 PM EST Office Visit [address] [phone] Blas Mendez MD [address] [place] [address] 02/13/2025 8:45 AM EST Office Visit [address] [phone] Luisa Modi APRN [address] [place] [address] 05/24/2025 9:00 AM EDT Office Visit [address] [phone] Luisa Modi APRN [address] [place] [address] [phone] 08/23/2025 11:45 AM EDT Office Visit [address] [phone] Niels Benjamin MD [address] [address] documented as of this encounter Visit Diagnoses Not on filedocumented in this encounter Care Teams Rural Mail Contractor Relationship Specialty Start Date End Date Mekhi Leonard MD [address] [place] [address] PCP - General Family Medicine 07/27/24 Ofelia Forrest RN [address] [address] Oncology Nurse Navigator 05/27/24 documented as of this encounter
--- OUTSIDE RECORDS SUMMARY | 2025-01-02 15:04 | XMS_ITS | Clinical Summary ---
Author Organization [facility] Address [address] [place] [address] Care Team Providers Care Tile And Mottle Supervisor Name Role Phone Carrier, Ofelia GRAF Unavailable [phone] Mekhi Leonard MD Primary Care Provider [phone] Allergies Active Allergy Reactions Criticality Noted Date [...] or food to reduce stomach upset. Active Active Problems Problem Noted Date Diagnosed [...] Patient to follow up with PCP or it support consultant for continued management of hypothyroidism as previously directed. Oral herpes 07/27/2024 Obesity (BMI 30-39.9) 07/27/2024 Assessment & Plan (07/27/2024 8:21 AM EDT): Diet, exercise and lifestyle modifications. Secondary hypertension 07/27/2024 Assessment & Plan (07/27/2024 8:31 AM EDT): Managed with diet and lifestyle modifications. Continue plan as previously directed by your provider. Prostate cancer 07/13/2024 Encounters Date Type Department Care Team Description 01/02/2025 1:00 PM EDT [facility] Visit [facility] [address], [address] [place] [phone] Parul Hanson MD Chronic bilateral low back pain without sciatica (Primary Dx); Sarcoidosis involving hilar lymph node; Prostate cancer (HCC); Pulmonary embolism without acute cor pulmonale, unspecified chronicity, unspecified pulmonary embolism type (HCC); Acquired hypothyroidism; Gout involving toe, unspecified cause, unspecified chronicity, unspecified laterality 01/02/2025 Travel 12/28/2024 2:15 PM EDT Office Visit [facility] at [address] [phone] Juan Valdes MD Sarcoidosis (Primary Dx) 12/28/2024 Travel 12/26/2024 Telephone [facility] [address] [facility] [address] [place] [phone] Blas Mendez MD 12/01/2024 2:30 PM EDT Office Visit [facility] [address] [facility] [address] [place] [phone] Luisa Modi APRN History of prostate cancer (Primary Dx); Erectile dysfunction after radical prostatectomy; Stress incontinence of urine 12/01/2024 Travel 12/01/2024 Telephone [facility] [address] [facility] [address] [place] [address] Blas Mendez MD 11/23/2024 Scanned Document [facility], [address], [address] [place] [phone] Unknown 11/23/2024 Orders Only [facility] [address] [place] [address] Sara Stubbs MD 11/22/2024 10:05 AM EDT - 11/22/2024 11:59 PM EDT Hospital Encounter [facility] [address] [place] [address] Juan Valdes MD Discharge Disposition: Home or Self Care 11/22/2024 9:45 AM EDT Consult [facility] at [address] [phone] Juan Valdes MD Sarcoidosis (Primary Dx) 11/22/2024 Travel 11/17/2024 Orders Only [facility] PULMONARY SVC IP [address] [place] [address] Blas Mendez MD Sarcoidosis (Primary Dx) 11/14/2024 11:45 AM EDT Office Visit [address] [phone] Blas Mendez MD Sarcoidosis (Primary Dx); Pulmonary embolism without acute cor pulmonale, unspecified chronicity, unspecified pulmonary embolism type (HCC); Prostate cancer (HCC) 11/14/2024 Travel 11/03/2024 11:30 AM EDT - 11/03/2024 12:35 PM EDT Surgery [facility] [address] [place] [phone] Tyree Rodas, CT Bone Biopsy-Deep N/A 11/03/2024 10:17 AM EDT - 11/03/2024 3:21 PM EDT Hospital Encounter [facility] [address] [place] [phone] Emerson Liu MD Abnormal PET scan, lung Discharge Disposition: Home or Self Care 11/03/2024 Documentation [facility] Urolog[facility] Surgery [address] [place] [phone] Niels Benjamin MD 11/03/2024 Travel 11/03/2024 Telephone [facility] [address] [place] [address] Niels Benjamin MD Form Completion 11/03/2024 Transcribe Orders [facility] [address] [phone] Mekhi Leonard MD Other nonspecific abnormal finding of lung field (Primary Dx); Metastatic malignant neoplasm, unspecified site (HCC) 11/02/2024 Scanned Document [facility] at [address] [place] [phone] Juan Valdes MD 10/31/2024 Telephone [facility] [address] [place] [address] Niels Benjamin MD Other 10/31/2024 Scanned Document [facility] [address] [place] [phone] Blas Mendez MD 10/21/2024 Orders Only [facility] [address] [place] [address] Blas Mendez MD Abnormal PET scan of lung 10/21/2024 Telephone [facility] [address] [place] [address] [address] [place] [address] Blas Mendez MD 10/20/2024 8:03 AM EDT - 10/20/2024 11:59 PM EDT Hospital Encounter [facility] [address] [place] [address] Blas Mendez MD Discharge Disposition: Home or Self Care 10/20/2024 7:18 AM EDT - 10/20/2024 8:02 AM EDT Hospital Encounter [facility] [address] [place] [address] Blas Mendez MD Pulmonary embolism without acute cor pulmonale, unspecified chronicity, unspecified pulmonary embolism type (HCC); Mediastinal lymphadenopathy; Pulmonary nodule Discharge Disposition: Home or Self Care 10/05/2024 Orders Only [facility] [address] [facility] [address] [place] [address] Blas Mendez MD Pulmonary embolism without acute cor pulmonale, unspecified chronicity, unspecified pulmonary embolism type (HCC) (Primary Dx); Mediastinal lymphadenopathy; Pulmonary nodule from Last 3 Months Family History Medical History Relation Name Comments Cancer, Prostate Father 59 HOME INSPECTOR Cancer, Prostate Paternal Uncle accredited legal secretary Cancer, Bladder Neg Hx Cancer, Kidney Neg Hx Relation Name Status Comments Father Paternal Uncle Social History Tobacco Use Types Packs/Day Years Used Date Smoking Tobacco: Some Days Cigars Smokeless Tobacco: Never Tobacco Cessation:Ready to Q uit: Not Asked; Counseling Given: Not Answered Comments:Occasional cigar Alcohol Use Standard Drinks/Week Comments Yes 4 (1 standard drink = 0.6 oz pur e alcohol) [facility] Utilities Answer Date Recorded In the past 12 months has [employer], [employer] or [facility] threatened to shut off services in your [...] living in a fpc (including now)? No 08/25/2024 Sex and Gender Information Value Date Recorded Sex Assigned at Male 05/27/2024 7:26 PM EDT Legal Sex Male 6:10 PM EST Gender Identity Male 05/27/2024 7:27 PM EDT Sexual Orientation Heterosexual (straight) 08/16 9:23 AM EDT Last Filed Vital Signs Vital Sign Reading Time Taken Comments Blood Pressure 124/75 12/28/2024 2:02 PM EDT Pulse 80 12/28/2024 2:02 PM EDT Temperature 35.8 C (96.5 F) 12/28/2024 2:02 PM EDT Respiratory Rate 16 12/28/2024 2:02 PM EDT Oxygen Saturation 98% 12/28/2024 2:02 PM EDT Inhaled Oxygen Concentration - - Weight 116 kg (256 lb) 12/28/2024 2:02 PM EDT Height 190.5 cm (6' 3 ) 12/28/2024 2:02 PM EDT Body Mass Index 32 12/28/2024 2:02 PM EDT Plan of Treatment Upcoming Encounters Date Type Department Care Team (Late st Contact Info) Description 01/30/2025 2:00 PM EST [facility], [address] [phone] Parul Hanson MD [address] [place] [address] 02/06/2025 2:45 PM EST Office Visit [address] [phone] Blas Mendez MD [address] [place] [address] 02/13/2025 8:45 AM EST Office Visit [address] [phone] Luisa Modi APRN [address] [place] [phone] 05/24/2025 9:00 AM EDT Office Visit [address] [phone] Luisa Modi APRN [address] [place] [address] 08/23/2025 11:45 AM EDT Office Visit [facility] 10 [facility] [address] [place] [address] Niels Benjamin MD [address] [address] Health Maintenance Due Date Last Done Comments [...] COUNT (ONCOLOGY - INTERFACED NO CHARGE) Routine 12/28/2024 2:02 PM EDT Sarcoidosis FLOW CYTOMETRY REPORT STAT 11/22/2024 10:05 AM [...] FINGERSTICK (CHARGE) Routine 10/20/2024 7:50 AM EDT from Last 3 Months Results * (ABNORMAL) POCT Complete Blood Count (Oncology) (12/28/2024 2:02 PM EDT) Only the most recent of2 resultswithin the time period is included. White Blood Cell Count 10.1 4.0 - 11.0 Thou/uL 12/28/2024 2:09 PM EDT [facility] Red Blood Cell Count 5.36 4.50 - 6.20 Mil/uL 12/28/2024 2:09 PM EDT [facility] Hemoglobin 15.9 13.0 - 17.7 g/dL 12/28/2024 2:09 PM EDT [facility] Hematocrit 49.1 39.0 - 54.0 % 12/28/2024 2:09 PM EDT [facility] MCV 92 80 - 100 fL 12/28/2024 2:09 PM EDT [facility] MCH 29.7 27.0 - 31.0 pg 12/28/2024 2:09 PM EDT [facility] MCHC 32.4 30.0 - 36.0 g/dL 12/28/2024 2:09 PM EDT [facility] RDW 12.7 11.5 - 14.5 % 12/28/2024 2:09 PM EDT [facility] Platelet Count 175 150 - 450 Thou/uL 12/28/2024 2:09 PM EDT [facility] MPV 8.2 7.5 - 12.5 fL 12/28/2024 2:09 PM EDT [facility] Neutrophils Auto 93.7 % 12/29/19 2:09 PM EDT [facility] Abs Neutrophils Auto 9.50(H) 2.00 - 7.50 Thou/uL 12/28/2024 2:09 PM EDT [facility] Lymphocytes Auto 4.0 % 12/29/19 2:09 PM EDT [facility] Abs Lymphocytes Auto <1.00(L) 1.50 - 4.50 Thou/uL 12/28/2024 2:09 PM EDT [facility] Mixed Mononuclear Auto 2.3 % 12/28/2024 2:09 PM EDT [facility] Abs Mixed Mononuclear Auto <1.00 0.20 - 1.90 Thou/uL 12/28/2024 2:09 PM EDT [facility] Blood Blood specimen / Unknown 12/28/2024 2:02 PM EDT 12/28/2024 2:09 PM EDT Juan Valdes MD POCT ORDERABLES - ONCOLOGY F inal Result [address] [address], [address] * Flow Cytometry Report (11/22/2024 10:05 AM EDT) Report [facility] [id number] CLIA ID [id number] [address] [place] [address] / [phone] Hematopathology Report PATIENT NAME: MISHA STEWARD [facility] REC NUMBER: [id number] (AGE): 1965 (Age: 59) SPECIMEN NUMBER: [id number] DATE OBTAINED: 11/22/2024 DIAGNOSIS PERIPHERAL BLOOD (FLOW [...] CD34+ blasts comprise <0.1% of the WBCs. [id number] Clinical Information and History: D86.9 (Sarcoidosis, unspecified) [...] determined by the [facility]. It has not been cleared or approved by the U.S. Food and Drug Administration. ICD Codes: D86.9 Sarcoidosis, unspecified HOSPITAL LAB 11/22/2024 10:0 5 AM EDT 11/23/2024 6:27 AM EDT Comment:PERIPHERAL BLOOD (FL OW) us Juan Valdes MD PATHOLOGY/CYTOLOGY ORDERABLE S Final Result HOSPITAL LAB See Below * OUTSIDE ORDER (11/22/2024 3:04 AM EDT) us External Provider HX AMB PROCEDURES Final Res ult * PSA, Post Prostatectomy (11/21/2024 10:49 AM EDT) PSA, Post Prostatectomy <0.02 ng/mL [facility] Comment: PSA values obtained with different assay [...] 10:49 AM EDT 11/21/2024 10:49 AM EDT [facility] - 11/22/2024 6:53 PM EDT FASTING:NO FASTING: NO us Niels Benjamin MD LAB BLOOD ORDERABLES Fin al Result Performing Organization Address [facility]/ZIP Co de Phone Number [employer] [address] [place] [phone] * Erythrocyte Sediment Rate (ESR) (11/14/2024 12:57 PM EDT) Erythrocyte Sediment Rate (ESR) 2 < OR = 20 mm/h [facility] Blood Blood specimen / Unknown 11/14/2024 12:57 PM EDT 11/14/2024 12:58 PM EDT Narrative [facility] - 11/17/2024 5:58 AM EDT FASTING:NO FASTING: NO us Blas Mendez MD LAB BLOOD ORDERABLES Final Result Performing Organization Address [facility]/ZIP Co de Phone Number [employer] [address] [place] [phone] * Angiotensin Converting Enzyme, Serum (11/14/2024 12:57 PM EDT) Angiotensin-1 Converting Enzyme 66 9 - 67 U/L [facility] Blood Blood specimen / Unknown 11/14/2024 12:57 PM EDT 11/14/2024 12:58 PM EDT Narrative [facility] - 11/17/2024 5:58 AM EDT FASTING:NO FASTING: NO us Blas Mendez MD LAB BLOOD ORDERABLES Final Result [facility] [address] [place] [address] * C-Reactive Protein (11/14/2024 12:57 PM EDT) C-Reactive Protein <3.0 <8.0 mg/L [facility] Blood Blood specimen / Unknown 11/14/2024 12:57 PM EDT 11/14/2024 12:58 PM EDT Narrative [facility] - 11/17/2024 5:58 AM EDT FASTING:NO FASTING: NO us Blas Mendez MD LAB BLOOD ORDERABLES Final Result [facility] [address] [place] [phone] * CT BONE BIOPSY-DEEP N/A (11/03/2024 2:43 [...] * Pathology (11/03/2024 12:00 AM EDT) Report [facility] [id number] CLIA ID [id number] [address] [place] [phone] Surgical Pathology Report PATIENT NAME: MISHA STEWARD REC NUMBER: [id number] (AGE): 1965 (Age: 59) SPECIMEN NUMBER: [id number] DATE OBTAINED: 11/03/2024 DIAGNOSIS BONE, L2 VERTEBRAL BODY, CORE BIOPSY: BONE WITH TRILINEAGE MARROW ELEMENTS, FIBRIN AND MARKED CRUSH ARTIFACT; NO VIABLE METASTATIC CARCINOMA IDENTIFIED; SEE COMMENT. dc/11/08/2024 Electronically Signed Out BRUCE FISH MD COMMENT The bone shows marrow elements in the background of fibrin and crush artifact. CKAE1/AE3, PSAP, PSA, and NKX3.1 immunostains reveal no carcinoma. CD138 highlights a few plasma cells (with no evidence of plasma cell neoplasm). Both blocks are cut down with multiple levels examined. There is no viable tumor identified. 34247, 44121, 84005, [address]7062 x 4 The tests used in the work-up of this specimen may include Analyte-Specific Reagents (ASRs). The Immunopathology/Mor phologic [facility] have established the performance characteristics [...] and submitted in toto in cassette A2. [address] LAB 11/03/2024 11/04/2024 7:1 4 AM EDT Comment:L2 VERTEBRAL BODY 13 GA BONE CORE us Blas Mendez MD PATHOLOGY/CYTOLOGY ORDERABL ES Final Result HOSPITAL LAB See Below * PT/PTT (INCLUDES INR) (11/01/2024 1:41 PM EDT) Partial Thromboplastin Time (PTT) 29 23 - 32 sec [facility] Comment: This test has not been validated for monitoring unfractionated heparin therapy. For testing that is validated for this type of therapy, please refer to the Heparin Anti-Xa assay (test code 69943). For additional information, please refer to http://education.scroll kit/faq/JNK602 (This link is being provided for informational/educational purposes only.) INR 1.0 [facility] Comment: Reference Range 0.9-1.1 Moderate-intensity Warfarin Therapy 2.0-3.0 Higher-intensity Warfarin Therapy 3.0-4.0 Prothrombin Time (PT) 11.1 9.0 - 11.5 sec [facility] Blood Blood specimen / Unknown 11/01/2024 1:41 PM EDT 11/01/2024 1:43 PM EDT Narrative [facility] - 11/02/2024 7:52 AM EDT FASTING:NO FASTING: NO us Blas Mendez MD LAB BLOOD ORDERABLES Final Result Performing Organization Address City/State/[facility] Co de Phone Number [employer] [address] [place] [phone] * (ABNORMAL) COMPLETE BLOOD COUNT, WITHOUT DIFFERENTIAL (11/01/2024 1:41 PM EDT) White Blood Cell Count 5.0 3.8 - 10.8 Thousand/ uL [facility] Red Blood Cell Count 5.57 4.20 - 5.80 Million/u L [facility] Hemoglobin 17.0 13.2 - 17.1 g/dL [facility] Hematocrit 52.1(H) 38.5 - 50.0 % [facility] MCV 93.5 80.0 - 100.0 fL [facility] MCH 30.5 27.0 - 33.0 pg [facility] MCHC 32.6 32.0 - 36.0 g/dL [facility] Comment: For adults, a slight decrease in the calculated MCHC value (in the range of 30 to 32 g/dL) is most likely not clinically significant; however, it should be interpreted with caution in correlation with other red cell parameters and the patient's clinical condition. RDW 13.1 11.0 - 15.0 % [facility] Platelet Count 202 140 - 400 Thousand/ uL [facility] MPV 9.6 7.5 - 12.5 fL [facility] Blood Blood specimen / Unknown 11/01/2024 1:41 PM EDT 11/01/2024 1:43 PM EDT Narrative [facility] - 11/02/2024 7:52 AM EDT FASTING:NO FASTING: NO us Blas Mendez MD LAB BLOOD ORDERABLES Final Result [facility] [address] [place] [phone] * PET/CT F18 FDG Skull to Mid [...] correlation and follow-up accordingly. Blas Salinas MD Engineering Test Specialist I personally reviewed the images and [...] correlation and follow-up accordingly. Blas Salinas MD Engineering Test Specialist I personally reviewed the images and [...] ES Final Result HOSPITAL LAB See Below from Last 3 Months Insurance BLUE CROSS OUT OF STATE - O BLUE CROSS OUT OF [facility] Advance Directives * Full Code (Latest Code Status on File) Date Activated Date Inactivated Comments 08/24/2024 2:28 PM 11/03/2024 10:17 AM * Full Code Date Activated Date Inactivated Comments 08/16/2024 7:09 PM 08/24/2024 9:59 AM * Full Code Date Activated Date Inactivated Comments 08/16/2024 9:37 AM 08/16/2024 7:09 PM Care Teams Tile And Mottle Supervisor Relationship Specialty Start Date End Date Mekhi Leonard MD [address] [place] [address] PCP - General Family Medicine 07/27/24 Ofelia Forrest RN [address] [place] [address] Oncology Nurse Navigator 05/27/24
--- OUTSIDE RECORDS SUMMARY | 2025-01-02 15:04 | XMS_ITS | Clinical Summary ---
Author Organization [facility] [address] [facility] Address [address] [place] [address] Phone Care Team Providers Care Gps Navigation Installer Name Role Phone Mekhi Leonard NP Primary Care Provider Social History Tobacco Use Types Packs/Day Years Used Date Smoking Tobacco: Never Assessed Sex and Gender Information Value Date Recorded Sex Assigned at Not on file Legal Sex Male 12:05 PM EST Gender Identity Not on file Sexual Orientation Not on file Plan of Treatment Health Maintenance Due Date Last Done Comments Colorectal Cancer Screening: Colonoscopy 1965 DTaP,Tdap,and Td Vaccines (1 - Tdap) 1984 Hepatitis B Vaccines (1 of 3 - 19+ 3-dose series) 1984 Pneumococcal Vaccine: 50+ Ye ars (1 of 1 - PCV) 08/04/2015 Zoster Vaccines (1 of 2) 08/04/2015 Cholesterol Screening (Lipid Panel) 02/19/2024 HIV Screening 02/19/2024 Hepatitis C Screening [...] patient's age to complete this topic Insurance [facility] Care Teams Gps Navigation Installer Relationship Specialty Start Date End Date Mekhi Leonard NP PCP - General Family Medicine 02/19/24
--- OUTSIDE RECORDS SUMMARY | 2025-01-02 15:04 | XMS_ITS | Encounter Summary ---
Author Organization Formerly [facility] Address [address] [place] [address] Care Team Providers Care University Controller Name Role Phone Carrier, Ofelia GRAF Unavailable [phone] Mekhi Leonard MD Primary Care Provider Encounter Details Date Type Department Care Team (Late st Contact Info) Description 11/02/2024 Scanned Document [facility] Cancer [facility] at [address] [address] Juan Valdes MD [address] [place] [address] [id number] Social History Tobacco Use Types Packs/Day Years Used Date Smoking Tobacco: Some Days Cigars Smokeless Tobacco: Never Comments:Occasional cigar Alcohol Use Standard Drinks/Week Comments Yes 4 (1 standard drink = 0.6 oz pur e alcohol) [facility] Utilities Answer Date Recorded In the past 12 months has [email or web address], gas, oil, or water [employer] threatened to shut off services in your [...] any time in the past 12 m [facility], were you homeless or [...] PM EST Office Visit [facility]E [address], [address] [place] [phone] Parul Hanson MD 195 [facility] [address] [place], [place] [address] 02/06/2025 2:45 PM EST Office Visit [address] [phone] Blas Mendez MD [address] [place] [address] 02/13/2025 8:45 AM EST Office Visit [address] [phone] Luisa Modi APRN [address] [place] [address]35312 05/24/2025 9:00 AM EDT Office Visit [address] [phone] Luisa Modi APRN [address] [place] [address] 08/23/2025 11:45 AM EDT Office Visit [address] [phone] Niels Benjamin MD [address] [place] [address] documented as of this encounter Visit Diagnoses Not on filedocumented in this encounter Care Teams University Controller Relationship Specialty Start Date End Date Mekhi Leonard MD [address] [place] [address] PCP - General Family Medicine 07/27/24 Ofelia Forrest RN [address] [address] Oncology Nurse Navigator 05/27/24 documented as of this encounter
--- OUTSIDE RECORDS SUMMARY | 2025-01-02 15:04 | XMS_ITS | Encounter Summary ---
Author Organization [facility] Address [address] [place] [address] Care Team Providers Care Soils Technician Name Role Phone Dc Carvalho MD Primary Care Provider [phone] Ofelia Forrest RN Unavailable [phone] Mekhi Leonard MD Primary Care Provider [phone] Encounter Details Date Type Department Care Team (Late st Contact Info) Description 05/26/2024 Scanned Document [address] [place] [phone] Dc Carvalho MD 100 [facility] [address] [place] [address] Social History Tobacco Use Types Packs/Day Years Used Date Smoking Tobacco: Never Assessed [facility] Utilities Answer Date Recorded In the [...] any time in the past 12 m [facility], were you homeless or living in a retirement (including now)? No 05/27/2024 Sex and Gender [...] 2:00 PM EST [facility] Visit [facility], [address] [place] [address] Parul Hanson MD [address] [place] [address] 02/06/2025 2:45 PM EST Office Visit [address] [phone] Blas Mendez MD [address] [place] [address] 02/13/2025 8:45 AM EST Office Visit [facility] 10 [facility] [address] [place] [phone] Luisa Modi APRN 10 [place] [address] 05/24/2025 9:00 AM EDT Office Visit [facility] [address] [phone] Rian Luisa, LEAD ASSISTANT MANAGER 10 [place] [address] 08/23/2025 11:45 AM EDT Office Visit [facility] [address] [phone] Niels Benjamin MD [address] [address] documented as of this encounter Visit Diagnoses Not on filedocumented in this encounter Care Teams Soils Technician Relationship Specialty Start Date End Date Dc Carvalho MD [address] [address] [place] [address] PCP - General Urology 05/23/24 07/26/24 Mekhi Leonard MD [address] [facility] [place] [address] PCP - General Family Medicine 07/27/24 Ofelia Forrest RN [address] [address] Oncology Nurse Navigator 05/27/24 documented as of this encounter
--- OUTSIDE RECORDS SUMMARY | 2025-01-02 15:04 | XMS_ITS | Encounter Summary ---
Author Organization [facility] Address [address] [place] [address] Care Team Providers Care Simplex Operator Name Role Phone Carrier, Ofelia GRAF Unavailable [phone] Mekhi Leonard MD Primary Care Provider + [phone] Reason for Visit * Reason Onset Date Comments Appointment 09/20/2024 Encounter Details Date Type Department Care Team ([facility] st Contact Info) Description 09/20/2024 Telephone [facility] [address] [place] [phone] Niels Benjamin MD [address] [address] Appointment Social History Tobacco Use Types Packs/Day Years Used Date Smoking Tobacco: Some Days Cigars Smokeless Tobacco: Never Comments:Occasional cigar Alcohol Use Standard Drinks/Week Comments Yes 4 (1 standard drink = 0.6 oz pur e alcohol) [facility] Utilities Answer Date Recorded In the past 12 months has [employer], oil, or water [email or web address] threatened to shut off services in your [...] any time in the past 12 m [facility], were you homeless or living [...] PM EST Office Visit [facility]E [address], [address] [place] [phone] Parul Hanson MD 195 [facility] [address] [place], [place] [address] 02/06/2025 2:45 PM EST Office Visit [address] [address] Blas Mendez MD [address] [place] [address] 02/13/2025 8:45 AM EST Office Visit [address] [phone] Luisa Modi APRN [address] [place] [address] 05/24/2025 9:00 AM EDT Office Visit [address] [phone] Luisa Modi APRN [address] [place] [address] 08/23/2025 11:45 AM EDT Office Visit [address] [phone] Niels Benjamin MD [address] [place] [address] documented as of this encounter Visit Diagnoses Not on filedocumented in this encounter Care Teams Simplex Operator Relationship Specialty Start Date End Date Mekhi Leonard MD 262 [facility] [place] [address] PCP - General Family Medicine 07/27/24 Ofelia Forrest RN [address] [address] Oncology Nurse Navigator 05/27/24 documented as of this encounter
--- OUTSIDE RECORDS SUMMARY | 2025-01-02 15:04 | XMS_ITS | Encounter Summary ---
Author Organization [facility] Address [address] [place] [address] Care Team Providers Care Certified Nurses' Aide Name Role Phone Carrier, Ofelia GRAF Unavailable [phone] Mekhi Leonard MD Primary Care Provider + [phone] Reason for Visit * Reason Onset Date Comments Form Completion 11/03/2024 Encounter Details Date Type Department Care Team ([facility] st Contact Info) Description 11/03/2024 Telephone [facility] [address] [place] [phone] Niels Benjamin MD [address] [address] Form Completion Social History Tobacco Use Types Packs/Day Years Used Date Smoking Tobacco: Some Days Cigars Smokeless Tobacco: Never Comments:Occasional cigar Alcohol Use Standard Drinks/Week Comments Yes 4 (1 standard drink = 0.6 oz pur e alcohol) [facility] Utilities Answer Date Recorded In the past 12 months has [employer], gas, oil, or water [employer] threatened to shut off services in your [...] any time in the past 12 m [facility], were you homeless or living in [...] PM EST Office Visit [facility] [address], [address] [place] [address] Parul Hanson MD 195 [facility] [address] [place], [place] [address] 02/06/2025 2:45 PM EST Office Visit [address] [phone] Blas Mendez MD [address] [place] [address] 02/13/2025 8:45 AM EST Office Visit [address] [phone] Luisa Modi APRN [address] [place] [address] 05/24/2025 9:00 AM EDT Office Visit [address] [phone] Luisa Modi APRN [address] [place] [address] 457[address] 08/23/2025 11:45 AM EDT Office Visit [address] [phone] Niels Benjamin MD [address] [place] [address] documented as of this encounter Visit Diagnoses Not on filedocumented in this encounter Care Teams Certified Nurses' Aide Relationship Specialty Start Date End Date Mekhi Leonard MD [address] [place] [address] PCP - General Family Medicine 07/27/24 Ofelia Forrest RN [address] [address] Oncology Nurse Navigator 05/27/24 documented as of this encounter
--- OUTSIDE RECORDS SUMMARY | 2025-01-02 15:05 | XMS_ITS | Patient Health Record ---
Author Organization [facility] Address [address] [place] [address] Care Team Providers Care Test Desk Operator Name Role Phone Barrera Scott MD Primary Care Provider Carloz Vega Unavailable [phone] Allergies Allergen (clinical drug ingredient) Drug/Non Drug [...] X ray : Foot, right 3V 12/29/2016 51870-Rzsg Destruction, -12/29/2016 04691-Abpy Destruction, -03/30/2017 36289-Wvjn Destruction, -04/20/2017 76462-Qjug Destruction, -05/11/2017 34437-Sqxv Destruction, 03-2206/15/2017 80148-Gmrg Destruction, 03-2207/20/2017 85329-Qbzu Destruction, 03-2208/12/2017 46049-Owqa Destruction, 03-2209/02/2017 80211-Igxu Destruction, 03-2210/01/2017 Insurance Providers Payer Name Payer Address Payer Phone Subscriber Number Group Number Insured Name Patient Relationship to Insured Coverage Start Date Coverage End Date [facility] [address] [address] [place] [address] [id number] Lianna Brasher Spouse - patient is the spouse of the insured Medical (General) History Medical History History ICD Code Anxiety Depression Arthritis Back,Hip,and Knee pain Gout Headaches Migraines High blood pressure keloids Reflux ( GERD) chronic sinusitis Warts Chicken pox Surgical History Surgery Date(Month/Year) kidney surgery - RT removed 1974 right knee arthroscopy xs 2 elbow sx - RT bone chips 1981 acl - Left, rejected screw 11/2000
== END 2025-01-02 11:43 | disposition home or self-care (01) ==
LOC: HO.HMGAL 11:42
PROVIDERS: PCP Nurse Practitioner Family; Visit Provider Registered Nurse Emergency
DX: J30.89 Other allergic rhinitis (principal)
CPT/HCPCS: 95117; 95165

== ENCOUNTER 2025-01-09 16:12 | Outpatient (AMB) | payer BC, SELFPAY ==
--- OUTSIDE RECORDS SUMMARY | 2025-01-09 17:10 | XMS_ITS | Patient Health Record ---
Author Organization [facility] Address [address] [place] [address] Care Team Providers Care Offset Lithographic Press Setter Name Role Phone Barrera Scott MD Primary Care Provider Carloz Vega Unavailable [phone] Allergies Allergen (clinical drug ingredient) Drug/Non Drug [...] X ray : Foot, right 3V 12/29/2016 13311-Nlrz Destruction, -12/29/2016 38164-Mwmj Destruction, -03/30/2017 10868-Auha Destruction, -04/20/2017 70166-Pcje Destruction, -05/11/2017 24327-Gxzk Destruction, 03-2206/15/2017 99109-Axvu Destruction, 03-2207/20/2017 89232-Yhzb Destruction, 03-2208/12/2017 58826-Tjgy Destruction, 03-2209/02/2017 36992-Maqz Destruction, 03-2210/01/2017 Insurance Providers Payer Name Payer Address Payer Phone Subscriber Number Group Number Insured Name Patient Relationship to Insured Coverage Start Date Coverage End Date [facility] [address] [address] [place] [address] [id number] Lianna Brasher Spouse - patient is the [...]
--- OUTSIDE RECORDS SUMMARY | 2025-01-09 17:10 | XMS_ITS | Clinical Summary ---
Author Organization [facility] 299 [facility] Address [address] [place] [address] Phone Care Team Providers Care .Net Architect Name Role Phone Mekhi Leonard NP Primary [...] patient's age to complete this topic Insurance [facility] Care Teams .Net Architect Relationship Specialty Start Date End Date Mekhi Leonard NP PCP - General Family Medicine 02/19/24
== END 2025-01-09 16:13 | disposition home or self-care (01) ==
LOC: HO.HMGAL 16:12
PROVIDERS: PCP Nurse Practitioner Family; Visit Provider Registered Nurse Emergency
DX: J30.89 Other allergic rhinitis (principal)
CPT/HCPCS: 95117; 95165

== ENCOUNTER 2025-01-16 16:08 | Outpatient (AMB) | payer BC, SELFPAY ==
--- OUTSIDE RECORDS SUMMARY | 2025-01-16 17:56 | XMS_ITS | Encounter Summary ---
Author Organization [facility] Address [address] [place] [address] Care Team Providers Care Editor Book Name Role Phone Carrier, Ofelia GRAF Unavailable [phone] Mekhi Leonard MD Primary Care Provider [phone] Encounter Details Date Type Department Care Team (Late st Contact Info) Description 10/31/2024 Scanned Document [address] [address] Blas Mendez MD 85 [facility] Jul[address] [place] [address] Social History Tobacco Use Types Packs/Day Years Used Date Smoking Tobacco: Some Days Cigars Smokeless Tobacco: Never Comments:Occasional cigar Alcohol Use Standard Drinks/Week Comments Yes 4 (1 standard drink = 0.6 oz pur e alcohol) [facility] Utilities Answer Date Recorded In the past 12 months has [employer], gas, oil, or water [employer] threatened to shut off services in your [...] any time in the past 12 m [facility], were you homeless or living in a halfway (including now)? No 08/25/2024 Sex and Gender Information Value Date Recorded Sex Assigned at Male 05/27/2024 7:26 PM EDT Legal Sex Male 6:10 PM EST Gender Identity Male 05/27/2024 7:27 PM EDT Sexual Orientation Heterosexual (straight) 08/16 9:23 AM EDT documented as of this encounter Plan of Treatment Not on file documented as of this encounter Visit Diagnoses Not on filedocumented in this encounter Care Teams Editor Book Relationship Specialty Start Date End Date Mekhi Leonard MD [address] [place] [address] PCP - General Family Medicine 07/27/24 Ofelia Forrest RN [address] [address] Oncology Nurse Navigator 05/27/24 documented as of this encounter
--- OUTSIDE RECORDS SUMMARY | 2025-01-16 17:56 | XMS_ITS | Encounter Summary ---
Author Organization [facility] Address [address] [place] [address] Care Team Providers Care Junior Marketing Associate Name Role Phone Carrier, Ofelia GRAF Unavailable [phone] Mekhi Leonard MD Primary Care Provider Encounter Details Date Type Department Care Team (Late st Contact Info) Description 11/02/2024 Scanned Document [facility] at [address] [address] Juan Valdes MD [address] [place] [address] [phone] Social History Tobacco Use Types Packs/Day Years Used Date Smoking Tobacco: Some Days Cigars Smokeless Tobacco: Never Comments:Occasional cigar Alcohol Use Standard Drinks/Week Comments Yes 4 (1 standard drink = 0.6 oz pur e alcohol) [facility] Utilities Answer Date Recorded In the past 12 months has [employer], gas, oil, or water [employer] threatened to shut off services in your [...] on filedocumented in this encounter Care Teams Junior Marketing Associate Relationship Specialty Start Date End Date Mekhi Leonard MD [address] [place] [address] PCP - General Family Medicine 07/27/24 Ofelia Forrest RN [address] [address] Oncology Nurse Navigator 05/27/24 documented as of this encounter
--- OUTSIDE RECORDS SUMMARY | 2025-01-16 17:56 | XMS_ITS | Encounter Summary ---
Author Organization [facility] Address [address] [place] [address] Care Team Providers Care Tax Compliance Manager Name Role Phone Carrier, Ofelia GRAF Unavailable [phone] Mekhi Leonard MD Primary Care Provider + [phone] Encounter Details Date Type Department Care Team (Late st Contact Info) Description 11/23/2024 Scanned Document [facility], [address], [address] [place] [address] Unknown Unknow Provider Address Social History Tobacco Use Types Packs/Day Years Used Date Smoking Tobacco: Some Days Cigars Smokeless Tobacco: Never Comments:Occasional cigar Alcohol Use Standard Drinks/Week Comments Yes 4 (1 standard drink = 0.6 oz pur e alcohol) [facility] Utilities Answer Date Recorded In the past 12 months has [employer], gas, oil, or water company threatened [...] in the past 12 m [facility], were you homeless or living in [...] on filedocumented in this encounter Care Teams Tax Compliance Manager Relationship Specialty Start Date End Date Mekhi Leonard MD [address] [place] [address] PCP - General Family Medicine 07/27/24 Ofelia Forrest RN [address] [place] [address] Oncology Nurse Navigator 05/27/24 documented as of this encounter
--- OUTSIDE RECORDS SUMMARY | 2025-01-16 17:56 | XMS_ITS | Encounter Summary ---
Author Organization [facility] Address [address] [place] [address] Care Team Providers Care Crm Administrator Name Role Phone Carrier, Ofelia GRAF Unavailable [phone] Mekhi Leonard MD Primary Care Provider + [phone] Encounter Details Date Type Department Care Team (Late st Contact Info) Description 01/09/2025 Scanned Document [facility] Pulmonary [address] [place] [address] Pulmonary, Scan Social History Tobacco Use Types Packs/Day Years Used Date Smoking Tobacco: Some Days Cigars Smokeless Tobacco: Never Comments:Occasional cigar Alcohol Use Standard Drinks/Week Comments Yes 4 (1 standard drink = 0.6 oz pur e alcohol) [facility] Utilities Answer Date Recorded In the [...] any time in the past 12 m [facility], were you homeless or living in [...] on filedocumented in this encounter Care Teams Crm Administrator Relationship Specialty Start Date End Date Mekhi Leonard MD [address] [place] [address] PCP - General Family Medicine 07/27/24 Ofelia Forrest RN [address] [place] [address] Oncology Nurse Navigator 05/27/24 documented as of this encounter
--- OUTSIDE RECORDS SUMMARY | 2025-01-16 17:57 | XMS_ITS | Encounter Summary ---
Author Organization [facility] Address [address] [place] [address] Care Team Providers Care Funeral Location Manager Name Role Phone Dc Carvalho MD Primary Care Provider [phone] Ofelia Forrest RN Unavailable [phone] Mekhi Leonard MD Primary Care Provider [phone] Encounter Details Date Type Department Care Team (Late st Contact Info) Description 05/26/2024 Scanned Document [address] [place] [phone] Dc Carvalho MD 100 [facility] [address] [place] [address] Social History Tobacco Use Types Packs/Day Years Used Date Smoking Tobacco: Never Assessed [facility] Utilities Answer Date Recorded In the [...] any time in the past [address] [facility], were you homeless or living in a fdc (including now)? No 05/27/2024 Sex and Gender [...] on filedocumented in this encounter Care Teams Funeral Location Manager Relationship Specialty Start Date End Date Dc Carvalho MD 100 [facility] [address] [address] PCP - General Urology 05/23/24 07/26/24 Mekhi Leonard MD 262 [facility] [place] [address] PCP - General Family Medicine 07/27/24 Ofelia Forrest RN [address] [address] Oncology Nurse Navigator 05/27/24 documented as of this encounter
--- OUTSIDE RECORDS SUMMARY | 2025-01-16 17:57 | XMS_ITS | Clinical Summary ---
Author Organization Formerly [facility] Address [address] [place] [id number] Care Team Providers Care Project Manager Senior Name Role Phone Carrier, Ofelia GRAF Unavailable [phone] Susanne Burrows MD Primary Care Provider [phone] Allergies Active Allergy Reactions Criticality Noted Date [...] Patient to follow up with PCP or metabolic specialist for continued management of hypothyroidism as previously directed. Oral herpes 07/27/2024 Obesity (BMI 30-39.9) 07/27/2024 Assessment & Plan (07/27/2024 8:21 AM EDT): Diet, exercise and lifestyle modifications. Secondary hypertension 07/27/2024 Assessment & Plan (07/27/2024 8:31 AM EDT): Managed with diet and lifestyle modifications. Continue plan as previously directed by your provider. Prostate cancer 07/13/2024 Encounters Date Type Department Care Team Description 01/09/2025 Scanned Document [facility] Pulmonary [address] [place] [phone] Pulmonary, Scan 01/02/2025 1:00 PM EDT Office Visit [facility], [address], [address] [place] [phone] Parul Hanson MD Sarcoidosis involving hilar lymph node (Primary Dx); Gout involving toe, unspecified cause, unspecified chronicity, unspecified laterality; Chronic bilateral low back pain without sciatica; Prostate cancer (HCC); Pulmonary embolism without acute cor pulmonale, unspecified chronicity, unspecified pulmonary embolism type (HCC); Acquired hypothyroidism 01/02/2025 Travel 12/28/2024 2:15 PM EDT Office Visit [facility] Medical Oncology at [address] [phone] Juan Valdes MD Sarcoidosis (Primary Dx) 12/28/2024 Travel 12/01/2024 2:30 PM EDT Office Visit [facility] [address] [facility] [facility] [address] [place] [address] Luisa Modi APRN History of prostate cancer (Primary Dx); Erectile dysfunction after radical prostatectomy; Stress incontinence of urine 12/01/2024 Travel 11/23/2024 Scanned Document [facility], [address], [address] [place] [address] Unknown 11/22/2024 10:05 AM EDT - 11/22/2024 11:59 PM EDT Hospital Encounter [facility] [address] [place] [phone] Juan Valdes MD Discharge Disposition: Home or Self Care 11/22/2024 9:45 AM EDT Consult [facility] Medical Oncology at [address] [phone] Juan Valdes MD Sarcoidosis (Primary Dx) 11/22/2024 Travel 11/14/2024 11:45 AM EDT Office Visit [facility] Pulmonary [address] [phone] Jackelyn Mejía MD Sarcoidosis (Primary Dx); Pulmonary embolism without acute cor pulmonale, unspecified chronicity, unspecified pulmonary embolism type (HCC); Prostate cancer (HCC) 11/14/2024 Travel 11/03/2024 11:30 AM EDT - 11/03/2024 12:35 PM EDT Surgery [facility] Radiology [address] [place] [address] Bone Biopsy-Deep N/A 11/03/2024 10:17 AM EDT - 11/03/2024 3:21 PM EDT Hospital Encounter [facility] Radiology [address] [place] [address] Emerson Liu MD Abnormal PET scan, lung Discharge Disposition: Home or Self Care 11/03/2024 Documentation [facility] Urologic Surgery [place] [address] [facility] [address] [place] [phone] Niels Benjamin MD 11/03/2024 Travel 11/02/2024 Scanned Document [facility] [place] [facility] at [facility] [address] [facility] [phone] Juan Valdes MD 10/31/2024 Scanned Document [facility] Pulmonary [place] [address] [facility] [address] [place] [phone] Jackelyn Mejía MD 10/20/2024 8:03 AM EDT - 10/20/2024 11:59 PM EDT Hospital Encounter [facility] Radiology [address] [place] [address] Jackelyn Mejía MD Discharge Disposition: Home or Self Care 10/20/2024 7:18 AM EDT - 10/20/2024 8:02 AM EDT Hospital Encounter [facility] Rad[facility] [address] [place] [address] Jackelyn Mejía MD Pulmonary embolism without acute cor pulmonale, unspecified chronicity, unspecified pulmonary embolism type (HCC); Mediastinal lymphadenopathy; Pulmonary nodule Discharge Disposition: Home or Self Care from Last 3 Months Family History Medical History Relation Name Comments Cancer, Prostate Father 59 [employer]AGE Cancer, Prostate Paternal Uncle research and development engineer Cancer, Bladder Neg Hx Cancer, Kidney Neg Hx Relation Name Status Comments Father Paternal Uncle Social History Tobacco Use Types Packs/Day Years Used Date Smoking Tobacco: Some Days Cigars Smokeless Tobacco: Never Tobacco Cessation:Ready to Q uit: Not Asked; Counseling Given: Not Answered Comments:Occasional cigar Alcohol Use Standard Drinks/Week Comments Yes 4 (1 standard drink = 0.6 oz pur e alcohol) [facility] Utilities Answer Date Recorded In the [...] any time in the past 12 [facility], were you homeless or living in a skilled nursing (including now)? No 08/25/2024 Sex and Gender Information Value Date Recorded Sex Assigned at Male 05/27/2024 7:26 PM EDT Legal Sex Male 6:10 PM EST Gender Identity Male 05/27/2024 7:27 PM EDT Sexual Orientation Heterosexual (straight) 08/16 9:23 AM EDT Last Filed Vital Signs Vital Sign Reading Time Taken Comments Blood Pressure 104/90 01/03/2025 8:26 AM EDT Pulse 80 12/28/2024 2:02 PM EDT [...] 12/28/2024 2:02 PM EDT Plan of Treatment Health Maintenance Due Date Last Done Comments COVID-19 Vaccine (#1) 1970 HIV Screening 1978 DTaP/Tdap/Td Vaccines (1 - Tdap) 1984 Hepatitis B Vaccines (1 of 3 - 19+ 3-dose series) 07/08 Pneumococcal Vaccines 50+ (1 of 2 - PCV) 1984 Zoster (Shingles) Vaccine (1 of 2) 1984 Colonoscopy 2010 RSV Vaccine 50 years and old er and Patients (1 - Risk 50-74 years 1-dose series) 08/04/2015 Influenza Vaccine 10/07/2024 Hepatitis C Virus Screening Completed 01/09/2025 Procedures Procedure Name Priority Date/Time Associated Diagnosis Comments XR LUMBAR SPINE COMPLETE 4+ VIEWS Routine 01/12/2025 8:46 AM EST Chronic bilateral low back pain without sciatica JOSELYN MULTIPLEX, WITH REFLEX TO DSDNA Routine 01/09/2025 7:40 AM EST Chronic bilateral low back pain without sciatica Sarcoidosis involving hilar lymph node IMMUNOGLOBULINS, QUANTITATIVE (DL) Routine 01/09/2025 7:40 AM EST Chronic bilateral low back pain without sciatica Sarcoidosis involving hilar lymph node IMMUNOGLOBULIN G SUBCLASS 4 Routine 01/09/2025 7:40 AM EST Chronic bilateral low back pain without sciatica Sarcoidosis involving hilar lymph node COMPREHENSIVE METABOLIC PANEL Routine 01/09/2025 7:40 AM EST Chronic bilateral low back pain without sciatica Sarcoidosis involving hilar lymph node COMPLETE BLOOD COUNT, WITH DIFFERENTIAL Routine 01/09/2025 7:40 AM EST Chronic bilateral low back pain without sciatica Sarcoidosis involving hilar lymph node IMMUNOFIXATION ELECTROPHORESIS, SERUM Routine 01/09/2025 7:40 AM EST Chronic bilateral low back pain without sciatica Sarcoidosis involving hilar lymph node ELECTROPHORESIS, PROTEIN, SERUM (SPEP) Routine 01/09/2025 7:40 AM EST Chronic bilateral low back pain without sciatica Sarcoidosis involving hilar lymph node LYSOZYME (MURAMIDASE) Routine 01/09/2025 7:40 AM EST Chronic bilateral low back pain without sciatica Sarcoidosis involving hilar lymph node ANGIOTENSIN CONVERTING ENZYME, SERUM Routine 01/09/2025 7:40 AM EST Chronic bilateral low back pain without sciatica Sarcoidosis involving hilar lymph node C-REACTIVE PROTEIN Routine 01/09/2025 7: 40 AM EST Chronic bilateral low back pain without sciatica Sarcoidosis involving hilar lymph node ERYTHROCYTE SEDIMENTATION RATE (ESR) Routine 01/09/2025 7:40 AM EST Chronic bilateral low back pain without sciatica Sarcoidosis involving hilar lymph node URIC ACID Routine 01/09/2025 7:33 AM EST PROTEIN, TOTAL, RANDOM URINE WITH CREATININE Routine 01/09/2025 7:33 AM EST Chronic bilateral low back pain without sciatica Sarcoidosis involving hilar lymph node Prostate cancer (HCC) Pulmonary embolism without acute cor pulmonale, unspecified chronicity, unspecified pulmonary embolism type (HCC) Acquired hypothyroidism Gout involving toe, unspecified cause, unspecified chronicity, unspecified laterality VITAMIN D, 25-HYDROXY Routine 01/09/2025 7:33 AM EST Chronic bilateral low back pain without sciatica Sarcoidosis involving hilar lymph node Prostate cancer (HCC) Pulmonary embolism without acute cor pulmonale, unspecified chronicity, unspecified pulmonary embolism type (HCC) Acquired hypothyroidism Gout involving toe, unspecified cause, unspecified chronicity, unspecified laterality URINALYSIS WITH MICROSCOPIC Routine 01/09/2025 7:33 AM EST Chronic bilateral low back pain without sciatica Sarcoidosis involving hilar lymph node Prostate cancer (HCC) Pulmonary embolism without acute cor pulmonale, unspecified chronicity, unspecified pulmonary embolism type (HCC) Acquired hypothyroidism Gout involving toe, unspecified cause, unspecified chronicity, unspecified laterality TSH REFLEX TO FREE T4 Routine 01/09/2025 7:33 AM EST Chronic bilateral low back pain without sciatica Sarcoidosis involving hilar lymph node Prostate cancer (HCC) Pulmonary embolism without acute cor pulmonale, unspecified chronicity, unspecified pulmonary embolism type (HCC) Acquired hypothyroidism Gout involving toe, unspecified cause, unspecified chronicity, unspecified laterality THYROID PEROXIDASE AND THYROGLOBULIN ANTIBODIES Routine 01/09/2025 7:33 AM EST Chronic bilateral low back pain without sciatica Sarcoidosis involving hilar lymph node Prostate cancer (HCC) Pulmonary embolism without acute cor pulmonale, unspecified chronicity, unspecified pulmonary embolism type (HCC) Acquired hypothyroidism Gout involving toe, unspecified cause, unspecified chronicity, unspecified laterality SM (KING) AND SM/INTERIM CONTROLLER ANTIBODIES Routine 01/09/2025 7:33 AM EST Chronic bilateral low back pain without sciatica Sarcoidosis involving hilar lymph node Prostate cancer (HCC) Pulmonary embolism without acute cor pulmonale, unspecified chronicity, unspecified pulmonary embolism type (HCC) Acquired hypothyroidism Gout involving toe, unspecified cause, unspecified chronicity, unspecified laterality SJOGREN'S (SS-A, SS-B) ANTIBODIES Routine 01/09/2025 7:33 AM EST Chronic bilateral low back pain without sciatica Sarcoidosis involving hilar lymph node Prostate cancer (HCC) Pulmonary embolism without acute cor pulmonale, unspecified chronicity, unspecified pulmonary embolism type (HCC) Acquired hypothyroidism Gout involving toe, unspecified cause, unspecified chronicity, unspecified laterality SCL 70 ANTIBODY, EIA Routine 01/09/2025 7:33 AM EST Chronic bilateral low back pain without sciatica Sarcoidosis involving hilar lymph node Prostate cancer (HCC) Pulmonary embolism without acute cor pulmonale, unspecified chronicity, unspecified pulmonary embolism type (HCC) Acquired hypothyroidism Gout involving toe, unspecified cause, unspecified chronicity, unspecified laterality INTERIM CONTROLLER Routine 01/09/2025 7:33 AM EST Chronic bilateral low back pain without sciatica Sarcoidosis involving hilar lymph node Prostate cancer (HCC) Pulmonary embolism without acute cor pulmonale, unspecified chronicity, unspecified pulmonary embolism type (HCC) Acquired hypothyroidism Gout involving toe, unspecified cause, unspecified chronicity, unspecified laterality PTH, INTACT WITH IONIZED CALCIUM Routine 01/09/2025 7:33 AM EST Chronic bilateral low back pain without sciatica Sarcoidosis involving hilar lymph node Prostate cancer (HCC) Pulmonary embolism without acute cor pulmonale, unspecified chronicity, unspecified pulmonary embolism type (HCC) Acquired hypothyroidism Gout involving toe, unspecified cause, unspecified chronicity, unspecified laterality QUANTIFERON(R)-TB GOLD PLUS, 1 TUBE Routine 01/09/2025 7:33 AM EST Chronic bilateral low back pain without sciatica Sarcoidosis involving hilar lymph node Prostate cancer (HCC) Pulmonary embolism without acute cor pulmonale, unspecified chronicity, unspecified pulmonary embolism type (HCC) Acquired hypothyroidism Gout involving toe, unspecified cause, unspecified chronicity, unspecified laterality RHEUMATOID FACTOR Routine 01/09/2025 7:3 3 AM EST Chronic bilateral low back pain without sciatica Sarcoidosis involving hilar lymph node Prostate cancer (HCC) Pulmonary embolism without acute cor pulmonale, unspecified chronicity, unspecified pulmonary embolism type (HCC) Acquired hypothyroidism Gout involving toe, unspecified cause, unspecified chronicity, unspecified laterality HISTONE ANTIBODY Routine 01/09/2025 7:33 AM EST Chronic bilateral low back pain without sciatica Sarcoidosis involving hilar lymph node Prostate cancer (HCC) Pulmonary embolism without acute cor pulmonale, unspecified chronicity, unspecified pulmonary embolism type (HCC) Acquired hypothyroidism Gout involving toe, unspecified cause, unspecified chronicity, unspecified laterality HEPATITIS B VIRUS (HBV) CORE ANTIBODY TOTAL Routine 01/09/2025 7:33 AM EST Chronic bilateral low back pain without sciatica Sarcoidosis involving hilar lymph node Prostate cancer (HCC) Pulmonary embolism without acute cor pulmonale, unspecified chronicity, unspecified pulmonary embolism type (HCC) Acquired hypothyroidism Gout involving toe, unspecified cause, unspecified chronicity, unspecified laterality HEPATITIS B VIRUS (HBV) SURFACE ANTIGEN SCREEN, REFLEX CONFIRMATION Routine 01/09/2025 7:33 AM EST Chronic bilateral low back pain without sciatica Sarcoidosis involving hilar lymph node Prostate cancer (HCC) Pulmonary embolism without acute cor pulmonale, unspecified chronicity, unspecified pulmonary embolism type (HCC) Acquired hypothyroidism Gout involving toe, unspecified cause, unspecified chronicity, unspecified laterality HEPATITIS C VIRUS (HCV) ANTIBODY Routine 01/09/2025 7:33 AM EST Chronic bilateral low back pain without sciatica Sarcoidosis involving hilar lymph node Prostate cancer (HCC) Pulmonary embolism without acute cor pulmonale, unspecified chronicity, unspecified pulmonary embolism type (HCC) Acquired hypothyroidism Gout involving toe, unspecified cause, unspecified chronicity, unspecified laterality DOUBLE STRAND DNA AB Routine 01/09/2025 7:33 AM EST Chronic bilateral low back pain without sciatica Sarcoidosis involving hilar lymph node Prostate cancer (HCC) Pulmonary embolism without acute cor pulmonale, unspecified chronicity, unspecified pulmonary embolism type (HCC) Acquired hypothyroidism Gout involving toe, unspecified cause, unspecified chronicity, unspecified laterality CYCLIC CITRULLINATED PEPTIDE IGG AB Routine 01/09/2025 7:33 AM EST Chronic bilateral low back pain without sciatica Sarcoidosis involving hilar lymph node Prostate cancer (HCC) Pulmonary embolism without acute cor pulmonale, unspecified chronicity, unspecified pulmonary embolism type (HCC) Acquired hypothyroidism Gout involving toe, unspecified cause, unspecified chronicity, unspecified laterality COMPREHENSIVE METABOLIC PANEL Routine 01/09/2025 7:33 AM EST Chronic bilateral low back pain without sciatica Sarcoidosis involving hilar lymph node Prostate cancer (HCC) Pulmonary embolism without acute cor pulmonale, unspecified chronicity, unspecified pulmonary embolism type (HCC) Acquired hypothyroidism Gout involving toe, unspecified cause, unspecified chronicity, unspecified laterality COMPLETE BLOOD COUNT, WITH DIFFERENTIAL Routine 01/09/2025 7:33 AM EST Chronic bilateral low back pain without sciatica Sarcoidosis involving hilar lymph node Prostate cancer (HCC) Pulmonary embolism without acute cor pulmonale, unspecified chronicity, unspecified pulmonary embolism type (HCC) Acquired hypothyroidism Gout involving toe, unspecified cause, unspecified chronicity, unspecified laterality CENTROMERE ANTIBODY Routine 01/09/2025 7 :33 AM EST Chronic bilateral low back pain without sciatica Sarcoidosis involving hilar lymph node Prostate cancer (HCC) Pulmonary embolism without acute cor pulmonale, unspecified chronicity, unspecified pulmonary embolism type (HCC) Acquired hypothyroidism Gout involving toe, unspecified cause, unspecified chronicity, unspecified laterality CHROMATIN NUCLEOSOMAL ANTIBODIES Routine 01/09/2025 7:33 AM EST Chronic bilateral low back pain without sciatica Sarcoidosis involving hilar lymph node Prostate cancer (HCC) Pulmonary embolism without acute cor pulmonale, unspecified chronicity, unspecified pulmonary embolism type (HCC) Acquired hypothyroidism Gout involving toe, unspecified cause, unspecified chronicity, unspecified laterality CREATINE KINASE (CK) Routine 01/09/2025 7:33 AM EST Chronic bilateral low back pain without sciatica Sarcoidosis involving hilar lymph node Prostate cancer (HCC) Pulmonary embolism without acute cor pulmonale, unspecified chronicity, unspecified pulmonary embolism type (HCC) Acquired hypothyroidism Gout involving toe, unspecified cause, unspecified chronicity, unspecified laterality C3, C4, PANEL Routine 01/09/2025 7:33 AM EST Chronic bilateral low back pain without sciatica Sarcoidosis involving hilar lymph node Prostate cancer (HCC) Pulmonary embolism without acute cor pulmonale, unspecified chronicity, unspecified pulmonary embolism type (HCC) Acquired hypothyroidism Gout involving toe, unspecified cause, unspecified chronicity, unspecified laterality POCT COMPLETE BLOOD COUNT (ONCOLOGY - INTERFACED [...] EDT from Last 3 Months Results * XR Lumbar spine complete 4+ views (01/12/2025 8:46 AM EST) Anatomical Region Laterality Modality L-spine Computed Radiogr aphy 01/12/2025 8:30 AM EST 01/12/2025 8:30 AM EST Impressions 01/16/2025 10:20 AM EST There are ovoid and rounded densities projecting along the iliac bones bilaterally. Previous PET/CT scan suggested metastatic disease. No acute skeletal deformity apparent Electronically signed by: Blue Finley MD 01/16/2025 10:20 AM EST Thank you for referring your patient to us, Blue Finley [phone] (Electronically Signed - 01/16/2025 10:20) Copy: SUSANNE BURROWS ASSOCIATE PROFESSOR OF ENGLISH [facility] [address] [place], [place] [id number] PATIENT , JACKELYN MEJÍA MD [facility]- [facility]UL[facility]- [place] [address] [facility] [address] [place] [address] Narrative 01/16/2025 10:20 AM EST EXAMINATION: XR LUMBOSACRAL SPINE CLINICAL INFORMATION: chronic lower back pain COMPARISON: 10/24/2020 TECHNIQUE: Three views of the lumbosacral spine. FINDINGS: No fracture or compression deformities. The disc spaces appear intact. No spondylolisthesis. There are ovoid and rounded densities projecting at the level of the left iliac bone. There is a rounded density projecting along the right iliac bone. No specific soft tissue abnormality apparent. Procedure Note Blue Finley MD - 01/16/2025 EXAMINATION: XR LUMBOSACRAL SPINE CLINICAL INFORMATION: chronic lower back pain COMPARISON: 10/24/2020 TECHNIQUE: Three views of the lumbosacral spine. FINDINGS: No fracture or compression deformities. The disc spaces appear intact. Nospondylolisthesis. There are ovoid and rounded densities projecting at thelevel of the left iliac bone. There is a rounded density projecting alongthe right iliac bone. No specific soft tissue abnormality apparent. IMPRESSION: There are ovoid and rounded densities projecting along the iliac bonesbilaterally. Previous PET/CT scan suggested metastatic disease. No acute skeletal deformity apparent Electronically signed by: Blue Finley MD 01/16/2025 10:20 AM [facility] Thank you for referring your patient to us, Blue Finley [phone] (Electronically Signed - 01/16/2025 10:20) Copy: SUSANNE BURROWS NP [facility] [address] [place] [address] PATIENT , JACKELYN MEJÍA MD [facility] [place] [address] [place] [address] Parul Hanson MD IMG DIAGNOSTIC IMAGING ORDERA BLES Final Result * Immunoglobulin G Subclass 4 (01/09/2025 7:40 AM EST) [facility] IgG 4 13.3 4.0 - 86.0 mg/dL [facility] Blood Blood specimen / Unknown 01/09/2025 7:40 AM EST 01/09/2025 7:43 AM EST Narrative [facility] - 01/16/2025 1:23 PM EST FASTING:NO PATIENT REFUSED SOME TESTING; PATIENT ENCOURAGED TO RETURN. FASTING: NO Parul Hanson MD LAB BLOOD ORDERABLES Final Re sult [facility] [address] [place] [address] * JOSELYN Multiplex, with Reflex to dsDNA (01/09/2025 7:40 AM EST) [facility] Anachoice(R) Screen NEGATIVE NEGATIVE [facility] Comment: A negative JOSELYN Multiplex indicates the absence of detectable antibodies to component analytes consisting of double stranded DNA (dsDNA), chromatin, ribonucleoprotein (INTERIM CONTROLLER), King/INTERIM CONTROLLER (Sm/INTERIM CONTROLLER), King (Sm), SS-A, SS-B, Leticia-1, centromere B, Scl-70 and ribosomal P. A negative result should be interpreted in the context of the clinical and laboratory findings and does not rule out autoimmune disease characterized by other autoantibody specificities such as rheumatoid arthritis, autoimmune hepatitis, primary biliary cirrhosis, autoimmune thyroiditis, Sraan's disease, pernicious anemia, autoimmune neuropathies, vasculitis, celiac disease, and bullous disease. For additional information, please refer to http://education.Gust/faq/KON161 (This link is being provided for informational/ educational purposes only.) Blood Blood specimen / Unknown 01/09/2025 7:40 AM EST 01/09/2025 7:43 AM EST Narrative [facility] - 01/16/2025 1:23 PM EST FASTING:NO PATIENT REFUSED SOME TESTING; PATIENT ENCOURAGED TO RETURN. FASTING: NO us Parul Hanson MD LAB BLOOD ORDERABLES Final Re sult [facility] [address] [place] [phone] * (ABNORMAL) Complete Blood Count, with Differential (01/09/2025 7:40 AM EST) Only the most recent of2 resultswithin the time period is included. White Blood Cell Count 9.3 3.8 - 10.8 Thousand/ uL [facility] Red Blood Cell Count 5.32 4.20 - 5.80 Million/u L [facility] Hemoglobin 16.8 13.2 - 17.1 g/dL [facility] Hematocrit 50.8(H) 38.5 - 50.0 % [facility] [employer] MCV 95.5 80.0 - 100.0 fL [facility] [employer] MCH 31.6 27.0 - 33.0 pg [facility] [employer] MCHC 33.1 32.0 - 36.0 g/dL [facility] Comment: For adults, a slight decrease in the calculated MCHC value (in the range of 30 to 32 g/dL) is most likely not clinically significant; however, it should be interpreted with caution in correlation with other red cell parameters and the patient's clinical condition. RDW 13.5 11.0 - 15.0 % [facility] Platelet Count 179 140 - 400 Thousand/ uL [facility] MPV 9.5 7.5 - 12.5 fL [facility] [employer] Neutrophils Auto 7,673 1,500 - 7,800 cells/uL [facility] [employer] Abs Lymphocytes Auto 930 850 - 3,900 cells/uL [facility] [employer] Abs Monocytes Auto 577 200 - 950 cells/uL [facility] [employer] Abs Eosinophils Auto 93 15 - 500 cells/uL [facility] Abs Basophils Auto 28 0 - 200 cells/uL [facility] Neutrophils Auto 82.5 % [facility] [employer] Lymphocytes Auto 10.0 % [facility] Monocytes Auto 6.2 % [facility] Eosinophils Auto 1.0 % [employer] Basophils Auto 0.3 % [facility] Blood Blood specimen / Unknown 01/09/2025 7:40 AM EST 01/09/2025 7:43 AM EST [facility] - 01/16/2025 1:23 PM EST FASTING:NO PATIENT REFUSED SOME TESTING; PATIENT ENCOURAGED TO RETURN. FASTING: NO us Parul Hanson MD LAB BLOOD ORDERABLES Final Re sult [facility] [address] [place] [address] * Lysozyme (Muramidase) (01/09/2025 7:40 AM EST) Lysozyme (Muramidase) 6.4 5.0 - 11.0 mcg/mL [facility] Comment: This test was developed and its analytical performance characteristics have been determined by [employer] [place], [place]. It has not been cleared or approved by the FDA. This assay has been validated pursuant to the CLIA regulations and is used for clinical purposes. Blood Blood specimen / Unknown 01/09/2025 7:40 AM EST 01/09/2025 7:43 AM EST Narrative [facility] - 01/16/2025 1:23 PM EST FASTING:NO PATIENT REFUSED SOME TESTING; PATIENT ENCOURAGED TO RETURN. FASTING: NO Parul Hanson MD LAB BLOOD ORDERABLES Final Re sult Performing Organization Address City/[facility]/ZIP Co de Phone Number [facility] [address] [place] * Erythrocyte Sediment Rate (ESR) (01/09/2025 7:40 AM EST) Only the most recent of2 resultswithin the time period is included. Erythrocyte Sediment Rate (ESR) 2 < OR = 20 mm/h [facility] Blood Blood specimen / Unknown 01/09/2025 7:40 AM EST 01/09/2025 7:43 AM EST Narrative [facility] - 01/16/2025 1:23 PM EST FASTING:NO PATIENT REFUSED SOME TESTING; PATIENT ENCOURAGED TO RETURN. FASTING: NO Parul Hanson MD LAB BLOOD ORDERABLES Final Re sult Performing Organization Address [facility] Co de Phone Number [employer] [address] [place] [phone] * ANGIOTENSIN CONVERTING ENZYME, SERUM (01/09/2025 7:40 AM EST) Only the most recent of2 resultswithin the time period is included. Angiotensin-1 Converting Enzyme 19 9 - 67 U/L [facility] Blood Blood specimen / Unknown 01/09/2025 7:40 AM EST 01/09/2025 7:43 AM EST Narrative [facility] - 01/16/2025 1:23 PM EST FASTING:NO PATIENT REFUSED SOME TESTING; PATIENT ENCOURAGED TO RETURN. FASTING: NO Parul Hanson MD LAB BLOOD ORDERABLES Final Re sult [place] [facility] [address] [place] [address] * IMMUNOFIXATION ELECTROPHORESIS, SERUM (01/09/2025 7:40 AM EST) [facility] Interpretation [facility] Comment: Normal pattern. No monoclonal proteins detected. Blood Blood specimen / Unknown 01/09/2025 7:40 AM EST 01/09/2025 7:43 AM EST [facility] - 01/16/2025 1:23 PM EST FASTING:NO PATIENT REFUSED SOME TESTING; PATIENT ENCOURAGED TO RETURN. FASTING: NO Parul Hanson MD LAB BLOOD ORDERABLES Final Re sult Performing Organization Address [facility] Co de Phone Number [facility] [address] [place] [phone] * IMMUNOGLOBULINS, QUANTITATIVE (DL) (01/09/2025 7:40 AM EST) [facility] Immunoglobulin A (IgA) 120 47 - 310 mg/dL [facility] Immunoglobulin G (IgG) 641 600 - 1,640 mg/dL [facility] Immunoglobulin M (IgM) 105 50 - 300 mg/dL [facility] Blood Blood specimen / Unknown 01/09/2025 7:40 AM EST 01/09/2025 7:43 AM EST [facility] - 01/16/2025 1:23 PM EST FASTING:NO PATIENT REFUSED SOME TESTING; PATIENT ENCOURAGED TO RETURN. FASTING: NO Parul Hanson MD LAB BLOOD ORDERABLES Final Re sult Performing Organization Address [facility] Co de Phone Number [facility] [address] [place] [phone] * C-Reactive Protein (01/09/2025 7:40 AM EST) Only the most recent of2 resultswithin the time period is included. [facility] C-Reactive Protein <3.0 <8.0 mg/L [facility] Blood Blood specimen / Unknown 01/09/2025 7:40 AM EST 01/09/2025 7:43 AM EST [facility]topia - 01/16/2025 1:23 PM EST FASTING:NO PATIENT REFUSED SOME TESTING; PATIENT ENCOURAGED TO RETURN. FASTING: NO Parul Hanson MD LAB BLOOD ORDERABLES Final Re sult Performing Organization Address [facility] de Phone Number [facility] [address] [place] [phone] * (ABNORMAL) Electrophoresis, Protein, Serum (SPEP) (01/09/2025 7:40 AM EST) Pathologist [facility] Protein, Total 6.4 6.1 - 8.1 g/dL [facility] Albumin 4.1 3.8 - 4.8 g/dL [facility] Alpha 1 Globulin 0.2 0.2 - 0.3 g/dL [facility] Alpha 2 Globulin 0.7 0.5 - 0.9 g/dL [facility] Beta 1 Globulin 0.4 0.4 - 0.6 g/dL [facility] Beta 2 Globulin 0.3 0.2 - 0.5 g/dL [facility] Gamma Globulin 0.7(L) 0.8 - 1.7 g/dL [facility] Interpretation [facility] Comment: Consistent with hypogammaglobulinemia. Serum free light chains or urine immunofixation should be considered if plasma cell dyscrasias are a possible clinical diagnosis. Blood Blood specimen / Unknown 01/09/2025 7:40 AM EST 01/09/2025 7:43 AM EST [facility] - 01/16/2025 1:23 PM EST FASTING:NO PATIENT REFUSED SOME TESTING; PATIENT ENCOURAGED TO RETURN. FASTING: NO Parul Hanson MD LAB BLOOD ORDERABLES Final Re sult Performing Organization Address [facility] Co de Phone Number [facility] [address] [place] [phone] * Comprehensive Metabolic Panel (01/09/2025 7:40 AM EST) Only the most recent of2 resultswithin the time period is included. Glucose 84 65 - 139 mg/dL [facility] Comment: Non-fasting reference interval Blood Urea Nitrogen (BUN) 22 7 - 25 mg/dL [facility] Creatinine 1.05 0.70 - 1.30 mg/dL [facility] Creatinine w/ eGFR 82 > OR = 60 mL/min/1. 73m2 [facility] BUN/Creatinine Ratio SEE NOTE: 6 - 22 (calc) [facility] Comment: Not Reported: BUN and Creatinine are within reference range. Sodium 139 135 - 146 mmol/L [facility] Potassium 3.9 3.5 - 5.3 mmol/L [facility] Chloride 102 98 - 110 mmol/L [facility] CO2 28 20 - 32 mmol/L [facility] Calcium 9.4 8.6 - 10.3 mg/dL [facility] Protein, Total 6.4 6.1 - 8.1 g/dL [facility] Albumin 4.3 3.6 - 5.1 g/dL [facility] Globulin 2.1 1.9 - 3.7 g/dL (calc) [facility] Albumin/Globuli n Ratio 2.0 1.0 - 2.5 (calc) [facility] Bilirubin, Total 0.5 0.2 - 1.2 mg/dL [facility] Alkaline Phosphatase 48 35 - 144 U/L [facility] Aspartate Aminotrans (AST) 16 10 - 35 U/L [facility] Alanine Aminotrans (ALT) 23 9 - 46 U/L [facility] Blood Blood specimen / Unknown 01/09/2025 7:40 AM EST 01/09/2025 7:43 AM EST Narrative [facility] - 01/16/2025 1:23 PM EST FASTING:NO PATIENT REFUSED SOME TESTING; PATIENT ENCOURAGED TO RETURN. FASTING: NO us Parul Hanson MD LAB BLOOD ORDERABLES Final Re sult [facility] [address] [place] [phone] * QUANTIFERON ?? -TB GOLD PLUS, 1 TUBE (01/09/2025 7:33 AM EST) Quantiferon TB Gold Plus, 1T NEGATIVE NEGATIVE [facility] Comment: Negative test result. M. tuberculosis complex infection unlikely. Quantiferon NIL 0.10 IU/mL [facility] Quantiferon Mitogen-NIL 3.55 IU/mL [facility] [employer] Quantiferon TB1-NIL <0.00 IU/mL [facility] [employer] Quantiferon TB2-NIL <0.00 IU/mL [facility] [employer] Comment: The Nil tube value reflects the background interferon gamma immune response of the patient's blood sample. This value has been subtracted from the patient's displayed TB and Mitogen results. Lower than expected results with the Mitogen tube prevent false-negative Quantiferon readings by detecting a patient with a potential immune suppressive condition and/or suboptimal pre-analytical specimen handling. The TB1 Antigen tube is coated with the M. tuberculosis-specific antigens designed to elicit responses from TB antigen primed CD4+ helper T-lymphocytes. The TB2 Antigen tube is coated with the M. tuberculosis-specific antigens designed to elicit responses from TB antigen primed CD4+ helper and CD8+ cytotoxic T-lymphocytes. For additional information, please refer to https://education.LOOKCAST.[employer]/faq/TZU700 (This link is being provided for informational/ educational purposes only.) Blood Blood specimen / Unknown 01/09/2025 7:33 AM EST 01/09/2025 7:37 AM EST Narrative [facility] - 01/12/2025 5:16 PM EST FASTING:NO FASTING: NO Parul Hanson MD LAB BLOOD ORDERABLES Final Re sult [facility] [address] [place] [phone] * (ABNORMAL) PROTEIN, TOTAL, RANDOM URINE, W/CREATININE (01/09/2025 7:33 AM EST) Pathologist [facility] Creatinine, Urine, Random 57 20 - 320 mg/dL [facility] Protein/Creati nine Ratio, Urine 70 25 - 148 mg/g creat [facility] Protein/Creati nine Ratio 0.070 0.025 - 0.148 mg/mg creat [facility] Protein Urine, Random 4(L) 5 - 25 mg/dL [facility] Urine Urine specimen / Unknown 01/09/2025 7:33 AM EST 01/09/2025 7:37 AM EST Narrative [facility] - 01/12/2025 5:16 PM EST FASTING:NO FASTING: NO Parul Hanson MD URINE ORDERABLES Final Result Performing Organization Address [facility]/ZIP Co de Phone Number [facility] [address] [place] [phone] * Thyroid Peroxidase and Thyroglobulin Antibodies (01/09/2025 7:33 AM EST) [facility] Thyroglobulin AB <1 < or = 1 IU/mL [facility] Thyroid Peroxidase Antibody <1 <9 IU/mL [facility] Blood Blood specimen / Unknown 01/09/2025 7:33 AM EST 01/09/2025 7:37 AM EST Narrative [facility] - 01/12/2025 5:16 PM EST FASTING:NO FASTING: NO us Parul Hanson MD LAB BLOOD ORDERABLES Final Re sult Performing Organization Address [facility]/ZIP Co de Phone Number [facility] [address] [place] [phone] * INTERIM CONTROLLER (01/09/2025 7:33 AM EST) [facility] INTERIM CONTROLLER <1.0 NEG <1.0 NEG [facility] Blood Blood specimen / Unknown 01/09/2025 7:33 AM EST 01/09/2025 7:37 AM EST Narrative [facility] - 01/12/2025 5:16 PM EST FASTING:NO FASTING: NO Parul Hanson MD LAB BLOOD ORDERABLES Final Re sult Performing Organization Address [facility] de Phone Number [facility] [address] [place] [phone] * TSH REFLEX FREE T4 (01/09/2025 7:33 AM EST) TSH reflex Free T4 1.21 0.40 - 4.50 mIU/L [facility] Blood Blood specimen / Unknown 01/09/2025 7:33 AM EST 01/09/2025 7:37 AM EST Narrative [facility] - 01/12/2025 5:16 PM EST FASTING:NO FASTING: NO Parul Hanson MD LAB BLOOD ORDERABLES Final Re sult Performing Organization Address [facility] de Phone Number [facility] [address] [place] [phone] * PTH, INTACT WITH IONIZED CALCIUM (01/09/2025 7:33 AM EST) PTH, Intact 32 16 - 77 pg/mL [facility] Comment: Interpretive Guide Intact PTH Calcium ------- Normal Parathyroid Normal Normal Hypoparathyroidism Low or Low Normal Low Hyperparathyroidism Primary Normal or High High Secondary High Normal or Low Tertiary High High Non-Parathyroid Hypercalcemia Low or Low Normal High Calcium 9.4 8.6 - 10.3 mg/dL [facility] [employer] Calcium, Ionized 5.1 4.7 - 5.5 mg/dL [facility] Blood Blood specimen / Unknown 01/09/2025 7:33 AM EST 01/09/2025 7:37 AM EST Narrative [facility] - 01/12/2025 5:16 PM EST FASTING:NO FASTING: NO Parul Hanson MD LAB BLOOD ORDERABLES Final Re sult Performing Organization Address [facility] de Phone Number [facility] [address] [place] [phone] * Chromatin Nucleosomal Antibodies (01/09/2025 7:33 AM EST) Chromatin (Nucleosomal) Antibody <1.0 NEG <1.0 NEG [employer] Blood Blood specimen / Unknown 01/09/2025 7:33 AM EST 01/09/2025 7:37 AM EST Narrative [facility] - 01/12/2025 5:16 PM EST FASTING:NO FASTING: NO Parul Hanson MD LAB BLOOD ORDERABLES Final Re sult Performing Organization Address [facility] de Phone Number [facility] [address] [place] [phone] * C3, C4, PANEL (01/09/2025 7:33 AM EST) Complement C3 137 82 - 185 mg/dL [facility] Complement C4 28 15 - 53 mg/dL [facility] Blood Blood specimen / Unknown 01/09/2025 7:33 AM EST 01/09/2025 7:37 AM EST Narrative [facility] - 01/12/2025 5:16 PM EST FASTING:NO FASTING: NO Parul Hanson MD LAB BLOOD ORDERABLES Final Re sult Performing Organization Address [facility] de Phone Number [facility] [address] [place] [phone] * Sm (King) and Sm/INTERIM CONTROLLER Antibodies (01/09/2025 7:33 AM EST) Sm (King) Antibody <1.0 NEG <1.0 NEG [facility] Sm/INTERIM CONTROLLER Antibody <1.0 NEG <1.0 NEG [employer] Blood Blood specimen / Unknown 01/09/2025 7:33 AM EST 01/09/2025 7:37 AM EST Narrative [facility] - 01/12/2025 5:16 PM EST FASTING:NO FASTING: NO Parul Hanson MD LAB BLOOD ORDERABLES Final Re sult Performing Organization Address [facility] de Phone Number [facility] [address] [place] [phone] * SJOGREN'S (SS-A, SS-B) ANTIBODIES (01/09/2025 7:33 AM EST) Ro (SSA) Antibody <1.0 NEG <1.0 NEG [employer] La (SSB) Antibody <1.0 NEG <1.0 NEG [employer] Blood Blood specimen / Unknown 01/09/2025 7:33 AM EST 01/09/2025 7:37 AM EST [facility]topia - 01/12/2025 5:16 PM EST FASTING:NO FASTING: NO Parul Hanson MD LAB BLOOD ORDERABLES Final Re sult Performing Organization Address [facility] de Phone Number [facility] [address] [place] [phone] * (ABNORMAL) HISTONE ANTIBODY (01/09/2025 7:33 AM EST) Histone Antibodies 1.1(H) <1.0 U [facility] [place] Comment: Value Explanation of Results ------ <1.0 Negative 1.0 - 1.5 Weak Positive 1.6 - 2.5 Moderate Positive >2.5 Strong Positive Blood Blood specimen / Unknown 01/09/2025 7:33 AM EST 01/09/2025 7:37 AM EST Narrative [facility] - 01/12/2025 5:16 PM EST FASTING:NO FASTING: NO Parul Hanson MD LAB BLOOD ORDERABLES Final Re sult Performing Organization Address [facility] Co de Phone Number [facility] [place] [facility] [address] [place] [address] * HEPATITIS B VIRUS (HBV) SURFACE ANTIGEN SCREEN, REFLEX CONFIRMATION (01/09/2025 7:33 AM EST) Pathologist [facility] Hepatitis B Surface Ag Screen NON-REACT MELA NON-REACT MELA [facility] Comment: For additional information, please refer to http://education.Peekapak/faq/XFB324 (This link is being provided for informational/ educational purposes only.) Blood specimen / Unknown 01/09/2025 7:33 AM EST 01/09/2025 7:37 AM EST Narrative [facility] - 01/12/2025 5:16 PM EST FASTING:NO FASTING: NO Parul Hanson MD LAB BLOOD ORDERABLES Final Re sult Performing Organization Address [facility] Co de Phone Number [facility] [address] [place] [phone] * Centromere Antibody (01/09/2025 7:33 AM EST) Pathologist [facility] Centromere Antibody <1.0 NEG <1.0 NEG [facility] Blood Blood specimen / Unknown 01/09/2025 7:33 AM EST 01/09/2025 7:37 AM EST Narrative [facility] - 01/12/2025 5:16 PM EST FASTING:NO FASTING: NO Parul Hanson MD LAB BLOOD ORDERABLES Final Re sult Performing Organization Address [facility] Co de Phone Number [facility] [address] [place] [phone] * HEPATITIS C VIRUS (HCV) ANTIBODY (01/09/2025 7:33 AM EST) Pathologist [facility] Hepatitis C Antibody NON-REACT MELA NON-REACT MELA [facility] Comment: HCV antibody was non-reactive. There is no laboratory evidence of HCV infection. In most cases, no further action is required. However, if recent HCV exposure is suspected, a test for HCV RNA (test code 01823) is suggested. For additional information please refer to http://ImpactGames.Peekapak/faq/QLM93o5 (This link is being provided for informational/ educational purposes only.) Blood specimen / Unknown 01/09/2025 7:33 AM EST 01/09/2025 7:37 AM EST Narrative [facility] - 01/12/2025 5:16 PM EST FASTING:NO FASTING: NO Parul Hanson MD LAB BLOOD ORDERABLES Final Re sult Performing Organization Address [facility] de Phone Number [facility] [address] [place] [phone] * Cyclic Citrullinated Peptide IgG Ab (01/09/2025 7:33 AM EST) Pathologist [facility] CCP IgG Antibodies <16 UNITS [facility] Comment: Reference Range Negative: <20 Weak Positive: 20-39 Moderate Positive: 40-59 Strong Positive: >59 Blood Blood specimen / Unknown 01/09/2025 7:33 AM EST 01/09/2025 7:37 AM EST Narrative [facility] - 01/12/2025 5:16 PM EST FASTING:NO FASTING: NO Parul Hanson MD LAB BLOOD ORDERABLES Final Re sult Performing Organization Address [facility] de Phone Number [facility] [address] [place] [phone] * SCL-70 ANTIBODY, EIA (01/09/2025 7:33 AM EST) Pathologist [facility] Scl-70 Antibody <1.0 NEG <1.0 NEG [facility] Blood Blood specimen / Unknown 01/09/2025 7:33 AM EST 01/09/2025 7:37 AM EST Narrative [facility] - 01/12/2025 5:16 PM EST FASTING:NO FASTING: NO Parul Hanson MD LAB BLOOD ORDERABLES Final Re sult Performing Organization Address [facility] Co de Phone Number [facility] [address] [place] [phone] * Double Strand DNA Antibody (01/09/2025 7:33 AM EST) Pathologist [facility] Double Strand DNA Antibody 1 IU/mL [facility] Comment: IU/mL Interpretation < or = 4 Negative 5-9 Indeterminate > or = 10 Positive Blood Blood specimen / Unknown 01/09/2025 7:33 AM EST 01/09/2025 7:37 AM EST [facility]topia - 01/12/2025 5:16 PM EST FASTING:NO FASTING: NO Parul Hanson MD LAB BLOOD ORDERABLES Final Re sult Performing Organization Address [facility] de Phone Number [facility] [address] [place] [phone] * HEPATITIS B VIRUS (HBV) CORE ANTIBODY TOTAL (01/09/2025 7:33 AM EST) [facility] Hepatitis B Core Antibody Total NON-REACT MELA NON-REACT MELA [facility] Comment: For additional information, please refer to http://education.Peekapak/faq/UXY580 (This link is being provided for informational/ educational purposes only.) Blood specimen / Unknown 01/09/2025 7:33 AM EST 01/09/2025 7:37 AM EST Narrative [facility] - 01/12/2025 5:16 PM EST FASTING:NO FASTING: NO Parul Hanson MD LAB BLOOD ORDERABLES Final Re sult Performing Organization Address [facility] Co de Phone Number [facility] [address] [place] [phone] * (ABNORMAL) VITAMIN D, 25-HYDROXY (01/09/2025 7:33 AM EST) Vitamin D,25-Oh,Total, IA 23(L) 30 - 100 ng/mL [facility] Comment: Vitamin D Status 25-OH Vitamin D: Deficiency: <20 ng/mL Insufficiency: 20 - 29 ng/mL Optimal: > or = 30 ng/mL For 25-OH Vitamin D testing on patients on D2-supplementation and patients for whom quantitation of D2 and D3 fractions is required, the [facility]ure[facility](TM) 25-OH VIT D, (D2,D3), LC/MS/MS is recommended: order code 41621 (patients >2yrs). See Note 1 Note 1 For additional information, please refer to http://education.Gust/faq/GCX035 (This link is being provided for informational/ educational purposes only.) Blood Blood specimen / Unknown 01/09/2025 7:33 AM EST 01/09/2025 7:37 AM EST Narrative [facility] - 01/12/2025 5:16 PM EST FASTING:NO FASTING: NO us Parul Hanson MD LAB BLOOD ORDERABLES Final Re sult [facility] [address] [place] [phone] * Urinalysis with Microscopic (01/09/2025 7:33 AM EST) Color YELLOW YELLOW [facility] [employer] Clarity CLEAR CLEAR [facility] [employer] Specific [place] 1.011 1.001 - 1.035 [facility] [employer] pH 6.5 5.0 - 8.0 [facility] [employer] Glucose, Urine, Random NEGATIVE NEGATIVE [facility] [employer] Bilirubin NEGATIVE NEGATIVE [facility] [employer] Ketones NEGATIVE NEGATIVE [facility] [employer] [facility] Blood NEGATIVE NEGATIVE [facility] [employer] Protein NEGATIVE NEGATIVE [facility] [employer] Nitrite NEGATIVE NEGATIVE [facility] [employer] Leukocyte Esterase NEGATIVE NEGATIVE [facility] [employer] WBC NONE SEEN < OR = 5 /HPF [facility] RBC NONE SEEN < OR = 2 /HPF [facility] Squamous Epithelial Cells NONE SEEN < OR = 5 /HPF [facility] Bacteria NONE SEEN NONE SEEN /HPF [facility] [employer] Hyaline Cast NONE SEEN NONE SEEN /LPF [facility] Note [facility] Comment: This urine was analyzed for the presence of WBC, RBC, bacteria, casts, and other formed elements. Only those elements seen were reported. Urine Urine specimen / Unknown 01/09/2025 7:33 AM EST 01/09/2025 7:37 AM EST [facility] - 01/12/2025 5:16 PM EST FASTING:NO FASTING: NO Parul Hanson MD URINE ORDERABLES Final Result Performing Organization Address [facility] de Phone Number [facility] [address] [place] [phone] * RHEUMATOID FACTOR (01/09/2025 7:33 AM EST) Rheumatoid Factor <10 <14 IU/mL [facility] Blood Blood specimen / Unknown 01/09/2025 7:33 AM EST 01/09/2025 7:37 AM EST [facility]topia - 01/12/2025 5:16 PM EST FASTING:NO FASTING: NO Parul Hanson MD LAB BLOOD ORDERABLES Final Re sult Performing Organization Address [facility] Co de Phone Number [facility] [address] [place] [phone] * URIC ACID (01/09/2025 7:33 AM EST) Uric Acid 4.9 4.0 - 8.0 mg/dL [facility] Comment: Therapeutic target for gout patients: <6.0 mg/dL 01/09/2025 7:33 AM EST 01/09/2025 7:37 AM EST Narrative [facility] - 01/12/2025 5:16 PM EST FASTING:NO FASTING: NO Parul Hanson MD LAB BLOOD ORDERABLES Final Re sult Performing Organization Address [facility] Co de Phone Number [facility] [address] [place] [phone] * CREATINE KINASE (CK) (01/09/2025 7:33 AM EST) Pathologist [facility] Creatine Kinase (CK) 59 23 - 325 U/L [facility] Blood Blood specimen / Unknown 01/09/2025 7:33 AM EST 01/09/2025 7:37 AM EST Narrative [facility] - 01/12/2025 5:16 PM EST FASTING:NO FASTING: NO Paurl Hanson MD LAB BLOOD ORDERABLES Final Re sult Performing Organization Address [facility] de Phone Number [facility] [address] [place] [phone] * (ABNORMAL) POCT Complete Blood Count (Oncology) (12/28/2024 2:02 PM EDT) Only the most recent of2 resultswithin the time period is included. [facility] White Blood Cell Count 10.1 4.0 - 11.0 Thou/uL 12/28/2024 2:09 PM EDT [facility] Red Blood Cell Count 5.36 4.50 - 6.20 Mil/uL 12/28/2024 2:09 PM EDT [facility] Hemoglobin 15.9 13.0 - 17.7 g/dL 12/28/2024 2:09 PM EDT [facility] Hematocrit 49.1 39.0 - 54.0 % 12/28/2024 2:09 PM EDT [facility] MCV 92 80 - 100 fL 12/28/2024 2:09 PM EDT [facility] MCH 29.7 27.0 - 31.0 pg 12/28/2024 2:09 PM EDT [facility] MCHC 32.4 30.0 - 36.0 g/dL 12/28/2024 2:09 PM EDT [facility] RDW 12.7 11.5 - 14.5 % 12/28/2024 2:09 PM EDT [facility] Platelet Count 175 150 - 450 Thou/uL 12/28/2024 2:09 PM EDT [facility] MPV 8.2 7.5 - 12.5 fL 12/28/2024 2:09 PM EDT [facility] Neutrophils Auto 93.7 % 12/29/19 2:09 PM EDT [facility] Abs Neutrophils Auto 9.50(H) 2.00 - 7.50 Thou/uL 12/28/2024 2:09 PM EDT [facility] Lymphocytes Auto 4.0 % 12/29/19 2:09 PM EDT [facility] Abs Lymphocytes Auto <1.00(L) 1.50 - 4.50 Thou/uL 12/28/2024 2:09 PM EDT [facility] Mixed Mononuclear Auto 2.3 % 12/28/2024 2:09 PM EDT [facility] Abs Mixed Mononuclear Auto <1.00 0.20 - 1.90 Thou/uL 12/28/2024 2:09 PM EDT [facility] Blood Blood specimen / Unknown 12/28/2024 2:02 PM EDT 12/28/2024 2:09 PM EDT Juan Valdes MD POCT ORDERABLES - ONCOLOGY F inal Result [address] [address], [address] * Flow Cytometry Report (11/22/2024 10:05 AM EDT) Report [facility] [id number] CLIA ID [id number] [address] [place] [address] / [phone] Hematopathology Report PATIENT NAME: MISHA STEWARD [facility] REC NUMBER: [id number] (AGE): 1965 (Age: 59) SPECIMEN NUMBER: [id number] DATE OBTAINED: 11/22/2024 DIAGNOSIS PERIPHERAL BLOOD (FLOW [...] CD34+ blasts comprise <0.1% of the WBCs. [id number] Clinical Information and History: D86.9 (Sarcoidosis, unspecified) [...] determined by the [facility] of [facility]. It has not been cleared or [...] AM EDT) PSA, Post Prostatectomy <0.02 ng/mL [facility] Comment: PSA values obtained with different assay methods or kits cannot be used interchangeably. This test was performed using the Homar EXPO DxI method. PSA, ICMA is not to [...] MD LAB BLOOD ORDERABLES Fin al Result [facility] [address] [place] [phone] * CT BONE BIOPSY-DEEP N/A (11/03/2024 2:43 [...] * Pathology (11/03/2024 12:00 AM EDT) Report [facility] [id number] CLIA ID [id number] [address] [place] [address] [phone] Surgical Pathology Report PATIENT NAME: MISHA STEWARD REC NUMBER: [id number] (AGE): 1965 (Age: 59) SPECIMEN NUMBER: [id number] DATE OBTAINED: 11/03/2024 DIAGNOSIS BONE, L2 VERTEBRAL [...] examined. There is no viable tumor identified. 36034, [address]284, 17571, 98973 x 4 The tests used in the work-up of this specimen may include Analyte-Specific Reagents (ASRs). The Immunopathology/Mor phologic Proteomics and Histology Laboratories at [facility] have established the performance characteristics of [...] and submitted in toto in cassette A2. [address] LAB 11/03/2024 11/04/2024 7:1 4 AM EDT Comment:L2 VERTEBRAL BODY 13 GA BONE CORE us Jackelyn Mejía MD PATHOLOGY/CYTOLOGY ORDERABL ES Final Result [facility]ITAL LAB See Below * PT/PTT (INCLUDES INR) (11/01/2024 1:41 PM EDT) Partial Thromboplastin Time (PTT) 29 23 - 32 sec [facility] Comment: This test has not been validated for monitoring unfractionated heparin therapy. For testing that is validated for this type of therapy, please refer to the Heparin Anti-Xa assay (test code 83707). For additional information, please refer to http://education.Gust/faq/KMT521 (This link is being provided for informational/educational purposes only.) INR 1.0 [facility] Comment: Reference Range 0.9-1.1 Moderate-intensity Warfarin Therapy 2.0-3.0 Higher-intensity Warfarin Therapy 3.0-4.0 Prothrombin Time (PT) 11.1 9.0 - 11.5 sec [facility] Blood Blood specimen / Unknown 11/01/2024 1:41 PM EDT 11/01/2024 1:43 PM EDT Narrative [facility] - 11/02/2024 7:52 AM EDT FASTING:NO FASTING: NO us Jackelyn Mejía MD LAB BLOOD ORDERABLES Final Result [facility] [address] [place] [phone] * (ABNORMAL) COMPLETE BLOOD COUNT, WITHOUT DIFFERENTIAL (11/01/2024 1:41 PM EDT) White Blood Cell Count 5.0 3.8 - 10.8 Thousand/ uL [facility] Red Blood Cell Count 5.57 4.20 - 5.80 Million/u L [facility] Hemoglobin 17.0 13.2 - 17.1 g/dL [facility] Hematocrit 52.1(H) 38.5 - 50.0 % [facility] MCV 93.5 80.0 - 100.0 fL [facility] MCH 30.5 27.0 - 33.0 pg [facility] MCHC 32.6 32.0 - 36.0 g/dL [facility] Comment: For adults, a slight decrease in the calculated MCHC value (in the range of 30 to 32 g/dL) is most likely not clinically significant; however, it should be interpreted with caution in correlation with other red cell parameters and the patient's clinical condition. RDW 13.1 11.0 - 15.0 % [facility] Platelet Count 202 140 - 400 Thousand/ uL [facility] MPV 9.6 7.5 - 12.5 fL [facility] Blood Blood specimen / Unknown 11/01/2024 1:41 PM EDT 11/01/2024 1:43 PM EDT Narrative [facility] - 11/02/2024 7:52 AM EDT FASTING:NO FASTING: NO Jackelyn Mejía MD LAB BLOOD ORDERABLES Final Result [facility] [address] [place] [phone] * PET/CT F18 FDG Skull to Mid [...] metastatic. Suggest clinical correlation and follow-up accordingly. Jackelyn Salinas MD Blow Pit Operator I personally reviewed the images and the [...] metastatic. Suggest clinical correlation and follow-up accordingly. Jackelyn Salinas MD Blow Pit Operator I personally reviewed the images and the resident's preliminary report and AGREE with the report as it is now presented (RADPAL1). Jackelyn Mejía MD IMG PET ORDERABLES Final Re sult * POCT Glucose, Fingerstick (10/20/2024 7:50 AM EDT) POC Glucose 93 65 - 99 mg/dL 10/20/2024 11:27 AM EDT Blood specimen / Unknown 10/20/2024 7:50 AM EDT 10/20/2024 11:27 AM EDT Jackelyn Mejía MD POINT OF CARE TEST ORDERABL ES Final Result HOSPITAL LAB See Below from Last 3 Months Insurance [facility] - HMO BLUE [facility] - HMO Advance Directives * Full Code (Latest Code Status on File) Date Activated Date Inactivated Comments 08/24/2024 2:28 PM 11/03/2024 10:17 AM * Full Code Date Activated Date Inactivated Comments 08/16/2024 7:09 PM 08/24/2024 9:59 AM * Full Code Date Activated Date Inactivated Comments 08/16/2024 9:37 AM 08/16/2024 7:09 PM Care Teams Project Manager Senior Relationship Specialty Start Date End Date Susanne Burrows MD [address] [place] [address] PCP - General Family Medicine 07/27/24 Ofelia Forrest RN [address] [address] Oncology Nurse Navigator 05/27/24
--- OUTSIDE RECORDS SUMMARY | 2025-01-16 17:57 | XMS_ITS | Clinical Summary ---
Author Organization [facility] [address] [facility] [place] Address [address] [place] [address] Phone Care Team Providers Care Ferry Hand Name Role Phone Mekhi Leonard NP Primary [...] patient's age to complete this topic Insurance [facility] Care Teams Ferry Hand Relationship Specialty Start Date End Date Mekhi Leonard NP PCP - General Family Medicine 02/19/24
== END 2025-01-16 16:09 | disposition home or self-care (01) ==
LOC: HO.HMGAL 16:08
PROVIDERS: PCP Nurse Practitioner Family; Visit Provider Registered Nurse Emergency
DX: J30.89 Other allergic rhinitis (principal)
CPT/HCPCS: 95117; 95165

== ENCOUNTER 2025-02-08 14:59 | Outpatient (AMB) | payer BC, SELFPAY ==
--- OUTSIDE RECORDS SUMMARY | 2025-02-06 14:45 | XMS_ITS | Encounter Summary ---
Author Organization [facility] Address [address] [place] [address] Care Team Providers Care Magnetic Testing Technician Name Role Phone Carrier, Ofelia GRAF Unavailable [phone] Mekhi Leonard NP Primary Care Provider + [phone] Reason for Referral * Cardiology (Routine) - Authorized Specialty Diagnoses / Procedures Referred By Contact Referred To Contact Cardiovascular Disease / Cardiology Diagnoses Sarcoidosis Blas Mendez MD [address] [place] [address] Phone: tel: fax: Maria R Xiong MD [address] [place] [address] Phone: tel: fax: Referral ID Status Reason Start Date Expiration Date Visits Requested Visits Authorized [id number] Authorized Specialty Services Required 02/06/2025 02/07/2026 1 1 Question Answer Reason for referral: Shortness of breath * Cardiovascular Test (Routine) - Pending Review Specialty Diagnoses / Procedures Referred By Contac t Referred To Contact Diagnoses Pulmonary embolism without acute cor pulmonale, unspecified chronicity, unspecified pulmonary embolism type (HCC) Procedures Echocardiogram (TTE) Comprehensive (Contrast PRN) Blas Mendez MD [address] [place] [address] Phone: tel: fax: Referral ID Status Reason Start Date Expiration Date V isits Requested Visits Authorized [id number] Pending Review 02/06/2025 02/07/2026 1 1 * Ophthalmology (Routine) - Authorized Specialty Diagnoses / Procedures Referred By Diane granados Referred To Contact Ophthalmology Diagnoses Sarcoidosis Blas Mendez MD [address] [place] [address] Phone: tel: fax: Pineda Brown MD [facility] [place] [address] Phone: tel: fax: Referral ID Status Reason Start Date Expiration Date V isits Requested Visits Authorized [id number] Authorized Consult 02/06/2025 02/07/2026 1 1 * Diagnostic Imaging (Routine) - Pending Review Specialty Diagnoses / Procedures Referred By Diane t Referred To Contact Diagnoses Sarcoidosis Procedures CT Thorax w/o contrast Blas Mendez MD [address] [place] [address] Phone: tel: fax: ASMITA PLUNKETT CT Referral ID Status Reason Start Date Expiration Date V isits Requested Visits Authorized [id number] Pending Review 02/06/2025 02/07/2026 1 1 Reason for Visit * Reason Comments Other Follow up--Pulm Embo lism & Sarcoidosis Encounter Details Date Type Department Care Team (Late st Contact Info) Description 02/06/2025 2:45 PM EST Office Visit [facility] Pulmonary [address] [phone] Blas Mendez MD [address] [place] [id number] Sarcoidosis (Primary Dx); Pulmonary embolism without acute cor pulmonale, unspecified chronicity, unspecified pulmonary embolism type (HCC) Social History Tobacco Use Types Packs/Day Years Used Date Smoking Tobacco: Some Days Cigars Smokeless Tobacco: Never Tobacco Cessation:Ready to Q uit: Not Asked; Counseling Given: Not Answered Comments:Occasional cigar Alcohol Use Standard Drinks/Week Comments Yes 4 (1 standard drink = 0.6 oz pur e alcohol) [facility] Utilities Answer Date Recorded In the past 12 months has th e [employer], gas, oil, or water company threatened to [...] in the past 12 m [facility], were you homeless or living in a correction (including now)? No 08/25/2024 Sex and Gender Information Value Date Recorded Sex Assigned at Male 05/27/2024 7:26 PM EDT Legal Sex Male 6:10 PM EST Gender Identity Male 05/27/2024 7:27 PM EDT Sexual Orientation Heterosexual (straight) 08/16 9:23 AM EDT documented as of this encounter Last Filed Vital Signs Vital Sign Reading Time Taken Comments Blood Pressure 124/80 02/06/2025 2:41 PM EST Pulse 96 02/06/2025 2:41 PM EST Temperature 36.3 C (97.3 F) 02/06/2025 2:41 PM EST Respiratory Rate - - Oxygen Saturation 96% 02/06/2025 2:41 PM EST Inhaled Oxygen Concentration - - Weight 117 kg (259 lb) 02/06/2025 2:41 PM EST Height 190.5 cm (6' 3 ) 02/06/2025 2:41 PM EST Body Mass Index 32.37 02/06/2025 2:41 PM EST documented in this encounter Progress Notes * Blas Mendez MD - 02/06/2025 2:43 PM EST [facility] Follow Up Progress Note Date: February 06, 2025 Name: Misha Brasher Date of : 1965 Referring M.D.: Mekhi Leonard MD Interim History Misha Brasher is a 59 y.o. year old male with a PMH significant for prostate cancer status post resection who developed a pulmonary embolism in August 2023. Here for follow up Started on steroids. Given involvement and negative heme onc work up I discussed with rheum an they initiated methotrexate given bony involvement. Having new shortness of breath No syncope Present Medications: Current Medications[1] Allergies: Amoxicillin, Oxycodone, and Pollen extract Past Medical History: Past Medical History: Diagnosis Date Anxiety GERD (gastroesophageal reflux disease) Gout Hyperlipidemia Hypertension no meds, changed diet and added exercise Hypogonadism in male Hypothyroidism Oral herpes PONV (postoperative nausea and vomiting) projectile/violently ill Prostate cancer (HCC) Snoring sleep study negative for AYLEEN. 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 He has never used smokeless tobacco. He reports current alcohol use of about 4.0 - 6.0 standard drinks of alcohol per week. He reports that hedoes not currently use drugs after having used the following drugs: Marijuana. Smoking: reports that he has been smoking cigars. He has never used smokeless tobacco. Review of Systems: Back pain There were no vitals filed for this visit. Exam: General: alert, appears stated age and cooperative Throat: lips, mucosa, and tongue normal; teeth and gums normal Lungs: clear to auscultation bilaterally Chest wall: no tenderness Heart: regular rate and rhythm, S1, S2 normal, no murmur, click, rub or gallop Abdomen: soft, non-tender; bowel sounds normal; no masses, no organomegaly Extremities: extremities normal, atraumatic, no cyanosis or edema Review of diagnostic tests Lab Results Component Value Date WBC 9.3 01/09/2025 HGB 16.8 01/09/2025 HCT 50.8 (H) 01/09/2025 MCV 95.5 01/09/2025 PLT 179 01/09/2025 Lab Results Component Value Date GLUC 84 01/09/2025 CALCIUM 9.4 01/09/2025 NA 139 01/09/2025 K 3.9 01/09/2025 CO2 28 01/09/2025 CL 102 01/09/2025 BUN 22 01/09/2025 CREAT 1.05 01/09/2025 No results found for: FVC , FEV1 , LRL0OOM I have personally reviewed the imaging studies and verified the reports Impression and Recommendations: 59 y.o. year old male with a PMH significant for prostate cancer, pulmonary embolism, a who presents for follow-up of his pulmonary and osseous sarcoidosis. He is now on prednisone and methotrexate for his osteosarcoid given the methotrexate and prednisoneweaning will defer titration of corticosteroids to rheumatology. Given the progressive dyspnea I do think we need further workup with cardiology. I have ordered repeat echocardiogram for follow-up of his pulmonary emboli. But also to assess for regional wall motion abnormalities in the heart. I have also referred him to Dr. Xiong in the cardiology clinic for sarcoid evaluation. The incidence of osseous sarcoid certainly increases his risk for cardiac involvement. I would also like him to obtain a dilated eye exam Follow-up in [address] scan July 2025 - Following this patient and have a longitudinal relationship for the above chronic complex illness Blas Mendez MD [facility] Pulmonary and Critical Care Medicine [phone] [1] Current Outpatient Medications Medication Sig Dispense Refill allopurinol (ZYLOPRIM) 100 mg tablet Take 1 tablet (100 mg total) by mouth nightly. apixaban (ELIQUIS) 5 MG tablet Start taking 10 mg (2 pills) twice a day for 7 days, starting on 09/01/24 the dose will be reduced to 5 mg (1 pill) twice daily. 30 tablet 0 atorvastatin (LIPITOR) 20 MG tablet Take 1 tablet (20 mg total) by mouth nightly. docusate sodium (COLACE) 100 MG capsule Take 1 capsule (100 mg total) by mouth 2 (two) times a day.While taking pain medication to prevent constipation 60 capsule 0 Glucosamine HCl 1500 MG Tab Take 1,500 mg by mouth every morning. With MSM 1500 leuCOVORIN (WELLCOVORIN) 5 MG tablet Take 1 tablet (5 mg total) by mouth once a week. 12 tablet 0 levocetirizine (Xyzal Allergy 24HR) 5 MG tablet Take 1 tablet (5 mg total) by mouth nightly. methoTREXate (RHEUMATREX) 2.5 mg tablet Take 6 tablets (15 mg total) by mouth once a week Verify any order for freqs more than 3x per week. 72 tablet 0 naproxen sodium (ALEVE) 220 mg tablet Take 2 tablets (440 mg total) by mouth daily. Take with mealsor food to reduce stomach upset. OMEprazole (PriLOSEC) 20 MG capsule Take 1 capsule (20 mg total) by mouth every morning before breakfast. predniSONE (DELTASONE) 10 MG tablet 6 tablets daily for 4 weeks, 4 tablets daily for 4 weeks, 3 tablets daily for 4 weeks, 2 tablets daily until seen in the office. Take With food. 200 tablet 5 sulfamethoxazole-trimethoprim (BACTRIM DS,SEPTRA DS) 800-160 MG per tablet Take 1 tablet by mouth 3(three) times a week on Thursday, Thursday, Thursday. 12 tablet 5 Synthroid 50 MCG tablet Take 1 tablet (50 mcg total) by mouth every morning. tadalafil (CIALIS) 10 MG tablet Take 1 tablet (10 mg total) by mouth daily as needed for erectile dysfunction (Take one additional pill PRN day of sexual activity. Do not exceed 20 mg daily.). 40 tablet 11 VITAMIN A PO Take 6,000 mcg by mouth every morning. acetaminophen (TYLENOL) 325 MG tablet Take 1 tablet (325 mg total) by mouth 4 times daily (every 6 hours) as needed for mild pain (Taking 3 tabs). (Patient not taking: Reported on 02/06/2025) diazepam (VALIUM) 5 MG tablet 1 tablet (5 mg total). (Patient not taking: Reported on 02/06/2025) No current facility-administered medications for this visit. documented in this encounter Plan of Treatment Upcoming Encounters Date Type Department Care Team (Late st Contact Info) Description 02/13/2025 8:30 AM EST Office Visit [facility] [address] [facility] [address] [place] [phone] Luisa Modi APRN [address] [place] [address] 02/16/2025 1:00 PM EST Appointment [facility] [address] [facility], [address] [place] [phone] Blas Mendez MD [address] [address] 03/10/2025 2:20 PM EST [facility] [address] [place] [phone] Parul Hanson MD [address] [place] [phone] 05/08/2025 1:30 PM EST Office Visit [facility] Pulmonary [address] [phone] Blas Mendez MD [address] [place] [phone] 05/24/2025 9:00 AM EDT Office Visit [address] [phone] Luisa Modi APRN [address] [place] [address] 08/23/2025 11:45 AM EDT Office Visit [address] [phone] Niels Benjamin MD [address] [place] [phone] Scheduled Orders Name Type Priority Associated Diagnoses Orde r Schedule Pulmonary Function Test [facility] Lab; Click this AFTER selecting the test(s) below; Spirometry (pre & post)/Lung Volumes/Diffusion PFT Routine Sarcoidosis Expected: 02/06/2025, Expires: 02/06/2026 CT Thorax w/o contrast Imaging Routine Sarcoidosis Expected: 07/17/2025, Expires: 02/06/2026 Echocardiogram (TTE) Comprehensive (Contrast PRN) Echocardiography Routine Pulmonary embolism without acute cor pulmonale, unspecified chronicity, unspecified pulmonary embolism type (HCC) Expected: 02/06/2025, Expires: 02/06/2026 Scheduled Referrals Name Type Priority Associated Diagnoses Order Schedule Amb Referral to Ophthalmology Outpatient Referral Routine Sarcoidosis Ordered: 02/06/2025 Amb Referral to Cardiology Outpatient Referral Routine Sarcoidosis Ordered: 02/06/2025 documented as of this encounter Visit Diagnoses Diagnosis Sarcoidosis- Primary Pulmonary embolism without acute cor pulmonale, unspecified chronicity, unspecified pulmonary embolism type (HCC) documented in this encounter Care Teams Magnetic Testing Technician Relationship Specialty Start Date End Date Mekhi Leonard NP [address] [place] [address] PCP - General Family Medicine 07/27/24 Ofelia Forrest RN [address] [place] [phone] Oncology Nurse Navigator 05/27/24 documented as of this encounter
--- OUTSIDE RECORDS SUMMARY | 2025-02-08 17:58 | XMS_ITS | Encounter Summary ---
Author Organization [facility] Address [address] [place] [address] Care Team Providers Care Egg Processing Supervisor Name Role Phone Carrier, Ofelia GRAF Unavailable [phone] Mekhi Leonard NP Primary Care Provider [phone] Encounter Details Date Type Department Care Team (Late st Contact Info) Description 01/09/2025 Scanned Document [facility] Pulmonary [address] [place] [address] Pulmonary, Scan Social History Tobacco Use Types Packs/Day Years Used Date Smoking Tobacco: Some Days Cigars Smokeless Tobacco: Never Comments:Occasional cigar Alcohol Use Standard Drinks/Week Comments Yes 4 (1 standard drink = 0.6 oz pur e alcohol) [facility] Utilities Answer Date Recorded In the [...] any time in the past 12 m [facility], were you homeless or living in [...] Description 02/13/2025 8:30 AM EST Office Visit [facility] [address] [facility] [address] [place] [phone] Lusia Modi APRN [address] [place] [address] 02/16/2025 1:00 PM EST Appointment [facility] Pulmonary Laboratory & Rehabilitation [address] [facility], [address] [place] [phone] Blas Mendez MD [address] [facility] [address] [place] [address] 03/10/2025 2:20 PM EST Office Visit [facility] [address] [place] [phone] Parul Hanson MD [address] [facility] [address] [place] [address] 05/08/2025 1:30 PM EST Office Visit [facility] Pulmonary [place] [address] [place] [phone] Blas Mendez MD [address] [place] [phone] 05/24/2025 9:00 AM EDT Office Visit [address] [phone] Luisa Modi APRN [address] [place], [place] [phone] 08/23/2025 11:45 AM EDT Office Visit [address] [phone] Niels Benjamin MD [address] [address] documented as of this encounter Visit Diagnoses Not on filedocumented in this encounter Care Teams Egg Processing Supervisor Relationship Specialty Start Date End Date Mekhi Leonard NP [address] [place] [address] PCP - General Family Medicine 07/27/24 Ofelia Forrest RN [address] [address] Oncology Nurse Navigator 05/27/24 documented as of this encounter
--- OUTSIDE RECORDS SUMMARY | 2025-02-08 17:58 | XMS_ITS | Encounter Summary ---
Author Organization [facility] Address [address] [place] [address] Care Team Providers Care Clinical Nursing Professor Name Role Phone Carrier, Ofelia GRAF Unavailable [phone] Mekhi Leonard NP Primary Care Provider Encounter Details Date Type Department Care Team (Late st Contact Info) Description 10/31/2024 Scanned Document [facility] Pulmonary [address] [phone] Blas Mendez MD 85 [facility] Julien [address] [place] [address] Social History Tobacco Use Types Packs/Day Years Used Date Smoking Tobacco: Some Days Cigars Smokeless Tobacco: Never Comments:Occasional cigar Alcohol Use Standard Drinks/Week Comments Yes 4 (1 standard drink = 0.6 oz pur e alcohol) [facility] Utilities Answer Date Recorded In the past 12 months has [employer], gas, oil, or water [employer] threatened to shut off services in your [...] any time in the past 12 m [facility], were you homeless or living [...] Description 02/13/2025 8:30 AM EST Office Visit [facility] [address] [facility] [address] [place] [phone] Luisa Modi APRN 10 [place] [address] 02/16/2025 1:00 PM EST Appointment [facility] Pulmonary Laboratory & Rehabilitation [address] [place] [address], [address] [place] [address] Blas Mendez MD [address] [place] [address] 03/10/2025 2:20 PM EST Office Visit [facility] [address] [phone] Parul Hanson MD [address] [place] [phone] 05/08/2025 1:30 PM EST Office Visit [address] [phone] Blas Mendez MD [address] [place] [phone] 05/24/2025 9:00 AM EDT Office Visit [address] [phone] Luisa Modi APRN [address] [place] [phone] 08/23/2025 11:45 AM EDT Office Visit [address] [phone] Niels Benjamin MD [address] [place] [phone] documented as of this encounter Visit Diagnoses Not on filedocumented in this encounter Care Teams Clinical Nursing Professor Relationship Specialty Start Date End Date Mekhi Leonard NP [address] [place] [address] PCP - General Family Medicine 07/27/24 Ofelia Forrest RN [address] [address] Oncology Nurse Navigator 05/27/24 documented as of this encounter
--- OUTSIDE RECORDS SUMMARY | 2025-02-08 17:58 | XMS_ITS | Encounter Summary ---
Author Organization [facility] Address [address] [place] [address] Care Team Providers Care Wind Turbine Erector Name Role Phone Carrier, Ofelia GRAF Unavailable Mekhi Leonard NP Primary Care Provider Encounter Details Date Type Department Care Team (Late st Contact Info) Description 11/23/2024 Scanned Document [facility] [address], [address] [place] [address] Unknown Unknow Provider Address Social History Tobacco Use Types Packs/Day Years Used Date Smoking Tobacco: Some Days Cigars Smokeless Tobacco: Never Comments:Occasional cigar Alcohol Use Standard Drinks/Week Comments Yes 4 (1 standard drink = 0.6 oz pur e alcohol) [facility] Utilities Answer Date Recorded In the past 12 months has [employer], gas, oil, or water company threatened [...] any time in the past 12 m [facility], were you homeless or living in [...] Description 02/13/2025 8:30 AM EST Office Visit [facility] [address] [facility] [address] [place] [phone] Luisa Modi APRN 10 [place] [address] 02/16/2025 1:00 PM EST Appointment [facility] Pulmonary Laboratory & Rehabilitation [address] [facility], [address] [place] [phone] Blas Mendez MD 85 [facility] [place] 923 [place], [place] [phone] 03/10/2025 2:20 PM EST Office Visit [facility] [address] [phone] Parul Hanson MD [address] [phone] 05/08/2025 1:30 PM EST Office Visit [facility] Pulmonary [address] [phone] Blas Mendez MD [address] [place] [phone] 05/24/2025 9:00 AM EDT Office Visit [address] [phone] Luisa Modi APRN 10 [place] [address] 08/23/2025 11:45 AM EDT Office Visit [address] [phone] Niels Benjamin MD [address] [phone] documented as of this encounter Visit Diagnoses Not on filedocumented in this encounter Care Teams Wind Turbine Erector Relationship Specialty Start Date End Date Mekhi Leonard NP [address] [place] [address] PCP - General Family Medicine 07/27/24 Ofelia Forrest RN [address] [address] Oncology Nurse Navigator 05/27/24 documented as of this encounter
--- OUTSIDE RECORDS SUMMARY | 2025-02-08 17:59 | XMS_ITS | Patient Health Record ---
[facility] Address [address] [place] [address] Care Team Providers Care Grants And Contracts Assistant Name Role Phone Barrera Scott MD Primary Care Provider Carloz Vega Unavailable [phone] Allergies Allergen (clinical drug ingredient) Drug/Non Drug [...] X ray : Foot, right 3V 12/29/2016 05987-Zqrn Destruction, -12/29/2016 86822-Rrbd Destruction, -03/30/2017 05858-Mnuu Destruction, -04/20/2017 99031-Tbww Destruction, -05/11/2017 04695-Mybo Destruction, 03-2206/15/2017 81416-Ogia Destruction, 03-2207/20/2017 30207-Oegd Destruction, 03-2208/12/2017 62777-Keqm Destruction, 03-2209/02/2017 20495-Ajno Destruction, 03-2210/01/2017 Insurance Providers Payer Name Payer Address Payer Phone Subscriber Number Group Number Insured Name Patient Relationship to Insured Coverage Start Date Coverage End Date [facility] [address] [address] [place] [id number] Lianna Brasher Spouse - patient is the [...]
--- OUTSIDE RECORDS SUMMARY | 2025-02-08 17:59 | XMS_ITS ---
Author Organization [facility] Address [address] [place] [address] Care Team Providers Care Guest Relation Officer Name Role Phone Carrier, Ofelia GRAF Unavailable Mekhi Leonard NP Primary Care Provider Active Problems Problem Noted Date Diagnosed Date [...] Patient to follow up with PCP or window display designer for continued management of hypothyroidism as previously directed. Oral herpes 07/27/2024 Obesity (BMI 30-39.9) 07/27/2024 Assessment & Plan (07/27/2024 8:21 AM EDT): Diet, exercise and lifestyle modifications. Secondary hypertension 07/27/2024 Assessment & Plan (07/27/2024 8:31 AM EDT): Managed with diet and lifestyle modifications. Continue plan as previously directed by your provider. Prostate cancer 07/13/2024 Current Treatment and Therapy Plans No current plan information found. Past Treatment and Therapy Plans No past plan information found. Lifetime Dose Tracking * Chemical Lifetime Dose Automatic Entry Manual Entr y Fluoro Time 0.1 minutes 0 minutes 0.1 minutes
--- OUTSIDE RECORDS SUMMARY | 2025-02-08 17:59 | XMS_ITS | Encounter Summary ---
Author Organization [facility] Address [address] [place] [address] Care Team Providers Care Brake Adjuster Name Role Phone Dc Carvalho MD Primary Care Provider [phone] Ofelia Forrest RN Unavailable [phone] Mekhi Leonard NP Primary Care Provider [phone] Encounter Details Date Type Department Care Team (Late st Contact Info) Description 05/26/2024 Scanned Document [address] [place] [phone] Dc Carvalho MD 100 [facility] [address] [place] [address] Social History Tobacco Use Types Packs/Day Years Used Date Smoking Tobacco: Never Assessed [facility] Utilities Answer Date Recorded In the [...] time in the past [address] [facility], were you homeless or living in a senior care (including now)? No 05/27/2024 Sex and Gender [...] Description 02/13/2025 8:30 AM EST Office Visit [facility] [address] [facility] [address] [place] [phone] Luisa Modi APRN 10 [place] [address] 02/16/2025 1:00 PM EST Appointment [facility] Pulmonary Laboratory & Rehabilitation 80 [facility], [address] [place] [phone] Blas Mendez MD 85 [facility] 923 [place] [address] 03/10/2025 2:20 PM EST Office Visit [facility] [address], [address] [place] [phone] Parul Hanson MD [address] [place] [address] 05/08/2025 1:30 PM EST [facility] Visit [facility] [address] [place] [address] Blas Mendez MD [address] [place] [address] 05/24/2025 9:00 AM EDT Office Visit [address] [phone] Luisa Modi APRN 10 [place] [address] 08/23/2025 11:45 AM EDT Office Visit [address] [phone] Niels Benjamin MD [address] [place] [address] documented as of this encounter Visit Diagnoses Not on filedocumented in this encounter Care Teams Brake Adjuster Relationship Specialty Start Date End Date Dc Carvalho MD [address] [address] [place] [address] PCP - General Urology 05/23/24 07/26/24 Mekhi Leonard NP [address] [place] [address] PCP - General Family Medicine 07/27/24 Ofelia Forrest RN [address] [address] Oncology Nurse Navigator 05/27/24 documented as of this encounter
--- OUTSIDE RECORDS SUMMARY | 2025-02-08 17:59 | XMS_ITS | Clinical Summary ---
Author Organization Formerly [facility] Address [address] [place] [address] Care Team Providers Care Instructional Technology Teacher Name Role Phone Carrier, Ofelia GRAF Unavailable [phone] Susanne Burrows NP Primary Care Provider Allergies Active Allergy Reactions [...] or food to reduce stomach upset. Active methoTREXate (RHEUMATREX) 2.5 mg tabletIndications :Sarcoidosis involving hilar lymph node Take 6 tablets (15 mg total) by mouth once a week Verify any order for freqs more than 3x per week. 72 tablet 01/31/20 25 Active leuCOVORIN (WELLCOVORIN) 5 MG tabletIndications :Sarcoidosis involving hilar lymph node Take 1 tablet (5 mg total) by mouth once a week. 12 tablet 01/31/20 25 Active Active Problems Problem Noted Date [...] Patient to follow up with PCP or income tax analyst for continued management of hypothyroidism as previously directed. Oral herpes 07/27/2024 Obesity (BMI 30-39.9) 07/27/2024 Assessment & Plan (07/27/2024 8:21 AM EDT): Diet, exercise and lifestyle modifications. Secondary hypertension 07/27/2024 Assessment & Plan (07/27/2024 8:31 AM EDT): Managed with diet and lifestyle modifications. Continue plan as previously directed by your provider. Prostate cancer 07/13/2024 Encounters Date Type Department Care Team Description 02/06/2025 2:45 PM EST Office Visit [facility] Pulmonary [address] [phone] Jackelyn Mejía MD Sarcoidosis (Primary Dx); Pulmonary embolism without acute cor pulmonale, unspecified chronicity, unspecified pulmonary embolism type (HCC) 01/30/2025 2:00 PM EST Office Visit [facility], [address], [address] [place] [phone] Parul Hanson MD Sarcoidosis involving hilar lymph node (Primary Dx); Long-term use of high-risk medication; Sarcoidosis of other sites; Gout involving toe, unspecified cause, unspecified chronicity, unspecified laterality; Chronic bilateral low back pain without sciatica; Prostate cancer (HCC); Pulmonary embolism without acute cor pulmonale, unspecified chronicity, unspecified pulmonary embolism type (HCC); Acquired hypothyroidism 01/09/2025 Scanned Document [facility] Pulmonary [address] [place] [phone] Pulmonary, Scan 01/02/2025 1:00 PM EDT Office Visit [facility], [address], [address] [place] [phone] Parul Hanson MD Sarcoidosis involving hilar lymph node (Primary Dx); Gout involving toe, unspecified cause, unspecified chronicity, unspecified laterality; Chronic bilateral low back pain without sciatica; Prostate cancer (HCC); Pulmonary embolism without acute cor pulmonale, unspecified chronicity, unspecified pulmonary embolism type (HCC); Acquired hypothyroidism 12/28/2024 2:15 PM EDT Office Visit [facility] [address] [facility] [address] [place] [address] Juan Valdes MD Sarcoidosis (Primary Dx) 12/01/2024 2:30 PM EDT Office Visit [facility][note 3] [address] [facility] [address] [place] [phone] Luisa Modi APRN History of prostate cancer (Primary Dx); Erectile dysfunction after radical prostatectomy; Stress incontinence of urine 11/23/2024 Scanned Document [facility], [address], [address] [place] [address] Unknown 11/22/2024 10:05 AM EDT - 11/22/2024 11:59 PM EDT Hospital Encounter HH OP SPECIMEN LAB [address] [place] [address] Juan Valdes MD Discharge Disposition: Home or Self Care 11/22/2024 9:45 AM EDT Consult [facility] [address] [facility] [address] [place] [address] Juan Valdes MD Sarcoidosis (Primary Dx) 11/14/2024 11:45 AM EDT Office Visit [facility]monary [place] [address] [place] [address] Jackelyn Mejía MD Sarcoidosis (Primary Dx); Pulmonary embolism without acute cor pulmonale, unspecified chronicity, unspecified pulmonary embolism type (HCC); Prostate cancer (HCC) from Last 3 Months Family History Medical History Relation Name Comments Cancer, Prostate Father 59 PAPER INSPECTOR Lung cancer Mother Cancer, Prostate Paternal Uncle residue furnace operator Cancer, Bladder Neg Hx Cancer, Kidney Neg Hx Relation Name Status Comments Father Mother Paternal Uncle Social History Tobacco Use Types Packs/Day Years Used Date Smoking Tobacco: Some Days Cigars Smokeless Tobacco: Never Tobacco Cessation:Ready to Q uit: Not Asked; Counseling Given: Not Answered Comments:Occasional cigar Alcohol Use Standard Drinks/Week Comments Yes 4 (1 standard drink = 0.6 oz pur e alcohol) [facility] Utilities Answer Date Recorded In the past 12 months has retickr, gas, oil, or water [employer] threatened to shut off services in your [...] time in the past 12 m [facility], were you homeless or living in [...] F) 02/06/2025 2:41 PM EST Respiratory Rate 16 12/28/2024 2:02 PM EDT Oxygen Saturation 96% 02/06/2025 2:41 PM EST Inhaled Oxygen Concentration - - Weight 117 kg (259 lb) 02/06/2025 2:41 PM EST Height 190.5 cm (6' 3 ) 02/06/2025 2:41 PM EST Body Mass Index 32.37 02/06/2025 2:41 PM EST Plan of Treatment Upcoming Encounters Date Type Department Care Team (Late st Contact Info) Description 02/13/2025 8:30 AM EST Office Visit [address] [phone] Luisa Modi APRN [address] [place] [address] 02/16/2025 1:00 PM EST Appointment [facility] Laboratory & Rehabilitation [address] [facility], [address] [place] [phone] Jackelyn Mejía MD [address] [place] [phone] 03/10/2025 2:20 PM EST Office Visit [facility], [address] [place] [phone] Parul Hanson MD [address] [place] [phone] 05/08/2025 1:30 PM EST Office Visit [address] [phone] Jackelyn Mejía MD [address] [place] [phone] 05/24/2025 9:00 AM EDT Office Visit [address] [phone] Luisa Modi APRN 10 [place], [place] [phone] 08/23/2025 11:45 AM EDT Office Visit [address] [phone] Niels Benjamin MD [address] [place] [address] Health Maintenance Due Date Last Done Comments COVID-19 Vaccine (#1) 02/03/1966 HIV Screening 1978 DTaP/Tdap/Td Vaccines (1 - [...] Procedure Name Priority Date/Time Associated Diagnosis Comments PSA, POST PROSTATECTOMY Routine 02/06/2025 12:42 PM EST History of prostate cancer XR LUMBAR SPINE COMPLETE 4+ VIEWS Routine 01/12/2025 8:46 AM EST Chronic bilateral low back pain without sciatica CT THORAX W/O CONTRAST Routine 8:27 AM EST Sarcoidosis JOSELYN MULTIPLEX, WITH REFLEX TO DSDNA Routine [...] unspecified chronicity, unspecified laterality SM (KING) AND SM/CORPORATION SECRETARY ANTIBODIES Routine 01/09/2025 7:33 AM EST Chronic [...] toe, unspecified cause, unspecified chronicity, unspecified laterality CORPORATION SECRETARY Routine 01/09/2025 7:33 AM EST Chronic bilateral [...] (ESR) Routine 11/14/2024 12:57 PM EDT Sarcoidosis from Last 3 Months Results * PSA, Post Prostatectomy (02/06/2025 12:42 PM EST) Only the most recent of2 resultswithin the time period is included. PSA, Post Prostatectomy 0.03 ng/mL [facility] Comment: PSA values obtained with different assay methods or kits cannot be used interchangeably. This test was performed using the Homar Bells DxI method. PSA, ICMA is not to [...] WITHOUT PROSTATECTOMY. Blood Blood specimen / Unknown 02/06/2025 12:42 PM EST 02/06/2025 12:43 PM EST Narrative [facility] - 02/07/2025 7:23 AM EST FASTING:NO FASTING: NO us Luisa Modi MEDICAL INFORMATION SPECIALIST LAB BLOOD ORDERABLES Fin al Result [facility] [address] [place] [phone] * XR Lumbar spine complete 4+ views [...] referring your patient to us, Blue Finley [id number] (Electronically Signed - 01/16/2025 10:20) Copy: SUSANNE BURROWS NP [facility] [address] [place] [address] PATIENT , JACKELYN MEJÍA MD [facility]- PUL[facility]ARY- [place] [address] [facility] [address] [place] [address] Narrative 01/16/2025 10:20 AM EST EXAMINATION: XR [...] by: Blue Finley MD 01/16/2025 10:20 AM ESTRP Thank you for referring your patient to us, Blue Finley [id number] (Electronically Signed - 01/16/2025 10:20) Copy: SUSANNE BURROWS [facility] [address] [place] [address] PATIENT , JACKELYN MEJÍA MD [facility]- [place] [address] [place] [address] us Parul Hanson MD IMG DIAGNOSTIC IMAGING ORDERA BLES Final Result * CT Thorax w/o contrast (01/12/2025 8:27 AM EST) Anatomical Region Laterality Modality Chest Computed Tomogra phy 01/12/2025 9:30 AM EST 01/12/2025 9:30 AM EST Impressions 01/24/2025 10:18 AM EST No significant change in pulmonary nodules. No new nodules detected Mediastinal adenopathy is not significantly changed. Interval improvement in nodular airspace consolidation at the left lung base. No significant change in areas of sclerosis apparent within the spine. Electronically signed by: Blue Finley MD 01/24/2025 10:18 AM EST Thank you for referring your patient to us, Blue Finley [id number] (Electronically Signed - 01/24/2025 10:18) Copy: SUSANNE BURROWS [facility] [address] [place] [address] [phone] PATIENT , PARUL Campos ISABEL RADFORD [facility] [place] [address] [facility] [address] [place] [address] Narrative 01/24/2025 10:18 AM EST EXAMINATION: CT CHEST HIGH RESOLUTION CLINICAL INFORMATION: Sarcoidosis, status post treatment COMPARISON: September 27, 2024 TECHNIQUE: Using a multidetector device, helical inspiratory views of the chest were done without contrast. Expiratory views were done using high-resolution technique. Reformatting was done in the coronal and parasagittal planes. Axial MIP volume rendering provided. This CT examination was performed using dose optimization techniques as appropriate, variously including the following: *Automated exposure control *Adjustment of mA and/or kV according to patient size (this includes techniques or standardized protocols for targeted exams where dose is matched to indication/reason for exam; i.e. extremities or head) *Use of iterative reconstruction technique DLP: 507.5 2 mGy-cm Number of known CT and cardiac nuclear medicine (myocardial perfusion studies) imaging reports in the past 12-month period: 4 FINDINGS: Bilateral pulmonary nodules appear stable. Some examples of stable nodules include: In the right upper lobe there is a 6 mm nodule on image 63 series 2 In the right upper lobe medially there is a 6 mm nodule on image 74 In the right upper lobe there is a 7 mm perivascular nodule on image 90. In the right middle lobe there is a 9 mm pleural-based nodule on image 136.. There are additional smaller stable nodules. Nodular airspace consolidation at the left lung base has improved There are some curvilinear markings at the lung bases left greater than right suggesting atelectasis and/or scarring. No new consolidations. No new nodules. The central airways appear patent. Mediastinal lymphadenopathy is not significantly changed Some examples include: 7 mm short axis lymph node lateral to the aortic arch 12 mm short axis precarinal lymph node No enlarging mediastinal lymphadenopathy. Normal caliber thoracic aorta. No pericardial effusion Coronary artery calcifications: None visualized. No pleural effusions. No enlarging axillary lymphadenopathy. Images obtained through the upper abdomen demonstrate a few diverticulum along the visualized portion of the colon. Areas of sclerosis within several vertebra appears similar to the prior study. Procedure Note Blue Finley MD - 01/24/2025 EXAMINATION: CT CHEST HIGH RESOLUTION CLINICAL INFORMATION: Sarcoidosis, status post treatment COMPARISON: September 27, 2024 TECHNIQUE: Using a multidetector device, helical inspiratory views of the chest weredone without contrast. Expiratory views were done using high-resolutiontechnique. Reformatting was done in the coronal and parasagittal planes.Axial MIP volume rendering provided. This CT examination was performed using dose optimization techniques asappropriate, variously including the following: *Automated exposure control *Adjustment of mA and/or kV according to patient size (this includestechniques or standardized protocols for targeted exams where dose ismatched to indication/reason for exam; i.e. extremities or head) *Use of iterative reconstruction technique DLP: 507.5 2 mGy-cm Number of known CT and cardiac nuclear medicine (myocardial perfusionstudies) imaging reports in the past 12-month period: 4 FINDINGS: Bilateral pulmonary nodules appear stable. Some examples of stable nodules include: In the right upper lobe there is a 6 mm nodule on image 63 series 2 In the right upper lobe medially there is a 6 mm nodule on image 74 In the right upper lobe there is a 7 mm perivascular nodule on image90. In the right middle lobe there is a 9 mm pleural-based nodule on [id number].. There are additional smaller stable nodules. Nodular airspace consolidation at the left lung base has improved There are some curvilinear markings at the lung bases left greater thanright suggesting atelectasis and/or scarring. No new consolidations. No new nodules. The central airways appearpatent. Mediastinal lymphadenopathy is not significantly changed Some examples include: 7 mm short axis lymph node lateral to the aortic arch 12 mm short axis precarinal lymph node No enlarging mediastinal lymphadenopathy. Normal caliber thoracic aorta. No pericardial effusion Coronary artery calcifications: None visualized. No pleural effusions. No enlarging axillary lymphadenopathy. Images obtained through the upper abdomen demonstrate a few diverticulumalong the visualized portion of the colon. Areas of sclerosis within several vertebra appears similar to the priorstudy. IMPRESSION: No significant change in pulmonary nodules. No new nodules detected Mediastinal adenopathy is not significantly changed. Interval improvement in nodular airspace consolidation at the left lungbase. No significant change in areas of sclerosis apparent within the spine. Electronically signed by: Blue Finley MD 01/24/2025 10:18 AM [facility] Thank you for referring your patient to us, Blue Finley [id number] (Electronically Signed - 01/24/2025 10:18) Copy: SUSANNE BURROWS NP [facility] [address] [place] [address] PATIENT , PARUL HANSON MD [facility] [address] [facility] [address] [place] [address] us Jackelyn Mejía MD [facility] ORDERABLES Final Res ult * Immunoglobulin G Subclass 4 (01/09/2025 7:40 AM EST) Pathologist [facility] IgG 4 13.3 4.0 - 86.0 mg/dL [facility] Blood Blood specimen / Unknown 01/09/2025 7:40 AM EST 01/09/2025 7:43 AM EST Narrative [facility] - 01/16/2025 1:23 PM EST FASTING:NO PATIENT REFUSED SOME TESTING; PATIENT ENCOURAGED TO RETURN. FASTING: NO us Parul Hanson MD LAB BLOOD ORDERABLES Final Re sult STANISLAW [facility]/Ginette [place]ttFormerly [facility] [address] [facility] [address] [place] [address] * JOSELYN Multiplex, with Reflex to dsDNA (01/09/2025 7:40 AM EST) Anachoice(R) Screen NEGATIVE NEGATIVE [facility] Comment: A negative JOSELYN Multiplex indicates the absence of detectable antibodies to component analytes consisting of double stranded DNA (dsDNA), chromatin, ribonucleoprotein (CORPORATION SECRETARY), King/CORPORATION SECRETARY (Sm/CORPORATION SECRETARY), King (Sm), SS-A, SS-B, Leticia-1, centromere B, Scl-70 and ribosomal P. A negative result should be interpreted in the context of the clinical and laboratory findings and does not rule out autoimmune disease characterized by other autoantibody specificities such as rheumatoid arthritis, autoimmune hepatitis, primary biliary cirrhosis, autoimmune thyroiditis, Throckmorton's disease, pernicious anemia, autoimmune neuropathies, vasculitis, celiac disease, and bullous disease. For additional information, please refer to http://[email or web address]/faq/[email or web address] (This link is being provided for informational/ educational purposes only.) Blood Blood specimen / Unknown 01/09/2025 7:40 AM EST 01/09/2025 7:43 AM EST Narrative [facility] - 01/16/2025 1:23 PM EST FASTING:NO PATIENT REFUSED SOME TESTING; PATIENT ENCOURAGED TO RETURN. FASTING: NO us Parul Hanson MD LAB BLOOD ORDERABLES Final Re sult [facility] [address] [place] [phone] * (ABNORMAL) Complete Blood Count, with Differential (01/09/2025 7:40 AM EST) Only the most recent of2 resultswithin the time period is included. White Blood Cell Count 9.3 3.8 - 10.8 Thousand/ uL [facility] Red Blood Cell Count 5.32 4.20 - 5.80 Million/u L [facility] Hemoglobin 16.8 13.2 - 17.1 g/dL [facility] Hematocrit 50.8(H) 38.5 - 50.0 % [facility] MCV 95.5 80.0 - 100.0 fL [employer] MCH 31.6 27.0 - 33.0 pg [facility] MCHC 33.1 32.0 - 36.0 g/dL [facility] Comment: For adults, a slight decrease in the calculated MCHC value (in the range of 30 to 32 g/dL) is most likely not clinically significant; however, it should be interpreted with caution in correlation with other red cell parameters and the patient's clinical condition. RDW 13.5 11.0 - 15.0 % [facility] Platelet Count 179 140 - 400 Thousand/ uL [facility] MPV 9.5 7.5 - 12.5 fL [facility] Abs Neutrophils Auto 7,673 1,500 - 7,800 cells/uL [facility] Abs Lymphocytes Auto 930 850 - 3,900 cells/uL [facility] Abs Monocytes Auto 577 200 - 950 cells/uL [facility] Abs Eosinophils Auto 93 15 - 500 cells/uL [facility] Abs Basophils Auto 28 0 - 200 cells/uL [facility] [employer] Neutrophils Auto 82.5 % [email or web address] Lymphocytes Auto 10.0 % [email or web address] Monocytes Auto 6.2 % [facility] [employer] Eosinophils Auto 1.0 % [facility] [email or web address] Basophils Auto 0.3 % [email or web address] Blood Blood specimen / Unknown 01/09/2025 7:40 AM EST 01/09/2025 7:43 AM EST Narrative [employer] - 01/16/2025 1:23 PM EST FASTING:NO PATIENT REFUSED SOME TESTING; PATIENT ENCOURAGED TO RETURN. FASTING: NO us Parul Hanson MD LAB BLOOD ORDERABLES Final Re sult [facility] [address] [place] [address] * Lysozyme (Muramidase) (01/09/2025 7:40 AM EST) Lysozyme (Muramidase) 6.4 5.0 - 11.0 mcg/mL [facility] Comment: This test was developed and its analytical performance characteristics have been determined by [facility], [place], [place]. It has not been cleared or [...] BLOOD ORDERABLES Final Re sult [facility] [address] [facility] [address] [place] * Erythrocyte Sediment Rate (ESR) (01/09/2025 7:40 AM EST) Only the most recent of2 resultswithin the time period is included. Erythrocyte Sediment Rate (ESR) 2 < OR = 20 mm/h [facility] Blood Blood specimen / Unknown 01/09/2025 7:40 AM EST 01/09/2025 7:43 AM EST Narrative [facility] - 01/16/2025 1:23 PM EST FASTING:NO PATIENT REFUSED SOME TESTING; PATIENT ENCOURAGED TO RETURN. FASTING: NO Parul Hanson MD LAB BLOOD ORDERABLES Final Re sult Performing Organization Address [facility]/ZIP Co de Phone Number [facility] [address] [place] [phone] * ANGIOTENSIN CONVERTING ENZYME, SERUM (01/09/2025 7:40 AM EST) Only the most recent of2 resultswithin the time period is included. Angiotensin-1 Converting Enzyme 19 9 - 67 U/L [facility] Blood Blood specimen / Unknown 01/09/2025 7:40 AM EST 01/09/2025 7:43 AM EST Narrative [facility] - 01/16/2025 1:23 PM EST FASTING:NO PATIENT REFUSED SOME TESTING; PATIENT ENCOURAGED TO RETURN. FASTING: NO Parul Hanson MD LAB BLOOD ORDERABLES Final Re sult [facility]/Ginette [facility] [address] [facility] [address] [place] * IMMUNOFIXATION ELECTROPHORESIS, SERUM (01/09/2025 7:40 AM EST) Pathologist [facility] Interpretation [employer] Comment: Normal pattern. No monoclonal proteins detected. Blood Blood specimen / Unknown 01/09/2025 7:40 AM EST 01/09/2025 7:43 AM EST [employer] [facility] - 01/16/2025 1:23 PM EST FASTING:NO PATIENT REFUSED SOME TESTING; PATIENT ENCOURAGED TO RETURN. FASTING: NO Parul Hanson MD LAB BLOOD ORDERABLES Final Re sult Performing Organization Address [facility] Co de Phone Number [facility] [address] [place] [phone] * IMMUNOGLOBULINS, QUANTITATIVE (DL) (01/09/2025 7:40 AM EST) [facility] Immunoglobulin A (IgA) 120 47 - 310 mg/dL [employer] Immunoglobulin G (IgG) 641 600 - 1,640 mg/dL [employer] [facility] Immunoglobulin M (IgM) 105 50 - 300 mg/dL [employer] Blood Blood specimen / Unknown 01/09/2025 7:40 AM EST 01/09/2025 7:43 AM EST [employer] - 01/16/2025 1:23 PM EST FASTING:NO PATIENT REFUSED SOME TESTING; PATIENT ENCOURAGED TO RETURN. FASTING: NO Parul Hanson MD LAB BLOOD ORDERABLES Final Re sult Performing Organization Address [facility] Co de Phone Number [facility] [address] [place] [phone] * C-Reactive Protein (01/09/2025 7:40 AM EST) Only the most recent of2 resultswithin the time period is included. [facility] C-Reactive Protein <3.0 <8.0 mg/L [employer] [facility] Blood Blood specimen / Unknown 01/09/2025 7:40 AM EST 01/09/2025 7:43 AM EST [employer] - 01/16/2025 1:23 PM EST FASTING:NO PATIENT REFUSED SOME TESTING; PATIENT ENCOURAGED TO RETURN. FASTING: NO Parul Hanson MD LAB BLOOD ORDERABLES Final Re sult Performing Organization Address [facility] de Phone Number [facility] [address] [place] [phone] * (ABNORMAL) Electrophoresis, Protein, Serum (SPEP) (01/09/2025 7:40 AM EST) [facility] Protein, Total 6.4 6.1 - 8.1 g/dL [employer] Albumin 4.1 3.8 - 4.8 g/dL [employer] Alpha 1 Globulin 0.2 0.2 - 0.3 g/dL [employer] Alpha 2 Globulin 0.7 0.5 - 0.9 g/dL [employer] Beta 1 Globulin 0.4 0.4 - 0.6 g/dL [employer] Beta 2 Globulin 0.3 0.2 - 0.5 g/dL [employer] Gamma Globulin 0.7(L) 0.8 - 1.7 g/dL [employer] [facility] Interpretation [employer] Comment: Consistent with hypogammaglobulinemia. Serum free light chains or urine immunofixation should be considered if plasma cell dyscrasias are a possible clinical diagnosis. Blood Blood specimen / Unknown 01/09/2025 7:40 AM EST 01/09/2025 7:43 AM EST [employer] [facility] - 01/16/2025 1:23 PM EST FASTING:NO PATIENT REFUSED SOME TESTING; PATIENT ENCOURAGED TO RETURN. FASTING: NO Parul Hanson MD LAB BLOOD ORDERABLES Final Re sult Performing Organization Address [facility] Co de Phone Number [employer] [address] [place] [address] * Comprehensive Metabolic Panel (01/09/2025 7:40 AM EST) Only the most recent of2 resultswithin the time period is included. Pathologist [facility] Glucose 84 65 - 139 mg/dL [employer] Comment: Non-fasting reference interval Blood Urea Nitrogen (BUN) 22 7 - 25 mg/dL [employer] Creatinine 1.05 0.70 - 1.30 mg/dL [employer] Creatinine w/ eGFR 82 > OR = 60 mL/min/1. 73m2 [employer] BUN/Creatinine Ratio SEE NOTE: 6 - 22 (calc) [employer] Comment: Not Reported: BUN and Creatinine are within reference range. Sodium 139 135 - 146 mmol/L [employer] Potassium 3.9 3.5 - 5.3 mmol/L [employer] Chloride 102 98 - 110 mmol/L [employer] CO2 28 20 - 32 mmol/L [employer] Calcium 9.4 8.6 - 10.3 mg/dL [employer] Protein, Total 6.4 6.1 - 8.1 g/dL [employer] Albumin 4.3 3.6 - 5.1 g/dL [employer] Globulin 2.1 1.9 - 3.7 g/dL (calc) [employer] Albumin/Globuli n Ratio 2.0 1.0 - 2.5 (calc) [employer] Bilirubin, Total 0.5 0.2 - 1.2 mg/dL [employer] Alkaline Phosphatase 48 35 - 144 U/L [employer] Aspartate Aminotrans (AST) 16 10 - 35 U/L [employer] Alanine Aminotrans (ALT) 23 9 - 46 U/L [employer] Blood Blood specimen / Unknown 01/09/2025 7:40 AM EST 01/09/2025 7:43 AM EST Narrative [facility] - 01/16/2025 1:23 PM EST FASTING:NO PATIENT REFUSED SOME TESTING; PATIENT ENCOURAGED TO RETURN. FASTING: NO us Parul Hanson MD LAB BLOOD ORDERABLES Final Re sult [employer] [address] [place] [phone] * QUANTIFERON ?? -TB GOLD PLUS, 1 TUBE (01/09/2025 7:33 AM EST) Pathologist [facility] Quantiferon TB Gold Plus, 1T NEGATIVE NEGATIVE [employer] Comment: Negative test result. M. tuberculosis complex infection unlikely. Quantiferon NIL 0.10 IU/mL [facility] Quantiferon Mitogen-NIL 3.55 IU/mL [facility] Quantiferon TB1-NIL <0.00 IU/mL [facility] Quantiferon TB2-NIL <0.00 IU/mL [facility] Comment: The Nil tube value reflects the [...] T-lymphocytes. For additional information, please refer to https://education.PowerInbox/faq/OQI324 (This link is being provided for informational/ educational purposes only.) Blood Blood specimen / Unknown 01/09/2025 7:33 AM EST 01/09/2025 7:37 AM EST Narrative [facility] - 01/12/2025 5:16 PM EST FASTING:NO FASTING: NO Parul Hanson MD LAB BLOOD ORDERABLES Final Re sult [facility] [address] [place] [phone] * (ABNORMAL) PROTEIN, TOTAL, RANDOM URINE, W/CREATININE (01/09/2025 7:33 AM EST) [facility] Creatinine, Urine, Random 57 20 - 320 mg/dL [employer] Protein/Creati nine Ratio, Urine 70 25 - 148 mg/g creat [employer] Protein/Creati nine Ratio 0.070 0.025 - 0.148 mg/mg creat [employer] Protein Urine, Random 4(L) 5 - 25 mg/dL [employer] Urine Urine specimen / Unknown 01/09/2025 7:33 AM EST 01/09/2025 7:37 AM EST Narrative [facility] - 01/12/2025 5:16 PM EST FASTING:NO FASTING: NO Parul Hanson MD URINE ORDERABLES Final Result Performing Organization Address [facility] de Phone Number [employer] [address] [place] [phone] * Thyroid Peroxidase and Thyroglobulin Antibodies (01/09/2025 7:33 AM EST) Pathologist [facility] Thyroglobulin AB <1 < or = 1 IU/mL [employer] Thyroid Peroxidase Antibody <1 <9 IU/mL [employer] Blood Blood specimen / Unknown 01/09/2025 7:33 AM EST 01/09/2025 7:37 AM EST Narrative [facility] - 01/12/2025 5:16 PM EST FASTING:NO FASTING: NO Parul Hanson MD LAB BLOOD ORDERABLES Final Re sult Performing Organization Address [facility] Co de Phone Number [employer] [address] [place] [phone] * CORPORATION SECRETARY (01/09/2025 7:33 AM EST) [facility] CORPORATION SECRETARY <1.0 NEG <1.0 NEG AI [employer] Blood Blood specimen / Unknown 01/09/2025 7:33 AM EST 01/09/2025 7:37 AM EST Narrative [facility] - 01/12/2025 5:16 PM EST FASTING:NO FASTING: NO us Parul Hanson MD LAB BLOOD ORDERABLES Final Re sult Performing Organization Address [facility] Co de Phone Number [employer] [address] [place] [phone] * TSH REFLEX FREE T4 (01/09/2025 7:33 AM EST) TSH reflex Free T4 1.21 0.40 - 4.50 mIU/L [employer] Blood Blood specimen / Unknown 01/09/2025 7:33 AM EST 01/09/2025 7:37 AM EST Narrative [facility] - 01/12/2025 5:16 PM EST FASTING:NO FASTING: NO us Parul Hanson MD LAB BLOOD ORDERABLES Final Re sult Performing Organization Address [facility] de Phone Number [employer] [address] [place] [phone] * PTH, INTACT WITH IONIZED CALCIUM (01/09/2025 7:33 AM EST) PTH, Intact 32 16 - 77 pg/mL [employer] Comment: Interpretive Guide Intact PTH Calcium ------- Normal Parathyroid Normal Normal Hypoparathyroidism Low or Low Normal Low Hyperparathyroidism Primary Normal or High High Secondary High Normal or Low Tertiary High High Non-Parathyroid Hypercalcemia Low or Low Normal High Calcium 9.4 8.6 - 10.3 mg/dL [employer] Calcium, Ionized 5.1 4.7 - 5.5 mg/dL [employer] Blood Blood specimen / Unknown 01/09/2025 7:33 AM EST 01/09/2025 7:37 AM EST Narrative [facility] - 01/12/2025 5:16 PM EST FASTING:NO FASTING: NO us Parul Hanson MD LAB BLOOD ORDERABLES Final Re sult Performing Organization Address [facility] de Phone Number [employer] [address] [place] [phone] * Chromatin Nucleosomal Antibodies (01/09/2025 7:33 AM EST) Pathologist [facility] Chromatin (Nucleosomal) Antibody <1.0 NEG <1.0 NEG AI [employer] Blood Blood specimen / Unknown 01/09/2025 7:33 AM EST 01/09/2025 7:37 AM EST Narrative [facility] - 01/12/2025 5:16 PM EST FASTING:NO FASTING: NO Parul Hanson MD LAB BLOOD ORDERABLES Final Re sult Performing Organization Address [facility] de Phone Number [employer] [address] [place] [phone] * C3, C4, PANEL (01/09/2025 7:33 AM EST) Pathologist [facility] Complement C3 137 82 - 185 mg/dL [employer] Complement C4 28 15 - 53 mg/dL [employer] Blood Blood specimen / Unknown 01/09/2025 7:33 AM EST 01/09/2025 7:37 AM EST Narrative [facility] - 01/12/2025 5:16 PM EST FASTING:NO FASTING: NO Parul Hanson MD LAB BLOOD ORDERABLES Final Re sult Performing Organization Address [facility] de Phone Number [employer] [address] [place] [phone] * Sm (King) and Sm/CORPORATION SECRETARY Antibodies (01/09/2025 7:33 AM EST) Pathologist [facility] Sm (King) Antibody <1.0 NEG <1.0 NEG AI [employer] Sm/CORPORATION SECRETARY Antibody <1.0 NEG <1.0 NEG [employer] Blood Blood specimen / Unknown 01/09/2025 7:33 AM EST 01/09/2025 7:37 AM EST Narrative [facility] - 01/12/2025 5:16 PM EST FASTING:NO FASTING: NO Parul Hanson MD LAB BLOOD ORDERABLES Final Re sult Performing Organization Address [facility] Co de Phone Number [employer] [address] [place] [phone] * SJOGREN'S (SS-A, SS-B) ANTIBODIES (01/09/2025 7:33 AM EST) Ro (SSA) Antibody <1.0 NEG <1.0 NEG AI [employer] La (SSB) Antibody <1.0 NEG <1.0 NEG AI [employer] Blood Blood specimen / Unknown 01/09/2025 7:33 AM EST 01/09/2025 7:37 AM EST Narrative [facility] - 01/12/2025 5:16 PM EST FASTING:NO FASTING: NO Parul Hanson MD LAB BLOOD ORDERABLES Final Re sult Performing Organization Address [facility] de Phone Number [employer] [address] [place] [phone] * (ABNORMAL) HISTONE ANTIBODY (01/09/2025 7:33 AM EST) Histone Antibodies 1.1(H) <1.0 U [facility] Comment: Value Explanation of Results ------ <1.0 Negative 1.0 - 1.5 Weak Positive 1.6 - 2.5 Moderate Positive >2.5 Strong Positive Blood Blood specimen / Unknown 01/09/2025 7:33 AM EST 01/09/2025 7:37 AM EST Narrative [facility] - 01/12/2025 5:16 PM EST FASTING:NO FASTING: NO Parul Hanson MD LAB BLOOD ORDERABLES Final Re sult Performing Organization Address [facility] Co de Phone Number [employer] [address] [address] [place] [phone] * HEPATITIS B VIRUS (HBV) SURFACE ANTIGEN SCREEN, REFLEX CONFIRMATION (01/09/2025 7:33 AM EST) Pathologist [facility] Hepatitis B Surface Ag Screen NON-REACT MELA NON-REACT MELA [employer] Comment: For additional information, please refer to http://education.PowerInbox/faq/QUJ075 (This link is being provided for informational/ educational purposes only.) Blood specimen / Unknown 01/09/2025 7:33 AM EST 01/09/2025 7:37 AM EST [employer] [facility] - 01/12/2025 5:16 PM EST FASTING:NO FASTING: NO Parul Hanson MD LAB BLOOD ORDERABLES Final Re sult Performing Organization Address [facility] de Phone Number [employer] [address] [place] [phone] * Centromere Antibody (01/09/2025 7:33 AM EST) Pathologist [facility] Centromere Antibody <1.0 NEG <1.0 NEG AI [employer] Blood Blood specimen / Unknown 01/09/2025 7:33 AM EST 01/09/2025 7:37 AM EST Narrative [facility] - 01/12/2025 5:16 PM EST FASTING:NO FASTING: NO Parul Hanson MD LAB BLOOD ORDERABLES Final Re sult Performing Organization Address [facility] de Phone Number [employer] [address] [place] [phone] * HEPATITIS C VIRUS (HCV) ANTIBODY (01/09/2025 7:33 AM EST) Pathologist [facility] Hepatitis C Antibody NON-REACT MELA NON-REACT MELA [employer] Comment: HCV antibody was non-reactive. There is no laboratory evidence of HCV infection. In most cases, no further action is required. However, if recent HCV exposure is suspected, a test for HCV RNA (test code 31589) is suggested. For additional information please refer to http://[employer].PowerInbox/faq/KAU43p3 (This link is being provided for informational/ educational purposes only.) Blood specimen / Unknown 01/09/2025 7:33 AM EST 01/09/2025 7:37 AM EST Narrative [facility] - 01/12/2025 5:16 PM EST FASTING:NO FASTING: NO us Parul Hanson MD LAB BLOOD ORDERABLES Final Re sult Performing Organization Address [facility] Co de Phone Number [employer] [address] [place] [phone] * Cyclic Citrullinated Peptide IgG Ab (01/09/2025 7:33 AM EST) CCP IgG Antibodies <16 UNITS [employer] Comment: Reference Range Negative: <20 Weak Positive: 20-39 Moderate Positive: 40-59 Strong Positive: >59 Blood Blood specimen / Unknown 01/09/2025 7:33 AM EST 01/09/2025 7:37 AM EST [employer] - 01/12/2025 5:16 PM EST FASTING:NO FASTING: NO us Parul Hanson MD LAB BLOOD ORDERABLES Final Re sult Performing Organization Address [facility] Co de Phone Number [employer] [address] [place] [phone] * SCL-70 ANTIBODY, EIA (01/09/2025 7:33 AM EST) Scl-70 Antibody <1.0 NEG <1.0 NEG AI [employer] Blood Blood specimen / Unknown 01/09/2025 7:33 AM EST 01/09/2025 7:37 AM EST Narrative [facility] - 01/12/2025 5:16 PM EST FASTING:NO FASTING: NO Parul Hanson MD LAB BLOOD ORDERABLES Final Re sult Performing Organization Address [facility] Co de Phone Number [employer] [address] [place] [phone] * Double Strand DNA Antibody (01/09/2025 7:33 AM EST) Pathologist [facility] Double Strand DNA Antibody 1 IU/mL [employer] Comment: IU/mL Interpretation < or = 4 Negative 5-9 Indeterminate > or = 10 Positive Blood Blood specimen / Unknown 01/09/2025 7:33 AM EST 01/09/2025 7:37 AM EST Narrative [facility] - 01/12/2025 5:16 PM EST FASTING:NO FASTING: NO Parul Hanson MD LAB BLOOD ORDERABLES Final Re sult Performing Organization Address [facility] de Phone Number [employer] [address] [place] [phone] * HEPATITIS B VIRUS (HBV) CORE ANTIBODY TOTAL (01/09/2025 7:33 AM EST) [facility] Hepatitis B Core Antibody Total NON-REACT MELA NON-REACT MELA [employer] Comment: For additional information, please refer to http://education.PowerInbox/faq/EOC739 (This link is being provided for informational/ educational purposes only.) Blood specimen / Unknown 01/09/2025 7:33 AM EST 01/09/2025 7:37 AM EST Narrative [facility] - 01/12/2025 5:16 PM EST FASTING:NO FASTING: NO Parul Hanson MD LAB BLOOD ORDERABLES Final Re sult Performing Organization Address [facility] Co de Phone Number [employer] [address] [place] [phone] * (ABNORMAL) VITAMIN D, 25-HYDROXY (01/09/2025 7:33 AM EST) [facility] Vitamin D,25-Oh,Total, IA 23(L) 30 - 100 ng/mL [facility] Comment: Vitamin D Status 25-OH Vitamin D: Deficiency: <20 ng/mL Insufficiency: 20 - 29 ng/mL Optimal: > or = 30 ng/mL For 25-OH Vitamin D testing on patients on D2-supplementation and patients for whom quantitation of D2 and D3 fractions is required, the [facility](TM) 25-OH VIT D, (D2,D3), LC/MS/MS is recommended: order code 51774 (patients >2yrs). See Note 1 Note 1 For additional information, please refer to http://education.[employer]/faq/ZFA772 (This link is being provided for informational/ educational purposes only.) Blood Blood specimen / Unknown 01/09/2025 7:33 AM EST 01/09/2025 7:37 AM EST Narrative [facility] - 01/12/2025 5:16 PM EST FASTING:NO FASTING: NO us Parul Hanson MD LAB BLOOD ORDERABLES Final Re sult [employer] [address] [place] [phone] * Urinalysis with Microscopic (01/09/2025 7:33 AM EST) Color YELLOW YELLOW [facility] Clarity CLEAR CLEAR [facility] Specific [place] 1.011 1.001 - 1.035 [facility] pH 6.5 5.0 - 8.0 [facility] Glucose, Urine, Random NEGATIVE NEGATIVE [facility] Bilirubin NEGATIVE NEGATIVE [facility] Ketones NEGATIVE NEGATIVE [facility] Blood NEGATIVE NEGATIVE [facility] Protein NEGATIVE NEGATIVE [facility] Nitrite NEGATIVE NEGATIVE [facility] Leukocyte Esterase NEGATIVE NEGATIVE [facility] WBC NONE SEEN < OR = 5 /HPF [facility] RBC NONE SEEN < OR = 2 /HPF [facility] Squamous Epithelial Cells NONE SEEN < OR = 5 /HPF [facility] Bacteria NONE SEEN NONE SEEN /HPF [facility] Hyaline Cast NONE SEEN NONE SEEN /LPF [employer] Note [employer] Comment: This urine was analyzed for the presence of WBC, RBC, bacteria, casts, and other formed elements. Only those elements seen were reported. Urine Urine specimen / Unknown 01/09/2025 7:33 AM EST 01/09/2025 7:37 AM EST Narrative [facility] - 01/12/2025 5:16 PM EST FASTING:NO FASTING: NO Parul Hanson MD URINE ORDERABLES Final Result Performing Organization Address [facility] de Phone Number [employer] [address] [place] [phone] * RHEUMATOID FACTOR (01/09/2025 7:33 AM EST) Rheumatoid Factor <10 <14 IU/mL [employer] [facility] Blood Blood specimen / Unknown 01/09/2025 7:33 AM EST 01/09/2025 7:37 AM EST [employer] - 01/12/2025 5:16 PM EST FASTING:NO FASTING: NO us Parul Hanson MD LAB BLOOD ORDERABLES Final Re sult Performing Organization Address [facility] de Phone Number [employer] [address] [place] [phone] * URIC ACID (01/09/2025 7:33 AM EST) Uric Acid 4.9 4.0 - 8.0 mg/dL [employer] Comment: Therapeutic target for gout patients: <6.0 mg/dL 01/09/2025 7:33 AM EST 01/09/2025 7:37 AM EST Narrative [facility] - 01/12/2025 5:16 PM EST FASTING:NO FASTING: NO us Parul Hanson MD LAB BLOOD ORDERABLES Final Re sult Performing Organization Address [facility] Co de Phone Number [employer] [address] [place] [phone] * CREATINE KINASE (CK) (01/09/2025 7:33 AM EST) Pathologist [facility] Creatine Kinase (CK) 59 23 - 325 U/L [employer] Blood Blood specimen / Unknown 01/09/2025 7:33 AM EST 01/09/2025 7:37 AM EST Narrative [facility] - 01/12/2025 5:16 PM EST FASTING:NO FASTING: NO us Parul Hanson MD LAB BLOOD ORDERABLES Final Re sult [employer] [address] [place] [phone] * (ABNORMAL) POCT Complete Blood Count (Oncology) (12/28/2024 2:02 PM EDT) Only the most recent of2 resultswithin the time period is included. [facility] White Blood Cell Count 10.1 4.0 - 11.0 Thou/uL 12/28/2024 2:09 PM EDT [facility] Red Blood Cell Count 5.36 4.50 - 6.20 Mil/uL 12/28/2024 2:09 PM EDT [facility] Hemoglobin 15.9 13.0 - 17.7 g/dL 12/28/2024 2:09 PM EDT [facility] Hematocrit 49.1 39.0 - 54.0 % 12/28/2024 2:09 PM EDT [facility] MCV 92 80 - 100 fL 12/28/2024 2:09 PM EDT [facility] MCH 29.7 27.0 - 31.0 pg 12/28/2024 2:09 PM EDT [facility] MCHC 32.4 30.0 - 36.0 g/dL 12/28/2024 2:09 PM EDT [facility] RDW 12.7 11.5 - 14.5 % 12/28/2024 2:09 PM EDT [facility] Platelet Count 175 150 - 450 Thou/uL 12/28/2024 2:09 PM EDT [facility] MPV 8.2 7.5 - 12.5 fL 12/28/2024 2:09 PM EDT [facility] Neutrophils Auto 93.7 % 12/29/19 2:09 PM EDT [facility] Abs Neutrophils Auto 9.50(H) 2.00 - 7.50 Thou/uL 12/28/2024 2:09 PM EDT [facility] Lymphocytes Auto 4.0 % 12/29/19 2:09 PM EDT [facility] Abs Lymphocytes Auto <1.00(L) 1.50 - 4.50 Thou/uL 12/28/2024 2:09 PM EDT [facility] Mixed Mononuclear Auto 2.3 % 12/28/2024 2:09 PM EDT [facility] Abs Mixed Mononuclear Auto <1.00 0.20 - 1.90 Thou/uL 12/28/2024 2:09 PM EDT [facility] Blood Blood specimen / Unknown 12/28/2024 2:02 PM EDT 12/28/2024 2:09 PM EDT Juan Valdes MD POCT ORDERABLES - ONCOLOGY F inal Result [address] [address], [address] * Flow Cytometry Report (11/22/2024 10:05 AM EDT) Report [facility]-0254 CLIA ID [id number] [address] [place] [address] / [phone] Hematopathology Report PATIENT NAME: MISHA STEWARD REC NUMBER: [id number] (AGE): 1965 (Age: 59) SPECIMEN NUMBER: [id number] DATE OBTAINED: 11/22/2024 DIAGNOSIS PERIPHERAL BLOOD (FLOW [...] CD34+ blasts comprise <0.1% of the WBCs. [id number] Clinical Information and History: D86.9 (Sarcoidosis, unspecified) [...] determined by the [facility]. It has not been cleared or [...] Provider HX AMB PROCEDURES Final Res ult from Last 3 Months Insurance BLUE [employer] [facility] - H[facility] BLUE [facility] [place]ives * Full Code (Latest Code Status on File) Date Activated Date Inactivated Comments 08/24/2024 2:28 PM 11/03/2024 10:17 AM * Full Code Date Activated Date Inactivated Comments 08/16/2024 7:09 PM 08/24/2024 9:59 AM * Full Code Date Activated Date Inactivated Comments 08/16/2024 9:37 AM 08/16/2024 7:09 PM Care Teams Instructional Technology Teacher Relationship Specialty Start Date End Date Susanne Burrows, LUIS ARMANDO [address] [place] [address] PCP - General Family Medicine 07/27/24 Ofelia Forrest RN [address] [place] [phone] Oncology Nurse Navigator 05/27/24
--- OUTSIDE RECORDS SUMMARY | 2025-02-08 17:59 | XMS_ITS | Clinical Summary ---
Author Organization [facility] [address] [facility] Address [address] [place] [address] Phone Care Team Providers Care Customs Import Specialist Name Role Phone Mekhi Leonard NP Primary [...] Screening 02/19/2024 Depression Screening 03/09/2024 COVID-19 Vaccine (1 - 2024-2 6 season) 2024 Influenza Vaccine (#1) 2024 RSV [...] patient's age to complete this topic Insurance [facility] Care Teams Customs Import Specialist Relationship Specialty Start Date End Date Mekhi Leonard NP PCP - General Family Medicine 02/19/24
--- OUTSIDE RECORDS SUMMARY | 2025-02-08 17:59 | XMS_ITS | Encounter Summary ---
Author Organization [facility] Address [address] [place] [address] Care Team Providers Care Braided Band Assembler Name Role Phone Carrier, Ofelia GRAF Unavailable [phone] Mekhi Leonard NP Primary Care Provider Encounter Details Date Type Department Care Team (Late st Contact Info) Description 11/02/2024 Scanned Document [facility] Cancer [facility] at [address] [address] Juan Valdes MD [address] [place] [address] [id number] Social History Tobacco Use Types Packs/Day Years Used Date Smoking Tobacco: Some Days Cigars Smokeless Tobacco: Never Comments:Occasional cigar Alcohol Use Standard Drinks/Week Comments Yes 4 (1 standard drink = 0.6 oz pur e alcohol) [facility] Utilities Answer Date Recorded In the past 12 months has [employer], gas, oil, or water [employer] threatened to shut off services in your [...] Description 02/13/2025 8:30 AM EST Office Visit [facility] [place] [facility] [address] [place] [address] Luisa Modi APRN 10 [place] [address] 02/16/2025 1:00 PM EST Appointment [facility] [address] [place] [address], [address] [place] [address] Blas Mendez MD [address] [place] [address] 03/10/2025 2:20 PM EST [facility] Visit [facility] [address] [phone] Parul Hanson MD [address] [place] [address] 998203 05/08/2025 1:30 PM EST Office Visit [address] [phone] Blas Mendez MD [address] [place] [address] [phone] 05/24/2025 9:00 AM EDT Office Visit [address] [phone] Luisa Modi APRN [address] [place] [address] 312582 08/23/2025 11:45 AM EDT Office Visit [address] [phone] Niels Benjamin MD [address] [place] [address] [phone] documented as of this encounter Visit Diagnoses Not on filedocumented in this encounter Care Teams Braided Band Assembler Relationship Specialty Start Date End Date Mekhi Leonard NP [address] [place] [address] PCP - General Family Medicine 07/27/24 Ofelia Forrest RN [address] [address] Oncology Nurse Navigator 05/27/24 documented as of this encounter
== END 2025-02-08 15:02 | disposition home or self-care (01) ==
LOC: HO.HMGAL 14:59
PROVIDERS: PCP Nurse Practitioner Family; Visit Provider Registered Nurse Emergency
DX: J30.89 Other allergic rhinitis (principal)
CPT/HCPCS: 95117; 95165

== ENCOUNTER 2025-02-20 16:29 | Outpatient (AMB) | payer BC, SELFPAY ==
--- OUTSIDE RECORDS SUMMARY | 2024-07-27 08:00 | XMS_ITS | Encounter Summary ---
Author Organization [facility] Address [address] [place] [address] Care Team Providers Care Environmental Services Technician Name Role Phone Carrier, Ofelia GRAF Unavailable [phone] Mekhi Leonard NP Primary Care Provider Encounter Details Date Type Department Care Team (Latest Contact Info) Description 07/27/2024 9:00 AM EDT Pre-Admission Testing [facility] in [address] [place] [phone] Melissa Child, COMMUNITY OUTREACH WORKER [address] [facility] [address] [place] [address] Preprocedural examination (Primary Dx); Malignant neoplasm of prostate (HCC); Gastroesophageal reflux disease without esophagitis; Other specified hypothyroidism ; Seasonal allergies; Hyperlipidemia, unspecified hyperlipidemia type ; Obesity (BMI 30-39.9); Secondary hypertension ; Gout, unspecified cause, unspecified chronicity, unspecified site; Abnormal EKG Social History Tobacco Use Types Packs/Day Years Used Date Smoking Tobacco: Some Days Cigars Smokeless Tobacco: Never Comments:Occasional cigar Alcohol Use Standard Drinks/Week Comments Yes 4 (1 standard drink = 0.6 oz pur e alcohol) [facility] Utilities Answer Date Recorded In the past 12 months has [employer], gas, oil, or water [employer] threatened to shut off services in your home? No 08/25/2024 AUDIT-C Answer Date Recorded Q1: How often do you have a drink containing alc ohol? 2-3 times a week 07/22/2024 Q2: How many drinks containi ng alcohol do you have on a typical day when you are drinking? 1 or 2 07/22/2024 Q3: How often do you have si x or more drinks on one occasion? Never 07/22/2024 Overall Financial Resource Strain (CARDIA) Answe r Date Recorded How hard is it for you to pa y for the very basics like food, housing, medical care, and heating? Not hard at all 08/25/2024 PHQ-2 Answer Date Recorded PHQ-2 Total Score 0 08/16/2024 Hunger Vital Sign Answer Date Recorded Within the past 12 months, y ou worried that your food would run out before you got the money to buy more. Never true 08/26/19 25 Within the past 12 months, t he food you bought just didn't last and you didn't have money to get more. Never true 08/25/2024 PRAPARE - Transportation Answer Date Re corded In the past 12 months, has l ack of transportation kept you from medical appointments or from getting medications? No 08/07 In the past 12 months, has l ack of transportation kept you from meetings, work, or from getting things needed for daily living? No 08/25/2024 Housing Stability Vital Sign Answer Jhon e Recorded In the last 12 months, was t here a time when you were not able to pay the mortgage or rent on time? No 08/25/2024 In the past 12 months, how m any times have you moved where you were living? 0 08/25/2024 At any time in the past 12 m [facility], were you homeless or living in a halfway (including now)? No 08/25/2024 Sex and Gender Information Value Date Recorded Sex Assigned at Male 05/27/2024 7:26 PM EDT Legal Sex Male 6:10 PM EST Gender Identity Male 05/27/2024 7:27 PM EDT Sexual Orientation Heterosexual (straight) 08/16 9:23 AM EDT documented as of this encounter Last Filed Vital Signs Vital Sign Reading Time Taken Comments Blood Pressure 142/86 07/27/2024 9:03 AM EDT Pulse 68 07/27/2024 9:03 AM EDT Temperature 36.7 C (98 F) 07/27/2024 9:03 AM EDT Respiratory Rate 18 07/27/2024 9:03 AM EDT Oxygen Saturation 97% 07/27/2024 9:03 AM EDT Inhaled Oxygen Concentration - - Weight 120 kg (265 lb 6.4 oz) 07/27/2024 9:03 AM EDT Height 190.5 cm (6' 3 ) 07/27/2024 9:03 AM EDT Body Mass Index 33.17 07/27/2024 9:03 AM EDT documented in this encounter Functional Status * PHQ-2 Total Score Answer Date of Assessment Author 0 08/16/2024 9:59 AM EDT Yamilet Campos RN * Question Answer Date of Assessment Author Little interest or pleasure in doing things Not at all 08/16/2024 9:59 AM EDT Shiloh Campos RN Feeling down, depressed, or hopeless Not at all 08/16/2024 9:59 AM EDT Shiloh Campos RN * Over the past 2 weeks, how often have you been bothered by any of the following problems? Question Answer Date of Assessment Author Patient Health Questionnaire-2 Score 0 08/07 9:59 AM EDT Shiloh Campos RN * Level of Risk per Screen Answer Date of Assessment Author Low Risk 08/16/2024 9:59 AM EDT Yamilet Campos RN documented as of this encounter Patient Instructions * Patient Instructions* Melissa Child APRN - 07/27/2024 9:00 AM EDT Images from the original note were not included. PRE-PROCEDURE INSTRUCTIONS PROCEDURE ARRIVAL TIME & LOCATION INFORMATION: You will receive a Wine in Black message between 12:00-4:00 PM the day before your procedure with your arrival time and location. If you have not received a message by 4:30 pm, please call the surgical timeline at [phone]. Please do not hesitate to contact us with any questions or concerns about the following instructions at [phone]. BATHING BEFORE SURGERY OR PROCEDURE: To reduce the risk of surgical site infection, wash before surgery using Hibiclens Solution (Chlorhexidine Gluconate 4% Solution/CHG), Hibiclens Wipes (Chlorhexidine Gluconate 2% Cloths) or antibacterial wash (Dial). These antibacterial washes may be purchased from your local pharmacy without a pres cription. If you are using the Hibiclens Solution (Chlorhexidine Gluconate 4% Solution/CHG), this will be a two-step process to be done the night before and the morning of the procedure. Please follow the steps below: Shower as usual. Turn the water off and stay in the shower. Apply half of the bottle of Hibiclens on a clean washcloth. Apply the soap from your neck down to your toes, avoiding the face and private area. Leave it on your skin for 2 minutes. Turn the water back on and rinse off. Dry off with a clean towel and put on clean clothing. If you are using the Hibiclens Wipes (Chlorhexidine Gluconate 2% Cloths), please follow the instructions provided by the permastone mechanic or your provider. Avoid hair removal near surgical site within 48 hours of surgery (shaving, electric shaver, depilatory cream). Do NOT use lotion, powder, perfume, cologne or deodorant after showering with antibacterial wash. Perform oral hygiene (brush teeth and rinse mouth). Hibiclens solution (chlorhexidine gluconate) is NOT to be drank or ingested. DAY OF SURGERY OR PROCEDURE: Do NOT eat any food or full liquids 8 (EIGHT) hours prior to arrival to the hospital or as instructed by your doctor. CLEAR liquids may be consumed up to 4 (FOUR) hours prior to your arrival time. After this, NO chewing gum or hard candy may be consumed. The ONLY acceptable options for clear liquids are: Water Pulp-free clear fruit juice, i.e., apple juice, cranberry juice, grape juice - NO orange juice Clear energy drink such as Gatorade Black tea or black coffee - NO milk, cream, honey or thickeners Carbonated beverages Commercially available pre-surgery carbohydrate loading nutrition drinks (cannot contain protein) MEDICATIONS: Please follow the medication instructions exactly as noted below for your safety. If you are taking any supplements, herbal medications, or nonsteroidal anti- inflammatory drugs (NSAIDs), please stop taking them 1 week before your procedure (these medications may increase your riskof bleeding) For medications to be taken on the morning of surgery, you may take them with a sip of water ONLY. MEDICATION INSTRUCTIONS TO FOLLOW BEFORE SURGERY Medication Sig Note allopurinol (ZYLOPRIM) 100 mg tablet Take 1 tablet (100 mg total) by mouth nightly. Take the night before surgery. atorvastatin (LIPITOR) 20 MG tablet Take 1 tablet (20 mg total) by mouth nightly. Take the night before surgery. Glucosamine HCl 1500 MG Tab Take 1,500 mg by mouth every morning. With MSM 1500 Hold 7 days before surgery. Take last dose on 08/08 ibuprofen (MOTRIN) 800 mg tablet Take by mouth as needed. Hold 7 days before surgery. Take last dose on 08/08 levocetirizine (Xyzal Allergy 24HR) 5 MG tablet Take 1 tablet (5 mg total) by mouth nightly. Take the night before surgery. NAPROXEN PO Take 440 mg by mouth every morning. Hold 7 days before surgery. Take last dose on 08/08 OMEPRAZOLE PO Take 20 mg by mouth every morning. Take on the morning of surgery. Synthroid 50 MCG tablet Take 1 tablet (50 mcg total) by mouth every morning. Take on the morning ofsurgery. tadalafil (CIALIS) 5 mg tablet Take 1 tablet (5 mg total) by mouth every morning. Hold 72 hours before surgery. Take last dose on 08/12 testosterone cypionate (DEPO-TESTOSTERONE CYPIONATE) 200 mg/mL injection every 14 days (2 weeks). Currently on hold valACYclovir (VALTREX) 500 MG tablet as needed. OK to take as needed, including on the day of surgery. VITAMIN A PO Take 6,000 mcg by mouth every morning. Do NOT take morning of surgery. Bring your line haul driver's license or photo ID and Insurance card(s) Wear loose, comfortable clothing and rubber-soled shoes Do NOT bring any valuables - you may bring your cell phone and/or money, credit card or check for co-pay if instructed Prior to going to the operating room you will have to remove: Glasses/contact lenses Make-up/nail vietnamese Hair pins/hairpiece Undergarments Jewelry/body piercing(s). Potential risks associated with failure to remove jewelry/body piercing(s) prior to surgery include but are not limited to: electrical gilliam, impeding circulation, infection, choking/strangulation, damage or loss of jewelry AFTER SURGERY: If you are going home on the same day as your surgery, please make arrangements to have a responsible adult (18 years of age or older) drive you home. Private transportation consists solely of a four-wheeled road vehicle with safety belt access. If using ridesharing (Uber, Lyft, Taxi, Wright etc.) you must be accompanied by a responsible adult (18 years of age or older). Your surgeon will provide specific instructions for care while recovering at home. In the event of any difficulty, please call your surgeon. For the first 24 hours following your surgery or procedure, we recommend that you do not engage in strenuous activities, consume alcoholic beverages, drive or make critical decisions. For the most up-to-date visitation policies in our facilities, please click here. For parking questions within [facility], please click here. documented in this encounter H&P Notes * Melissa Child APRN - 07/27/2024 9:00 AM EDT Images from the original note were not included. PREOPERATIVE - HISTORY AND PHYSICAL Primary Care Provider: Mekhi Leonard MD Procedure Date Procedure Laterality Surgeon(s) 08/16/2024 ROBOTIC ASSISTED PROSTATECTOMY /C DISSECTION LYMPH NODES (XI) N/A Niels Benjamin MD Anesthesia Preoperative Diagnosis for Planned Procedure general Malignant neoplasm of prostate (HCC) [C61] ASSESSMENT & PLAN Preop Outcome - No further preoperative testing or consultations needed Gastroesophageal reflux disease without esophagitis Well-controlled and managed with Omeprazole. Continue current medication regimen as prescribed. Continue plan as previously directed by your provider. Other specified hypothyroidism Compliant with thyroid medication. Continue current medication regimen as prescribed. Patient to follow up with PCP or elevator erector for continued management of hypothyroidism as previously directed. Seasonal allergies Controlled and managed with Xyzal and weekly allergy injections. Continue current medication regimen as prescribed. Continue plan as previously directed by your provider. Hyperlipidemia Compliant with statin therapy. Continue current medication regimen as prescribed. Continue plan as previously directed by your provider. Obesity (BMI 30-39.9) Body mass index is 33.17 kg/m??. Recommend diet, exercise and lifestyle modifications. Follow up with provider as directed Secondary hypertension Managed with diet and lifestyle modifications. Continue plan as previously directed by your provider. Gout Well-controlled and managed with Allopurinol. Continue current medication regimen as prescribed. Continue plan as previously directed by your provider. Abnormal EKG Patient EKG today NSR with RBBB. Patient is asymptomatic. Patient reports METS >4; denies cardiac symptoms (e.g. chest pain, palpitations, dyspnea, syncope, etc). No evidence of any active or uncontrolled cardiovascular disease. Okay to proceed with surgery without any additional testing. Addendum: Lab review PRE-OP RISK ASSESSMENT & OPTIMIZATION Perioperative Risk Scores ? Global - METS 4 or more. ASA Class: 2 ? VTE - Caprini SCORE: 9 ? Cardiac - RCRI: 1, RCRI risk: 1.3 %, Ornelas MEGAN risk (%): 0 ? Pulmonary - ELEVATED Pulmonary Risk STOPBANG - 4 ? MISC - AUDIT-C Total Score - Male: 3, RAPT Score: 12 PREOP CARDIAC RISK ASSESSMENT Planned for Time-Sensitive, High risk surgical procedure. No active cardiac conditions. has pre-existing cardiac co-morbidity. No chest pain or dyspnea at rest or exertion. EKG: Done today. Tracing reviewed by me & my interpretation is NSR with RBBB. RCRI score is 0 & Age is less than 65 years, No further preoperative cardiac testing is indicated. Preop Cardiology consult not needed. No prior cnc applications engineer. Perioperative Plan and Recommendations: Known H/o anesthesia related adverse events (PONV), no Family h/o anesthesia issues AYLEEN or STOPBANG 5 or more: Perioperative monitoring as per AYLEEN guideline Alcohol cessation discussed MEDICATION INSTRUCTIONS TO FOLLOW BEFORE SURGERY Medication Sig Note allopurinol (ZYLOPRIM) 100 mg tablet Take 1 tablet (100 mg total) by mouth nightly. Take the night before surgery. atorvastatin (LIPITOR) 20 MG tablet Take 1 tablet (20 mg total) by mouth nightly. Take the night before surgery. Glucosamine HCl 1500 MG Tab Take 1,500 mg by mouth every morning. With MSM 1500 Hold 7 days before surgery. Take last dose on 2 ibuprofen (MOTRIN) 800 mg tablet Take by mouth as needed. Hold 7 days before surgery. Take last dose on 2 levocetirizine (Xyzal Allergy 24HR) 5 MG tablet Take 1 tablet (5 mg total) by mouth nightly. Take the night before surgery. NAPROXEN PO Take 440 mg by mouth every morning. Hold 7 days before surgery. Take last dose on 2 OMEPRAZOLE PO Take 20 mg by mouth every morning. Take on the morning of surgery. Synthroid 50 MCG tablet Take 1 tablet (50 mcg total) by mouth every morning. Take on the morning ofsurgery. tadalafil (CIALIS) 5 mg tablet Take 1 tablet (5 mg total) by mouth every morning. Hold 72 hours before surgery. Take last dose on 08/12 testosterone cypionate (DEPO-TESTOSTERONE CYPIONATE) 200 mg/mL injection every 14 days (2 weeks). Currently on hold valACYclovir (VALTREX) 500 MG tablet as needed. OK to take as needed, including on the day of surgery. VITAMIN A PO Take 6,000 mcg by mouth every morning. Do NOT take morning of surgery. Risk assessment & appropriate instructions reviewed with the patient and/or family in layman's terms. They verbalized understanding. Subjective HISTORY OF PRESENT ILLNESS Chief complaint - Misha Brasher is a 58 y.o. male seen today for a preoperative assessment. Relevant Brief history for Procedural indication - This is a 58 year old male who presents to the [facility] for preoperative risk stratification as he is scheduled for the above procedure. Positive for Hypertension, Cancer (prostate), H/o COVID-19 Negative for Heart disease/stents, Irregular heart beat or arrhythmia, Any recent illness, ER visitor hospitalization, Implantable device, DM or Pre- Diabetes, Lung disease, Kidney disease, Liver disease, Immunocompromised, AYLEEN, Stroke or TIA, Seizure disorder, Vascular disease or stents, DVT or PE, Clotting disorder, Assistive devices, Corticosteroid Use, H/o MRSA, H/o Cdiff, Anemia and H/o transfusion Bleeding risk screening - no h/o Excessive Bleeding, no h/o Bleeding disorder and no Family h/o bleeding disorder. Baseline medications with impact on bleeding risk - AntiPlatelets and NSAIDs or Herbals H/o anesthesia related adverse events (PONV) Accepts blood products (if needed). no Family h/o anesthesia issues, unprovoked DVT or PE and clotting disorder. REVIEW OF SYSTEMS HEENT: missing tooth, farsighted. Psychiatric - Positive for Anxiety Respiratory; Cardiovascular; Dermatologic; Genitourinary; NEGATIVE except as noted in HPI. Past Medical History: Diagnosis Date Anxiety GERD (gastroesophageal reflux disease) Gout Hyperlipidemia Hypertension no meds, changed diet and added exercise Hypogonadism in male Hypothyroidism Oral herpes PONV (postoperative nausea and vomiting) projectile/violently ill Prostate cancer (HCC) Snoring sleep study negative for AYLEEN. 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, only has 1 kidney now Past Surgical History: Procedure Laterality Date DEBRIDEMENT Right testicular infection ELBOW SURGERY Right EXCISION LIPOMA 1 on back, 1 on knee EXPLORATORY LAPAROTOMY 1973 Blunt Trauma KNEE SURGERY Bilateral NEPHRECTOMY Right 1974 Blunt Trauma RECONSTRUCTION ACL Left screw was removed after infection TONSILLECTOMY Social History Tobacco Use Smoking status: Some Days Types: Cigars Smokeless tobacco: Never Tobacco comments: Occasional cigar Substance Use Topics Alcohol use: Yes Alcohol/week: 4.0 - 6.0 standard drinks of alcohol Types: 4 - 6 Standard drinks or equivalent per week Drug use: Not Currently Types: Marijuana Comment: sergio in 70's/80's Family History Problem Relation Age of Onset Cancer, Prostate Father 59 59 GLOBAL CONSUMER SECTOR VICE PRESIDENT Cancer, Prostate Paternal Uncle 63 waiter/waitress buffet Cancer, Kidney Neg Hx Cancer, Bladder Neg Hx Allergies Allergen Reactions Oxycodone GI Intolerance/Nausea/Vomiting Objective Vitals: 07/27/24 0903 BP: (!) 142/86 BP Location: Left arm Patient Position: Sitting Pulse: 68 Resp: 18 Temp: 98 ??F (36.7 ??C) TempSrc: Temporal SpO2: 97% Weight: 120 kg (265 lb 6.4 oz) Height: 1.905 m (6' 3 ) Body mass index is 33.17 kg/m??. Physical Exam Constitutional - alert. well appearing and not in acute distress. Head - normocephalic and atraumatic. Ear - right and left external ear normal. Eyes - PERRL, conjunctivae normal and extraocular movements intact. no scleral icterus. Nose - appears normal. Neck - supple and normal range of motion. Cardiovascular - normal rate and regular rhythm. normal heart sounds and normal pulses. no murmur. Pulmonary - breath sounds present bilaterally. no wheezing and no crackles. Abdominal - soft and bowel sounds normal. no distension, no tenderness and no hernia. Skin - warm. no rash, no bruising and no jaundice. Neurological - alert and oriented x 4. Relevant data reviewed Lab Results Component Value Date WBC 4.3 07/27/2024 HGB 16.3 07/27/2024 HCT 50.1 07/27/2024 PLT 173 07/27/2024 NA 142 07/27/2024 K 4.7 07/27/2024 CL 107 07/27/2024 CO2 24 07/27/2024 ANIONGAP 11 07/27/2024 CALCIUM 9.7 07/27/2024 BUN 19 07/27/2024 CREAT 1.1 07/27/2024 EGFR 78 07/27/2024 GLUC 86 07/27/2024 documented in this encounter Miscellaneous Notes * Assessment & Plan Note - Melissa Child APRN - 07/27/2024 8:50 AM EDT Associated Problem(s): Gout Well-controlled and managed with Allopurinol. Continue current medication regimen as prescribed. Continue plan as previously directed by your provider. * Assessment & Plan Note - Melissa Child APRN - 07/27/2024 8:31 AM EDT Associated Problem(s): Secondary hypertension Managed with diet and lifestyle modifications. Continue plan as previously directed by your provider. * Assessment & Plan Note - Melissa Child APRN - 07/27/2024 8:21 AM EDT Associated Problem(s): Obesity (BMI 30-39.9) Diet, exercise and lifestyle modifications. * Assessment & Plan Note - Melissa Child APRN - 07/27/2024 8:20 AM EDT Associated Problem(s): Mixed hyperlipidemia Compliant with statin therapy. Continue current medication regimen as prescribed. Continue plan as previously directed by your provider. * Assessment & Plan Note - Melissa Child APRN - 07/27/2024 8:20 AM EDT Associated Problem(s): Seasonal allergies Controlled and managed with Xyzal. Continue current medication regimen as prescribed. Continue demario previously directed by your provider. * Assessment & Plan Note - Melissa Child APRN - 07/27/2024 8:20 AM EDT Associated Problem(s): Acquired hypothyroidism Compliant with thyroid medication. Continue current medication regimen as prescribed. Patient to follow up with PCP or elevator erector for continued management of hypothyroidism as previously directed. * Assessment & Plan Note - Melissa Child APRN - 07/27/2024 8:19 AM EDT Associated Problem(s): Gastroesophageal reflux disease without esophagitis Well-controlled and managed with Omeprazole. Continue current medication regimen as prescribed. Continue plan as previously directed by your provider. documented in this encounter Plan of Treatment Upcoming Encounters Date Type Department Care Team (Late st Contact Info) Description 03/10/2025 2:20 PM EST [facility] [address] [facility], [address] [place] [phone] Parul Hanson MD [address] [facility] [address] [place] [address] 03/23/2025 2:00 PM EST Office Visit [facility] [place] [facility] [address] [facility] [address] [place] [address] Maria R Xiong MD [address] [facility] [address] [place], [place] [phone] 05/08/2025 1:30 PM EST Office Visit [facility] Pulmonary [place] [address] [place] [address] Blas Mendez MD [id number] [place], [place] [id number] 05/24/2025 9:00 AM EDT Office Visit [address] [phone] Luisa Modi APRN [address] [place] [address] 08/23/2025 11:45 AM EDT Office Visit [address] [phone] Niels Benjamin MD [address] [place] [phone] documented as of this encounter Procedures Procedure Name Priority Date/Time Associated Diagnosis Comments ECG 12-LEAD Routine 07/27/2024 8:56 AM EDT Preprocedural examination documented in this encounter Results * ECG 12 lead (07/27/2024 8:56 AM EDT) Ventricular rate 61 BPM EKG [facility] Atrial rate 61 BPM EKG [facility] P-R interval 208 ms EKG [facility] QRS duration 140 ms EKG [facility] Q-T interval 436 ms EKG [facility] QTC calculation (Bazett) 438 ms EKG [facility] P axis 0 degrees EKG [facility] R axis 20 degrees EKG [facility] T axis 14 degrees EKG [facility] 07/27/2024 8:56 AM EDT Narrative EKG [facility] - 07/27/2024 9:00 AM EDT Normal sinus rhythm Right bundle branch block Abnormal ECG No previous ECGs available Confirmed by MD Sumner Vincent ([id number]) on 07/27/2024 9:00:10 AM Procedure Note William Sumner MD - 07/27/2024 Normal sinus rhythm Right bundle branch block Abnormal ECG No previous ECGs available Confirmed by MD Sumner Vincent ([id number]) on 07/27/2024 9:00:10 AM us Melissa Child COMMUNITY OUTREACH WORKER ECG ORDERABLES Final Resu lt [facility] documented in this encounter Visit Diagnoses Diagnosis Preprocedural examination- Primary Unspecified pre-operative examination Malignant neoplasm of prostate (HCC) Malignant neoplasm of prostate Gastroesophageal reflux disease without esophagitis Esophageal reflux Other specified hypothyroidism Seasonal allergies Allergic rhinitis, cause unspecified Hyperlipidemia, unspecified hyperlipidemia type Obesity (BMI 30-39.9) Secondary hypertension Other secondary hypertension, unspecified Gout, unspecified cause, unspecified chronicity, unspecified site Abnormal EKG Nonspecific abnormal electrocardiogram (ECG) (EKG) documented in this encounter Care Teams Environmental Services Technician Relationship Specialty Start Date End Date Mekhi Leonard NP [address] [place] [address] PCP - General Family Medicine 07/27/24 Ofelia Forrest RN [address] [place] [id number] Oncology Nurse Navigator 05/27/24 documented as of this encounter
--- OUTSIDE RECORDS SUMMARY | 2025-02-16 12:52 | XMS_ITS | Encounter Summary ---
Author Organization [facility] Address 100 [place] [address] Care Team Providers Care Return To Service Inspector Name Role Phone Carrier, Ofelia GRAF Unavailable [phone] Mekhi Leonard NP Primary Care Provider [phone] Encounter Details Date Type Department Care Team (Latest Contact Info) Description 02/16/2025 12:52 PM EST - 02/16/2025 11:59 PM EST Hospital Encounter [facility] Pulmonary Laboratory & Rehabilitation 80 [facility], [address] [place] [address] Blas Mendez MD [address] [phone] Sarcoidosis Discharge Disposition: Home or Self Care Social History Tobacco Use Types Packs/Day Years Used Date Smoking Tobacco: Some Days Cigars Smokeless Tobacco: Never Comments:Occasional cigar Alcohol Use Standard Drinks/Week Comments Yes 4 (1 standard drink = 0.6 oz pur e alcohol) [facility] Utilities Answer Date Recorded In the past 12 months has [employer], gas, oil, or water [employer] threatened to shut off services in your [...] time in the past 12 m [facility], were you homeless or living in a senior care (including now)? No 08/25/2024 Sex and Gender [...] tablet (20 mg total) by mouth nightly. Cholecalciferol (D3 2000 PO) Take by mouth. colchicine (COLCRYS) 0.6 mg tabletIndications: Gout involving toe, unspecified cause, unspecified chronicity, unspecified laterality Take 1 tablet (0.6 mg total) by mouth 2 (two) times a day. 180 tablet 02/13/2025 Glucosamine HCl 1500 MG Tab Take 1,500 mg by mouth every morning. With MSM 1500 leuCOVORIN (WELLCOVORIN) 5 MG tabletIndications: Sarcoidosis involving hilar lymph node Take 1 tablet (5 mg total) by mouth once a week. 12 tablet 01/30/2025 levocetirizine (Xyzal Allergy 24HR) 5 MG tablet Take 1 tablet (5 mg total) by mouth nightly. methoTREXate (RHEUMATREX) 2.5 mg tabletIndications: Sarcoidosis involving hilar lymph node Take 6 tablets (15 mg total) by mouth once a week Verify any order for freqs more than 3x per week. 72 tablet 01/30/2025 OMEprazole (PriLOSEC) 20 MG capsule Take 1 capsule (20 mg total) by mouth every morning before breakfast. predniSONE (DELTASONE) 10 MG tabletIndications: Sarcoidosis 6 tablets daily for 4 weeks, 4 tablets daily for 4 weeks, 3 tablets daily for 4 weeks, 2 tablets daily until seen in the office. Take With food. 200 tablet 11/14/2024 sulfamethoxazole-t rimethoprim (BACTRIM DS,SEPTRA DS) 800-160 MG per tabletIndications: Sarcoidosis Take 1 tablet by mouth 3 (three) times a week on Thursday, Thursday, Thursday. 12 tablet 11/14/2024 Synthroid 50 MCG tablet Take 1 [...] PM EST Office Visit [facility] [place] [facility] 201 [place] [address] Parul Hanson MD 195 [facility] 201 [place], [place] 127463 03/23/2025 2:00 PM EST Office Visit [facility] Heart & Vascular [place] 111 [facility] 8 [place] [phone] Maria R Xiong MD 85 [facility] 603 [place] [address] 05/08/2025 1:30 PM EST Office Visit [address] [phone] Blas Mendez MD [address] 742253 [place], [place] [phone] 05/24/2025 9:00 AM EDT Office Visit [address] [phone] Luisa Modi APRN 10 [place], [place] 778932 08/23/2025 11:45 AM EDT Office Visit [address] [phone] Niels Benjamin MD [address] [phone] documented as of this encounter Procedures Procedure Name Priority Date/Time Associated Diagnosis Comments PULMONARY FUNCTION TEST Routine 02/16/2025 1:26 PM EST Sarcoidosis documented in this encounter Results * SPIROMETRY W BRONCH/DIFFUSION/VOLS-GAS (02/16/2025 1:26 PM EST) Anatomical Region Laterality Modality PFT Impressions 02/19/2025 8:44 PM EST A. SPIROMETRY Normal spirometry without evidence of bronchodilator responsiveness B. LUNG VOLUMES Normal lung volumes C. DIFFUSION Normal diffusion DATA SUMMARY: See attached sheet. RECORDING DEFINITIONS: Severity was assessed in accordance with ERS/ATS 2020 guidelines. Obstruction calculated by lower limit of normal. A z score greater than -1.645 was considered normal, while a z score between -1.645 and -2.5 was considered mild, a z score between -2.5 and -4.0 was considered moderate, and a z score less than -4.0 was considered severe. Hyperinflation and air-trapping diangosed based on a z score greater than 1.645. Significant bronchodilator response based on greater than 10% relative change in FEV1 or FVC compared to predicted values. Equation for bronchodilator response (post bronchodilator value(L)-pre bronchodilator value(L) x 100/predicted value. Blas Mendez MD 02/19/2025 8:42 PM lizet Narrative 02/19/2025 8:44 PM EST Table formatting from the original result was not included. Images from the original result were not included. Division of Pulmonary, Critical Care, and Sleep Medicine [address] [place] [address] Patient Name: Misha Brasher Recording Date: @DATE@ Gender: male Height: Date of : 1965 Weight: Referring Physician: @PCP@ BMI: PULMONARY FUNCTION TEST TYPE OF TEST DONE: Spirometry (CPT 44953) before and after bronchodilator (CPT 46635) Lung volumes by multiple breath washout (CPT 24439) Diffusion capacity (CPT 88002) INDICATION: Misha Brasher has been referred for pulmonary function test due to sarcoid us Blas Mendez MD PFT ORDERABLES Final Resul t documented in this encounter Visit Diagnoses Diagnosis Sarcoidosis documented in this encounter Administered Medications Inactive Administered Medications - up to 1 most recent administrations Medication Order MAR Action Action Date Dose Rate Site albuterol (PROVENTIL) (0.083%) 2.5 mg/3 mL nebulizer solution 2.5 mg 2.5 mg, Nebulization, Once, On Ghaz[place] 02/16/25 at 1300, For 1 dose Given 02/16/2025 1:11 PM EST 2.5 mg documented in this encounter Care Teams Return To Service Inspector Relationship Specialty Start Date End Date Mekhi Leonard NP [address] [place] [address] PCP - General Family Medicine 07/27/24 Ofelia Forrest RN [address] [place] [address] Oncology Nurse Navigator 05/27/24 documented as of this encounter
--- OUTSIDE RECORDS SUMMARY | 2025-02-20 22:39 | XMS_ITS | Encounter Summary ---
Author Organization [facility] Address [address] [place] [address] Care Team Providers Care Easement Man Name Role Phone Carrier, Ofelia GRAF Unavailable [phone] Mekhi Leonard NP Primary Care Provider Encounter Details Date Type Department Care Team (Late st Contact Info) Description 11/02/2024 Scanned Document [facility] Cancer [place] [facility] at [address] [address] Juan Valdes MD [address] [place] [address] Social History Tobacco Use Types Packs/Day Years Used Date Smoking Tobacco: Some Days Cigars Smokeless Tobacco: Never Comments:Occasional cigar Alcohol Use Standard Drinks/Week Comments Yes 4 (1 standard drink = 0.6 oz pur e alcohol) [facility] Utilities Answer Date Recorded In the past 12 months has [employer], gas, oil, or water [employer] threatened to shut off services in your [...] time in the past [address] [facility], were you homeless or living in a [...] PM EST Office Visit [facility] [place] 195 [facility], [address] [place] [phone] Parul Hanson MD 195 [facility] [address] [place], [place] 149693 03/23/2025 2:00 PM EST Office Visit [facility] Heart & Vascular [place] [address] [place] [phone] Maria R Xiong MD 85 [facility] 603 [place] [address] 05/08/2025 1:30 PM EST Office Visit [facility] Pulmonary [place] [address] [place] [address] Blas Mendez MD [address]473 [place] [address] 05/24/2025 9:00 AM EDT Office Visit [address] [phone] Luisa Modi APRN [address] [place] [address] 575972 08/23/2025 11:45 AM EDT Office Visit [address] [phone] Niels Benjamin MD [address] [place] [address] documented as of this encounter Visit Diagnoses Not on filedocumented in this encounter Care Teams Easement Man Relationship Specialty Start Date End Date Mekhi Leonard NP [address] [place] [address] PCP - General Family Medicine 07/27/24 Ofelia Forrest RN [address] [address] Oncology Nurse Navigator 05/27/24 documented as of this encounter
--- OUTSIDE RECORDS SUMMARY | 2025-02-20 22:39 | XMS_ITS | Encounter Summary ---
Author Organization [facility] Address [address] [place] [address] Care Team Providers Care Screw Machine Set Up Operator Tool Name Role Phone Carrier, Ofelia GRAF Unavailable [phone] Mekhi Leonard NP Primary Care Provider [phone] Encounter Details Date Type Department Care Team (Late st Contact Info) Description 01/09/2025 Scanned Document [facility] Pulmonary [address] [place] [address] Pulmonary, Scan Social History Tobacco Use Types Packs/Day Years Used Date Smoking Tobacco: Some Days Cigars Smokeless Tobacco: Never Comments:Occasional cigar Alcohol Use Standard Drinks/Week Comments Yes 4 (1 standard drink = 0.6 oz pur e alcohol) [facility] Utilities Answer Date Recorded In the past [...] any time in the past 12 m [facility], were you homeless or living in a [...] 2:20 PM EST Office Visit [facility] 195 [facility], [address] [place] [address] Parul Hanson MD 195 [facility] [address] [place] [address] 03/23/2025 2:00 PM EST Office Visit [facility] Heart & Vascular [place] 111 [facility] [address] 8 [place] [address] Maria R Xiong MD 85 [facility] [address] 603 [place] [address] 05/08/2025 1:30 PM EST Office Visit [facility] Pulmonary [place] [address] [place] [address] Blas Mendez MD [address] 309673 [place] [address] 05/24/2025 9:00 AM EDT Office Visit [address] [phone] Luisa Modi APRN 10 [place] [address] 08/23/2025 11:45 AM EDT Office Visit [address] [phone] Niels Benjamin MD [address] [address] documented as of this encounter Visit Diagnoses Not on filedocumented in this encounter Care Teams Screw Machine Set Up Operator Tool Relationship Specialty Start Date End Date Mekhi Leonard NP [address] [place] [address] PCP - General Family Medicine 07/27/24 Ofelia Forrest RN [address] [address] Oncology Nurse Navigator 05/27/24 documented as of this encounter
--- OUTSIDE RECORDS SUMMARY | 2025-02-20 22:39 | XMS_ITS | Encounter Summary ---
Author Organization [facility] Address [address] [place] [address] Care Team Providers Care Instructional Services Librarian Name Role Phone Carrier, Ofelia GRAF Unavailable [phone] Mekhi Leonard NP Primary Care Provider Encounter Details Date Type Department Care Team (Late st Contact Info) Description 10/31/[address] [facility] [place] Pulmonary [address] [address] Blas Mendez MD 85 [facility] [address] [place] [address] Social History Tobacco Use Types Packs/Day Years Used Date Smoking Tobacco: Some Days Cigars Smokeless Tobacco: Never Comments:Occasional cigar Alcohol Use Standard Drinks/Week Comments Yes 4 (1 standard drink = 0.6 oz pur e alcohol) [facility] Utilities Answer Date Recorded In the past 12 months has [employer], gas, oil, or water [employer] threatened to shut off services in your [...] time in the past 12 m [facility], were you homeless or living in [...] PM EST Office Visit [facility] [place] 195 [facility], [address] [place] [address] Parul Hanson MD 195 [facility] [address] 201 [place], [place] [address] 03/23/2025 2:00 PM EST Office [facility] Heart & Vascular [place] 111 [facility] [address] 8 [place] [address] Maria R Xiong MD 85 [facility] 603 [place] [address] 05/08/2025 1:30 PM EST Office Visit [facility] [place] Pulmonary [place] 100 [place] [address] Blas Mendez MD [address] [address] 05/24/2025 9:00 AM EDT Office Visit [address] [phone] Luisa Modi APRN [address] [place] [address] 08/23/2025 11:45 AM EDT Office Visit [address] [phone] Niels Benjamin MD [address] [place] [address] documented as of this encounter Visit Diagnoses Not on filedocumented in this encounter Care Teams Instructional Services Librarian Relationship Specialty Start Date End Date Mekhi Leonard NP [address] [place] [address] PCP - General Family Medicine 07/27/24 Ofelia Forrest RN [address] [address] Oncology Nurse Navigator 05/27/24 documented as of this encounter
--- OUTSIDE RECORDS SUMMARY | 2025-02-20 22:39 | XMS_ITS | Patient Health Record ---
[facility] Address [address] [place] [address] Care Team Providers Care Hydrogen Treater Name Role Phone Barrera Scott MD Primary Care Provider Carloz Vega Unavailable [phone] Allergies Allergen (clinical drug ingredient) Drug/Non Drug [...] X ray : Foot, right 3V 12/29/2016 99883-Ltoy Destruction, 1-12/29/2016 33180-Plls Destruction, -03/30/2017 81094-Wkfy Destruction, -04/20/2017 16918-Qwjw Destruction, -05/11/2017 99155-Qrzw Destruction, 03-2206/15/2017 53361-Chpc Destruction, 03-2207/20/2017 17049-Yimy Destruction, 03-2208/12/2017 16464-Camy Destruction, 03-2209/02/2017 76248-Omba Destruction, 03-2210/01/2017 Insurance Providers Payer Name Payer Address Payer Phone Subscriber Number Group Number Insured Name Patient Relationship to Insured Coverage Start Date Coverage End Date [facility] [address] [address] [place] [address] [id number] Lianna Brasher Spouse - patient is the [...]
--- OUTSIDE RECORDS SUMMARY | 2025-02-20 22:39 | XMS_ITS | Encounter Summary ---
Author Organization [facility] Address 100 [place] [address] Care Team Providers Care Senior Sql Server Database Developer Name Role Phone Carrier, Ofelia GRAF Unavailable [phone] Mekhi Leonard NP Primary Care Provider Encounter Details Date Type Department Care Team (Late st Contact Info) Description 11/23/2024 Scanned Document [facility], [address], [address] [place] [address] Unknown Unknow Provider Address Social History Tobacco Use Types Packs/Day Years Used Date Smoking Tobacco: Some Days Cigars Smokeless Tobacco: Never Comments:Occasional cigar Alcohol Use Standard Drinks/Week Comments Yes 4 (1 standard drink = 0.6 oz pur e alcohol) [facility] Utilities Answer Date Recorded In the past 12 months has [employer], gas, oil, or water company threatened [...] any time in the past 12 m [facility], were you homeless or living in a [...] 2:20 PM EST Office Visit [facility] 195 [facility], [address] [place] [address] Parul Hanson MD 195 [facility] [address] 201 [place], [place] [address] 03/23/2025 2:00 PM EST Office Visit [facility] Heart & Vascular [place] [facility] 111 [facility] [address] 8 [place] [address] Maria R Xiong MD 85 [facility] [address] 603 [place] [address] 05/08/2025 1:30 PM EST Office Visit [facility] 100 [place] [address] Blas Mendez MD [address] 6229[address] [place] [address] 05/24/2025 9:00 AM EDT Office Visit [address] [phone] Luisa Modi APRN [address] [place] [address] 08/23/2025 11:45 AM EDT Office Visit [address] [phone] Niels Benjamin MD [address] [place] [address] documented as of this encounter Visit Diagnoses Not on filedocumented in this encounter Care Teams Senior Sql Server Database Developer Relationship Specialty Start Date End Date Mekhi Leonard NP [address] [place] [address] PCP - General Family Medicine 07/27/24 Ofelia Forrest RN [address] [address] Oncology Nurse Navigator 05/27/24 documented as of this encounter
--- OUTSIDE RECORDS SUMMARY | 2025-02-20 22:40 | XMS_ITS | Encounter Summary ---
Author Organization [facility] Address [address] [place] [address] Care Team Providers Care Cancer Program Coordinator Name Role Phone Dc Carvalho MD Primary Care Provider [phone] Ofelia Forrest RN Unavailable [phone] Mekhi Leonard NP Primary Care Provider [phone] Encounter Details Date Type Department Care Team (Late st Contact Info) Description 05/26/2024 Scanned Document [address] [place] [phone] Dc Carvalho MD 100 [facility] 240 [place] [address] Social History Tobacco Use Types Packs/Day Years Used Date Smoking Tobacco: Never Assessed [facility] Utilities Answer Date Recorded [...] PM EST Office Visit [facility] 195 [facility], [address] [place] [address] Parul Hanson MD 195 [facility] [address] [place] [address] 03/23/2025 2:00 PM EST Office Visit [facility] Heart & Vascular [place] 111 [facility] 8 [place] [address] Maria R Xiong MD 85 [facility] [address] 603 [place] [address] 05/08/2025 1:30 PM EST Office Visit [address] [phone] Blas Mendez MD 85 [facility] 923 [place] [address] 05/24/2025 9:00 AM EDT Office Visit [facility] [address] [phone] Rick Modiie POWER PLANT SUPERINTENDENT 10 [place] [address] 08/23/2025 11:45 AM EDT Office Visit [address] [phone] Niels Benjamin MD [address] [address] documented as of this encounter Visit Diagnoses Not on filedocumented in this encounter Care Teams Cancer Program Coordinator Relationship Specialty Start Date End Date Dc Carvalho MD [address] [place] [address] PCP - General Urology 05/23/24 07/26/24 Mekhi Leonard NP [address] [place] [address] PCP - General Family Medicine 07/27/24 Ofelia Forrest RN [address] [address] Oncology Nurse Navigator 05/27/24 documented as of this encounter
--- OUTSIDE RECORDS SUMMARY | 2025-02-20 22:40 | XMS_ITS | Clinical Summary ---
Author Organization [facility] Ed Address [address] [place] [address] Care Team Providers Care Pipefitter Name Role Phone Carrier, Ofelia GRAF Unavailable [phone] Susanne Burrows NP Primary Care Provider Allergies [...] daily.). 40 tablet 11 09/23/19 25 Active predniSONE (DELTASONE) 10 MG tabletIndications :Sarcoidosis 6 tablets daily for 4 weeks, 4 tablets daily for 4 weeks, 3 tablets daily for 4 weeks, 2 tablets daily until seen in the office. Take With food. 200 tablet 5 11/15/19 25 Active Additional Information Patient taking differently: 20 mg Oral Daily, 6 tablets daily for 4 weeks, 4 tablets daily for 4 weeks, 3 tablets daily for 4 weeks, 2 tablets daily until seen in the office. Take With food., Reported on 02/13/2025 sulfamethoxazole- trimethoprim (BACTRIM DS,SEPTRA DS) 800-160 MG per tabletIndications :Sarcoidosis Take 1 tablet by mouth 3 (three) times a week on Thursday, Thursday, Thursday. 12 tablet 5 11/15/19 25 Active methoTREXate (RHEUMATREX) 2.5 mg tabletIndications :Sarcoidosis involving hilar lymph node Take 6 tablets (15 mg total) by mouth once a week Verify any order for freqs more than 3x per week. 72 tablet 01/31/20 25 Active leuCOVORIN (WELLCOVORIN) 5 MG tabletIndications :Sarcoidosis involving hilar lymph node Take 1 tablet (5 mg total) by mouth once a week. 12 tablet 01/31/20 25 Active Cholecalciferol (D3 2000 PO) Take by mouth. Ac tive colchicine (COLCRYS) 0.6 mg tabletIndications :Gout involving toe, unspecified cause, unspecified chronicity, unspecified laterality Take 1 tablet (0.6 mg total) by mouth 2 (two) times a day. 180 tablet 02/14/20 25 Active diazepam (VALIUM) 5 MG tablet 1 tablet (5 mg total). 11/07/19 25 025 Discontin ued(Thera py completed ) naproxen sodium (ALEVE) 220 mg tablet Take 2 tablets (440 mg total) by mouth daily. Take with meals or food to reduce stomach upset. 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 Oral herpes 07/27/2024 Obesity (BMI 30-39.9) 07/27/2024 Assessment & Plan (07/27/2024 8:21 AM EDT): Diet, exercise and lifestyle modifications. Secondary hypertension 07/27/2024 Assessment & Plan (07/27/2024 8:31 AM EDT): Managed with diet and lifestyle modifications. Continue plan as previously directed by your provider. Prostate cancer 07/13/2024 Encounters Date Type Department Care Team Description 02/16/2025 12:52 PM EST - 02/16/2025 11:59 PM EST Hospital Encounter [facility] [address] [facility], [address] [place] [phone] Jackelyn Mejía MD Sarcoidosis Discharge Disposition: Home or Self Care 02/13/2025 8:30 AM EST Office Visit [facility] [address] [facility] [address] [place] [address] Luisa Modi APRN History of prostate cancer (Primary Dx); Erectile dysfunction after radical prostatectomy 02/06/2025 2:45 PM EST Office Visit [address] [phone] Jackelyn Mejía MD Sarcoidosis (Primary Dx); Pulmonary embolism without acute cor pulmonale, unspecified chronicity, unspecified pulmonary embolism type (HCC) 01/30/2025 2:00 PM EST Office Visit [facility], [address], [address] [place] [address] Parul Hanson MD Sarcoidosis involving hilar lymph node (Primary Dx); Long-term use of high-risk medication; Sarcoidosis of other sites; Gout involving toe, unspecified cause, unspecified chronicity, unspecified laterality; Chronic bilateral low back pain without sciatica; Prostate cancer (HCC); Pulmonary embolism without acute cor pulmonale, unspecified chronicity, unspecified pulmonary embolism type (HCC); Acquired hypothyroidism 01/09/2025 Scanned Document [facility] [address] [facility] [address] [place] [phone] Pulmonary, Scan 01/02/2025 1:00 PM EDT Office Visit [facility], [address], [address] [place] [phone] Parul Hanson MD Sarcoidosis involving hilar lymph node (Primary Dx); Gout involving toe, unspecified cause, unspecified chronicity, unspecified laterality; Chronic bilateral low back pain without sciatica; Prostate cancer (HCC); Pulmonary embolism without acute cor pulmonale, unspecified chronicity, unspecified pulmonary embolism type (HCC); Acquired hypothyroidism 12/28/2024 2:15 PM EDT Office Visit [facility] at [address] [address] Juan Valdes MD Sarcoidosis (Primary Dx) 12/01/2024 2:30 PM EDT Office Visit [address] [place] [phone] Luisa Modi APRN History of prostate cancer (Primary Dx); Erectile dysfunction after radical prostatectomy; Stress incontinence of urine 11/23/2024 Scanned Document [facility], [address], [address] [place] [phone] Unknown 11/22/2024 10:05 AM EDT - 11/22/2024 11:59 PM EDT Hospital Encounter [facility] [address] [place] [address] Juan Valdes MD Discharge Disposition: Home or Self Care 11/22/2024 9:45 AM EDT Consult [facility]cology at [address] [address] Juan Valdes MD Sarcoidosis (Primary Dx) from Last 3 Months Family History Medical History Relation Name Comments Cancer, Prostate Father 59 VIDEO RENTAL CLERK Lung cancer Mother Cancer, Prostate Paternal Uncle machine operator hop worker Cancer, Bladder Neg Hx Cancer, Kidney Neg Hx Relation Name Status Comments Father Mother Paternal Uncle Social History Tobacco Use Types Packs/Day Years Used Date Smoking Tobacco: Some Days Cigars Smokeless Tobacco: Never Tobacco Cessation:Ready to Q uit: Not Asked; Counseling Given: Not Answered Comments:Occasional cigar Alcohol Use Standard Drinks/Week Comments Yes 4 (1 standard drink = 0.6 oz pur e alcohol) [facility] Utilities Answer Date Recorded In [...] - - Weight 117 kg (259 lb) 02/13/2025 8:26 AM EST Height 190.5 cm (6' 3 ) 02/13/2025 8:26 AM EST Body Mass Index 32.37 02/13/2025 8:26 AM EST Plan of Treatment Upcoming Encounters Date Type Department Care Team (Late st Contact Info) Description 03/10/2025 2:20 PM EST Office Visit [facility] [address] [facility], [address] [place] [address] Parul Hanson MD [address] [facility] [address] [place] [address] 03/23/2025 2:00 PM EST Office Visit [facility] [place] [facility] [address] [place] [address] 8 [place] [address] Maria R Xiong MD 85 [facility] [address] [place] [address] 05/08/2025 1:30 PM EST Office Visit [facility] 100 [place] [phone] Jackelyn Mejía MD [address] [address] 05/24/2025 9:00 AM EDT Office Visit [facility] [address] [facility] [address] [place] [phone] Luisa Modi APRN 10 [place] [address] 08/23/2025 11:45 AM EDT Office Visit [facility] [address] [facility] [address] [place] [phone] Niels Benjamin MD [address] [address] Health Maintenance Due Date Last Done Comments HIV Screening 1978 DTaP/Tdap/Td Vaccines (1 - Tdap) 1984 Hepatitis B Vaccines (1 of 3 - 19+ 3-dose series) 1984 Pneumococcal Vaccines 50+ (1 of 2 - PCV) 1984 Zoster (Shingles) Vaccine (1 of 2) 1984 Colonoscopy 2010 RSV Vaccine 50 years and old er and Patients (1 - Risk 50-74 years 1-dose series) 08/04/2015 Influenza Vaccine 10/07/2024 02/09/2014 COVID-19 Vaccine ( season) 2024 02/27/2021, 06/14/2020, 05/24/2020 Hepatitis C Virus Screening Completed 01/09/2025 Procedures Procedure Name Priority Date/Time Associated Diagnosis Comments PULMONARY FUNCTION TEST Routine 02/16/2025 1:26 PM EST Sarcoidosis PSA, POST PROSTATECTOMY Routine 02/06/2025 12:42 PM [...] unspecified chronicity, unspecified laterality SM (KING) AND SM/HARNESS PLACER ANTIBODIES Routine 01/09/2025 7:33 AM EST Chronic [...] toe, unspecified cause, unspecified chronicity, unspecified laterality HARNESS PLACER Routine 01/09/2025 7:33 AM EST Chronic bilateral [...] 10:49 AM EDT History of prostate cancer from Last 3 Months Results * SPIROMETRY W BRONCH/DIFFUSION/VOLS-GAS (02/16/2025 1:26 PM EST) Anatomical Region Laterality Modality PFT Impressions 02/19/2025 8:44 PM EST A. SPIROMETRY Normal spirometry without evidence of bronchodilator responsiveness B. LUNG VOLUMES Normal lung volumes C. DIFFUSION Normal diffusion DATA SUMMARY: See attached sheet. RECORDING DEFINITIONS: Severity was assessed in accordance with ERS/ATS 2021 guidelines. Obstruction calculated by lower limit of [...] bronchodilator value(L)-pre bronchodilator value(L) x 100/predicted value. Jackelyn Mejía MD 02/19/2025 8:42 PM lizet Narrative 02/19/2025 8:44 PM EST Table formatting from the original result was not included. Images from the original result were not included. Division of Pulmonary, Critical Care, and Sleep Medicine [address] [place] [address] Patient Name: Misha Steward Recording Date: @DATE@ Gender: male Height: Date of : 1965 Weight: Referring Physician: @PCP@ BMI: PULMONARY FUNCTION TEST TYPE OF TEST DONE: Spirometry (CPT 97367) before and after bronchodilator (CPT 62863) Lung volumes by multiple breath washout (CPT 57343) Diffusion capacity (CPT 17141) INDICATION: Misha Steward has been referred for pulmonary function test due to sarcoid us Jackelyn Mejía MD PFT ORDERABLES Final Resul t * PSA, Post Prostatectomy (02/06/2025 12:42 PM EST) Only the most recent of2 resultswithin the time period is included. PSA, Post Prostatectomy 0.03 ng/mL [facility] Comment: PSA values obtained with different assay methods or kits cannot be used interchangeably. This test was performed using the Homar Garryowen DxI method. PSA, ICMA is not to [...] AM EST FASTING:NO FASTING: NO us Luisa oMdi MACHINIST APPRENTICE WOOD LAB BLOOD ORDERABLES Fin al Result [email or web address] [address] [place] [phone] * XR Lumbar spine complete 4+ views [...] you for referring your patient to us, Rajendraconsueloking Finley [phone] (Electronically Signed - 01/16/2025 10:20) Copy: SUSANNE BURROWS PIPE LINE REPAIRER [facility] [address] [place] [address] PATIENT , JACKELYN MEJÍA MD [facility] [place] [address] [facility] [address] [place] [address] Narrative 01/16/2025 10:20 AM EST EXAMINATION: XR [...] by: Blue Finley MD 01/16/2025 10:20 AM [facility] Thank you for referring your patient to us, Blue Finley [id number] (Electronically Signed - 01/16/2025 10:20) Copy: SUSANNE BURROWS PIPE LINE REPAIRER [facility] [address] [place] [address] PATIENT , JACKELYN MEJÍA MD [facility] [place] [address] [place] [address] us Parul Hanson MD IMG DIAGNOSTIC IMAGING [...] apparent within the spine. Electronically signed by: Bule Finley MD 01/24/2025 10:18 AM EST Thank you for referring your patient to us, Blue Finley [id number] (Electronically Signed - 01/24/2025 10:18) Copy: SUSANNE BURROWS NP [facility] [address] [place] [address] PATIENT , PARUL HANSON MD [facility] [place] [address] [facility] [address] [place], [place] [phone] Narrative 01/24/2025 10:18 AM EST EXAMINATION: CT [...] is a 9 mm pleural-based nodule on [id number].. There are additional smaller stable nodules. Nodular [...] by: Blue Finley MD 01/24/2025 10:18 AM [facility] Thank you for referring your patient to us, Blue Finley [phone] (Electronically Signed - 01/24/2025 10:18) Copy: SUSANNE BURROWS PIPE LINE REPAIRER [facility] [address] [place] [address] PATIENT , PARUL HANSON MD [facility] [place] [address] [facility] [address] [place] [address] us Jackelyn Mejía MD IMG CT ORDERABLES Final Res ult * Immunoglobulin G Subclass 4 (01/09/2025 7:40 AM EST) Pathologist [facility] IgG 4 13.3 4.0 - 86.0 mg/dL [employer] Blood Blood specimen / Unknown 01/09/2025 7:40 AM EST 01/09/2025 7:43 AM EST Narrative [facility] - 01/16/2025 1:23 PM EST FASTING:NO PATIENT REFUSED SOME TESTING; PATIENT ENCOURAGED TO RETURN. FASTING: NO us Parul Hanson MD LAB BLOOD ORDERABLES Final Re sult STANISLAW Cuevas [employer] [address] [facility] [place] [address] * JOSELYN Multiplex, with Reflex to dsDNA (01/09/2025 7:40 AM EST) Pathologist [facility] Anachoice(R) Screen NEGATIVE NEGATIVE [facility] Comment: A negative JOSELYN Multiplex indicates the absence of detectable antibodies to component analytes consisting of double stranded DNA (dsDNA), chromatin, ribonucleoprotein (HARNESS PLACER), King/HARNESS PLACER (Sm/HARNESS PLACER), King (Sm), SS-A, SS-B, Leticia-1, centromere B, Scl-70 and ribosomal P. A negative result should be interpreted in the context of the clinical and laboratory findings and does not rule out autoimmune disease characterized by other autoantibody specificities such as rheumatoid arthritis, autoimmune hepatitis, primary biliary cirrhosis, autoimmune thyroiditis, Alexis's disease, pernicious anemia, autoimmune neuropathies, vasculitis, celiac disease, and bullous disease. For additional information, please refer to http://education.Mapado/faq/XXF194 (This link is being provided for informational/ educational purposes only.) Blood Blood specimen / Unknown 01/09/2025 7:40 AM EST 01/09/2025 7:43 AM EST Narrative [facility] - 01/16/2025 1:23 PM EST FASTING:NO PATIENT REFUSED SOME TESTING; PATIENT ENCOURAGED TO RETURN. FASTING: NO us Parul Hanson MD LAB BLOOD ORDERABLES Final Re sult [employer] [address] [place] [phone] * (ABNORMAL) Complete Blood Count, with Differential (01/09/2025 7:40 AM EST) Only the most recent of2 resultswithin the time period is included. White Blood Cell Count 9.3 3.8 - 10.8 Thousand/ uL [facility] Red Blood Cell Count 5.32 4.20 - 5.80 Million/u L [facility] Hemoglobin 16.8 13.2 - 17.1 g/dL [facility] Hematocrit 50.8(H) 38.5 - 50.0 % [facility] MCV 95.5 80.0 - 100.0 fL [facility] MCH 31.6 27.0 - 33.0 pg [facility] MCHC 33.1 32.0 - 36.0 g/dL [facility] Comment: For adults, a slight decrease in the calculated MCHC value (in the range of 30 to 32 g/dL) is most likely not clinically significant; however, it should be interpreted with caution in correlation with other red cell parameters and the patient's clinical condition. RDW 13.5 11.0 - 15.0 % [facility] Platelet Count 179 140 - 400 Thousand/ uL [facility] [employer] MPV 9.5 7.5 - 12.5 fL [facility] [employer] Abs Neutrophils Auto 7,673 1,500 - 7,800 cells/uL [facility] [employer] Abs Lymphocytes Auto 930 850 - 3,900 cells/uL [facility] [employer] Abs Monocytes Auto 577 200 - 950 cells/uL [facility] [employer] Abs Eosinophils Auto 93 15 - 500 cells/uL [facility] Abs Basophils Auto 28 0 - 200 cells/uL [facility] Neutrophils Auto 82.5 % Que [facility] Lymphocytes Auto 10.0 % [facility] [employer] Monocytes Auto 6.2 % [facility] Eosinophils Auto 1.0 % [facility] [employer] Basophils Auto 0.3 % [facility] Blood Blood specimen / Unknown 01/09/2025 7:40 AM EST 01/09/2025 7:43 AM EST Narrative [facility] - 01/16/2025 1:23 PM EST FASTING:NO PATIENT REFUSED SOME TESTING; PATIENT ENCOURAGED TO RETURN. FASTING: NO us Parul Hanson MD LAB BLOOD ORDERABLES Final Re sult [facility] [address] [place] [address] * Lysozyme (Muramidase) (01/09/2025 7:40 AM EST) Lysozyme (Muramidase) 6.4 5.0 - 11.0 mcg/mL [facility] Comment: This test was developed and its analytical performance characteristics have been determined by [employer] [place], [place]. It has not been cleared or [...] ORDERABLES Final Re sult Performing Organization Address [facility]/ZIP Co de Phone Number [facility] [address] [facility] [place] * Erythrocyte Sediment Rate (ESR) (01/09/2025 7:40 AM EST) Erythrocyte Sediment Rate (ESR) 2 < OR = 20 mm/h [facility] Blood Blood specimen / Unknown 01/09/2025 7:40 AM EST 01/09/2025 7:43 AM EST Narrative [facility] - 01/16/2025 1:23 PM EST FASTING:NO PATIENT REFUSED SOME TESTING; PATIENT ENCOURAGED TO RETURN. FASTING: NO Parul Hanson MD LAB BLOOD ORDERABLES Final Re sult Performing Organization Address [facility] Co de Phone Number [email or web address] [address] [place] [phone] * ANGIOTENSIN CONVERTING ENZYME, SERUM (01/09/2025 7:40 AM EST) Angiotensin-1 Converting Enzyme 19 9 - 67 U/L [facility] Blood Blood specimen / Unknown 01/09/2025 7:40 AM EST 01/09/2025 7:43 AM EST Narrative [facility] - 01/16/2025 1:23 PM EST FASTING:NO PATIENT REFUSED SOME TESTING; PATIENT ENCOURAGED TO RETURN. FASTING: NO Parul Hanson MD LAB BLOOD ORDERABLES Final Re sult Performing Organization Address City/[facility]/ZIP Co de Phone Number [employer]/[place] [address] [address] [place] [phone] * IMMUNOFIXATION ELECTROPHORESIS, SERUM (01/09/2025 7:40 AM EST) Pathologist [facility] Interpretation [facility] Comment: Normal pattern. No monoclonal proteins detected. Blood Blood specimen / Unknown 01/09/2025 7:40 AM EST 01/09/2025 7:43 AM EST Narrative [facility] - 01/16/2025 1:23 PM EST FASTING:NO PATIENT REFUSED SOME TESTING; PATIENT ENCOURAGED TO RETURN. FASTING: NO Parul Hanson MD LAB BLOOD ORDERABLES Final Re sult Performing Organization Address [facility] Co de Phone Number [employer] [address] [place] [phone] * IMMUNOGLOBULINS, QUANTITATIVE (DL) (01/09/2025 7:40 AM EST) [facility] Immunoglobulin A (IgA) 120 47 - 310 mg/dL [facility] Immunoglobulin G (IgG) 641 600 - 1,640 mg/dL [facility] Immunoglobulin M (IgM) 105 50 - 300 mg/dL [facility] Blood Blood specimen / Unknown 01/09/2025 7:40 AM EST 01/09/2025 7:43 AM EST Narrative [facility] - 01/16/2025 1:23 PM EST FASTING:NO PATIENT REFUSED SOME TESTING; PATIENT ENCOURAGED TO RETURN. FASTING: NO Parul Hanson MD LAB BLOOD ORDERABLES Final Re sult Performing Organization Address [facility] Co de Phone Number [employer] [address] [place] [phone] * C-Reactive Protein (01/09/2025 7:40 AM EST) [facility] C-Reactive Protein <3.0 <8.0 mg/L [facility] Blood Blood specimen / Unknown 01/09/2025 7:40 AM EST 01/09/2025 7:43 AM EST Narrative [facility] - 01/16/2025 1:23 PM EST FASTING:NO PATIENT REFUSED SOME TESTING; PATIENT ENCOURAGED TO RETURN. FASTING: NO Parul Hanson MD LAB BLOOD ORDERABLES Final Re sult Performing Organization Address [facility] de Phone Number [employer] [address] [place] [phone] * (ABNORMAL) Electrophoresis, Protein, Serum (SPEP) (01/09/2025 7:40 AM EST) Pathologist [facility] Protein, Total 6.4 6.1 - 8.1 g/dL [facility] Albumin 4.1 3.8 - 4.8 g/dL [facility] Alpha 1 Globulin 0.2 0.2 - 0.3 g/dL [facility] Alpha 2 Globulin 0.7 0.5 - 0.9 g/dL [facility] Beta 1 Globulin 0.4 0.4 - 0.6 g/dL [facility] Beta 2 Globulin 0.3 0.2 - 0.5 g/dL [facility] Gamma Globulin 0.7(L) 0.8 - 1.7 g/dL [facility] Interpretation [facility] Comment: Consistent with hypogammaglobulinemia. Serum free light [...] ORDERABLES Final Re sult Performing Organization Address [facility] Co de Phone Number [employer] [address] [place] [phone] * Comprehensive Metabolic Panel (01/09/2025 7:40 AM EST) Only the most recent of2 resultswithin the time period is included. Glucose 84 65 - 139 mg/dL [facility] Comment: Non-fasting reference interval Blood Urea Nitrogen (BUN) 22 7 - 25 mg/dL [facility] Creatinine 1.05 0.70 - 1.30 mg/dL [facility] Creatinine w/ eGFR 82 > OR = 60 mL/min/1. 73m2 [facility] BUN/Creatinine Ratio SEE NOTE: 6 - 22 (calc) [facility] Comment: Not Reported: BUN and Creatinine are within reference range. Sodium 139 135 - 146 mmol/L [facility] Potassium 3.9 3.5 - 5.3 mmol/L [facility] Chloride 102 98 - 110 mmol/L [facility] CO2 28 20 - 32 mmol/L [facility] Calcium 9.4 8.6 - 10.3 mg/dL [facility] Protein, Total 6.4 6.1 - 8.1 g/dL [facility] Albumin 4.3 3.6 - 5.1 g/dL [facility] Globulin 2.1 1.9 - 3.7 g/dL (calc) [facility] Albumin/Globuli n Ratio 2.0 1.0 - 2.5 (calc) [facility] Bilirubin, Total 0.5 0.2 - 1.2 mg/dL [facility] Alkaline Phosphatase 48 35 - 144 U/L [facility] Aspartate Aminotrans (AST) 16 10 - 35 U/L [facility] Alanine Aminotrans (ALT) 23 9 - 46 U/L [facility] Blood Blood specimen / Unknown 01/09/2025 7:40 AM EST 01/09/2025 7:43 AM EST Narrative [facility] - 01/16/2025 1:23 PM EST FASTING:NO PATIENT REFUSED SOME TESTING; PATIENT ENCOURAGED TO RETURN. FASTING: NO Parul Hanson MD LAB BLOOD ORDERABLES Final Re sult [employer] [address] [place] [phone] * QUANTIFERON ?? -TB GOLD PLUS, 1 TUBE (01/09/2025 7:33 AM EST) Quantiferon TB Gold Plus, 1T NEGATIVE NEGATIVE [facility] Comment: Negative test result. M. tuberculosis complex infection unlikely. Quantiferon NIL 0.10 IU/mL [facility] Quantiferon Mitogen-NIL 3.55 IU/mL [facility] Quantiferon TB1-NIL <0.00 IU/mL [facility] Quantiferon TB2-NIL <0.00 IU/mL [facility] Comment: The Nil tube value reflects the [...] T-lymphocytes. For additional information, please refer to https://education.ProRadis/faq/CQL995 (This link is being provided for informational/ educational purposes only.) Blood Blood specimen / Unknown 01/09/2025 7:33 AM EST 01/09/2025 7:37 AM EST Narrative [facility] - 01/12/2025 5:16 PM EST FASTING:NO FASTING: NO Parul Hanson MD LAB BLOOD ORDERABLES Final Re sult [employer] [address] [place] [phone] * (ABNORMAL) PROTEIN, TOTAL, RANDOM URINE, W/CREATININE (01/09/2025 7:33 AM EST) Creatinine, Urine, Random 57 20 - 320 mg/dL [facility] Protein/Creati nine Ratio, Urine 70 25 - 148 mg/g creat [facility] Protein/Creati nine Ratio 0.070 0.025 - 0.148 mg/mg creat [facility] Protein Urine, Random 4(L) 5 - 25 mg/dL [facility] Urine Urine specimen / Unknown 01/09/2025 7:33 AM EST 01/09/2025 7:37 AM EST Narrative [facility] - 01/12/2025 5:16 PM EST FASTING:NO FASTING: NO Parul Hanson MD URINE ORDERABLES Final Result Performing Organization Address [facility] Co de Phone Number [facility] [address] [place] [phone] * Thyroid Peroxidase and Thyroglobulin Antibodies (01/09/2025 7:33 AM EST) Pathologist [facility] Thyroglobulin AB <1 < or = 1 IU/mL [facility] Thyroid Peroxidase Antibody <1 <9 IU/mL [facility] Blood Blood specimen / Unknown 01/09/2025 7:33 AM EST 01/09/2025 7:37 AM EST Narrative [facility] - 01/12/2025 5:16 PM EST FASTING:NO FASTING: NO us Parul Hanson MD LAB BLOOD ORDERABLES Final Re sult Performing Organization Address [facility]/ZIP Co de Phone Number [employer] [address] [place] [phone] * HARNESS PLACER (01/09/2025 7:33 AM EST) Pathologist [facility] HARNESS PLACER <1.0 NEG <1.0 NEG [facility] Blood Blood specimen / Unknown 01/09/2025 7:33 AM EST 01/09/2025 7:37 AM EST Narrative [facility] - 01/12/2025 5:16 PM EST FASTING:NO FASTING: NO us Parul Hanson MD LAB BLOOD ORDERABLES Final Re sult Performing Organization Address [facility] de Phone Number [employer] [address] [place] [phone] * TSH REFLEX FREE T4 (01/09/2025 7:33 AM EST) TSH reflex Free T4 1.21 0.40 - 4.50 mIU/L [facility] Blood Blood specimen / Unknown 01/09/2025 7:33 AM EST 01/09/2025 7:37 AM EST Narrative [facility] - 01/12/2025 5:16 PM EST FASTING:NO FASTING: NO Parul Hanson MD LAB BLOOD ORDERABLES Final Re sult Performing Organization Address [facility] de Phone Number [employer] [address] [place] [phone] * PTH, INTACT WITH IONIZED CALCIUM (01/09/2025 7:33 AM EST) PTH, Intact 32 16 - 77 pg/mL [facility] Comment: Interpretive Guide Intact PTH Calcium ------- Normal Parathyroid Normal Normal Hypoparathyroidism Low or Low Normal Low Hyperparathyroidism Primary Normal or High High Secondary High Normal or Low Tertiary High High Non-Parathyroid Hypercalcemia Low or Low Normal High Calcium 9.4 8.6 - 10.3 mg/dL [facility] Calcium, Ionized 5.1 4.7 - 5.5 mg/dL [facility] Blood Blood specimen / Unknown 01/09/2025 7:33 AM EST 01/09/2025 7:37 AM EST Narrative [facility] - 01/12/2025 5:16 PM EST FASTING:NO FASTING: NO Parul Hanson MD LAB BLOOD ORDERABLES Final Re sult Performing Organization Address [facility] de Phone Number [employer] [address] [place] [phone] * Chromatin Nucleosomal Antibodies (01/09/2025 7:33 AM EST) Chromatin (Nucleosomal) Antibody <1.0 NEG <1.0 NEG [facility] Blood Blood specimen / Unknown 01/09/2025 7:33 AM EST 01/09/2025 7:37 AM EST Narrative [facility] - 01/12/2025 5:16 PM EST FASTING:NO FASTING: NO Parul Hanson MD LAB BLOOD ORDERABLES Final Re sult Performing Organization Address [facility] de Phone Number [employer] [address] [place] [phone] * C3, C4, PANEL (01/09/2025 7:33 AM EST) Complement C3 137 82 - 185 mg/dL [facility] Complement C4 28 15 - 53 mg/dL [facility] Blood Blood specimen / Unknown 01/09/2025 7:33 AM EST 01/09/2025 7:37 AM EST Narrative [facility] - 01/12/2025 5:16 PM EST FASTING:NO FASTING: NO Parul Hanson MD LAB BLOOD ORDERABLES Final Re sult Performing Organization Address [facility] de Phone Number [employer] [address] [place] [phone] * Sm (King) and Sm/HARNESS PLACER Antibodies (01/09/2025 7:33 AM EST) Sm (King) Antibody <1.0 NEG <1.0 NEG [facility] Sm/HARNESS PLACER Antibody <1.0 NEG <1.0 NEG [facility] Blood Blood specimen / Unknown 01/09/2025 7:33 AM EST 01/09/2025 7:37 AM EST Narrative [facility] - 01/12/2025 5:16 PM EST FASTING:NO FASTING: NO Parul Hanson MD LAB BLOOD ORDERABLES Final Re sult Performing Organization Address [facility] Co de Phone Number [employer] [address] [place] [phone] * SJOGREN'S (SS-A, SS-B) ANTIBODIES (01/09/2025 7:33 AM EST) Ro (SSA) Antibody <1.0 NEG <1.0 NEG [facility] La (SSB) Antibody <1.0 NEG <1.0 NEG [facility] Blood Blood specimen / Unknown 01/09/2025 7:33 AM EST 01/09/2025 7:37 AM EST [facility] - 01/12/2025 5:16 PM EST FASTING:NO FASTING: NO Parul Hanson MD LAB BLOOD ORDERABLES Final Re sult Performing Organization Address [facility] de Phone Number [employer] [address] [place] [phone] * (ABNORMAL) HISTONE ANTIBODY (01/09/2025 7:33 AM EST) Histone Antibodies 1.1(H) <1.0 U [facility] Comment: Value Explanation of Results ------ <1.0 Negative 1.0 - 1.5 Weak Positive 1.6 - 2.5 Moderate Positive >2.5 Strong Positive Blood Blood specimen / Unknown 01/09/2025 7:33 AM EST 01/09/2025 7:37 AM EST Narrative [facility] - 01/12/2025 5:16 PM EST FASTING:NO FASTING: NO Parul Hanson MD LAB BLOOD ORDERABLES Final Re sult Performing Organization Address [facility] Co de Phone Number [employer]/[place] [address] [facility] [place] [phone] * HEPATITIS B VIRUS (HBV) SURFACE ANTIGEN SCREEN, REFLEX CONFIRMATION (01/09/2025 7:33 AM EST) Pathologist [facility] Hepatitis B Surface Ag Screen NON-REACT MELA NON-REACT MELA [facility] Comment: For additional information, please refer to http://education.ProRadis/faq/HRG558 (This link is being provided for informational/ educational purposes only.) Blood specimen / Unknown 01/09/2025 7:33 AM EST 01/09/2025 7:37 AM EST Narrative [facility] - 01/12/2025 5:16 PM EST FASTING:NO FASTING: NO Parul Hanson MD LAB BLOOD ORDERABLES Final Re sult Performing Organization Address [facility] de Phone Number [employer] [address] [place] [phone] * Centromere Antibody (01/09/2025 7:33 AM EST) Pathologist [facility] Centromere Antibody <1.0 NEG <1.0 NEG [facility] Blood Blood specimen / Unknown 01/09/2025 7:33 AM EST 01/09/2025 7:37 AM EST Narrative [facility] - 01/12/2025 5:16 PM EST FASTING:NO FASTING: NO Parul Hanson MD LAB BLOOD ORDERABLES Final Re sult Performing Organization Address [facility] Co de Phone Number [employer] [address] [place] [phone] * HEPATITIS C VIRUS (HCV) ANTIBODY (01/09/2025 7:33 AM EST) Pathologist [facility] Hepatitis C Antibody NON-REACT MELA NON-REACT MELA [facility] Comment: HCV antibody was non-reactive. There is no laboratory evidence of HCV infection. In most cases, no further action is required. However, if recent HCV exposure is suspected, a test for HCV RNA (test code 89358) is suggested. For additional information please refer to http://education.ProRadis/faq/JQS05s3 (This link is being provided for informational/ educational purposes only.) Blood specimen / Unknown 01/09/2025 7:33 AM EST 01/09/2025 7:37 AM EST Narrative [facility] - 01/12/2025 5:16 PM EST FASTING:NO FASTING: NO Parul Hanson MD LAB BLOOD ORDERABLES Final Re sult Performing Organization Address [facility] Co de Phone Number [employer] [address] [place] [phone] * Cyclic Citrullinated Peptide IgG Ab (01/09/2025 7:33 AM EST) CCP IgG Antibodies <16 UNITS [facility] Comment: Reference Range Negative: <20 Weak Positive: 20-39 Moderate Positive: 40-59 Strong Positive: >59 Blood Blood specimen / Unknown 01/09/2025 7:33 AM EST 01/09/2025 7:37 AM EST Narrative [facility] - 01/12/2025 5:16 PM EST FASTING:NO FASTING: NO Parul Hanson MD LAB BLOOD ORDERABLES Final Re sult Performing Organization Address [facility] Co de Phone Number [employer] [address] [place] [phone] * SCL-70 ANTIBODY, EIA (01/09/2025 7:33 AM EST) Scl-70 Antibody <1.0 NEG <1.0 NEG [facility] Blood Blood specimen / Unknown 01/09/2025 7:33 AM EST 01/09/2025 7:37 AM EST Narrative [facility] - 01/12/2025 5:16 PM EST FASTING:NO FASTING: NO Parul Hanson MD LAB BLOOD ORDERABLES Final Re sult Performing Organization Address [facility] Co de Phone Number [employer] [address] [place] [phone] * Double Strand DNA Antibody (01/09/2025 7:33 AM EST) Pathologist [facility] Double Strand DNA Antibody 1 IU/mL [facility] Comment: IU/mL Interpretation < or = 4 Negative 5-9 Indeterminate > or = 10 Positive Blood Blood specimen / Unknown 01/09/2025 7:33 AM EST 01/09/2025 7:37 AM EST Narrative [facility] - 01/12/2025 5:16 PM EST FASTING:NO FASTING: NO Parul Hanson MD LAB BLOOD ORDERABLES Final Re sult Performing Organization Address [facility] de Phone Number [employer] [address] [place] [phone] * HEPATITIS B VIRUS (HBV) CORE ANTIBODY TOTAL (01/09/2025 7:33 AM EST) [facility] Hepatitis B Core Antibody Total NON-REACT MELA NON-REACT MELA [facility] Comment: For additional information, please refer to http://education.ProRadis/faq/GZK512 (This link is being provided for informational/ educational purposes only.) Blood specimen / Unknown 01/09/2025 7:33 AM EST 01/09/2025 7:37 AM EST Narrative [facility] - 01/12/2025 5:16 PM EST FASTING:NO FASTING: NO Parul Hanson MD LAB BLOOD ORDERABLES Final Re sult Performing Organization Address [facility] de Phone Number [employer] [address] [place] [phone] * (ABNORMAL) VITAMIN D, 25-HYDROXY (01/09/2025 7:33 AM EST) Vitamin D,25-Oh,Total, IA 23(L) 30 - 100 ng/mL [facility] Comment: Vitamin D Status 25-OH Vitamin D: Deficiency: <20 ng/mL Insufficiency: 20 - 29 ng/mL Optimal: > or = 30 ng/mL For 25-OH Vitamin D testing on patients on D2-supplementation and patients for whom quantitation of D2 and D3 fractions is required, the [facility](TM) 25-OH VIT D, (D2,D3), LC/MS/MS is recommended: order code 28374 (patients >2yrs). See Note 1 Note 1 For additional information, please refer to http://education.Mapado/faq/OFZ135 (This link is being provided for informational/ educational purposes only.) Blood Blood specimen / Unknown 01/09/2025 7:33 AM EST 01/09/2025 7:37 AM EST Narrative [facility] - 01/12/2025 5:16 PM EST FASTING:NO FASTING: NO us Parul Hanson MD LAB BLOOD ORDERABLES Final Re sult [facility] [address] [place] [phone] * Urinalysis with Microscopic (01/09/2025 7:33 AM EST) Color YELLOW YELLOW [facility] Clarity CLEAR CLEAR [facility] Specific [place] 1.011 1.001 - 1.035 [facility] pH 6.5 5.0 - 8.0 [facility] Glucose, Urine, Random NEGATIVE NEGATIVE [facility] Bilirubin NEGATIVE NEGATIVE [facility] Ketones NEGATIVE NEGATIVE [facility] Blood NEGATIVE NEGATIVE [facility] Protein NEGATIVE NEGATIVE [facility] Nitrite NEGATIVE NEGATIVE [facility] Leukocyte Esterase NEGATIVE NEGATIVE [facility] WBC NONE SEEN < OR = 5 /HPF [facility] RBC NONE SEEN < OR = 2 /HPF [facility] Squamous Epithelial Cells NONE SEEN < OR = 5 /HPF [facility] Bacteria NONE SEEN NONE SEEN /HPF [facility] Hyaline Cast NONE SEEN NONE SEEN /LPF [facility] Note [facility] Comment: This urine was analyzed for the presence of WBC, RBC, bacteria, casts, and other formed elements. Only those elements seen were reported. Urine Urine specimen / Unknown 01/09/2025 7:33 AM EST 01/09/2025 7:37 AM EST Narrative [facility] - 01/12/2025 5:16 PM EST FASTING:NO FASTING: NO Parul Hanson MD URINE ORDERABLES Final Result Performing Organization Address [facility] de Phone Number [employer] [address] [place] [phone] * RHEUMATOID FACTOR (01/09/2025 7:33 AM EST) Rheumatoid Factor <10 <14 IU/mL [facility] Blood Blood specimen / Unknown 01/09/2025 7:33 AM EST 01/09/2025 7:37 AM EST Narrative [employer] - 01/12/2025 5:16 PM EST FASTING:NO FASTING: NO Parul Hanson MD LAB BLOOD ORDERABLES Final Re sult Performing Organization Address [facility] Co de Phone Number [employer] [address] [place] [phone] * URIC ACID (01/09/2025 7:33 AM EST) Uric Acid 4.9 4.0 - 8.0 mg/dL [facility] Comment: Therapeutic target for gout patients: <6.0 mg/dL 01/09/2025 7:33 AM EST 01/09/2025 7:37 AM EST Narrative [facility] - 01/12/2025 5:16 PM EST FASTING:NO FASTING: NO us Parul Hanson MD LAB BLOOD ORDERABLES Final Re sult Performing Organization Address City/[facility]/ZIP Co de Phone Number [employer] [address] [place] [phone] * CREATINE KINASE (CK) (01/09/2025 7:33 AM EST) Pathologist [facility] Creatine Kinase (CK) 59 23 - 325 U/L [facility] Blood Blood specimen / Unknown 01/09/2025 7:33 AM EST 01/09/2025 7:37 AM EST Narrative [facility] - 01/12/2025 5:16 PM EST FASTING:NO FASTING: NO Parul Hanson MD LAB BLOOD ORDERABLES Final Re sult Performing Organization Address [facility] Co de Phone Number [employer] [address] [place] [phone] * (ABNORMAL) POCT Complete Blood Count (Oncology) (12/28/2024 2:02 PM EDT) Only the most recent of2 resultswithin the time period is included. [facility] White Blood Cell Count 10.1 4.0 - [...] ORDERABLES - ONCOLOGY F inal Result [address] [address], [address] * Flow Cytometry Report (11/22/2024 10:05 AM EDT) Report [facility] [id number] CLIA ID [id number] [address] [place] [address] / 2 [phone] Hematopathology Report PATIENT NAME: MISHA STEWARD. MED REC NUMBER: [id number] (AGE): 1965 (Age: 59) SPECIMEN NUMBER: [id number] DATE OBTAINED: 11/22/2024 DIAGNOSIS PERIPHERAL BLOOD (FLOW [...] CD34+ blasts comprise <0.1% of the WBCs. [id number] Clinical Information and History: D86.9 (Sarcoidosis, unspecified) [...] determined by the [facility]. It has not been cleared or approved [...] Res ult from Last 3 Months Insurance [facility] - HMO BLUE [employer] OUT [facility] - HMO Advance Directives * Full Code (Latest Code Status on File) Date Activated Date Inactivated Comments 08/24/2024 2:28 PM 11/03/2024 10:17 AM * Full Code Date Activated Date Inactivated Comments 08/16/2024 7:09 PM 08/24/2024 9:59 AM * Full Code Date Activated Date Inactivated Comments 08/16/2024 9:37 AM 08/16/2024 7:09 PM Care Teams Pipefitter Relationship Specialty Start Date End Date Susanne Burrows NP [address] [phone] PCP - General Family Medicine 07/27/24 Ofelia Forrest RN [address] [place] [phone] Oncology Nurse Navigator 05/27/24
--- OUTSIDE RECORDS SUMMARY | 2025-02-20 22:40 | XMS_ITS ---
Author Organization [facility] Address [address] [place] [address] Care Team Providers Care Right Of Way Manager Name Role Phone Carrier, Ofelia GRAF [...] Patient to follow up with PCP or colorer machine for continued management of hypothyroidism as previously [...]
--- OUTSIDE RECORDS SUMMARY | 2025-02-20 22:40 | XMS_ITS | Clinical Summary ---
Author Organization [facility] [address] [facility] Address [address] [place] [phone] Phone Care Team Providers Care Title I Assistant Name Role Phone Mekhi Leonard NP Primary [...] patient's age to complete this topic Insurance [facility] Care Teams Title I Assistant Relationship Specialty Start Date End Date Mekhi Leonard NP PCP - General Family Medicine 02/19/24
== END 2025-02-20 16:30 | disposition home or self-care (01) ==
LOC: HO.HMGAL 16:29
PROVIDERS: PCP Nurse Practitioner Family; Visit Provider Registered Nurse Emergency
DX: J30.89 Other allergic rhinitis (principal)
CPT/HCPCS: 95117; 95165